=== PATIENT | female | born 1995 | race Caucasian/White ===

== ENCOUNTER 2016-03-07 12:59 | Emergency (ER) | payer OTHER ==
[2016-03-07] MEDS ORDERED: IBUPROFEN 800 MG TAB PO STA (13:15)
[2016-03-07 13:18] VITALS: BP 121/68; PULSE 102; RESP 18; TEMP 98
--- NOTE | 2016-03-07 13:32 | ED ---
Upper Extremity HPI - General Stated Complaint: Hand Injury Time Seen by Provider: 03/07/16 13:07 Source: patient Mode of arrival: ambulatory Limitations: no limitations - History of Present Illness Initial Comments: Patient is a 20-year-old white female presenting to the emergency department with complaints of right wrist and hand pain. Patient states she was angry and hit a wall. Onset of injury approximately one hour prior to arrival. Patient states that she injured her wrist approximately 4 years ago but denies history of fractures. Complaint: Injury to:: right, wrist, hand Other Injuries: none Handedness: right Place: home Severity scale (1-10): 10 (Patient complains of sharp pain primarily to lateral aspect of right hand and wrist.) Improves With: rest Worsens With: movement of extremity Context: other Associated Symptoms: numbness (Patient complains of mild numbness to right ring and little finger.) - Related Data Home Medications Medication Instructions Recorded Confirmed No Known Home Medications [No 10/09/15 03/07/16 Known Home Medications] Allergies Allergy/AdvReac Type Severity Reaction Status Date / Time diphenhydramine HCl Allergy Mild Rash/Hives Verified 03/07/16 13:17 [From Benadryl] Review of Systems ROS Statement: Those systems with pertinent positive or pertinent negative responses have been documented in the HPI. ROS Other: All systems not noted in ROS Statement are negative. Past Medical History Past Medical History: Pneumonia Additional Past Medical History / Comment(s): Back pain, SHINGLES History of Any Multi-Drug Resistant Organisms: None Reported Past Surgical History: No Surgical Hx Reported Additional Past Surgical History / Comment(s): D&C Past Anesthesia/Blood Transfusion Reactions: No Reported Reaction Past Psychological History: Anxiety, Bipolar, Depression Additional Psychological History / Comment(s): NO MEDS CURRENTLY Smoking Status: Current every day smoker Past Alcohol Use History: None Reported Additional Past Alcohol Use History / Comment(s): She is a smoker of 8-10 cigarettes per day since she was 16 years old she denies any marijuana, medical marijuana or street drug use. She denies any alcohol use. Past Drug Use History: None Reported - Past Family History Father Family Medical History: Coronary Artery Disease (CAD) Additional Family Medical History / Comment(s): She states she never met her father. Mother Family Medical History: Congestive Heart Failure (CHF), Coronary Artery Disease (CAD) Additional Family Medical History / Comment(s): Mother is alive at age 39 and has problems with heart failure. Sister(s) Family Medical History: Coronary Artery Disease (CAD) Additional Family Medical History / Comment(s): Patient states that she has 5/2 sisters and one has from cervical palsy at age 15. She has 1 older sister that has schizophrenia and bipolar. Patient states that she has 11 half- brothers and one has passed. General Exam Limitations: no limitations General appearance: alert, in no apparent distress Head exam: Present: atraumatic, normocephalic, normal inspection Eye exam: Present: normal appearance Respiratory exam: Present: normal lung sounds bilaterally. Absent: respiratory distress, wheezes, rales, rhonchi, stridor Cardiovascular Exam: Present: tachycardia, normal heart sounds GI/Abdominal exam: Present: soft, normal bowel sounds. Absent: tenderness Right Elbow exam: Present: normal inspection, full ROM. Absent: tenderness, swelling Forearm Wrist exam: Present: normal inspection, full ROM (Painful), tenderness ( Tenderness to lateral aspect of right wrist) Hand Wrist exam: Present: tenderness, swelling. Absent: full ROM (Secondary to pain), ecchymosis, deformity Neuro motor exam: Present: wrist extension intact, thumb opposition intact, thumb IP flexion intact, thumb adduction intact, fingers 2-5 abduction intact Neurosensory exam: Present: 2-point discrimination, radial nerve intact, ulnar nerve intact, median nerve intact Vascular: Present: normal capillary refill, radial pulse, brachial pulse, ulnar pulse. Absent: vascular compromise Neurological exam: Present: alert, oriented X3, CN II-XII intact, normal gait Psychiatric exam: Present: normal affect, normal mood Skin exam: Present: warm, dry, intact, normal color Course Vital Signs 03/07/16 13:15 Temperature 98.0 F Pulse Rate 102 H Respiratory 18 Rate Blood Pressure 121/68 O2 Sat by Pulse 99 Oximetry Medical Decision Making - Medical Decision Making Patient is a 20-year-old female presenting with left hand and wrist pain. Patient left AGAINST MEDICAL ADVICE prior to definitive diagnosis. Disposition Clinical Impression: Left wrist pain Disposition: Left Against Medical Advice Referrals: Bobby Riley MD [Primary Care Provider] - 1-2 days
--- NOTE | 2016-03-07 15:20 | XR ---
Left wrist HISTORY: Trauma and pain 4 views of the left wrist, no comparisons Bone mineralization, joint spaces and alignment are maintained. IMPRESSION: No fracture or dislocation is evident.
--- NOTE | 2016-03-07 15:43 | XR ---
Addendum: Exam is of the right wrist. HISTORY: Pain 4 views of the right wrist submitted. Bone mineralization, joint spaces and alignment are maintained. IMPRESSION: No evident fracture or dislocation of the right wrist. Follow-up as indicated.
== END 2016-03-07 15:20 | disposition left against medical advice (07) ==
LOC: EC 12:59
DX: M25.531 Pain in right wrist (principal); F17.210 Nicotine dependence, cigarettes, uncomplicated; Z88.8 Allergy status to other drugs, medicaments and biological substances
CPT/HCPCS: 99283

== ENCOUNTER 2016-03-25 00:05 | Emergency (ER) | payer OTHER ==
--- NOTE | 2016-03-25 01:03 | XR ---
EXAMINATION TYPE: XR chest 2V DATE OF EXAM: 03/25/2016 12:59 AM COMPARISON: 10/09/2015 HISTORY: Cough TECHNIQUE: Frontal and lateral views of the chest are obtained. FINDINGS: Heart and mediastinum are normal. Lungs are clear. Diaphragm is normal. Bony thorax is int act. IMPRESSION: Normal chest. No change.
--- NOTE | 2016-03-25 01:41 | ED ---
URI HPI - General Chief Complaint: Upper Respiratory Infection Stated Complaint: poss pneumonia Time Seen by Provider: 03/25/16 00:13 Source: patient Mode of arrival: ambulatory Limitations: no limitations - History of Present Illness Initial Comments: This patient is a 20-year-old woman who complains of 2 days of worsening cough, congestion, body aches, and substernal burning when she does cough. She is concerned because she had similar symptoms when she had pneumonia. Patient currently is denying dyspnea. MD Complaint: cough, rhinorrhea -: days(s) Severity: moderate Quality: burning Consistency: other (With cough) Improves With: nothing Associated Symptoms: fever, chills, headache, sore throat, cough, chest pain - Related Data Previous Rx's Medication Instructions Recorded Albuterol Inhaler [Ventolin Hfa 1 - 2 puff INHALATION Q6HR PRN #1 03/25/16 Inhaler] inhaler Oseltamivir [Tamiflu] 75 mg PO Q12HR #10 cap 03/25/16 Allergies Allergy/AdvReac Type Severity Reaction Status Date / Time diphenhydramine HCl Allergy Mild Rash/Hives Verified 03/25/16 00:22 [From Benadryl] Review of Systems ROS Statement: Those systems with pertinent positive or pertinent negative responses have been documented in the HPI. ROS Other: All systems not noted in ROS Statement are negative. Constitutional: Reports: fever, chills ENT: Reports: throat pain, congestion Respiratory: Reports: cough. Denies: dyspnea, wheezes, hemoptysis Cardiovascular: Reports: chest pain (Substernal burning with cough). Denies: orthopnea, edema Gastrointestinal: Denies: vomiting, diarrhea Genitourinary: Denies: dysuria Musculoskeletal: Denies: back pain Skin: Denies: rash Neurological: Reports: headache. Denies: weakness, numbness Past Medical History Past Medical History: Pneumonia Additional Past Medical History / Comment(s): Back pain, SHINGLES History of Any Multi-Drug Resistant Organisms: None Reported Past Surgical History: No Surgical Hx Reported Additional Past Surgical History / Comment(s): D&C Past Anesthesia/Blood Transfusion Reactions: No Reported Reaction Past Psychological History: Anxiety, Bipolar, Depression Additional Psychological History / Comment(s): NO MEDS CURRENTLY Smoking Status: Current every day smoker Past Alcohol Use History: None Reported Additional Past Alcohol Use History / Comment(s): She is a smoker of 8-10 cigarettes per day since she was 16 years old she denies any marijuana, medical marijuana or street drug use. She denies any alcohol use. Past Drug Use History: None Reported - Past Family History Father Family Medical History: Coronary Artery Disease (CAD) Additional Family Medical History / Comment(s): She states she never met her father. Mother Family Medical History: Congestive Heart Failure (CHF), Coronary Artery Disease (CAD) Additional Family Medical History / Comment(s): Mother is alive at age 39 and has problems with heart failure. Sister(s) Family Medical History: Coronary Artery Disease (CAD) Additional Family Medical History / Comment(s): Patient states that she has 5/2 sisters and one has from cervical palsy at age 15. She has 1 older sister that has schizophrenia and bipolar. Patient states that she has 11 half- brothers and one has passed. General Exam Limitations: no limitations General appearance: alert, in no apparent distress Head exam: Present: atraumatic, normocephalic Eye exam: Present: normal appearance. Absent: scleral icterus, conjunctival injection ENT exam: Present: normal oropharynx, mucous membranes moist, TM's normal bilaterally Neck exam: Present: normal inspection, full ROM. Absent: tenderness, meningismus Respiratory exam: Present: normal lung sounds bilaterally, other (Patient is having frequent bronchitic cough). Absent: respiratory distress, wheezes, rales , rhonchi, stridor Cardiovascular Exam: Present: normal rhythm, tachycardia, normal heart sounds. Absent: systolic murmur, diastolic murmur, rubs GI/Abdominal exam: Present: soft. Absent: distended, tenderness, guarding, rebound Extremities exam: Present: normal inspection, normal capillary refill. Absent: pedal edema, calf tenderness Neurological exam: Present: alert Skin exam: Present: warm, dry, intact, normal color. Absent: rash Course Vital Signs 03/25/16 03/25/16 03/25/16 00:22 00:30 01:50 Temperature 98.3 F 98.2 F Pulse Rate 132 H 120 H Respiratory 18 20 20 Rate Blood Pressure 158/90 134/89 O2 Sat by Pulse 97 98 Oximetry 03/25/16 03/25/16 01:58 02:06 Temperature Pulse Rate 84 80 Respiratory Rate Blood Pressure O2 Sat by Pulse Oximetry Medical Decision Making - Lab Data Lab Results 03/25/16 Range/Units 00:44 Influenza Type A RNA Detected H (Not Detectd) Influenza Type B (PCR) Not Detected (Not Detectd) Disposition Clinical Impression: Influenza Disposition: HOME SELF-CARE Condition: Fair Instructions: Influenza (ED) Prescriptions: Albuterol Inhaler [Ventolin Hfa Inhaler] 1 - 2 puff INHALATION Q6HR PRN #1 inhaler PRN Reason: Wheezing Oseltamivir [Tamiflu] 75 mg PO Q12HR #10 cap Referrals: Bobby Riley MD [Primary Care Provider] - 1-2 days
[2016-03-25] MEDS ORDERED: ALBUTEROL NEBULIZED 2.5 MG/3 ML INHALATION STA (01:50)
[2016-03-25 01:53] VITALS: BP 134/89; RESP 20; TEMP 98.2
[2016-03-25 02:06] VITALS: PULSE 80
== END 2016-03-25 02:06 | disposition home or self-care (01) ==
LOC: EC 00:05
DX: J11.1 Influenza due to unidentified influenza virus with other respiratory manifestations (principal); Z87.01 Personal history of pneumonia (recurrent); Z88.8 Allergy status to other drugs, medicaments and biological substances; F17.210 Nicotine dependence, cigarettes, uncomplicated
CPT/HCPCS: 71020; 87502; 94640; 99284

== ENCOUNTER 2017-07-09 21:14 | Emergency (ER) | payer OTHER ==
--- NOTE | 2017-07-09 21:58 | ED ---
Abdominal Pain HPI - General Chief Complaint: Abdominal Pain Stated Complaint: Abd pain Time Seen by Provider: 07/09/17 21:44 Source: patient, family, RN notes reviewed Mode of arrival: ambulatory Limitations: no limitations - History of Present Illness Initial Comments: This is a 21-year-old female, currently 18 weeks , who presents to the emergency department with chief complaint of abdominal pain. Patient states that at approximately 9 PM this evening she was hanging out in her backyard. She states that some neighbor guys were cutting wood with a chain saw. She states that a piece of wood flew and hit her in the abdomen. She states that since then she has had a dull, pressure-like abdominal pain. She states that she has a "high risk ." She states that on her last ultrasound her OB/ CHEMISTRY QUALITY CONTROL ANALYST, Dr. Silver, "found something." She states she has yet to learn what it is that makes her a high risk . Patient denies any vaginal bleeding or discharge. Denies fevers or chills, nausea or vomiting, diarrhea or constipation. Denies any other injuries or trauma. - Related Data Previous Rx's Medication Instructions Recorded Albuterol Inhaler [Ventolin Hfa 1 - 2 puff INHALATION Q6HR PRN #1 03/25/16 Inhaler] inhaler Allergies Allergy/AdvReac Type Severity Reaction Status Date / Time diphenhydramine HCl Allergy Mild Rash/Hives Verified 07/09/17 21:26 [From Benadryl] Review of Systems ROS Statement: Those systems with pertinent positive or pertinent negative responses have been documented in the HPI. ROS Other: All systems not noted in ROS Statement are negative. Past Medical History Past Medical History: Pneumonia Additional Past Medical History / Comment(s): Back pain, SHINGLES History of Any Multi-Drug Resistant Organisms: None Reported Past Surgical History: No Surgical Hx Reported Additional Past Surgical History / Comment(s): D&C Past Anesthesia/Blood Transfusion Reactions: No Reported Reaction Past Psychological History: Anxiety, Bipolar, Depression Smoking Status: Current every day smoker Past Alcohol Use History: None Reported Past Drug Use History: None Reported - Past Family History Father Family Medical History: Coronary Artery Disease (CAD) Additional Family Medical History / Comment(s): She states she never met her father. Mother Family Medical History: Congestive Heart Failure (CHF), Coronary Artery Disease (CAD) Additional Family Medical History / Comment(s): Mother is alive at age 39 and has problems with heart failure. Sister(s) Family Medical History: Coronary Artery Disease (CAD) Additional Family Medical History / Comment(s): Patient states that she has 5/2 sisters and one has from cervical palsy at age 15. She has 1 older sister that has schizophrenia and bipolar. Patient states that she has 11 half- brothers and one has passed. General Exam - General Exam Comments Initial Comments: General: Awake and alert, well-developed; in no apparent distress. HEENT: Head atraumatic, normocephalic. Pupils are equal, round and reactive to light. Extraocular movements intact. Oropharynx moist without erythema or exudate. Neck: Supple. Normal ROM. Cardiovascular: Regular rate and rhythm. No murmurs, rubs or gallops. Chest symmetrical. Respiratory: Lungs clear to auscultation bilaterally. No wheezes, rales or rhonchi. Normal respiratory effort with no use of accessory muscles. Abdomen: Soft, non-distended. Tenderness on palpation of mid abdomen. There is a small circular contusion noted upper left periumbilical region. No rigidity, rebound or guarding. Musculoskeletal: Normal ROM, no tenderness bilateral upper and lower extremities. Skin: [place], warm and dry without rashes or lesions. Neurological: Alert and oriented x3. CN II-XII grossly intact. Speech is fluent and answers are appropriate. No focal neuro deficits. Psychiatric: Normal mood and affect. No overt signs of depression or anxiety noted. Limitations: no limitations Course Vital Signs 07/09/17 21:23 Temperature 98.6 F Pulse Rate 100 Respiratory 20 Rate Blood Pressure 134/78 O2 Sat by Pulse 99 Oximetry Medical Decision Making - Medical Decision Making This is a 21-year-old female, currently 18 weeks , who presented to the emergency department for evaluation of abdominal pain. Patient was hit in the abdomen with a flying piece of wood prior to arrival. She complains of dull, pressure-like abdominal pain. ultrasound was obtained and revealed a viable IUP at 17 weeks 5 days. CBC, CMP and UA were unremarkable. Patient's vital signs are stable and she is in no acute distress. She will be discharged with this time. Recommended following up with her primary care provider and OB/ CHEMISTRY QUALITY CONTROL ANALYST within 1-2 days. Patient is in agreement with plan and voices understanding. All questions answered. - Lab Data Result diagrams: 07/09/17 21:37 07/09/17 21:37 Lab Results 07/09/17 07/09/17 07/09/17 Range/Units 21:37 21:37 21:37 WBC 14.7 H (3.8-10.6) k/uL RBC 4.37 (3.80-5.40) m/uL Hgb 12.4 (11.4-16.0) gm/dL Hct 35.6 (34.0-46.0) % MCV 81.5 (80.0-100.0) fL MCH 28.4 (25.0-35.0) pg MCHC 34.9 (31.0-37.0) g/dL RDW 14.2 (11.5-15.5) % Plt Count 189 (150-450) k/uL Neutrophils % 74 % Lymphocytes % 16 % Monocytes % 6 % Eosinophils % 2 % Basophils % 0 % Neutrophils # 10.9 H (1.3-7.7) k/uL Lymphocytes # 2.4 (1.0-4.8) k/uL Monocytes # 0.9 (0-1.0) k/uL Eosinophils # 0.2 (0-0.7) k/uL Basophils # 0.0 (0-0.2) k/uL Sodium 139 (137-145) mmol/L Potassium 3.8 (3.5-5.1) mmol/L Chloride 107 (98-107) mmol/L Carbon Dioxide 21 L (22-30) mmol/L Anion Gap 11 mmol/L BUN 13 (7-17) mg/dL Creatinine 0.60 (0.52-1.04) mg/dL Est GFR (CKD-EPI)AfAm >90 (>60 ml/min/1.73 sqM) Est GFR (CKD-EPI)NonAf >90 (>60 ml/min/1.73 sqM) Glucose 92 (74-99) mg/dL Calcium 9.1 (8.4-10.2) mg/dL Total Bilirubin 0.1 L (0.2-1.3) mg/dL AST 17 (14-36) U/L ALT 33 (9-52) U/L Alkaline Phosphatase 73 (38-126) U/L Total Protein 5.9 L (6.3-8.2) g/dL Albumin 3.2 L (3.5-5.0) g/dL HCG, Quant 60586.7 mIU/mL Urine Color Yellow Urine Appearance Cloudy H (Clear) Urine pH 6.0 (5.0-8.0) Ur Specific [place] 1.025 (1.001-1.035) Urine Protein Trace H (Negative) Urine Glucose (UA) Negative (Negative) Urine Ketones Negative (Negative) Urine Blood Negative (Negative) Urine Nitrite Negative (Negative) Urine Bilirubin Negative (Negative) Urine Urobilinogen <2.0 (<2.0) mg/dL Ur Leukocyte Esterase Negative (Negative) Urine RBC 2 (0-5) /hpf Urine WBC 2 (0-5) /hpf Ur Squamous Epith Cells 10 H (0-4) /hpf Urine Mucus Rare H (None) /hpf - Radiology Data Radiology results: report reviewed ultrasound impression: The ultrasound gestational age is 17 weeks 5 days. JOHN is 12/12/2017. No complicating process seen. Disposition Clinical Impression: Abdominal pain affecting Disposition: HOME SELF-CARE Condition: Good Instructions: Abdominal Pain in (ED) Additional Instructions: Please follow-up with your [employer] within 1-2 days. Please follow up with primary care provider within 1-2 days. Return to emergency department if symptoms should worsen or any concerns arise. Is patient prescribed a controlled substance at d/c from ED?: No Referrals: None,Stated [Primary Care Provider] - 1-2 days Time of Disposition: 23:41
[2017-07-09 22:04] LABS: Basophils % (A) 0 %; Eosinophils # (A) 0.2 k/uL (0-0.7); Eosinophils % (A) 2 %; HCT 35.6 % (34.0-46.0); HGB 12.4 gm/dL (11.4-16.0); Lymphocytes # (A) 2.4 k/uL (1.0-4.8); Lymphocytes % (A) 16 %; MCH 28.4 pg (25.0-35.0); MCHC 34.9 g/dL (31.0-37.0); MCV 81.5 fL (80.0-100.0); Mean Platelet Volume 8.1; Monocytes # (A) 0.9 k/uL (0-1.0); Monocytes % (A) 6 %; Neutrophils # (A) 10.9 k/uL (1.3-7.7); Neutrophils % (A) 74 %; Platelet Count 189 k/uL (150-450); RBC 4.37 m/uL (3.80-5.40); RDW 14.2 % (11.5-15.5); WBC 14.7 k/uL (3.8-10.6)
[2017-07-09 22:09] LABS: Appearance,Urine Cloudy (Clear); Bilirubin,Urine Negative (Negative); Blood,Urine Negative (Negative); Color,Urine Yellow; Glucose,Urine (UA) Negative (Negative); Ketones,Urine Negative (Negative); Leukocyte Esterase,Urine Negative (Negative); Mucus,Urine Rare /hpf; Nitrite,Urine Negative (Negative); Protein,Urine Trace (Negative); RBC,Urine 2 /hpf (0-5); Specific Gravity,Urine 1.025 (1.001-1.035); Squamous Epithelial Cell,Urine 10 /hpf (0-4); Urobilinogen,Urine <2.0 mg/dL (<2.0); WBC,Urine 2 /hpf (0-5)
[2017-07-09 22:13] LABS: ALT 33 U/L (9-52); AST 17 U/L (14-36); Albumin 3.2 g/dL (3.5-5.0); Alkaline Phosphatase 73 U/L (38-126); Anion Gap 11 mmol/L; Blood Urea Nitrogen 13 mg/dL (7-17); Calcium 9.1 mg/dL (8.4-10.2); Carbon Dioxide 21 mmol/L (22-30); Chloride 107 mmol/L (98-107); Glucose 92 mg/dL (74-99); Potassium 3.8 mmol/L (3.5-5.1); Sodium 139 mmol/L (137-145); Total Bilirubin 0.1 mg/dL (0.2-1.3); Total Protein 5.9 g/dL (6.3-8.2)
[2017-07-09 22:57] LABS: HCG,Quantitative Serum 21033.7 mIU/mL
--- NOTE | 2017-07-09 23:29 | US ---
EXAMINATION TYPE: US OB >= 14 wk fetus DATE OF EXAM: 07/09/2017 COMPARISON: None CLINICAL HISTORY: Trauma to stomach with dull pain and pressure after TECHNIQUE: Transabdominal (TA) GESTATIONAL AGE / DATING Physician Established: (17 weeks/5 days) EDC: 12/12/2017 Dates by LMP: 02/25/2017 (19 weeks/1 days) EDC: 12/02/2017 Dates by First Scan: No previous this is first scan Dates by Current Scan: (17 weeks/5 days) EDC: 12/12/2017 Beta HCG (if available): Not available at this time SURVEY IUP: Single PLACENTA: Posterior PREVIA: No Previa DWIGHT: 12.7 cm Normal CERVICAL LENGTH (transabdominal: norm > 3.0cm): 3.7` cm BIOMETRY PRESENTATION: Vertex LIE: Longitudinal BPD: 3.9 cm 17 weeks / 6 days HC: 14.5 cm 17 weeks / 5 days AC: 12.2 cm 17 weeks / 6 days FL: 2.6 cm 17 weeks / 6 days ESTIMATED WEIGHT IN GRAMS: 211.3 grams ESTIMATED WEIGHT IN LBS/OZ: 0 lbs. 7 oz. WEIGHT PERCENTAGE BASED ON ESTABLISHED DATES: 51.5% HC/AC: 1.2 1.1-1.3 FL/AC: 21.2 HEART RATE: 147 bpm RHYTHM: Normal IMPRESSION: The ultrasound gestational age is 17 weeks 5 days. The JOHN is 12/12/2017. No complicating process see n.
[2017-07-09 23:51] VITALS: BP 146/75; PULSE 98; RESP 18; TEMP 98.2
== END 2017-07-09 23:55 | disposition home or self-care (01) ==
LOC: EC 21:14
DX: O9A.211 Injury, poisoning and certain other consequences of external causes complicating pregnancy, first trimester (principal); S30.1XXA Contusion of abdominal wall, initial encounter; O99.331 Smoking (tobacco) complicating pregnancy, first trimester; F17.200 Nicotine dependence, unspecified, uncomplicated; Z3A.18 18 weeks gestation of pregnancy; Z88.8 Allergy status to other drugs, medicaments and biological substances; W22.8XXA Striking against or struck by other objects, initial encounter; Y92.096 Garden or yard of other non-institutional residence as the place of occurrence of the external cause
CPT/HCPCS: 36415; 76805; 80053; 81001; 84702; 85025; 87086; 99284

== ENCOUNTER 2017-10-01 23:40 | Outpatient (CLI) | payer OTHER ==
[2017-10-02 01:22] VITALS: BP 114/87; PULSE 111; RESP 18; TEMP 98.1
--- NOTE | 2017-10-02 07:52 | P.MSEPDOC ---
Presenting Problems - Arrival Data Date of Arrival on Unit: 10/01/17 Time of Arrival on Unit: 23:35 Mode of Transport: Wheelchair - Complaint OB-Reason for Admission/Chief Complaint: Possible Onset of Labor Comment: 4 cntrx in 30 mins, an hour before coming to tr Medical History - Information : 6 Para: 1 Term: 0 : 1 Abortions: Spontaneous or Elective: 4 Number of Living Children: 1 - Gestational Age Gestational Age by JOHN (wks/days): 29 Weeks and 6 Days - History Complications: Placenta Previa, Smoker Comment: low lying placenta. needing progesterone shots, seeing MFM biweekly Review of Systems - Review of Systems Constitutional: No problems Breast: No problems ENT: No problems Cardiovascular: No problems Respiratory: No problems Gastrointestinal: No problems Genitourinary: No problems Musculoskeletal: No problems Neurological: No problems Skin: No problems Vital Signs - Temperature Temperature: 98.1 F Temperature Source: Oral - Pulse Right Pulse Rate: 111 Pulse Assessment Method: Pulse Oximetry - Respirations Respiratory Rate: 18 O2 Sat by Pulse Oximetry: 96 - Blood Pressure Right Arm Blood Pressure: 114/87 Blood Pressure Mean: 96 Blood Pressure Source: Automatic Cuff Medical Screen Scoring (Pre) - Cervical Exam Dilation: Exam Deferred Effacement: Exam Deferred - Uterine Contractions Frequency: N/A Duration: N/A Intensity: N/A - Maternal Vital Signs Maternal Temperature: N/A Signs of Preeclampsia: N/A Maternal Respirations: N/A - Assessment Baseline FHR: 130 Heart Rate - NICHD Category: Category I (Normal) = 0 - Total Score Total Score (Pre): 0 Physician Notification (Pre) - Physician Notified Physician Notified Date: 10/02/17 Physician Notified Time: 00:28 Physician/Practitioner Notifed:: Dr Headley - Notification Comment Comment: reported on pts c/o a few cntrx an hour before being in tr, no bleeding or leaking. reported on hx of delivery, low lying placenta with this delivery. reported on no reactive strip at this time due to maternal position, size, activity, and RN is frequently repositioning monitor. orders to obtain reactive NST, collect ffn, check cervix. if closed, do not send ffn and d /c home with instructions of: pelvic rest, call tuesday for progresterone shot, see MFM as scheduled, smoking cessation. if dilated call for further orders Disposition - Disposition OB Disposition: Discharge to home Discharge Date: 10/02/17 Discharge Time: 01:05 I agree with the RN Medical Screening Exam: Yes Risk & Benefit of care provided described in d/c instruction: Yes Diagnosis: FALSE LABOR BEFORE 37 COMPLETED WEEKS OF GEST, THIRD TRI
== END 2017-10-02 01:05 | disposition home or self-care (01) ==
LOC: FBPOP 23:40
PROVIDERS: ATTEND Obstetrics & Gynecology
DX: O47.03 False labor before 37 completed weeks of gestation, third trimester (principal); Z3A.29 29 weeks gestation of pregnancy
CPT/HCPCS: 59025; G0463; 99213

== ENCOUNTER 2017-10-28 13:57 | Outpatient (CLI) | payer OTHER ==
[2017-10-28 16:24] VITALS: BP 129/62; PULSE 108; RESP 16; TEMP 98
--- NOTE | 2017-10-30 09:23 | P.MSEPDOC ---
Presenting Problems - Arrival Data Date of Arrival on Unit: 10/28/17 Time of Arrival on Unit: 13:57 Mode of Transport: Ambulatory - Complaint OB-Reason for Admission/Chief Complaint: NST Medical History - Information : 6 Para: 1 Term: 0 : 1 Abortions: Spontaneous or Elective: 4 Number of Living Children: 1 - Gestational Age Gestational Age by JOHN (wks/days): 33 Weeks and 4 Days - History Complications: Prior Review of Systems - Review of Systems Constitutional: No problems Breast: No problems ENT: No problems Cardiovascular: No problems Respiratory: No problems Gastrointestinal: No problems Genitourinary: No problems Musculoskeletal: No problems Neurological: No problems Skin: No problems Vital Signs - Temperature Temperature: 98.0 F Temperature Source: Oral - Pulse Right Brachial Pulse Rate: 108 Pulse Assessment Method: Automatic Cuff - Respirations Respiratory Rate: 16 Oxygen Delivery Method: Room Air - Blood Pressure Right Arm Blood Pressure: 129/62 Blood Pressure Mean: 84 Blood Pressure Source: Automatic Cuff Medical Screen Scoring (Pre) - Cervical Exam Membranes: Intact - Uterine Contractions Frequency: > 5 minutes apart = 1 Duration: N/A Intensity: N/A - Maternal Vital Signs Maternal Temperature: N/A Maternal Blood Pressure: N/A Signs of Preeclampsia: N/A Maternal Respirations: N/A - Pain Assessment Pain Location and Character: Abdomen Pain Scale Used: Numeric (1 - 10) Pain Intensity: 8 Pain Management Goal: 2 Pain Description: *Acute, Cramping Pain Radiation Location: na Pain Frequency: Intermittent Pain Duration: 2 Pain Duration Units: Minutes Pain Behavior: Vocalization Pain Aggravating Factors: None Non-Pharmacological Interventions: Relaxation Technique - Maternal Trauma Maternal Trauma: N/A - Assessment Baseline FHR: 135 Heart Rate - NICHD Category: Category I (Normal) = 0 NST: Reactive Position: N/A Station: N/A - Total Score Total Score (Pre): 1 - Level of Risk Level of Risk: Low (0-5) Physician Notification (Pre) - Physician Notified Physician Notified Date: 10/28/17 Physician Notified Time: 15:09 Physician/Practitioner Notifed:: Dr. Khan Spoke With: Dr. Khan New Order Received: Yes - Notification Comment Comment: monitor for another hour Medical Screen Scoring (Post) - Cervical Exam Dilation: 1-3 cm = 1 Effacement: More than 50% = 2 Membranes: Intact - Uterine Contractions Frequency: N/A Duration: N/A Intensity: N/A - Maternal Vital Signs Maternal Temperature: N/A Maternal Blood Pressure: N/A Signs of Preeclampsia: N/A Maternal Respirations: N/A - Maternal Trauma Maternal Trauma: N/A - Assessment Heart Rate: 135 Heart Rate - NICHD Category: Category I (Normal) = 0 NST: Reactive Position: N/A Station: N/A - Total Score Total Score (Post): 3 - Post Treatment Level of Risk Post Treatment Level of Risk: Low (0-5) Physician Notification (Post) - Physician Notified Physician Notified Date: 10/28/17 Physician Notified Time: 16:35 Physician/Practitioner Notified:: Dr. Khan Spoke With: Dr. Khan New Order Received: Yes - Notification Comment Comment: orders to send home Disposition - Disposition OB Disposition: Discharge to home Discharge Date: 10/28/17 Discharge Time: 16:36 I agree with the RN Medical Screening Exam: Yes Risk & Benefit of care provided described in d/c instruction: Yes Diagnosis: FALSE LABOR BEFORE 37 COMPLETED WEEKS OF GEST, THIRD TRI
== END 2017-10-28 16:39 | disposition home or self-care (01) ==
LOC: FBPOP 13:57
PROVIDERS: ATTEND Obstetrics & Gynecology
DX: O47.03 False labor before 37 completed weeks of gestation, third trimester (principal); Z3A.33 33 weeks gestation of pregnancy
CPT/HCPCS: 99213

== ENCOUNTER 2018-01-15 09:45 | Emergency (ER) | payer OTHER ==
[2018-01-15 09:52] VITALS: BP 123/83; PULSE 90; RESP 16; TEMP 98.4
--- NOTE | 2018-01-15 09:58 | ED ---
Abdominal Pain HPI <Sandeep Flanagan - Last Filed: 01/15/18 11:36> - General Source: patient Mode of arrival: wheelchair Limitations: no limitations <Toshia Reza - Last Filed: 01/15/18 16:15> - General Chief Complaint: Abdominal Pain Stated Complaint: Abdominal Pain Time Seen by Provider: 01/15/18 09:56 - History of Present Illness Initial Comments: 22-year-old female no past medical history presenting today for chief complaint of right upper quadrant pain 4 days. Pt was seen here 01/13 and was told she had gall stones and would need admission for acute cholecystitis. Pt however refused admission stating she had a child at home, she left with surgical f/u on Tuesday. She was told to come back if symptoms worsened. Patient states that she is experiencing upper quadrant pain for the past 4 days, she noticed increased pain with eating for drinking any liquids. In addition patient states that she has felt warm and had chills. Patient states that she has had diarrhea with the onset of symptoms. Denies hematochezia, vomiting, hematemesis , melena. Patient states the last time she had something to eat was at 11PM last night. Pt does admit to mild back pain. Pt denies confusion. Upon arrival pt AAOx4. VS within normal limits afebrile, normotensive. Remainder of ROS (-), patient denies any recent shortness of breath, chest pain,nausea or vomiting, numbness or tingling, dysuria or hematuria, constipation, headaches or visual changes, or any other complaints. (Toshia Reza) - Related Data Home Medications Medication Instructions Recorded Confirmed No Known Home Medications 01/15/18 01/15/18 Allergies Allergy/AdvReac Type Severity Reaction Status Date / Time diphenhydramine Allergy Anaphylaxis Verified 01/15/18 13:19 [From Benadryl] tomato AdvReac Anaphylaxis Verified 01/15/18 13:19 Review of Systems ROS Other: All systems not noted in ROS Statement are negative. <Sandeep Flanagan - Last Filed: 01/15/18 11:36> ROS Other: All systems not noted in ROS Statement are negative. Constitutional: Reports: fever, chills ENT: Denies: ear pain, throat pain Respiratory: Denies: cough, dyspnea, wheezes, hemoptysis, stridor Cardiovascular: Denies: chest pain, palpitations, dyspnea on exertion Gastrointestinal: Reports: abdominal pain, nausea, diarrhea. Denies: vomiting, constipation, hematemesis, melena, hematochezia Genitourinary: Denies: urgency, dysuria, frequency Musculoskeletal: Reports: back pain Skin: Denies: rash, lesions Neurological: Denies: headache, weakness, numbness, paresthesias, confusion <LibiaToshia L - Last Filed: 01/15/18 16:15> ROS Statement: Those systems with pertinent positive or pertinent negative responses have been documented in the HPI. 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 She has been seeing Dr. Khan since the first trimester. History of Any Multi-Drug Resistant Organisms: None Reported Additional Past Surgical History / Comment(s): D&C x 3 Past Anesthesia/Blood Transfusion Reactions: No Reported Reaction Past Psychological History: No Psychological Hx Reported Smoking Status: Current every day smoker Past Alcohol Use History: None Reported Past Drug Use History: None Reported - Past Family History Father History Unknown: Yes Family Medical History: Cancer Mother History Unknown: Yes Family Medical History: Congestive Heart Failure (CHF) <Toshia Reza - Last Filed: 01/15/18 16:15> General Exam <Sandeep Flanagan - Last Filed: 01/15/18 11:36> Limitations: no limitations <Toshia Reza - Last Filed: 01/15/18 16:15> - General Exam Comments Initial Comments: General: The patient is awake and alert, in no distress, and does not appear acutely ill. Eye: Pupils are equal, round and reactive to light, extra-ocular movements are intact. No nystagmus. There is normal conjunctiva bilaterally. No signs of icterus. Ears, nose, mouth and throat: There are moist mucous membranes and no oral lesions. Neck: The neck is supple, there is no tenderness or JVD. Cardiovascular: There is a regular rate and rhythm. No murmur, rub or gallop is appreciated. Respiratory: Lungs are clear to auscultation, respirations are non-labored, breath sounds are equal. No wheezes, stridor, rales, or rhonchi. Gastrointestinal: No noted diaphoresis, jaundice, pallor, protecting postures or squirming. Symmetrical pigmentation of abdomen without signs of inflammation, scars. Striae on abdomen. Umbilicus mildline, inverted without swelling. No dilated veins. Abdomen contour obese, no noted abdominal distention. No visible masses. No peristalsis, aortic pulsations, or ventral hernia. Bowel sounds audible in all 4 quadrants, unremarkable. No friction rubs or venous hums. No epigastic, hepatic or abdominal bruits. Tenderness to light or deep palpation of the RUQ/ epigastric region remainder of abdominal exam no pain to palpation deep/light. Liver edge, not palpable. Spleen edge, right and left kidney not palpable. Superior bladder margin non-tender. Special Testing: (+) murphys sign Negative Rovsing, McBurney, Polly, cutaneous hyperesthesia. Iliopsoas and obturator tests negative bilaterally. Negative Heel Jar test/scooter sign. No CVA tenderness. Digital rectal exam deferred. Negative cano turners or cullens sign Musculoskeletal: Normal ROM, no tenderness. Strength 5/5. Sensation intact. Pulses equal bilaterally 2+. Neurological: A&O x 3. CN II-XII intact, There are no obvious motor or sensory deficits. Coordination appears grossly intact. Speech is normal. Skin: Skin is warm and dry and no rashes or lesions are noted. Psychiatric: Cooperative, appropriate mood & affect, normal judgment. (Toshia Reza) Course <Sandeep Flanagan - Last Filed: 01/15/18 11:36> <Toshia Reza - Last Filed: 01/15/18 16:15> Vital Signs 01/15/18 09:46 Temperature 98.4 F Pulse Rate 90 Respiratory 16 Rate Blood Pressure 123/83 O2 Sat by Pulse 98 Oximetry - Reevaluation(s) Reevaluation #1: Pt evaluated by Dr. Verde who stated she will admit patient because pt states she cannot tolerate oral intake, otherwise exam/US stable. Pt states she can tolerate water/crackers. Pt states she needs to go home due to no sitter for daughter and cannot stay for admission. I called Dr. Verde to discussed patient wishes, who is comfortable with outpatient f/u and instructed patient to call the office first thing Tuesday. 01/15/18 (Toshia Reza) Medical Decision Making - Lab Data Result diagrams: 01/15/18 10:10 01/15/18 10:10 <Sandeep Flanagan - Last Filed: 01/15/18 11:36> - Lab Data Result diagrams: 01/15/18 10:10 01/15/18 10:10 <Toshia Reza - Last Filed: 01/15/18 16:15> - Medical Decision Making I, Bjorn Flanagan, personally saw and examined the patient. I have reviewed and agree with the PA findings, including all diagnostic interpretations and treatment plans as written unless otherwise stated. I was present for the klein portions of any procedures performed and the inclusive time noted for any critical care statement. (Sandeep Flanagan) Abdominal exam and noted above, right upper quadrant tenderness noted. Ultrasound reviewed from previous visit on January 13. Revealed gallstones. Patient ALT/AST remain stable. No increased bilirubin. No increase Alk Phos. Pt febrile, BP stable. Pt appears nontoxic. Pt refused admission, after being evaluated by Dr. Verde. Pt states she is tolerating water/crackers. I discussed pt noncompliance with Dr. Verde who is comfortable with outpatient scheduled surgery. Pt is to call Dr. Martinez office Tuesday, pt is agreeable with plan. Return parameters discussed at length with patient, who verbalized understanding. Patient discharged in stable condition after discussing case with Dr. Flanagan. (Toshia Reza) - Lab Data Lab Results 01/15/18 01/15/18 Range/Units 10:10 10:10 WBC 10.1 (3.8-10.6) k/uL RBC 4.97 (3.80-5.40) m/uL Hgb 13.5 (11.4-16.0) gm/dL Hct 40.0 (34.0-46.0) % MCV 80.6 (80.0-100.0) fL MCH 27.2 (25.0-35.0) pg MCHC 33.7 (31.0-37.0) g/dL RDW 14.3 (11.5-15.5) % Plt Count 204 (150-450) k/uL Neutrophils % 67 % Lymphocytes % 22 % Monocytes % 5 % Eosinophils % 3 % Basophils % 0 % Neutrophils # 6.7 (1.3-7.7) k/uL Lymphocytes # 2.2 (1.0-4.8) k/uL Monocytes # 0.5 (0-1.0) k/uL Eosinophils # 0.4 (0-0.7) k/uL Basophils # 0.0 (0-0.2) k/uL Sodium 139 (137-145) mmol/L Potassium 4.8 (3.5-5.1) mmol/L Chloride 110 H (98-107) mmol/L Carbon Dioxide 23 (22-30) mmol/L Anion Gap 6 mmol/L BUN 17 (7-17) mg/dL Creatinine 0.74 (0.52-1.04) mg/dL Est GFR (CKD-EPI)AfAm >90 (>60 ml/min/1.73 sqM) Est GFR (CKD-EPI)NonAf >90 (>60 ml/min/1.73 sqM) Glucose 124 H (74-99) mg/dL Calcium 8.9 (8.4-10.2) mg/dL Total Bilirubin 0.3 (0.2-1.3) mg/dL AST 44 H (14-36) U/L ALT 150 H (9-52) U/L Alkaline Phosphatase 88 (38-126) U/L Total Protein 6.4 (6.3-8.2) g/dL Albumin 3.4 L (3.5-5.0) g/dL Amylase 61 (30-110) U/L Lipase 99 (23-300) U/L Disposition <Sandeep Flanagan - Last Filed: 01/15/18 11:36> Is patient prescribed a controlled substance at d/c from ED?: No Time of Disposition: 11:32 Decision Date: 01/15/18 Decision Time: 11:32 <Toshia Reza - Last Filed: 01/15/18 16:15> Clinical Impression: Cholelithiasis, Cholecystitis Disposition: HOME SELF-CARE Condition: Good Instructions: Gallstones (ED) Additional Instructions: Follow up with Dr Verde on tomorrow - call office for appointment. Referrals: Ileana Verde DO [Doctor of Osteopathic Medicine] - 1 Week None,Stated [Primary Care Provider] - 1-2 days
[2018-01-15] MEDS ORDERED: SODIUM CHLORIDE 0.9% 1,000 ML IV ONE (10:08)
[2018-01-15 10:25] LABS: Basophils % (A) 0 %; Eosinophils # (A) 0.4 k/uL (0-0.7); Eosinophils % (A) 3 %; HGB 13.5 gm/dL (11.4-16.0); Lymphocytes # (A) 2.2 k/uL (1.0-4.8); Lymphocytes % (A) 22 %; MCH 27.2 pg (25.0-35.0); MCHC 33.7 g/dL (31.0-37.0); MCV 80.6 fL (80.0-100.0); Mean Platelet Volume 7.3; Monocytes # (A) 0.5 k/uL (0-1.0); Monocytes % (A) 5 %; Neutrophils # (A) 6.7 k/uL (1.3-7.7); Neutrophils % (A) 67 %; Platelet Count 204 k/uL (150-450); RBC 4.97 m/uL (3.80-5.40); RDW 14.3 % (11.5-15.5); WBC 10.1 k/uL (3.8-10.6)
[2018-01-15 10:35] LABS: ALT 150 U/L (9-52); AST 44 U/L (14-36); Albumin 3.4 g/dL (3.5-5.0); Alkaline Phosphatase 88 U/L (38-126); Amylase 61 U/L (30-110); Anion Gap 6 mmol/L; Blood Urea Nitrogen 17 mg/dL (7-17); Calcium 8.9 mg/dL (8.4-10.2); Carbon Dioxide 23 mmol/L (22-30); Chloride 110 mmol/L (98-107); Glucose 124 mg/dL (74-99); Lipase 99 U/L (23-300); Potassium 4.8 mmol/L (3.5-5.1); Sodium 139 mmol/L (137-145); Total Bilirubin 0.3 mg/dL (0.2-1.3); Total Protein 6.4 g/dL (6.3-8.2)
[2018-01-15] MEDS ORDERED: NALOXONE 0.4 MG/ML 1 ML VIAL IV PRN (11:50)
--- NOTE | 2018-01-15 12:26 | P.GSHP ---
History of Present Illness H&P Date: 01/15/18 Chief Complaint: Abdominal pain, nausea, vomiting The patient is a 22-year-old female who had sudden onset of abdominal pain in the epigastric and right upper quadrant about 4 days ago. She was here in the emergency department on the and was found to have cholelithiasis with minimal elevation of liver function tests. At that time she was offered admission in to see a surgeon but declined due to having a 2-month-old baby at home. She says since that time she's not been able to eat. I'll she is drinking as water. She's think she had a fever. Has had some loose stools and this can take the pain anymore. Denies jaundice, acholic stool, blood in the stool. During her she was treated for kidney stones and was having some back pain. She's having similar back pain at this time. 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 She has been seeing Dr. Khan since the first trimester. History of Any Multi-Drug Resistant Organisms: None Reported Additional Past Surgical History / Comment(s): D&C x 3 Past Anesthesia/Blood Transfusion Reactions: No Reported Reaction Past Psychological History: No Psychological Hx Reported Smoking Status: Current every day smoker Past Alcohol Use History: None Reported Past Drug Use History: None Reported - Past Family History Father History Unknown: Yes Family Medical History: Cancer Mother History Unknown: Yes Family Medical History: Congestive Heart Failure (CHF) Medications and Allergies Home Medications Medication Instructions Recorded Confirmed Type Ibuprofen 600 mg PO TID #20 tablet 01/13/18 Rx Ondansetron Odt [Zofran Odt] 4 mg PO Q8HR PRN #20 tab 01/13/18 Rx traMADol HCL [Ultram] 50 mg PO Q6HR PRN 3 Days #12 tab 01/13/18 Rx Allergies Allergy/AdvReac Type Severity Reaction Status Date / Time diphenhydramine Allergy Anaphylaxis Verified 01/15/18 09:51 [From Benadryl] tomato AdvReac Anaphylaxis Verified 01/15/18 09:51 Surgical - Exam Osteopathic Statement: *. No significant issues noted on an osteopathic structural exam other than those noted in the History and Physical/Consult. Vital Signs Temp Pulse Resp BP Pulse Ox 98.4 F 90 16 123/83 98 01/15/18 09:46 01/15/18 09:46 01/15/18 09:46 01/15/18 09:46 01/15/18 09:46 - General Appears uncomfortable when lying or repositioning in the bed well developed, well nourished, obese - Neck no masses, trachea midline - Respiratory normal respiratory effort, clear to auscultation - Cardiovascular Rhythm: regular - Abdomen Abdomen: soft, tender (Epigastric and right upper quadrant), bowel sounds, no surgical scars, no guarding, no rigid, no rebound Hernia: no umbilical - Integumentary no abnormal pigmentation (Nonicteric) Results - Labs 01/15/18 10:10 01/15/18 10:10 Abnormal Lab Results - Last 24 Hours (Table) 01/15/18 Range/Units 10:10 Chloride 110 H (98-107) mmol/L Glucose 124 H (74-99) mg/dL AST 44 H (14-36) U/L ALT 150 H (9-52) U/L Albumin 3.4 L (3.5-5.0) g/dL Diabetes panel 01/15/18 Range/Units 10:10 Sodium 139 (137-145) mmol/L Potassium 4.8 (3.5-5.1) mmol/L Chloride 110 H (98-107) mmol/L Carbon Dioxide 23 (22-30) mmol/L BUN 17 (7-17) mg/dL Creatinine 0.74 (0.52-1.04) mg/dL Glucose 124 H (74-99) mg/dL Calcium 8.9 (8.4-10.2) mg/dL AST 44 H (14-36) U/L ALT 150 H (9-52) U/L Alkaline Phosphatase 88 (38-126) U/L Total Protein 6.4 (6.3-8.2) g/dL Albumin 3.4 L (3.5-5.0) g/dL Calcium panel 01/15/18 Range/Units 10:10 Calcium 8.9 (8.4-10.2) mg/dL Albumin 3.4 L (3.5-5.0) g/dL Pituitary panel 01/15/18 Range/Units 10:10 Sodium 139 (137-145) mmol/L Potassium 4.8 (3.5-5.1) mmol/L Chloride 110 H (98-107) mmol/L Carbon Dioxide 23 (22-30) mmol/L BUN 17 (7-17) mg/dL Creatinine 0.74 (0.52-1.04) mg/dL Glucose 124 H (74-99) mg/dL Calcium 8.9 (8.4-10.2) mg/dL Adrenal panel 01/15/18 Range/Units 10:10 Sodium 139 (137-145) mmol/L Potassium 4.8 (3.5-5.1) mmol/L Chloride 110 H (98-107) mmol/L Carbon Dioxide 23 (22-30) mmol/L BUN 17 (7-17) mg/dL Creatinine 0.74 (0.52-1.04) mg/dL Glucose 124 H (74-99) mg/dL Calcium 8.9 (8.4-10.2) mg/dL Total Bilirubin 0.3 (0.2-1.3) mg/dL AST 44 H (14-36) U/L ALT 150 H (9-52) U/L Alkaline Phosphatase 88 (38-126) U/L Total Protein 6.4 (6.3-8.2) g/dL Albumin 3.4 L (3.5-5.0) g/dL - Imaging US - abdomen: report reviewed Assessment and Plan (1) Biliary colic Current Visit: No Status: Acute Code(s): K80.50 - CALCULUS OF BILE DUCT W/O CHOLANGITIS OR CHOLECYST W/O OBST SNOMED Code(s): 10838015 (2) Elevated liver function tests Current Visit: Yes Status: Acute Code(s): R94.5 - ABNORMAL RESULTS OF LIVER FUNCTION STUDIES SNOMED Code(s): 363813441 Plan: Since she is not really able to eat or drink and has slightly elevated liver function test I'd recommend admission. We'll hydrate her control her pain and nausea. Schedule a laparoscopic cholecystectomy possible open for tomorrow. The procedure risks and complications were discussed with her and her significant other. Questions were encouraged and answered. Further recommendations to follow.
[2018-01-15] MEDS ORDERED: D5-0.45% NACL WITH KCL 20MEQ/L 1,000 ML IV SCH (12:30)
[2018-01-15] MEDS ORDERED: FAMOTIDINE 20 MG TAB PO SCH (21:00)
== END 2018-01-15 12:59 | disposition home or self-care (01) ==
LOC: MERGE 09:45 → EC 09:45 → 6PED 11:43 → UNDOADMOB 11:43 → EC 12:59
DX: K80.10 Calculus of gallbladder with chronic cholecystitis without obstruction (principal); R19.7 Diarrhea, unspecified; F17.200 Nicotine dependence, unspecified, uncomplicated; Z88.8 Allergy status to other drugs, medicaments and biological substances; Z91.018 Allergy to other foods
CPT/HCPCS: 36415; 80053; 82150; 83690; 85025; 96360; 99284

== ENCOUNTER 2018-01-16 13:46 | Observation (INO) | payer OTHER ==
[2018-01-16] MEDS ORDERED: LIDOCAINE 1% 20 ML VIAL (10MG/ML) FOR IV START INTRADERMA ONE (14:25)
[2018-01-16] MEDS ORDERED: LACTATED RINGERS 1,000 ML IV ONE ×2 (14:30→18:43)
[2018-01-16] MEDS ORDERED: ONDANSETRON 4 MG/2 ML VIAL IVP ONE (15:01)
[2018-01-16] MEDS ORDERED: NEOSTIGMINE 1 MG/ML 10 ML VIAL ONE (17:31)
[2018-01-16] MEDS ORDERED: LIDOCAINE 1% INJ 10MG/ML (20 ML MDV) ONE (17:31)
[2018-01-16] MEDS ORDERED: PROPOFOL 10 MG/ML 20 ML VIAL IV ONE (17:31)
[2018-01-16] MEDS ORDERED: MIDAZOLAM 2 MG/2 ML VIAL ONE (17:31)
[2018-01-16] MEDS ORDERED: ROCURONIUM BROMIDE 10 MG/ML 10 ML VIAL IV ONE (17:31)
[2018-01-16] MEDS ORDERED: GLYCOPYRROLATE 0.2 MG/ML 2 ML VIAL ONE (17:31)
[2018-01-16] MEDS ORDERED: fentaNYL (PF) 50 MCG/ML 2 ML AMP ONE (17:31)
[2018-01-16] MEDS ORDERED: BUPIVACAIN-EPI 0.25%-1:200,000 30 ML VIAL SQ ONE ×2 (17:58)
[2018-01-16] MEDS ORDERED: IOPAMIDOL-370 50ML BTL IRRIGATION ONE (18:30)
[2018-01-16] MEDS: LACTATED RINGERS 1,000 ML IV ONE ×2 (18:43→19:18)
[2018-01-16] MEDS ORDERED: HYDROcodone/APAP 5-325MG 1 EACH TAB PO PRN (19:07)
[2018-01-16] MEDS ORDERED: ONDANSETRON 4 MG/2 ML VIAL IVP PRN (19:07)
[2018-01-16] MEDS ORDERED: NALOXONE 0.4 MG/ML 1 ML VIAL IV PRN (19:07)
--- NOTE | 2018-01-16 19:16 | P.OP ---
Date of Procedure: 01/16/18 Preoperative Diagnosis: Cholelithiasis, cholecystitis Postoperative Diagnosis: Cholelithiasis, cholecystitis, probable choledocholithiasis Procedure(s) Performed: I prescribed a cholecystectomy with attempted cholangiogram Anesthesia: ANTOINETTE Surgeon: Ileana Verde Estimated Blood Loss (ml): 25 Pathology: other (Gallbladder) Condition: stable Disposition: PACU Indications for Procedure: The patient had presented with slightly elevated liver function tests and abdominal pain. She left the ER and returned on Tuesday with the same complaints. I recommended she stated she went home because of a young child. She comes back in today for Description of Procedure: The patient's taken the operative suite where she is prepped and draped in the usual sterile manner under general endotracheal anesthetic. A supraumbilical incision was made. A varies needle was placed in the abdominal cavity. Pneumoperitoneum was established with CO2 gas. Sites are chosen for accessory trochars needs are placed through small skin incisions. The bladder Strassman retracted superiorly. An additional trocar was placed and then Ayanna's pouch is grasped and retracted laterally. Dissection was carried out at the node. The cystic duct was enlarged and multiple stones were felt in the duct. These were gently milked medial to lateral. The cystic duct was then clipped on the gallbladder side. A small enterotomy was made. There is a lot of thick bile sludge along with fragments of stones milked back. Cholangiogram catheter was placed but it was only able to be advanced to about 20 cm. Attempt was made to do a cholangiogram however the patient had been inadvertently placed on our bed which was not available for C-arm. A flat plate while injecting showed there was contrast leaking out no comment bile duct was able to be seen. The cholangiogram catheter was removed. The cystic duct medially was triply Clipped and cut. The cystic duct stump was secured with 0 PDS Endoloop. The cystic artery was clipped and cut. The gallbladder is dissected free from the liver bed and brought out through the umbilical port site. The liver bed was reexamined and noted to be hemostatic. The excess irrigant was suctioned out pneumoperitoneum was released the trochars were removed. The fascia at the umbilicus was closed with 0 Vicryl. The skin incisions were closed with 4-0 Vicryl in a subcuticular manner. Steri-Strips and dressings were applied. Cording to or personnel, ARE correct. She'll be kept overnight for an ERCP tomorrow.
--- NOTE | 2018-01-16 20:43 | XR ---
EXAMINATION TYPE: XR abdomen 1V DATE OF EXAM: 01/16/2018 COMPARISON: NONE HISTORY: Cholangiogram TECHNIQUE: Single view FINDINGS: A single image was obtained apparently in the operating room that shows contrast in the rig ht upper quadrant. Location of the contrast is not clear. There is insufficient contrast in the bilia ry tree to evaluate for common duct stone. IMPRESSION: Nondiagnostic operative cholangiogram.
[2018-01-16] MEDS: D5-0.45% NACL WITH KCL 20MEQ/L 1,000 ML IV SCH (20:52)
[2018-01-16] MEDS: ceFAZolin IN SWFI 2 GM/20 ML SYRINGE IVP SCH (20:52)
[2018-01-16] MEDS: FAMOTIDINE 20 MG TAB PO SCH (21:02)
[2018-01-16] MEDS: HYDROmorphone 1 MG/ML 1 ML SYRINGE IVP PRN (21:15)
[2018-01-16] MEDS ORDERED: LORazepam 2 MG/ML INJ IV PRN (21:43)
[2018-01-16] MEDS ORDERED: METOCLOPRAMIDE 5 MG/ML 2 ML VIAL IVP PRN (21:44)
[2018-01-17] MEDS: ONDANSETRON 4 MG/2 ML VIAL IVP PRN (00:33)
[2018-01-17] MEDS: HYDROmorphone 1 MG/ML 1 ML SYRINGE IVP PRN ×3 (00:33→09:28)
[2018-01-17] MEDS: ceFAZolin IN SWFI 2 GM/20 ML SYRINGE IVP SCH ×3 (03:37→20:28)
[2018-01-17 07:46] LABS: Basophils % (A) 0 %; Eosinophils # (A) 0.3 k/uL (0-0.7); Eosinophils % (A) 3 %; HCT 40.8 % (34.0-46.0); HGB 13.6 gm/dL (11.4-16.0); Lymphocytes # (A) 2.5 k/uL (1.0-4.8); Lymphocytes % (A) 20 %; MCH 26.9 pg (25.0-35.0); MCHC 33.4 g/dL (31.0-37.0); MCV 80.4 fL (80.0-100.0); Mean Platelet Volume 7.2; Monocytes # (A) 0.6 k/uL (0-1.0); Monocytes % (A) 5 %; Neutrophils # (A) 8.5 k/uL (1.3-7.7); Neutrophils % (A) 70 %; Platelet Count 227 k/uL (150-450); RBC 5.07 m/uL (3.80-5.40); RDW 14.3 % (11.5-15.5); WBC 12.2 k/uL (3.8-10.6)
[2018-01-17 07:56] LABS: ALT 108 U/L (9-52); AST 46 U/L (14-36); Albumin 3.1 g/dL (3.5-5.0); Alkaline Phosphatase 73 U/L (38-126); Anion Gap 5 mmol/L; Blood Urea Nitrogen 8 mg/dL (7-17); Carbon Dioxide 28 mmol/L (22-30); Chloride 106 mmol/L (98-107); Glucose 100 mg/dL (74-99); Potassium 4.3 mmol/L (3.5-5.1); Sodium 139 mmol/L (137-145); Total Bilirubin 0.3 mg/dL (0.2-1.3)
[2018-01-17] MEDS: FAMOTIDINE 20 MG TAB PO SCH ×2 (08:16→20:28)
--- NOTE | 2018-01-17 09:44 | P.PN ---
Subjective Progress Note Date: 01/17/18 Principal diagnosis: Postoperative day 1 laparoscopic cholecystectomy The patient is having mild incisional pain. No nausea or vomiting. Objective - Vital Signs Vital signs: Vital Signs Temp 98.4 F 01/17/18 08:30 Pulse 68 01/17/18 08:30 Resp 16 01/17/18 08:30 BP 114/70 01/17/18 08:30 Pulse Ox 95 01/17/18 08:30 Intake & Output 01/16/18 01/17/18 01/17/18 18:59 06:59 18:59 Intake Total 600 1350 Output Total 510 Balance 600 840 Weight 88.451 kg Intake: IV 600 650 Oral 700 Output: Urine 500 Estimated Blood Loss 10 Other: # Voids 3 1 - Constitutional General appearance: Present: cooperative, no acute distress - Gastrointestinal Localized gastrointestinal: surgical scar: diffuse (The Band-Aids are intact clean and dry. No significant distention) - Labs CBC & Chem 7: 01/17/18 07:20 01/17/18 07:20 Labs: Abnormal Lab Results - Last 24 Hours (Table) 01/17/18 01/17/18 Range/Units 07:20 07:20 WBC 12.2 H (3.8-10.6) k/uL Neutrophils # 8.5 H (1.3-7.7) k/uL Glucose 100 H (74-99) mg/dL AST 46 H (14-36) U/L ALT 108 H (9-52) U/L Total Protein 6.0 L (6.3-8.2) g/dL Albumin 3.1 L (3.5-5.0) g/dL Assessment and Plan (1) Cholecystitis Current Visit: No Status: Acute Code(s): K81.9 - CHOLECYSTITIS, UNSPECIFIED SNOMED Code(s): 20438938 (2) Cholelithiasis Current Visit: No Status: Acute Code(s): K80.20 - CALCULUS OF GALLBLADDER W/ O CHOLECYSTITIS W/O OBSTRUCTION SNOMED Code(s): 239972656 Plan: The patient did have multiple stones in her cystic duct and I was unable to evaluate the common bile duct clearly. Case was discussed with Dr. Gutierres. We'll proceed with ERCP later today. Patient's questions were encouraged and answered.
[2018-01-17] MEDS ORDERED: LEVOFLOXACIN 500MG-D5W PMX 500 MG in DEXTROSE/WATER 1 100ML.BAG IVPB ONE (15:30)
[2018-01-17] MEDS ORDERED: INDOMETHACIN 50MG SUPPOSITORY RECTAL ONE (16:00)
[2018-01-17] MEDS ORDERED: SUCCINYLCHOLINE CHLORIDE 100 MG/5 ML SYR IV ONE (16:34)
[2018-01-17] MEDS ORDERED: MIDAZOLAM 2 MG/2 ML VIAL ONE (16:34)
[2018-01-17] MEDS ORDERED: LIDOCAINE 1% INJ 10MG/ML (20 ML MDV) ONE (16:34)
[2018-01-17] MEDS ORDERED: fentaNYL (PF) 50 MCG/ML 2 ML AMP ONE (16:34)
[2018-01-17] MEDS ORDERED: PROPOFOL 10 MG/ML 20 ML VIAL IV ONE (16:34)
[2018-01-17] MEDS ORDERED: IV FLUID CONTINUATION 700 ML IV ONE (16:54)
--- NOTE | 2018-01-17 17:45 | P.PCN ---
Date of Procedure: 01/17/18 Procedure(s) Performed: Brief history: Patient is a 22 year-old pleasant lady scheduled for an ERCP as part of evaluation of abdominal pain and elevated serum transaminases for the last 2 days' duration. She underwent laparoscopic cholecystectomy by Dr. Verde yesterday and during the procedure she was noted to have multiple stones and cystic duct. An entrapped cholangiogram was attempted but was not successful. Because of high clinical suspicion for CBD stones during the surgery, he scheduled for an ERCP today. Procedure performed: ERCP with biliary sphincterotomy and balloon extraction Preoperative diagnoses: Elevated LFTs, abdominal pain, rule out CBD stones IV sedation per anesthesia: Procedure: After informed consent was obtained from the patient and after the risks benefits and complications including bleeding perforation and pancreatitis explained in detail the patient was brought into the endoscopy unit. The patient was placed in prone position and IV conscious sedation was administered by anesthesia under continuous monitoring. The Olympus side-viewing duodenoscope was then inserted into the mouth and esophagus intubated without any difficulty. The scope was gradually advanced into the stomach and duodenum. The major papilla was identified without any difficulty. Initial cannulation resulted in opacification of the pancreatic duct that appeared normal. Subsequently using a guidewire technique the common bile duct was cannulated without any difficulty. Upon injection of the dye there was a faint filling defect noted in the distal common bile duct but there was no evidence of biliary ductal dilation.. At this time I proceeded with biliary sphincterotomy after the catheter was exchanged over a guidewire and the sphincterotomy was extended at 11 o'clock position to 1 cm. Following this 11 mm balloon was passed over the guidewire into the proximal CBD, gently inflated and withdrawn and I did not see any stones exiting the ampulla. This maneuver was repeated 3 times. An occlusion cholangio-grams was performed and no filling identified at this time. Patient tolerated the procedure well. Impression: Normal pancreatic duct sphincterotomy Faint filling defect in the distal common bile duct, status post biliary sphincterotomy and balloon extraction as described above Recommendations: The findings of this examination were discussed with the patient as well as a family. She will be started on clear liquid diet. We will repeat labs in the morning and she is doing well she can be discharged home tomorrow.
[2018-01-17] MEDS ORDERED: IOPAMIDOL-300 50ML BTL MISCELLANE ONE (17:52)
[2018-01-17] MEDS ORDERED: LACTATED RINGERS 1,000 ML IV ONE (17:52)
--- NOTE | 2018-01-17 18:21 | CONS ---
CONSULTATION DATE OF DICTATION: 01/17/2018. REASON FOR CONSULTATION: ERCP, status post laparoscopic cholecystectomy yesterday. HISTORY OF PRESENT ILLNESS: The patient is a 22-year-old pleasant white female who is 3 months . She came to the emergency room twice in the last 3 days with severe epigastric and right upper quadrant abdominal pain. Two days ago while she was in the emergency room she did have ultrasound of the gallbladder done that showed multiple gallstones with no biliary ductal dilation. She was sent home. She was re-admitted to the hospital with worsening symptoms, and yesterday she underwent laparoscopic cholecystectomy by Dr. Verde. She attempted intraoperative cholangiogram but was not successful. However, at the time of laparoscopic cholecystectomy she was noted to have multiple stones in the cystic duct, and there was a concern about possible CBD stones. She was also noted to have mild elevation of serum transaminases prior to the surgery. Hence we are consulted for ERCP today. The patient still complains of epigastric discomfort. She reports no nausea or vomiting. She has been having these symptoms on and off for the last one week duration. She is presently 3 months . PAST MEDICAL HISTORY: Unremarkable. PAST SURGICAL HISTORY: Unremarkable. MEDICATIONS AT HOME: 1. Ultram. 2. Zofran. 3. Ibuprofen. ALLERGIES: BENADRYL. SOCIAL HISTORY: No smoking. No alcohol use. FAMILY HISTORY: Unremarkable. REVIEW OF SYSTEMS: CARDIOPULMONARY: No chest pain or shortness of breath. GENITOURINARY: No dysuria or hematuria. MUSCULOSKELETAL: Unremarkable. SKIN: Unremarkable. ENDOCRINE: Unremarkable. PSYCHIATRY: Unremarkable. NEUROLOGY: Unremarkable. ENT/VISION: Unremarkable. CONSTITUTIONAL: No recent weight loss. No fever, chills, night sweats. PHYSICAL EXAMINATION: She appears comfortable, in no apparent distress. VITAL SIGNS: Stable. Blood pressure is 128/86, pulse rate 85 per minute, temperature 98.4. HEENT EXAMINATION: Unremarkable. Conjunctivae are pink, sclerae anicteric. Oral cavity no lesions. NECK: No JVD or lymph node enlargement. Chest was clear to auscultation. HEART: Regular rate and rhythm. ABDOMEN: Soft. There were surgical incisions at the site of laparoscopy. There was mild tenderness in the epigastric area. EXTREMITIES: No pedal edema. SKIN: No rashes. NEUROLOGIC: Alert and oriented x3. No focal deficits. LABS: Labs from 11/30: CBC was normal. ALT and AST were 45 and 103, respectively. Repeat labs today: ALT 46, ALT 108. Total bilirubin and alkaline phosphatase are normal. Amylase and lipase are normal. IMPRESSION: This is a lady who presented to the hospital twice in the last 4 days with severe epigastric and right upper quadrant abdominal pain. Ultrasound showed evidence of gallstones but no biliary ductal dilation. She has seen Dr. Verde and underwent laparoscopic cholecystectomy yesterday. At the time of surgery she was noted to have multiple cystic duct stones and there was a concern about one of the stones slipping into the common bile duct. An intraoperative cholangiogram was attempted by Dr. Verde but was not successful. Hence we are consulted for possible ERCP today. Labs do show mild elevation of serum transaminases, and possibility of retained common bile duct stone cannot be excluded. RECOMMENDATIONS: I discussed with Dr. Verde. I had a lengthy discussion with the patient regarding proceeding with ERCP today for possible CBD stones. I discussed with her risks, benefits and complications, including acute pancreatitis, and she was agreeable to it. She will be scheduled for the ERCP later today. Thank you for this consultation. MMODL / IJN: [id number] /
[2018-01-17] MEDS: D5-0.45% NACL WITH KCL 20MEQ/L 1,000 ML IV SCH ×2 (19:43→22:24)
[2018-01-17 22:26] VITALS: RESP 16
--- NOTE | 2018-01-18 00:09 | FL ---
EXAMINATION TYPE: FL ERCP biliary duct only DATE OF EXAM: 01/17/2018 CLINICAL HISTORY: 22-year-old female filling defect of the CBD TECHNIQUE: Fluoroscopy during ERCP. COMPARISON: None. FINDINGS: Fluoroscopic guidance was provided during procedure performed by Dr. Verde. A total of 2 minutes 13 seconds of fluoroscopic time was utilized during the procedure and 1 spot images was acqui red. IMPRESSION: As Above.
[2018-01-18] MEDS: ONDANSETRON 4 MG/2 ML VIAL IVP PRN (01:28)
[2018-01-18] MEDS: HYDROmorphone 1 MG/ML 1 ML SYRINGE IVP PRN (01:28)
[2018-01-18] MEDS: ceFAZolin IN SWFI 2 GM/20 ML SYRINGE IVP SCH (04:13)
--- NOTE | 2018-01-18 07:44 | P.PN ---
Subjective Progress Note Date: 01/18/18 Principal diagnosis: choledocholithiasis abdominal pain 22-year-old female status post laparoscopic cholecystectomy with elevated liver enzymes abdominal pain status post ERCP with evidence of filling defect sphincterotomy and balloon stone extraction. This morning she feels well. Afebrile. Requesting diet advance. Minimal abdominal pain. Objective - Vital Signs Vital signs: Vital Signs Temp 98.3 F 01/17/18 19:26 Pulse 75 01/17/18 21:11 Resp 16 01/18/18 00:00 BP 141/86 01/17/18 21:11 Pulse Ox 97 01/17/18 21:11 Intake & Output 01/17/18 01/18/18 01/18/18 18:59 06:59 18:59 Intake Total 550 Balance 550 Weight 88.451 kg Intake: IV 550 Other: # Voids 1 1 # Bowel Movements 1 - Exam General appearance: The patient is alert, oriented, in no acute distress. HET: Head is normocephalic and atraumatic. Pupils are equal and reactive. Oropharynx is clear without lesions. Neck: Supple without lymphadenopathy. Trachea midline. Heart: S1 S2. Regular rate and rhythm. Lungs: No crackles or wheezes are heard. Abdomen: Soft, obese, surgical Band-Aids without erythema or drainage, mild incisional tenderness, nondistended with bowel sounds. No peritoneal signs. No palpable organomegaly or masses. Extremities: Normal skin color and turgor. No cyanosis, rash, ulceration, clubbing, or edema. Radial and pedal pulses are 2/4 bilaterally. Neurological: No focal deficits. Strength and sensation are grossly intact. - Labs CBC & Chem 7: 01/17/18 07:20 01/17/18 07:20 Labs: Abnormal Lab Results - Last 24 Hours (Table) 01/17/18 01/17/18 Range/Units 07:20 07:20 WBC 12.2 H (3.8-10.6) k/uL Neutrophils # 8.5 H (1.3-7.7) k/uL Glucose 100 H (74-99) mg/dL AST 46 H (14-36) U/L ALT 108 H (9-52) U/L Total Protein 6.0 L (6.3-8.2) g/dL Albumin 3.1 L (3.5-5.0) g/dL Assessment and Plan (1) Abdominal pain Narrative/Plan: 22-year-old female status post laparoscopic cholecystectomy for cholelithiasis cholecystitis with transaminitis abdominal pain secondary to choledocholithiasis status post ERCP with evidence of filling defect sphincterotomy balloon stone extraction. Current Visit: Yes Status: Acute Code(s): R10.9 - UNSPECIFIED ABDOMINAL PAIN SNOMED Code(s): 47577197 (2) Status post laparoscopic cholecystectomy Current Visit: Yes Status: Acute Code(s): Z90.49 - ACQUIRED ABSENCE OF OTHER SPECIFIED PARTS OF DIGESTIVE TRACT SNOMED Code(s): 729099559 (3) Choledocholithiasis Current Visit: Yes Status: Acute Code(s): K80.50 - CALCULUS OF BILE DUCT W/ O CHOLANGITIS OR CHOLECYST W/O OBST SNOMED Code(s): 879275680 (4) Status post endoscopic retrograde cholangiopancreatography Current Visit: Yes Status: Acute Code(s): Z98.890 - OTHER SPECIFIED POSTPROCEDURAL STATES SNOMED Code(s): 487309553 (5) Cholelithiasis Current Visit: No Status: Acute Code(s): K80.20 - CALCULUS OF GALLBLADDER W/ O CHOLECYSTITIS W/O OBSTRUCTION SNOMED Code(s): 272787112 (6) Elevated liver function tests Current Visit: No Status: Acute Code(s): R94.5 - ABNORMAL RESULTS OF LIVER FUNCTION STUDIES SNOMED Code(s): 173854460 Plan: 1. Advance to low-fat diet. Agreeable for discharge from a GI standpoint. We' ll follow as needed. Assessment and plan a care discussed with Dr. Gutierres
[2018-01-18] MEDS: FAMOTIDINE 20 MG TAB PO SCH (08:20)
[2018-01-18] MEDS: D5-0.45% NACL WITH KCL 20MEQ/L 1,000 ML IV SCH (08:57)
[2018-01-18 10:07] VITALS: BP 124/77; PULSE 68; TEMP 98.5
--- NOTE | 2018-01-18 12:04 | P.DS ---
Providers Date of admission: 01/17/18 03:51 Expected date of discharge: 01/18/18 Attending physician: Ileana Verde Consults: gastroenterology, Dr Dot Gutierres Primary care physician: Stated None - Discharge Diagnosis(es) (1) Cholecystitis Status: Acute (2) Cholelithiasis Status: Acute (3) Choledocholithiasis Status: Acute Hospital Course: the patient had been the emergency department twice with acute abdominal pain. Shewas taken to the OR and underwent a laparoscopic cholecystectomy. There was evidence of sludge and gallstones in the cystic duct. Therefore GI was consulted. She underwent an ERCP which showed a slight filling defect. a sphincterotomy performed. By January 18 she was feeling significantly better than admission and felt to be stable for discharge Patient Condition at Discharge: Good Plan - Discharge Summary New Discharge Prescriptions: No Action Ondansetron [Zofran] 4 mg PO Q8HR PRN PRN Reason: pain traMADol HCL [Ultram] 50 mg PO Q6HR PRN PRN Reason: Mild Pain Ibuprofen 600 mg PO TID Discharge Medication List Ibuprofen 600 mg PO TID 01/16/18 [History] Ondansetron [Zofran] 4 mg PO Q8HR PRN 01/16/18 [History] traMADol HCL [Ultram] 50 mg PO Q6HR PRN 01/16/18 [History] Follow up Appointment(s)/Referral(s): Ileana Verde DO [Doctor of Osteopathic Medicine] - 01/31/18 9:00 am Activity/Diet/Wound Care/Special Instructions: Follow a low fat diet. fluids are encouraged. You may shower. No tub baths hot tubs or swimming pools for 1 week. No heavy lifting over (5-10 pounds) Take the little tapes off in 1 week. Call if you develop fever >100.5, chills, nausea or vomiting, any sign of wound infection (excessive drainage or smelly drainage ) or other questions or concerns. Discharge Disposition: HOME SELF-CARE
== END 2018-01-18 10:45 | disposition home or self-care (01) ==
LOC: OR 13:46 → 6PED 16:00 → OR 01-17 04:05 → 6PED 01-17 22:40
PROVIDERS: ADMIT Surgery; ATTEND Surgery
DX: K80.46 Calculus of bile duct with acute and chronic cholecystitis without obstruction (principal); Z79.899 Other long term (current) drug therapy; Z88.8 Allergy status to other drugs, medicaments and biological substances
CPT/HCPCS: 81025 ×2; 88304; 80053; 85025; 74328; 74018; 43277; 43262; 47562; G0378 ×2; C1726; J2250 ×2; J2710; J2405 ×3; J1956; J2001 ×2; J3010 ×2; J1170 ×3; J0330; J2704 ×2; J0690 ×3; Q9967 ×2; C1769

== ENCOUNTER 2018-09-05 23:38 | Emergency (ER) | payer OTHER ==
[2018-09-06] MEDS ORDERED: ACETAMINOPHEN ORAL SUSP 160 MG/5 ML CUP PO ONE (00:27)
[2018-09-06 00:37] LABS: Basophils # (A) 0.1 k/uL (0-0.2); Basophils % (A) 0 %; Eosinophils # (A) 0.3 k/uL (0-0.7); Eosinophils % (A) 2 %; HCT 42.4 % (34.0-46.0); Lymphocytes # (A) 2.6 k/uL (1.0-4.8); Lymphocytes % (A) 14 %; MCH 27.5 pg (25.0-35.0); MCV 83.5 fL (80.0-100.0); Mean Platelet Volume 7.2; Monocytes # (A) 1.1 k/uL (0-1.0); Monocytes % (A) 6 %; Neutrophils # (A) 13.5 k/uL (1.3-7.7); Neutrophils % (A) 75 %; Platelet Count 196 k/uL (150-450); RBC 5.08 m/uL (3.80-5.40); RDW 13.7 % (11.5-15.5); WBC 18.1 k/uL (3.8-10.6)
[2018-09-06 00:47] LABS: ALT 33 U/L (9-52); AST 23 U/L (14-36); African American GFR (CKD) >90 (>60 ml/min/1.73 sqM); Alkaline Phosphatase 93 U/L (38-126); Anion Gap 10 mmol/L; Blood Urea Nitrogen 14 mg/dL (7-17); Calcium 9.1 mg/dL (8.4-10.2); Carbon Dioxide 23 mmol/L (22-30); Chloride 106 mmol/L (98-107); Glucose 103 mg/dL (74-99); Potassium 3.7 mmol/L (3.5-5.1); Sodium 139 mmol/L (137-145); Total Bilirubin 0.4 mg/dL (0.2-1.3); Total Protein 6.8 g/dL (6.3-8.2)
[2018-09-06] MEDS ORDERED: AMOXICILLIN 250 MG/5 ML 80 ML BOTTLE PO ONE (00:57)
--- NOTE | 2018-09-06 01:49 | ED ---
General Adult HPI - General Chief complaint: ENT Stated complaint: Sore throat Source: patient, RN notes reviewed Mode of arrival: ambulatory Limitations: no limitations - History of Present Illness Initial comments: Jamaal is a 23-year-old female presenting to the emergency department for a chief complaint of sore throat times one day. Patient states that when she woke up today she had pain with swallowing. States it worsened throughout the day. States that she also developed a cough. Denies any shortness of breath. Denies coughing up any phlegm. Patient does state it is painful to swallow but denies any difficulty swallowing. Denies any difficulty opening her mouth. Denies any pain with moving her neck. Denies fevers but does admit to chills.Patient has no other complaints at this time including shortness of breath, chest pain, abdominal pain, nausea or vomiting, headache, or visual changes. - Related Data Home Medications Medication Instructions Recorded Confirmed Ibuprofen 600 mg PO TID 01/16/18 01/17/18 Ondansetron [Zofran] 4 mg PO Q8HR PRN 01/16/18 01/17/18 traMADol HCL [Ultram] 50 mg PO Q6HR PRN 01/16/18 01/17/18 Previous Rx's Medication Instructions Recorded Amoxicillin 500 mg PO TID 10 Days ml 09/06/18 Allergies Allergy/AdvReac Type Severity Reaction Status Date / Time diphenhydramine HCl Allergy Mild Rash/Hives Verified 09/05/18 23:47 [From Benadryl] diphenhydramine Allergy Anaphylaxis Verified 09/05/18 23:47 [From Benadryl] tomato AdvReac Anaphylaxis Verified 09/05/18 23:47 Review of Systems ROS Statement: Those systems with pertinent positive or pertinent negative responses have been documented in the HPI. ROS Other: All systems not noted in ROS Statement are negative. Past Medical History Past Medical History: Asthma Additional Past Medical History / Comment(s): OB history: She has had 4 miscarriages, including 1 at 14 weeks, she has 2 live and this is her sixth . had hx of kidney stones w one of her pregnancies History of Any Multi-Drug Resistant Organisms: None Reported Past Surgical History: No Surgical Hx Reported Additional Past Surgical History / Comment(s): tonsillectomy, adnoidectomy Past Anesthesia/Blood Transfusion Reactions: No Reported Reaction Past Psychological History: Anxiety, Depression, PTSD Smoking Status: Current every day smoker Past Alcohol Use History: None Reported Past Drug Use History: None Reported - Past Family History Father History Unknown: Yes Family Medical History: Cancer Mother History Unknown: Yes Family Medical History: Congestive Heart Failure (CHF) Sister(s) Family Medical History: Coronary Artery Disease (CAD) Additional Family Medical History / Comment(s): Patient states that she has 5/2 sisters and one has from cervical palsy at age 15. She has 1 older sister that has schizophrenia and bipolar. Patient states that she has 11 half- brothers and one has passed. General Exam Limitations: no limitations General appearance: alert, in no apparent distress Head exam: Present: atraumatic, normocephalic, normal inspection Eye exam: Present: normal appearance, PERRL, EOMI. Absent: scleral icterus, conjunctival injection, periorbital swelling ENT exam: Present: normal exam, mucous membranes moist, TM's normal bilaterally, normal external ear exam. Absent: normal oropharynx (Patient has tonsillar exudates noted to the bilateral tonsils. Uvula is midline. There is no evidence of peritonsillar abscess.) Neck exam: Present: normal inspection, full ROM. Absent: tenderness, meningismus, lymphadenopathy Respiratory exam: Present: normal lung sounds bilaterally. Absent: respiratory distress, wheezes, rales, rhonchi, stridor Cardiovascular Exam: Present: regular rate, normal rhythm, normal heart sounds. Absent: systolic murmur, diastolic murmur, rubs, gallop, clicks Neurological exam: Present: alert, oriented X3, CN II-XII intact Psychiatric exam: Present: normal affect, normal mood Course Vital Signs 09/05/18 09/06/18 23:44 00:47 Temperature 99.8 F H 100.1 F H Pulse Rate 125 H 106 H Respiratory 20 19 Rate Blood Pressure 111/78 O2 Sat by Pulse 97 99 Oximetry Medical Decision Making - Medical Decision Making 23-year-old female presents to the emergency department for a chief complaint of sore throat. This has been ongoing for the past day. Patient denies any difficulty swallowing. No difficulty handling secretions. She is afebrile on presentation to the emergency department. Tachycardia likely secondary to fever. On exam patient has bilateral tonsillar exudates noted, uvula midline. No evidence of peritonsillar abscess. No trismus. A full range of motion of the neck. Strep is positive. CBC showed a white count of 18 which is likely reflective of strep throat. CMP is unremarkable. Dickinson is negative. She will be given amoxicillin for strep. Patient requests liquid medication as she can never swallow pills. Patient will be discharged home to follow up with primary care with instruction to return here if she is any worsening symptoms. - Lab Data Result diagrams: 09/06/18 00:22 09/06/18 00:22 Lab Results 09/06/18 09/06/18 09/06/18 Range/Units 00:09 00:22 00:22 WBC 18.1 H (3.8-10.6) k/uL RBC 5.08 (3.80-5.40) m/uL Hgb 14.0 (11.4-16.0) gm/dL Hct 42.4 (34.0-46.0) % MCV 83.5 (80.0-100.0) fL MCH 27.5 (25.0-35.0) pg MCHC 33.0 (31.0-37.0) g/dL RDW 13.7 (11.5-15.5) % Plt Count 196 (150-450) k/uL Neutrophils % 75 % Lymphocytes % 14 % Monocytes % 6 % Eosinophils % 2 % Basophils % 0 % Neutrophils # 13.5 H (1.3-7.7) k/uL Lymphocytes # 2.6 (1.0-4.8) k/uL Monocytes # 1.1 H (0-1.0) k/uL Eosinophils # 0.3 (0-0.7) k/uL Basophils # 0.1 (0-0.2) k/uL Sodium (137-145) mmol/L Potassium (3.5-5.1) mmol/L Chloride (98-107) mmol/L Carbon Dioxide (22-30) mmol/L Anion Gap mmol/L BUN (7-17) mg/dL Creatinine (0.52-1.04) mg/dL Est GFR (CKD-EPI)AfAm (>60 ml/min/1.73 sqM) Est GFR (CKD-EPI)NonAf (>60 ml/min/1.73 sqM) Glucose (74-99) mg/dL Calcium (8.4-10.2) mg/dL Total Bilirubin (0.2-1.3) mg/dL AST (14-36) U/L ALT (9-52) U/L Alkaline Phosphatase (38-126) U/L Total Protein (6.3-8.2) g/dL Albumin (3.5-5.0) g/dL Urine HCG, Qual Not Detected (Not Detectd) Heterophile Antibody (Negative) Group A Strep Rapid Positive A (Negative) 09/06/18 09/06/18 Range/Units 00:22 00:22 WBC (3.8-10.6) k/uL RBC (3.80-5.40) m/uL Hgb (11.4-16.0) gm/dL Hct (34.0-46.0) % MCV (80.0-100.0) fL MCH (25.0-35.0) pg MCHC (31.0-37.0) g/dL RDW (11.5-15.5) % Plt Count (150-450) k/uL Neutrophils % % Lymphocytes % % Monocytes % % Eosinophils % % Basophils % % Neutrophils # (1.3-7.7) k/uL Lymphocytes # (1.0-4.8) k/uL Monocytes # (0-1.0) k/uL Eosinophils # (0-0.7) k/uL Basophils # (0-0.2) k/uL Sodium 139 (137-145) mmol/L Potassium 3.7 (3.5-5.1) mmol/L Chloride 106 (98-107) mmol/L Carbon Dioxide 23 (22-30) mmol/L Anion Gap 10 mmol/L BUN 14 (7-17) mg/dL Creatinine 0.68 (0.52-1.04) mg/dL Est GFR (CKD-EPI)AfAm >90 (>60 ml/min/1.73 sqM) Est GFR (CKD-EPI)NonAf >90 (>60 ml/min/1.73 sqM) Glucose 103 H (74-99) mg/dL Calcium 9.1 (8.4-10.2) mg/dL Total Bilirubin 0.4 (0.2-1.3) mg/dL AST 23 (14-36) U/L ALT 33 (9-52) U/L Alkaline Phosphatase 93 (38-126) U/L Total Protein 6.8 (6.3-8.2) g/dL Albumin 4.0 (3.5-5.0) g/dL Urine HCG, Qual (Not Detectd) Heterophile Antibody Negative (Negative) Group A Strep Rapid (Negative) Disposition Clinical Impression: Streptococcal sore throat Disposition: HOME SELF-CARE Condition: Good Instructions (If sedation given, give patient instructions): Strep Throat (ED) Additional Instructions: Please take Motrin and Tylenol for pain and fever. Please take amoxicillin as directed. Follow-up with primary care in 1-2 days. Return here to the emergency department if you have any worsening symptoms. Prescriptions: Amoxicillin 500 mg PO TID 10 Days ml Is patient prescribed a controlled substance at d/c from ED?: No Referrals: Bobby Riley MD [Primary Care Provider] - 1-2 days Time of Disposition: 01:48
--- NOTE | 2018-09-06 01:58 | XR ---
History: ITS.REASON XR Reason: Pain Exam: XR CXR 2 VIEWS Comparison: 03/25/2016 FINDINGS: The lungs are clear. The cardiac and mediastinal contours appear within limits. The visualized osseous structures appear within limits. IMPRESSION: No evidence of acute disease.
[2018-09-06 02:08] VITALS: BP 131/85; PULSE 94; RESP 18; TEMP 99.4
== END 2018-09-06 02:07 | disposition home or self-care (01) ==
LOC: EC 23:38
DX: J02.0 Streptococcal pharyngitis (principal); F17.200 Nicotine dependence, unspecified, uncomplicated; Z79.1 Long term (current) use of non-steroidal anti-inflammatories (NSAID); Z88.8 Allergy status to other drugs, medicaments and biological substances; Z91.018 Allergy to other foods
CPT/HCPCS: 36415; 71046; 80053; 81025; 85025; 86308; 87430; 99283

== ENCOUNTER 2018-10-25 18:06 | Emergency (ER) | payer OTHER ==
[2018-10-25 18:11] VITALS: BP 116/74; PULSE 94; RESP 18; TEMP 98.2
--- NOTE | 2018-10-25 19:56 | ED ---
General Adult HPI - General Source: patient, RN notes reviewed, old records reviewed Mode of arrival: ambulatory Limitations: no limitations <Dilan Avila - Last Filed: 10/25/18 20:13> <Julita Pradhan - Last Filed: 10/25/18 21:30> - General Chief complaint: Recheck/Abnormal Lab/Rx Stated complaint: 7wks no heartbeat Time Seen by Provider: 10/25/18 18:20 - History of Present Illness Initial comments: 23-year-old female patient who was reportedly 7 weeks gestationpresents to ED with chief complaint of reported outpatient ultrasound with no pole. Patient reports that she was at a clinic where they did an ultrasound and so there is no heartbeat. Patient denies any other symptoms. Patient d enies any vaginal bleeding or abdominal pain. Systemic: Pt denies fatigue, fever/chills, rash. Pt denies weakness, night sweats, weight loss. Neuro: Pt denies headache, visual disturbances, syncope or pre-syncope. HEENT: Pt denies ocular discharge or irritation, otalgia, rhinorrhea, pharyngitis or notable lymphadenopathy. Cardiopulmonary: Pt denies chest pain, SOB, heart palpitations, dyspnea on exertion. Abdominal/GI: Pt denies abdominal pain, n/v/d. : Pt denies dysuria, burning w/ urination, frequency/urgency. Denies new onset urinary or bowel incontinence. MSK: Pt denies myalgia, loss of strength or function in extremities. Neuro: Pt denies new onset weakness, paresthesias. (Dilan Avila) - Related Data Home Medications Medication Instructions Recorded Confirmed No Known Home Medications 10/25/18 10/25/18 Allergies Allergy/AdvReac Type Severity Reaction Status Date / Time diphenhydramine HCl Allergy Mild Rash/Hives Verified 10/25/18 18:44 [From Benadryl] diphenhydramine Allergy Rash/Hives Verified 10/25/18 18:44 [From Benadryl] tomato AdvReac Anaphylaxis Verified 10/25/18 18:44 Review of Systems ROS Other: All systems not noted in ROS Statement are negative. <Dilan Avila - Last Filed: 10/25/18 20:13> ROS Other: All systems not noted in ROS Statement are negative. <Julita Pradhan - Last Filed: 10/25/18 21:30> ROS Statement: Those systems with pertinent positive or pertinent negative responses have been documented in the HPI. Past Medical History Past Medical History: Asthma Additional Past Medical History / Comment(s): OB history: She has had 4 mi scarriages, including 1 at 14 weeks, she has 2 live and this is her sixth . had hx of kidney stones w one of her pregnancies History of Any Multi-Drug Resistant Organisms: None Reported Past Surgical History: No Surgical Hx Reported Additional Past Surgical History / Comment(s): tonsillectomy, adnoidectomy Past Anesthesia/Blood Transfusion Reactions: No Reported Reaction Past Psychological History: Anxiety, Depression, PTSD Smoking Status: Current every day smoker Past Alcohol Use History: None Reported Past Drug Use History: None Reported - Past Family History Father History Unknown: Yes Family Medical History: Cancer Mother History Unknown: Yes Family Medical History: Congestive Heart Failure (CHF) Sister(s) Family Medical History: Coronary Artery Disease (CAD) Additional Family Medical History / Comment(s): Patient states that she has 5/2 sisters and one has from cervical palsy at age 14. She has 1 older sister that has schizophrenia and bipolar. Patient states that she has 11 half- brothers and one has passed. <Dilan Avila - Last Filed: 10/25/18 20:13> General Exam Limitations: no limitations <Dilan Avila - Last Filed: 10/25/18 20:13> - General Exam Comments Initial Comments: Constitutional: NAD, AOX3, Pt has pleasant affect. HEENT: NC/AT, trachea midline, neck supple, no lymphadenopathy. Posterior pharyn x non erythematous, without exudates. External ears appear normal, without discharge. Mucous membranes moist. Eyes PERRLA, EOM intact. There is no scleral icterus. No pallor noted. Cardiopulmonary: RRR, no murmurs, rubs or gallops, no JVD noted. Lungs CTAB in anterior and posterior flaherty. No peripheral edema. Abdominal exam: Abdomen soft and non-distended. Abdomen non-tender to palpation in all 4 quadrants. Bowel sounds active in LLQ. No hepatosplenomegaly. No ecchymosis Neuro: CN II-XII grossly intact. No nuchal rigidity. No raccon eyes, no diallo sign, no hemotympanum. No cervical spinal tenderness. MSK: No posterior calf tenderness bilaterally, homans sign negative bilaterally. Posterior tibialis and radial pulse +2 bilaterally. Sensation intact in upper and lower extremities. Full active ROM in upper and lower extremities, 5/5 stregnth. (Dilan Avila) Course Vital Signs 10/25/18 18:08 Temperature 98.2 F Pulse Rate 94 Respiratory 18 Rate Blood Pressure 116/74 O2 Sat by Pulse 99 Oximetry Medical Decision Making <Dilan Avila - Last Filed: 10/25/18 20:13> - Lab Data Result diagrams: 10/25/18 20:25 10/25/18 20:25 <Julita Pradhan - Last Filed: 10/25/18 21:30> - Medical Decision Making 23-year-old female patient who is reportedly 7 weeks gestation by last menstrual period. Presents to ED for evaluation after abnormal ultrasound. Patient denies any abdominal pain, vaginal bleeding. Patient vital signs stable, afebrile. Physical exam did not display pathology. Pt signed out to attending physician Dr. Pradhan pending workup. (Dilan Avila) - Lab Data Lab Results 10/25/18 10/25/18 10/25/18 Range/Units 20:25 20:25 21:00 WBC 12.3 H (3.8-10.6) k/uL RBC 5.26 (3.80-5.40) m/uL Hgb 14.5 (11.4-16.0) gm/dL Hct 43.7 (34.0-46.0) % MCV 83.0 (80.0-100.0) fL MCH 27.5 (25.0-35.0) pg MCHC 33.1 (31.0-37.0) g/dL RDW 13.3 (11.5-15.5) % Plt Count 219 (150-450) k/uL Neutrophils % 64 % Lymphocytes % 25 % Monocytes % 5 % Eosinophils % 3 % Basophils % 1 % Neutrophils # 7.9 H (1.3-7.7) k/uL Lymphocytes # 3.1 (1.0-4.8) k/uL Monocytes # 0.6 (0-1.0) k/uL Eosinophils # 0.4 (0-0.7) k/uL Basophils # 0.1 (0-0.2) k/uL Sodium 140 (137-145) mmol/L Potassium 4.4 (3.5-5.1) mmol/L Chloride 109 H (98-107) mmol/L Carbon Dioxide 23 (22-30) mmol/L Anion Gap 8 mmol/L BUN 10 (7-17) mg/dL Creatinine 0.69 (0.52-1.04) mg/dL Est GFR (CKD-EPI)AfAm >90 (>60 ml/min/1.73 sqM) Est GFR (CKD-EPI)NonAf >90 (>60 ml/min/1.73 sqM) Glucose 107 H (74-99) mg/dL Calcium 8.6 (8.4-10.2) mg/dL Total Bilirubin 0.1 L (0.2-1.3) mg/dL AST 23 (14-36) U/L ALT 36 (9-52) U/L Alkaline Phosphatase 90 (38-126) U/L Total Protein 6.3 (6.3-8.2) g/dL Albumin 3.6 (3.5-5.0) g/dL HCG, Qual Detected HCG, Quant 238.5 mIU/mL Urine Color Urine Appearance (Clear) Urine pH (5.0-8.0) Ur Specific [place] (1.001-1.035) Urine Protein (Negative) Urine Glucose (UA) (Negative) Urine Ketones (Negative) Urine Blood (Negative) Urine Nitrite (Negative) Urine Bilirubin (Negative) Urine Urobilinogen (<2.0) mg/dL Ur Leukocyte Esterase (Negative) Urine RBC (0-5) /hpf Urine WBC (0-5) /hpf Ur Squamous Epith Cells (0-4) /hpf Urine Bacteria (None) /hpf Urine Mucus (None) /hpf 10/25/18 Range/Units 21:00 WBC (3.8-10.6) k/uL RBC (3.80-5.40) m/uL Hgb (11.4-16.0) gm/dL Hct (34.0-46.0) % MCV (80.0-100.0) fL MCH (25.0-35.0) pg MCHC (31.0-37.0) g/dL RDW (11.5-15.5) % Plt Count (150-450) k/uL Neutrophils % % Lymphocytes % % Monocytes % % Eosinophils % % Basophils % % Neutrophils # (1.3-7.7) k/uL Lymphocytes # (1.0-4.8) k/uL Monocytes # (0-1.0) k/uL Eosinophils # (0-0.7) k/uL Basophils # (0-0.2) k/uL Sodium (137-145) mmol/L Potassium (3.5-5.1) mmol/L Chloride (98-107) mmol/L Carbon Dioxide (22-30) mmol/L Anion Gap mmol/L BUN (7-17) mg/dL Creatinine (0.52-1.04) mg/dL Est GFR (CKD-EPI)AfAm (>60 ml/min/1.73 sqM) Est GFR (CKD-EPI)NonAf (>60 ml/min/1.73 sqM) Glucose (74-99) mg/dL Calcium (8.4-10.2) mg/dL Total Bilirubin (0.2-1.3) mg/dL AST (14-36) U/L ALT (9-52) U/L Alkaline Phosphatase (38-126) U/L Total Protein (6.3-8.2) g/dL Albumin (3.5-5.0) g/dL HCG, Qual HCG, Quant mIU/mL Urine Color Yellow Urine Appearance Cloudy H (Clear) Urine pH 6.5 (5.0-8.0) Ur Specific [place] 1.027 (1.001-1.035) Urine Protein Trace H (Negative) Urine Glucose (UA) Negative (Negative) Urine Ketones Negative (Negative) Urine Blood Negative (Negative) Urine Nitrite Negative (Negative) Urine Bilirubin Negative (Negative) Urine Urobilinogen <2.0 (<2.0) mg/dL Ur Leukocyte Esterase Large H (Negative) Urine RBC 9 H (0-5) /hpf Urine WBC 30 H (0-5) /hpf Ur Squamous Epith Cells 3 (0-4) /hpf Urine Bacteria Rare H (None) /hpf Urine Mucus Rare H (None) /hpf Disposition <Dilan Avila - Last Filed: 10/25/18 20:13> Is patient prescribed a controlled substance at d/c from ED?: No Time of Disposition: 21:29 <Julita Pradhan - Last Filed: 10/25/18 21:30> Clinical Impression: Positive test, , location unknown Disposition: HOME SELF-CARE Condition: Serious Additional Instructions: Please follow-up with Dr. Khan at 1:30 PM tomorrow in office. Return to the emergency room for any new or worsening symptoms Referrals: Bobby Riley MD [Primary Care Provider] - 1-2 days
--- NOTE | 2018-10-25 20:08 | US ---
EXAMINATION TYPE: Transabdominal DATE OF EXAM: 10/25/2018 7:54 PM COMPARISON: US, No previous for this . CLINICAL HISTORY: outpt us displayed no pole . Outpatient ultrasound displayed no pole. U nclear history from patient. Patient claims her ultrasound at outpatient clinic today established her at 7 weeks 2 days with an JOHN of 06/11/2019. Hx ovarian cyst. EXAM PERFORMED: Transvaginal (TV) and Transabdominal (TA) EXAM MEASUREMENTS: GESTATIONAL AGE / DATING Physician Established: (7 weeks/2 days) EDC: 06/11/2019 Dates by LMP: (9 weeks/0 days) EDC: 05/30/2019 Dates by First Scan: This is first scan Dates by Current Scan for: No evidence of IUP at this time. MATERNAL ANATOMY Uterus: 8.2 x 5.4 x 4.6 cm. Subcentimeter anechoic area seen in cervix. Right Ovary: not seen Left Ovary: 5.9 x 4.3 x 4.5 cm. Appears enlarged. Color Doppler shows blood flow to ovary. Three anec hoic areas seen. Largest measures: 3.4 x 3.9 x 4.4 cm. Post CDS / Adnexa: fluid seen Presence of free fluid: minimal in CDS Presence of corpus luteal cyst: Possible within left ovary GESTATION / SURVEY IUP: No IUP seen at this time Date of LMP: 08/23/2018 Beta HcG (if available): not available No sign of ectopic . IMPRESSION: Empty uterus. Multiple left-sided ovarian cysts.
[2018-10-25 20:34] LABS: Basophils # (A) 0.1 k/uL (0-0.2); Basophils % (A) 1 %; Eosinophils # (A) 0.4 k/uL (0-0.7); Eosinophils % (A) 3 %; HCT 43.7 % (34.0-46.0); HGB 14.5 gm/dL (11.4-16.0); Lymphocytes # (A) 3.1 k/uL (1.0-4.8); Lymphocytes % (A) 25 %; MCH 27.5 pg (25.0-35.0); MCHC 33.1 g/dL (31.0-37.0); Mean Platelet Volume 7.4; Monocytes # (A) 0.6 k/uL (0-1.0); Monocytes % (A) 5 %; Neutrophils # (A) 7.9 k/uL (1.3-7.7); Neutrophils % (A) 64 %; Platelet Count 219 k/uL (150-450); RBC 5.26 m/uL (3.80-5.40); RDW 13.3 % (11.5-15.5); WBC 12.3 k/uL (3.8-10.6)
[2018-10-25 20:42] LABS: ALT 36 U/L (9-52); AST 23 U/L (14-36); African American GFR (CKD) >90 (>60 ml/min/1.73 sqM); Albumin 3.6 g/dL (3.5-5.0); Alkaline Phosphatase 90 U/L (38-126); Anion Gap 8 mmol/L; Blood Urea Nitrogen 10 mg/dL (7-17); Calcium 8.6 mg/dL (8.4-10.2); Carbon Dioxide 23 mmol/L (22-30); Chloride 109 mmol/L (98-107); Glucose 107 mg/dL (74-99); Potassium 4.4 mmol/L (3.5-5.1); Sodium 140 mmol/L (137-145); Total Bilirubin 0.1 mg/dL (0.2-1.3); Total Protein 6.3 g/dL (6.3-8.2)
[2018-10-25 20:59] LABS: HCG,Quantitative Serum 238.5 mIU/mL
[2018-10-25 21:18] LABS: Appearance,Urine Cloudy (Clear); Bacteria,Urine Rare /hpf; Bilirubin,Urine Negative (Negative); Blood,Urine Negative (Negative); Color,Urine Yellow; Glucose,Urine (UA) Negative (Negative); Ketones,Urine Negative (Negative); Leukocyte Esterase,Urine Large (Negative); Mucus,Urine Rare /hpf; Nitrite,Urine Negative (Negative); PH, Urine 6.5 (5.0-8.0); Protein,Urine Trace (Negative); RBC,Urine 9 /hpf (0-5); Specific Gravity,Urine 1.027 (1.001-1.035); Squamous Epithelial Cell,Urine 3 /hpf (0-4); Urobilinogen,Urine <2.0 mg/dL (<2.0); WBC,Urine 30 /hpf (0-5)
== END 2018-10-25 21:50 | disposition home or self-care (01) ==
LOC: EC 18:06
DX: Z32.01 Encounter for pregnancy test, result positive (principal); F17.200 Nicotine dependence, unspecified, uncomplicated; Z87.59 Personal history of other complications of pregnancy, childbirth and the puerperium; Z88.8 Allergy status to other drugs, medicaments and biological substances; Z91.018 Allergy to other foods
CPT/HCPCS: 36415; 76801; 76817; 80053; 81001; 84702; 84703; 85025; 99284

== ENCOUNTER → 2018-10-28 | Outpatient (CLI) | payer OTHER | END | disposition home or self-care (01) | LOC: LABMAIN 17:13 | PROVIDERS: ATTEND Obstetrics & Gynecology | DX: O20.0 Threatened abortion (principal) | CPT/HCPCS: 36415; 84702 ==

== ENCOUNTER 2019-01-02 19:16 | Emergency (ER) | payer OTHER ==
[2019-01-02] MEDS ORDERED: ACETAMINOPHEN TAB 325 MG TAB PO STA (19:45)
[2019-01-02] MEDS ORDERED: SODIUM CHLORIDE 0.9% 1,000 ML IV STA (19:45)
--- NOTE | 2019-01-02 20:13 | ED ---
General Adult HPI - General Chief complaint: Abdominal Pain Stated complaint: 14 weeks , sharp pain, pelvic pain Source: patient, RN notes reviewed Mode of arrival: ambulatory Limitations: no limitations - History of Present Illness Initial comments: 23-year-old female currently 14 weeks presents to the emergency department for a chief complaint of pelvic pain and cramping. Patient is a female. States she had a miscarriage at 14 weeks during her last . States this feels similar as she is having the same cramping. She does admit to some vaginal bleeding earlier today but denies any at this time. Denies passing any clots or tissue. Patient states she had negative STI testing already at her [facility]. States she has a confirmed intrauterine . Patient's last menstrual period was September 24.Patient has no other complaints at this time including shortness of breath, chest pain, nausea or vomiting, headache, or visual changes. - Related Data Home Medications Medication Instructions Recorded Confirmed No Known Home Medications 10/25/18 10/25/18 Allergies Allergy/AdvReac Type Severity Reaction Status Date / Time diphenhydramine HCl Allergy Mild Rash/Hives Verified 01/02/19 19:32 [From Benadryl] diphenhydramine Allergy Rash/Hives Verified 01/02/19 19:32 [From Benadryl] tomato AdvReac Anaphylaxis Verified 01/02/19 19:32 Review of Systems ROS Statement: Those systems with pertinent positive or pertinent negative responses have been documented in the HPI. ROS Other: All systems not noted in ROS Statement are negative. Past Medical History Past Medical History: Asthma Additional Past Medical History / Comment(s): OB history: She has had 4 miscarriages, including 1 at 14 weeks, she has 2 live and this is her sixth . had hx of kidney stones w one of her pregnancies History of Any Multi-Drug Resistant Organisms: None Reported Past Surgical History: No Surgical Hx Reported Additional Past Surgical History / Comment(s): tonsillectomy, adnoidectomy Past Anesthesia/Blood Transfusion Reactions: No Reported Reaction Past Psychological History: Anxiety, Depression, PTSD Smoking Status: Current every day smoker Past Alcohol Use History: None Reported Past Drug Use History: None Reported - Past Family History Father History Unknown: Yes Family Medical History: Cancer Mother History Unknown: Yes Family Medical History: Congestive Heart Failure (CHF) Sister(s) Family Medical History: Coronary Artery Disease (CAD) Additional Family Medical History / Comment(s): Patient states that she has 5/2 sisters and one has from cervical palsy at age 14. She has 1 older sister that has schizophrenia and bipolar. Patient states that she has 11 half- brothers and one has passed. General Exam Limitations: no limitations General appearance: alert, in no apparent distress Head exam: Present: atraumatic, normocephalic, normal inspection Eye exam: Present: normal appearance, PERRL, EOMI. Absent: scleral icterus, conjunctival injection, periorbital swelling ENT exam: Present: normal exam, mucous membranes moist Neck exam: Present: normal inspection, full ROM. Absent: tenderness, meningismus, lymphadenopathy Respiratory exam: Present: normal lung sounds bilaterally. Absent: respiratory distress, wheezes, rales, rhonchi, stridor Cardiovascular Exam: Present: regular rate, normal rhythm, normal heart sounds. Absent: systolic murmur, diastolic murmur, rubs, gallop, clicks GI/Abdominal exam: Present: soft, tenderness (Minimal pelvic tenderness however no significant abdominal tenderness. No rebound tenderness. No McBurney point tenderness.), normal bowel sounds. Absent: distended, guarding, rebound, rigid External exam: Present: normal external exam. Absent: erythema, swelling, lesions, lacerations, ecchymosis Speculum exam: Present: normal speculum exam, other (Physiologic discharge). Absent: erythema, vaginal discharge, cervical discharge, vaginal bleeding, foreign body, tissue, laceration By manual exam: Present: adnexal tenderness (Left adnexal tenderness). Absent: normal by manual exam, cervical motion tenderness, adnexal mass, uterine enlarge ment, uterine tenderness Course Vital Signs 01/02/19 19:28 Temperature 98.2 F Pulse Rate 90 Respiratory 20 Rate Blood Pressure 147/75 O2 Sat by Pulse 100 Oximetry Medical Decision Making - Medical Decision Making HPI physical exam is documented. Describes the pain as a cramping suprapubic pain. Does admit to mild vaginal bleeding earlier today however states this stopped. Pelvic exam did reveal some mild left adnexal tenderness however no other concerning endings. No bleeding. CBC shows mild leukocytosis of 15.6. Patient denies any fevers at home and is afebrile here. CMP is unremarkable. US shows no completing process seen with a gestational age of 14 weeks and one day. Urinalysis does not show any evidence of infection. Patient does have 2+ ketones, was given fluids. At this time patient can be discharged home. I did recommend she return if she developed any worsening symptoms or fevers given her mild leukocytosis. Recommended she follow up with her [facility] as soon as possible. - Lab Data Result diagrams: 01/02/19 20:01/02/19 20: Lab Results 01/02/19 01/02/19 01/02/19 Range/Units 20: 20: 20: WBC 15.6 H (3.8-10.6) k/uL RBC 4.82 (3.80-5.40) m/uL Hgb 13.7 (11.4-16.0) gm/dL Hct 40.6 (34.0-46.0) % MCV 84.2 (80.0-100.0) fL MCH 28.3 (25.0-35.0) pg MCHC 33.6 (31.0-37.0) g/dL RDW 13.4 (11.5-15.5) % Plt Count 172 (150-450) k/uL Neutrophils % 78 % Lymphocytes % 14 % Monocytes % 4 % Eosinophils % 2 % Basophils % 1 % Neutrophils # 12.2 H (1.3-7.7) k/uL Lymphocytes # 2.1 (1.0-4.8) k/uL Monocytes # 0.6 (0-1.0) k/uL Eosinophils # 0.3 (0-0.7) k/uL Basophils # 0.1 (0-0.2) k/uL Sodium 135 L (137-145) mmol/L Potassium 4.2 (3.5-5.1) mmol/L Chloride 107 (98-107) mmol/L Carbon Dioxide 22 (22-30) mmol/L Anion Gap 6 mmol/L BUN 8 (7-17) mg/dL Creatinine 0.45 L (0.52-1.04) mg/dL Est GFR (CKD-EPI)AfAm >90 (>60 ml/min/1.73 sqM) Est GFR (CKD-EPI)NonAf >90 (>60 ml/min/1.73 sqM) Glucose 84 (74-99) mg/dL Calcium 9.1 (8.4-10.2) mg/dL Total Bilirubin 0.2 (0.2-1.3) mg/dL AST 19 (14-36) U/L ALT 19 (9-52) U/L Alkaline Phosphatase 78 (38-126) U/L Total Protein 6.5 (6.3-8.2) g/dL Albumin 3.5 (3.5-5.0) g/dL Amylase 53 (30-110) U/L Lipase 55 (23-300) U/L Urine Color Yellow Urine Appearance Clear (Clear) Urine pH 5.5 (5.0-8.0) Ur Specific [place] 1.028 (1.001-1.035) Urine Protein Negative (Negative) Urine Glucose (UA) Negative (Negative) Urine Ketones 2+ H (Negative) Urine Blood Negative (Negative) Urine Nitrite Negative (Negative) Urine Bilirubin Negative (Negative) Urine Urobilinogen <2.0 (<2.0) mg/dL Ur Leukocyte Esterase Negative (Negative) Disposition Clinical Impression: Pelvic pain during Disposition: HOME SELF-CARE Condition: Good Instructions (If sedation given, give patient instructions): Abdominal Pain in (ED) Additional Instructions: Please follow up with primary care in 1-2 days. Return to the emergency department if you have any worsening symptoms. Is patient prescribed a controlled substance at d/c from ED?: No Referrals: Bobby Riley MD [Primary Care Provider] - 1-2 days Time of Disposition: 21:49
[2019-01-02 20:50] LABS: Appearance,Urine Clear (Clear); Basophils # (A) 0.1 k/uL (0-0.2); Basophils % (A) 1 %; Bilirubin,Urine Negative (Negative); Blood,Urine Negative (Negative); Color,Urine Yellow; Eosinophils # (A) 0.3 k/uL (0-0.7); Eosinophils % (A) 2 %; Glucose,Urine (UA) Negative (Negative); HCT 40.6 % (34.0-46.0); HGB 13.7 gm/dL (11.4-16.0); Ketones,Urine 2+ (Negative); Leukocyte Esterase,Urine Negative (Negative); Lymphocytes # (A) 2.1 k/uL (1.0-4.8); Lymphocytes % (A) 14 %; MCH 28.3 pg (25.0-35.0); MCHC 33.6 g/dL (31.0-37.0); MCV 84.2 fL (80.0-100.0); Mean Platelet Volume 7.2; Monocytes # (A) 0.6 k/uL (0-1.0); Monocytes % (A) 4 %; Neutrophils # (A) 12.2 k/uL (1.3-7.7); Neutrophils % (A) 78 %; Nitrite,Urine Negative (Negative); PH, Urine 5.5 (5.0-8.0); Platelet Count 172 k/uL (150-450); Protein,Urine Negative (Negative); RBC 4.82 m/uL (3.80-5.40); RDW 13.4 % (11.5-15.5); Specific Gravity,Urine 1.028 (1.001-1.035); Urobilinogen,Urine <2.0 mg/dL (<2.0); WBC 15.6 k/uL (3.8-10.6)
[2019-01-02 20:58] LABS: ALT 19 U/L (9-52); AST 19 U/L (14-36); African American GFR (CKD) >90 (>60 ml/min/1.73 sqM); Albumin 3.5 g/dL (3.5-5.0); Alkaline Phosphatase 78 U/L (38-126); Amylase 53 U/L (30-110); Anion Gap 6 mmol/L; Blood Urea Nitrogen 8 mg/dL (7-17); Calcium 9.1 mg/dL (8.4-10.2); Carbon Dioxide 22 mmol/L (22-30); Chloride 107 mmol/L (98-107); Glucose 84 mg/dL (74-99); Non-African American GFR(CKD) >90 (>60 ml/min/1.73 sqM); Potassium 4.2 mmol/L (3.5-5.1); Sodium 135 mmol/L (137-145); Total Bilirubin 0.2 mg/dL (0.2-1.3); Total Protein 6.5 g/dL (6.3-8.2)
--- NOTE | 2019-01-02 21:35 | US ---
EXAMINATION TYPE: Transabdominal DATE OF EXAM: 01/02/2019 9:20 PM COMPARISON: US CLINICAL HISTORY: pain. Pelvic pain x 1 day. PCOS. Hx stillbirth. . EXAM PERFORMED: Transabdominal (TA) EXAM MEASUREMENTS: GESTATIONAL AGE / DATING Physician Established: Unknown Dates by LMP: (14 weeks/2 days) EDC: 07/01/2019 Dates by First Scan: This is first scan for dating (14 weeks/1 day) EDC: 07/02/2019 Dates by Current Scan for: (14 weeks/1 day) EDC: 07/02/2019 MATERNAL ANATOMY Uterus: 14.1 x 11.5 x 6.6 cm. Right Ovary: 3.0 x 2.0 x 2.5 cm. Slightly limited. Left Ovary: 5.2 x 2.9 x 3.3 cm. Appears enlarged. Color Doppler shows flow in ovary. Anechoic areas s een. Largest measures: 2.0 x 3.0 x 2.4 cm. Post CDS / Adnexa: Appear wnl Presence of free fluid: Not seen Presence of corpus luteal cyst: Area of mixed echogenicity left ovary measurin.4 x 2.7 x 2.8 cm. Presence of subchorionic bleed: Not seen GESTATION / SURVEY CRL: 8.24 cm. (14 weeks/1 day) Yolk Sac (normal less than 6mm): Not seen Heart Rate: 151 bpm Rhythm: Normal IUP: Viable IUP Date of LMP: 09/24/2018 IMPRESSION: The ultrasound gestational age is 14 weeks and 1 day. No complicating process seen.
[2019-01-02 22:10] VITALS: BP 135/78; PULSE 85; RESP 18; TEMP 98
== END 2019-01-02 22:11 | disposition home or self-care (01) ==
LOC: EC 19:16
DX: O99.89 Other specified diseases and conditions complicating pregnancy, childbirth and the puerperium (principal); R10.2 Pelvic and perineal pain; O99.112 Other diseases of the blood and blood-forming organs and certain disorders involving the immune mechanism complicating pregnancy, second trimester; D72.829 Elevated white blood cell count, unspecified; R82.4 Acetonuria; O99.332 Smoking (tobacco) complicating pregnancy, second trimester; F17.200 Nicotine dependence, unspecified, uncomplicated; Z88.8 Allergy status to other drugs, medicaments and biological substances; Z91.018 Allergy to other foods; Z87.59 Personal history of other complications of pregnancy, childbirth and the puerperium; Z3A.14 14 weeks gestation of pregnancy
CPT/HCPCS: 36415; 76801; 80053; 81003; 82150; 83690; 85025; 96360; 99284

== ENCOUNTER 2019-03-10 19:54 | Outpatient (CLI) | payer OTHER ==
[2019-03-10 21:16] LABS: Appearance,Urine Cloudy (Clear); Bacteria,Urine Rare /hpf; Bilirubin,Urine Negative (Negative); Blood,Urine Negative (Negative); Color,Urine Yellow; Glucose,Urine (UA) Negative (Negative); Hyaline Casts,Urine 3 /lpf (0-2); Ketones,Urine Trace (Negative); Leukocyte Esterase,Urine Negative (Negative); Mucus,Urine Many /hpf; Nitrite,Urine Negative (Negative); PH, Urine 6.5 (5.0-8.0); Protein,Urine 1+ (Negative); RBC,Urine 1 /hpf (0-5); Specific Gravity,Urine 1.043 (1.001-1.035); Squamous Epithelial Cell,Urine 19 /hpf (0-4); WBC,Urine 2 /hpf (0-5)
[2019-03-10 21:57] VITALS: BP 135/70; PULSE 106; RESP 18; TEMP 98
--- NOTE | 2019-03-13 11:22 | P.MSEPDOC ---
Presenting Problems - Arrival Data Date of Arrival on Unit: 03/10/19 Time of Arrival on Unit: 19:54 Mode of Transport: Wheelchair - Complaint OB-Reason for Admission/Chief Complaint: Rule Out PROM Comment: URI s/sx Medical History - Information : 3 Para: 2 Term: 0 : 2 Abortions: Spontaneous or Elective: 0 Number of Living Children: 1 - Gestational Age Gestational Age by JONH (wks/days): 23 Weeks and 1 Days - History Complications: Prior , Smoker Comment: hx 34 PROM delivery, hx 35 abruption delivery Review of Systems - Review of Systems Constitutional: No problems Breast: No problems ENT: Cough, Nasal congestion Cardiovascular: No problems Respiratory: No problems Gastrointestinal: No problems Genitourinary: No problems Musculoskeletal: No problems Neurological: No problems Skin: No problems Vital Signs - Temperature Temperature: 98.0 F Temperature Source: Temporal Artery Scan - Pulse Right Pulse Rate: 106 Pulse Assessment Method: Pulse Oximetry - Respirations Respiratory Rate: 18 O2 Sat by Pulse Oximetry: 96 - Blood Pressure Right Arm Blood Pressure: 135/70 Blood Pressure Mean: 91 Blood Pressure Source: Automatic Cuff Medical Screen Scoring (Pre) - Cervical Exam Dilation: Exam Deferred Effacement: Exam Deferred - Uterine Contractions Frequency: N/A Duration: N/A Intensity: N/A - Maternal Vital Signs Maternal Temperature: N/A Maternal Blood Pressure: N/A Signs of Preeclampsia: N/A Maternal Respirations: N/A - Maternal Trauma Maternal Trauma: N/A - Assessment - Baby A Baseline FHR: 140 Heart Rate - NICHD Category: Category I (Normal) = 0 - Total Score - Baby A Total Score - Baby A: 0 - Total Score - Baby B Total Score - Baby B: 0 - Total Score - Baby C Total Score - Baby C: 0 - Level of Risk - Baby A Level of Risk - Baby A: Low (0-5) - Level of Risk - Baby B Level of Risk - Baby B: Low (0-5) - Level of Risk - Baby C Level of Risk - Baby C: Low (0-5) Physician Notification (Pre) - Physician Notified Physician Notified Date: 03/10/19 Physician Notified Time: 21:20 - Notification Comment Comment: Dr Cohen called at home. Reported on pts c/o URI, cough, c/o leaking and. vomitting. Reported on fhts intermittent, due to gest age, negative amnisure, pt now c/o. voiding when she coughs, pt having a harsh productive cough and gagging after coughing. Orders to d/c home with instructions, recommnedation to go to ER for medical care after. being obstetrically cleared. keep scheduled appt in office Disposition - Disposition OB Disposition: Discharge to home Discharge Date: 03/10/19 Discharge Time: 21:30 I agree with the RN Medical Screening Exam: Yes Risk & Benefit of care provided described in d/c instruction: Yes Diagnosis: RELATED CONDITIONS, UNSPECIFIED, SECOND TRIMESTER
== END 2019-03-10 21:30 | disposition home or self-care (01) ==
LOC: FBPOP 19:54
PROVIDERS: ATTEND Obstetrics & Gynecology
DX: O26.92 Pregnancy related conditions, unspecified, second trimester (principal); O99.332 Smoking (tobacco) complicating pregnancy, second trimester; Z3A.23 23 weeks gestation of pregnancy
CPT/HCPCS: 81001; G0463; 99213

== ENCOUNTER 2019-03-14 01:00 | Outpatient (CLI) | payer OTHER | END 2019-03-14 02:45 | disposition home or self-care (01) | LOC: FBPOP 01:00 | PROVIDERS: ATTEND Obstetrics & Gynecology Obstetrics | DX: O47.02 False labor before 37 completed weeks of gestation, second trimester (principal); Z3A.23 23 weeks gestation of pregnancy | CPT/HCPCS: 84112; G0463; 99213 ==

== ENCOUNTER 2019-04-19 22:33 | Outpatient (CLI) | payer OTHER ==
[2019-04-19 23:35] LABS: Amorphous Sediment,Urine Rare /hpf; Appearance,Urine Cloudy (Clear); Bacteria,Urine Few /hpf; Bilirubin,Urine Negative (Negative); Blood,Urine Negative (Negative); Color,Urine Yellow; Glucose,Urine (UA) Negative (Negative); Ketones,Urine Negative (Negative); Leukocyte Esterase,Urine Negative (Negative); Mucus,Urine Few /hpf; Nitrite,Urine Negative (Negative); Protein,Urine 1+ (Negative); RBC,Urine 2 /hpf (0-5); Specific Gravity,Urine 1.035 (1.001-1.035); Squamous Epithelial Cell,Urine 7 /hpf (0-4); WBC,Urine 2 /hpf (0-5)
[2019-04-20 00:03] VITALS: BP 136/62; PULSE 111; RESP 16; TEMP 97.2
--- NOTE | 2019-05-06 11:34 | P.MSEPDOC ---
Presenting Problems - Arrival Data Date of Arrival on Unit: 04/19/19 Time of Arrival on Unit: 22:33 Mode of Transport: Wheelchair - Complaint OB-Reason for Admission/Chief Complaint: Possible Onset of Labor Comment: Contractions every 5-6 minutes since yesterday, pain 07/24 Medical History - Information : 4 Para: 2 Term: 0 : 2 Abortions: Spontaneous or Elective: 0 Number of Living Children: 2 - Gestational Age Gestational Age by JOHN (wks/days): 29 Weeks and 1 Days - History Complications: Smoker Review of Systems - Review of Systems Constitutional: No problems Breast: No problems ENT: No problems Cardiovascular: No problems Respiratory: No problems Gastrointestinal: No problems Genitourinary: No problems Musculoskeletal: No problems Neurological: No problems Skin: No problems Vital Signs - Temperature Temperature: 97.2 F Temperature Source: Temporal Artery Scan - Pulse Right Brachial Pulse Rate: 111 Pulse Assessment Method: Automatic Cuff - Respirations Respiratory Rate: 16 Oxygen Delivery Method: Room Air O2 Sat by Pulse Oximetry: 96 - Blood Pressure Right Arm Blood Pressure: 136/62 Blood Pressure Mean: 86 Blood Pressure Source: Automatic Cuff Medical Screen Scoring (Pre) - Cervical Exam Dilation: 1-3 cm = 1 Effacement: Exam Deferred Membranes: Intact - Uterine Contractions Frequency: N/A Duration: N/A Intensity: N/A - Maternal Vital Signs Maternal Temperature: N/A Signs of Preeclampsia: N/A Maternal Respirations: N/A - Maternal Trauma Maternal Trauma: N/A - Assessment - Baby A Baseline FHR: 140 Heart Rate - NICHD Category: Category I (Normal) = 0 - Total Score - Baby A Total Score - Baby A: 1 - Total Score - Baby B Total Score - Baby B: 1 - Total Score - Baby C Total Score - Baby C: 1 - Level of Risk - Baby A Level of Risk - Baby A: Low (0-5) - Level of Risk - Baby B Level of Risk - Baby B: Low (0-5) - Level of Risk - Baby C Level of Risk - Baby C: Low (0-5) Physician Notification (Pre) - Physician Notified Physician Notified Date: 04/19/19 Physician Notified Time: 23:39 New Order Received: No - Notification Comment Comment: [address] Cohen on pt vag exam, reactive strip and no contractions, orders to send UA [id number] UA results negative, orders to d/c home. Follow up 04/24 Disposition - Disposition OB Disposition: Discharge to home, Written follow up instructions reviewed Discharge Date: 04/20/19 Discharge Time: 23:42 I agree with the RN Medical Screening Exam: Yes Risk & Benefit of care provided described in d/c instruction: Yes Diagnosis: FALSE LABOR BEFORE 37 COMPLETED WEEKS OF GEST, THIRD TRI
== END 2019-04-19 23:42 | disposition home or self-care (01) ==
LOC: FBPOP 22:33
PROVIDERS: ATTEND Obstetrics & Gynecology
DX: O47.03 False labor before 37 completed weeks of gestation, third trimester (principal); Z3A.29 29 weeks gestation of pregnancy
CPT/HCPCS: 59025; 81001; G0463; 99213

== ENCOUNTER 2019-05-03 19:03 | Outpatient (CLI) | payer OTHER ==
[2019-05-03 19:53] VITALS: BP 122/77; PULSE 103; RESP 16; TEMP 98.1
--- NOTE | 2019-05-09 11:53 | P.MSEPDOC ---
Presenting Problems - Arrival Data Date of Arrival on Unit: 05/03/19 Time of Arrival on Unit: 19:03 Mode of Transport: Ambulatory - Complaint OB-Reason for Admission/Chief Complaint: Pain Comment: Pt states back pain and cramping since 1600 yesterday, unable to close her. legs, increased pressure and discharge and diahrea. Medical History - Information : 4 Para: 0 Term: 2 : 0 Abortions: Spontaneous or Elective: 1 Number of Living Children: 2 - Gestational Age Gestational Age by JOHN (wks/days): 31 Weeks and 6 Days - History Complications: Smoker Review of Systems - Review of Systems Constitutional: No problems Breast: No problems ENT: No problems Cardiovascular: No problems Respiratory: No problems Gastrointestinal: No problems Genitourinary: No problems Musculoskeletal: No problems Neurological: No problems Skin: No problems Vital Signs - Temperature Temperature: 98.1 F Temperature Source: Oral - Pulse Right Brachial Pulse Rate: 103 Pulse Assessment Method: Automatic Cuff - Respirations Respiratory Rate: 16 Oxygen Delivery Method: Room Air O2 Sat by Pulse Oximetry: 94 - Blood Pressure Right Arm Blood Pressure: 122/77 Blood Pressure Mean: 92 Blood Pressure Source: Automatic Cuff Medical Screen Scoring (Pre) - Cervical Exam Dilation: 1-3 cm = 1 Effacement: Exam Deferred Membranes: Intact - Uterine Contractions Frequency: N/A Duration: N/A Intensity: N/A - Maternal Vital Signs Maternal Temperature: N/A Signs of Preeclampsia: N/A Maternal Respirations: N/A - Maternal Trauma Maternal Trauma: N/A - Assessment - Baby A Baseline FHR: 135 Heart Rate - NICHD Category: Category I (Normal) = 0 NST: Reactive - Total Score - Baby A Total Score - Baby A: 1 - Total Score - Baby B Total Score - Baby B: 1 - Total Score - Baby C Total Score - Baby C: 1 - Level of Risk - Baby A Level of Risk - Baby A: Low (0-5) - Level of Risk - Baby B Level of Risk - Baby B: Low (0-5) - Level of Risk - Baby C Level of Risk - Baby C: Low (0-5) Physician Notification (Pre) - Physician Notified Physician Notified Date: 05/03/19 Physician Notified Time: 19:30 New Order Received: Yes - Notification Comment Comment: Report given on pt negative amnisure, no contractions, diahrea since yesterday. D/c pt home, encourage gatoraid. Disposition - Disposition OB Disposition: Discharge to home, Written follow up instructions reviewed Discharge Date: 05/03/19 Discharge Time: 19:36 I agree with the RN Medical Screening Exam: Yes Risk & Benefit of care provided described in d/c instruction: Yes Diagnosis: FALSE LABOR BEFORE 37 COMPLETED WEEKS OF GEST, THIRD TRI
== END 2019-05-03 19:36 | disposition home or self-care (01) ==
LOC: FBPOP 19:03
PROVIDERS: ATTEND Obstetrics & Gynecology Obstetrics
DX: O47.03 False labor before 37 completed weeks of gestation, third trimester (principal); O99.333 Smoking (tobacco) complicating pregnancy, third trimester; Z3A.31 31 weeks gestation of pregnancy
CPT/HCPCS: 59025; 84112; G0463; 99213

== ENCOUNTER 2019-05-27 02:08 | Inpatient (IN) | payer OTHER ==
[2019-05-27] MEDS ORDERED: TERBUTALINE 1 MG/ML VIAL SQ PRN (02:40)
[2019-05-27] MEDS ORDERED: METHYLERGONOVINE 0.2 MG/ML 1 ML AMP IM PRN (02:40)
[2019-05-27] MEDS ORDERED: OXYTOCIN 10 UNIT/ML 1 ML VIAL IM PRN (02:40)
[2019-05-27] MEDS ORDERED: CARBOPROST TROMETHAMINE 250 MCG/ML 1 ML AMP IM PRN (02:40)
[2019-05-27] MEDS ORDERED: PENICILLIN G POTASSIUM 5,000,000 UNIT in DEXTROSE 5% IN WATER 100 ML IVPB STA ×2 (02:40)
[2019-05-27] MEDS ORDERED: LIDOCAINE 0.5% (PF) 5 MG/ML (50 ML SDV) SQ PRN (02:40)
[2019-05-27] MEDS ORDERED: OXYTOCIN 30 UNITS/500 ML NS 30 UNIT in SALINE 1 500ML.BAG IV SCH (02:45)
[2019-05-27] MEDS: LACTATED RINGERS 1,000 ML IV SCH ×3 (03:07→07:15)
[2019-05-27 03:24] LABS: HCT 36.1 % (34.0-46.0); HGB 12.2 gm/dL (11.4-16.0); MCH 27.4 pg (25.0-35.0); MCHC 33.7 g/dL (31.0-37.0); MCV 81.4 fL (80.0-100.0); Mean Platelet Volume 8.4; Platelet Count 206 k/uL (150-450); RBC 4.44 m/uL (3.80-5.40); RDW 14.3 % (11.5-15.5); WBC 13.6 k/uL (3.8-10.6)
[2019-05-27 03:41] LABS: Eosinophils # (M) 0.14 k/uL (0-0.7); Lymphocytes # (M) 2.45 k/uL (1.0-4.8); Monocytes # (M) 1.63 k/uL (0-1.0); Neutrophils # (M) 9.38 k/uL (1.3-7.7); Neutrophils % (M) 69 %; Nucleated Red Blood Cells 0 /100 WBC (0-0); Total Cells Counted 100
[2019-05-27] MEDS ORDERED: BUTORPHANOL 1 MG/ML 1 ML VIAL IV PRN (04:08)
[2019-05-27] MEDS: PENICILLIN G POTASSIUM 2,500,000 UNIT in DEXTROSE 5% IN WATER 100 ML IVPB SCH ×6 (07:26→20:32)
--- NOTE | 2019-05-27 09:23 | P.HPOB ---
History of Present Illness H&P Date: 05/27/19 This is a 23-year-old white female 4 para 2012 EDC 06/30/2019 at 35 and one sevenths weeks' gestation. Patient presented with spontaneous rupture of membranes which occurred at approximately 0140 hours, clear fluid. Fetus is been active throughout the . She is having rare irregular uterine contractions. Past medical history is significant for asthma, obesity, anxiety and depression. Past surgical history cholecystectomy 2019. D&C for miscarriage. Tonsillectomy and adenoidectomy. Current medications vitamins daily, inhaler as needed. ALLERGIES include Benadryl and tomatoes , patient reports an anaphylactic reaction to the vessels. Family history is significant for anxiety and depression, cancer, bipolar disorder and schizophrenia. Social history patient is , she is a smoker, but denies alcohol or drug use. history is significant for blood type O+, antibody screen negative, group B strep cultures unknown. On exam patient is 4 foot 7 inches, approximately 220 pounds, blood pressure 130/76 on admission. The general physical exam is remarkable for morbid truncal obesity. There is no peripheral edema. The chest is clear in all flaherty. Cervix at this time is 7 cm dilated, posterior, -2, vertex, ruptured, 80% effaced. heart tones are consistent with reactive NST, overall very good variability. Impression: 35 and one sevenths weeks intrauterine , spontaneous amniorrhexis, now with oxytocin augmentation in active labor. Penicillin G has been received 2 doses for unknown group B strep culture status. Epidural has been placed per patient request. She is currently uncomfortable. Plan: Continue close maternal and surveillance. Continue oxytocin per hospital protocol. Anticipate normal spontaneous vaginal delivery. Review of Systems Constitutional: Reports as per HPI Past Medical History Past Medical History: Asthma Additional Past Medical History / Comment(s): OB history: She has had 4 m iscarriages, including 1 at 14 weeks, she has 2 live and this is her sixth . had hx of kidney stones w one of her pregnancies History of Any Multi-Drug Resistant Organisms: None Reported Past Surgical History: Adenoidectomy, Cholecystectomy, Tonsillectomy Additional Past Surgical History / Comment(s): tonsillectomy, adnoidectomy Past Anesthesia/Blood Transfusion Reactions: No Reported Reaction Past Psychological History: Anxiety, Depression, PTSD Additional Psychological History / Comment(s): NO MEDS CURRENTLY Smoking Status: Current every day smoker Past Alcohol Use History: None Reported Additional Past Alcohol Use History / Comment(s): She is a smoker of 8-10 cigarettes per day since she was 16 years old she denies any marijuana, medical marijuana or street drug use. She denies any alcohol use. Past Drug Use History: None Reported Additional Drug Use History / Comment(s): smoked for 6 years-6 possible cigarettes a day - Past Family History Father History Unknown: Yes Family Medical History: Cancer Mother History Unknown: Yes Family Medical History: Congestive Heart Failure (CHF) Sister(s) Family Medical History: Coronary Artery Disease (CAD) Additional Family Medical History / Comment(s): Patient states that she has 5/2 sisters and one has from cervical palsy at age 14. She has 1 older sister that has schizophrenia and bipolar. Patient states that she has 11 half- brothers and one has passed. Medications and Allergies Home Medications Medication Instructions Recorded Confirmed Type Pnv,Calcium 72/Iron/Folic Acid 1 tab PO DAILY 03/14/19 05/27/19 History [ Plus Tablet] Allergies Allergy/AdvReac Type Severity Reaction Status Date / Time diphenhydramine Allergy Severe Anaphylaxis Verified 05/27/19 02:11 [From Benadryl] diphenhydramine HCl Allergy Severe Anaphylaxis Verified 05/27/19 02:11 [From Benadryl] tomato AdvReac Severe Anaphylaxis Verified 05/27/19 02:11 Exam Vital Signs Temp Pulse Resp BP 05/27/19 02:44 97.4 F L 103 H 18 130/76 05/27/19 02:30 97.4 F L 103 H 18 130/76 Intake and Output 05/26/19 05/27/19 05/27/19 22:59 06:59 14:59 Other: # Voids 1 Weight 97.069 kg See dictation under HPI please Results Result Diagrams: 05/27/19 03:10 Abnormal Lab Results - Last 24 Hours (Table) 05/27/19 Range/Units 03:10 WBC 13.6 H (3.8-10.6) k/uL Neutrophils # (Manual) 9.38 H (1.3-7.7) k/uL Monocytes # (Manual) 1.63 H (0-1.0) k/uL Assessment and Plan Assessment: 35 and one sevenths weeks intrauterine , spontaneous amniorrhexis, now in active labor. Penicillin G receive 2 doses for unknown group B strep history. Morbid obesity. Plan: Continue oxytocin augmentation per hospital protocol. Continue close maternal and surveillance. Penicillin G prophylaxis has been administered. Anticipate normal spontaneous vaginal delivery. Time with Patient: Less than 30
[2019-05-27] MEDS ORDERED: ZOLPIDEM 5 MG TAB PO PRN (12:24)
[2019-05-27] MEDS ORDERED: HYDROCORTISONE 2.5% RECTAL CREAM 30 GM TUBE RECTAL PRN (12:24)
[2019-05-27] MEDS ORDERED: SIMETHICONE 80 MG CHEWABLE PO PRN (12:24)
[2019-05-27] MEDS ORDERED: diphenhydrAMINE 50 MG/ML 1 ML VIAL IVP PRN (12:24)
[2019-05-27] MEDS ORDERED: ACETAMINOPHEN TAB 325 MG TAB PO PRN ×2 (12:24→12:25)
[2019-05-27] MEDS ORDERED: BENZOCAINE/MENTHOL SPRAY 1 GM/SPRAY AEROSOL TOPICAL PRN (12:24)
[2019-05-27] MEDS ORDERED: WITCH HAZEL 1 EACH MED..PAD TOPICAL PRN (12:24)
[2019-05-27] MEDS ORDERED: LANOLIN CREAM 5 GM TUBE TOPICAL PRN (12:24)
--- NOTE | 2019-05-27 12:24 | P.PROBDLV ---
Vaginal Delivery Note - . Vaginal Delivery Note: This is a 23-year-old white female 4 para 2011 EDC 06/29/2034 and one sevenths weeks' gestation. Patient presented earlier with spontaneous amniorrhexis, clear fluid, which occurred at home. Group B strep cultures unknown. Blood type O+. Please see admitting H&P for details. Penicillin G was given 2 doses prophylactically. Oxytocin augmentation was started and titrated. Epidural was placed per her request. Patient became completely dilated at 1158 hours and began the second stage of labor at that time. Perineal body was prepped and draped in usual sterile fashion. With good maternal expulsive effort the infant's head delivered occiput anterior and restituted accordingly. There was a nuchal cord 2 that was reduced. The left or anterior shoulder was gently delivered from underneath the pubic symphysis at which time the oropharynx, nasopharynx, and external nares were all bulb suctioned. Patient officially delivered a liveborn male infant at 02/16/2008 hours. He Umbilical cord was doubly clamped and ligated, he was handed to waiting tablet machine operator for evaluation where scores of 8 and 8 at one and 5 minutes respectively were given. The placenta delivered spontaneously, it was inspected and noted to be intact with trivascular cord at 1211 hours. Please note that cord blood was sent to the lab for evaluation. At this time careful inspection of the cervix, vagina, perineum, periurethral, and perirectal areas was performed. There were no lacerations or defects noted. No suturing was necessary. Fundus is firm and in the midline, symmetric and 18 week size upon completion of delivery. All sponge needle and instrument counts are correct. Patient and her family are allowed to begin the bonding experience in the LDR. She is requesting circumcision for her son. Blood loss 200 mL's.
[2019-05-27] MEDS: IBUPROFEN 600 MG TAB PO PRN (20:17)
[2019-05-27] MEDS: SENNOSIDES-DOCUSATE SODIUM 1 EACH TAB PO SCH (20:18)
[2019-05-27] MEDS: NICOTINE 14MG/24HR PATCH TRANSDERM SCH (23:07)
[2019-05-28 03:29] LABS: HCT 32.7 % (34.0-46.0); MCHC 33.7 g/dL (31.0-37.0); MCV 83.2 fL (80.0-100.0); Mean Platelet Volume 8.2; Platelet Count 156 k/uL (150-450); RBC 3.93 m/uL (3.80-5.40); RDW 14.7 % (11.5-15.5); WBC 11.6 k/uL (3.8-10.6)
[2019-05-28 04:14] LABS: Band Neutrophils % 1 %; Lymphocytes # (M) 2.55 k/uL (1.0-4.8); Neutrophils % (M) 71 %; Nucleated Red Blood Cells 0 /100 WBC (0-0); Total Cells Counted 100
[2019-05-28] MEDS: IBUPROFEN 600 MG TAB PO PRN ×2 (04:28→15:41)
[2019-05-28] MEDS ORDERED: PNV CALCIUM PO SCH (09:00)
[2019-05-28] MEDS ORDERED: IRON PO SCH (09:00)
[2019-05-28] MEDS ORDERED: FOLIC ACID PO SCH (09:00)
--- NOTE | 2019-05-28 12:10 | P.PNOBGVD ---
Subjective - Subjective Patient reports: Reports appetite normal, Reports voiding normally, Reports pain well controlled, Reports ambulating normally : doing well (The infant remains in the nursery for further observation secondary to issues of possible prematurity but is doing very well and requiring no supplemental oxygen or other interventions at this time.) Objective - Latest Vital Signs Latest vital signs: Vital Signs Temp Pulse Resp BP Pulse Ox 05/28/19 07:42 97.3 F L 78 16 128/73 99 05/27/19 23:29 98.3 F 73 16 115/63 99 05/27/19 20:00 98.2 F 75 16 103/63 99 05/27/19 16:00 96.9 F L 90 14 113/62 05/27/19 14:20 88 14 90/52 05/27/19 13:50 100 14 92/53 05/27/19 13:20 93 14 91/52 05/27/19 13:05 98 14 90/53 05/27/19 12:50 91 12 91/54 05/27/19 12:35 90 14 93/53 05/27/19 12:20 96.5 F L 108 H 16 95/60 - Exam Extremities: Present: normal Abdomen: Present: normal appearance, soft Uterus: Present: normal, firm (The uterine fundus is tonic and nontender around the umbilicus.) - Labs Labs: Abnormal Lab Results - Last 24 Hours (Table) 05/28/19 Range/Units 03:02 WBC 11.6 H (3.8-10.6) k/uL Hgb 11.0 L (11.4-16.0) gm/dL Hct 32.7 L (34.0-46.0) % Neutrophils # (Manual) 8.30 H (1.3-7.7) k/uL Assessment and Plan (1) Normal spontaneous vaginal delivery Current Visit: Yes Status: Acute Code(s): O80 - ENCOUNTER FOR FULL-TERM UNCOMPLICATED DELIVERY SNOMED Code(s): 63553453 Plan: Continue routine care. I would anticipate discharge home tomorrow pending no complications.
[2019-05-28] MEDS: SENNOSIDES-DOCUSATE SODIUM 1 EACH TAB PO SCH ×2 (15:42→18:31)
[2019-05-28] MEDS: NICOTINE 14MG/24HR PATCH TRANSDERM SCH (22:47)
[2019-05-29 08:02] VITALS: BP 120/84; PULSE 92; RESP 18; TEMP 98.4
--- NOTE | 2019-05-29 11:51 | P.DS ---
Providers Date of admission: 05/27/19 02:28 Expected date of discharge: 05/29/19 Attending physician: Cricket Cohen Primary care physician: Stated None - Discharge Diagnosis(es) (1) Normal spontaneous vaginal delivery Current Visit: Yes Status: Acute (2) Active labor Current Visit: Yes Status: Acute Hospital Course: The patient is a 23-year-old 4 para 0212 admitted at 35 and one sevenths weeks by good dating parameters. She is admitted with documented spontaneous rupture of membranes for clear fluid. Her has been essentially uncomplicated to this point though she does have a history of 2 previous deliveries at shortly after 35 weeks, one for rupture of membranes and the other for apparent abruption. On labor and delivery, she made progress on her own and had antibody prophylaxis started for group B strep ultimately receiving 2 doses prior to delivery. She had an epidural catheter placed for analgesia. She ultimately progressed to complete where after she pushed to a normal spontaneous vaginal delivery of a viable 6 lbs. 0 oz. baby boy with Apgars of 8 at 1 minute and 8 at 5 minutes. Her course has been unremarkable with vital signs being stable and her temperature was afebrile throughout. She was deemed stable for discharge on day #2 was discharged home to follow-up in the office in 6 weeks' time routinely. Discharge instructions included calling for any significantly increased bleeding or foul-smelling lochia, significantly increased fever or abdominal pain, perineal complaints, breast complaints, or anything also concerned her. She was additionally instructed to have nothing in the vagina for at least 6 weeks time to include intercourse. She understood all of her instructions and agrees to follow up as noted above. Discharge medications included only [id number] analgesic pain medications as needed. Maternal blood type is O+ and rubella status is immune. Procedures: #1. Antibiotic prophylaxis #2. Epidural analgesia #3. Normal spontaneous vag inal delivery Patient Condition at Discharge: Good Plan - Discharge Summary New Discharge Prescriptions: No Action Pnv,Calcium 72/Iron/Folic Acid [ Plus Tablet] 1 tab PO DAILY Discharge Medication List Pnv,Calcium 72/Iron/Folic Acid [ Plus Tablet] 1 tab PO DAILY 03/14/19 [History] Follow up Appointment(s)/Referral(s): Cricket Cohen MD [STAFF PHYSICIAN] - 6 Weeks Discharge Disposition: HOME SELF-CARE
== END 2019-05-29 12:17 | disposition home or self-care (01) | DRG 807 ==
LOC: FBPOP 02:08 → 4FBP 02:28
PROVIDERS: ADMIT Obstetrics & Gynecology; ATTEND Obstetrics & Gynecology
PROC: 3E0R3BZ Introduction of Anesthetic Agent into Spinal Canal, Percutaneous Approach (ICD-10-PCS; principal; 2019-05-27)
PROC: 00HU33Z Insertion of Infusion Device into Spinal Canal, Percutaneous Approach (ICD-10-PCS; principal; 2019-05-27)
PROC: 10E0XZZ Delivery of Products of Conception, External Approach (ICD-10-PCS; principal; 2019-05-27)
DX: O60.14X0 Preterm labor third trimester with preterm delivery third trimester, not applicable or unspecified (principal); Z37.0 Single live birth; O99.214 Obesity complicating childbirth; E66.01 Morbid (severe) obesity due to excess calories; O69.81X0 Labor and delivery complicated by cord around neck, without compression, not applicable or unspecified; Z3A.35 35 weeks gestation of pregnancy; O99.52 Diseases of the respiratory system complicating childbirth; J45.909 Unspecified asthma, uncomplicated; O99.334 Smoking (tobacco) complicating childbirth; F17.210 Nicotine dependence, cigarettes, uncomplicated; Z71.6 Tobacco abuse counseling; Z79.899 Other long term (current) drug therapy; Z90.49 Acquired absence of other specified parts of digestive tract; Z98.890 Other specified postprocedural states; Z86.59 Personal history of other mental and behavioral disorders; Z87.442 Personal history of urinary calculi; Z88.8 Allergy status to other drugs, medicaments and biological substances; Z91.018 Allergy to other foods; Z81.8 Family history of other mental and behavioral disorders; Z80.9 Family history of malignant neoplasm, unspecified; Z82.49 Family history of ischemic heart disease and other diseases of the circulatory system; Z82.0 Family history of epilepsy and other diseases of the nervous system
CPT/HCPCS: 59025; 84112; 85025; 86850; 86900; 86901; 99213

== ENCOUNTER 2019-09-22 19:54 | Observation (INO) | payer OTHER ==
[2019-09-22] MEDS ORDERED: ALBUTEROL HFA INHALER INHALATION STA (20:27)
--- NOTE | 2019-09-22 20:49 | XR ---
EXAMINATION TYPE: XR chest 1V portable DATE OF EXAM: 09/22/2019 COMPARISON: 09/06/2018 HISTORY: Pneumonia. Fever. TECHNIQUE: FINDINGS: Heart and mediastinum are normal. Lungs are clear. Diaphragm is normal. Bony thorax appears normal. IMPRESSION: Normal chest. No change. No evidence of bronchopneumonia.
[2019-09-22] MEDS ORDERED: DEXAMETHASONE SOD PHOSPHATE 10 MG/ML 1 ML VIAL IV STA ×2 (21:05→21:22)
[2019-09-22] MEDS ORDERED: IPRATROPIUM-ALBUTEROL 3 ML NEB INHALATION STA (21:10)
[2019-09-22 21:39] LABS: Basophils # (A) 0.1 k/uL (0-0.2); Basophils % (A) 0 %; Eosinophils # (A) 0.5 k/uL (0-0.7); Eosinophils % (A) 4 %; HCT 41.4 % (34.0-46.0); HGB 13.5 gm/dL (11.4-16.0); Lymphocytes # (A) 2.2 k/uL (1.0-4.8); Lymphocytes % (A) 17 %; MCH 27.4 pg (25.0-35.0); MCHC 32.6 g/dL (31.0-37.0); Mean Platelet Volume 7.8; Monocytes # (A) 0.6 k/uL (0-1.0); Monocytes % (A) 5 %; Neutrophils # (A) 8.8 k/uL (1.3-7.7); Neutrophils % (A) 70 %; Platelet Count 187 k/uL (150-450); RBC 4.93 m/uL (3.80-5.40); RDW 14.5 % (11.5-15.5); WBC 12.7 k/uL (3.8-10.6)
[2019-09-22 21:53] LABS: D-Dimer 0.4 mg/L FEU (<0.60); INR 0.9 (<1.2); Partial Thromboplastin Time 24.3 sec (22.0-30.0); Prothrombin Time 9.4 sec (9.0-12.0)
[2019-09-22 21:56] LABS: ALT 36 U/L (4-34); AST 25 U/L (14-36); African American GFR (CKD) >90 (>60 ml/min/1.73 sqM); Albumin 3.8 g/dL (3.5-5.0); Alkaline Phosphatase 95 U/L (38-126); Anion Gap 6 mmol/L; Blood Urea Nitrogen 14 mg/dL (7-17); C Reactive Protein 14.8 mg/L (<10.0); Calcium 9.1 mg/dL (8.4-10.2); Carbon Dioxide 24 mmol/L (22-30); Chloride 106 mmol/L (98-107); Glucose 120 mg/dL (74-99); LDH 405 U/L (313-618); Magnesium 1.9 mg/dL (1.6-2.3); Non-African American GFR(CKD) >90 (>60 ml/min/1.73 sqM); Sodium 136 mmol/L (137-145); Total Bilirubin 0.3 mg/dL (0.2-1.3); Total Protein 6.7 g/dL (6.3-8.2)
[2019-09-22] MEDS ORDERED: IPRATROPIUM-ALBUTEROL 3 ML NEB INHALATION PRN (22:42)
--- NOTE | 2019-09-22 22:45 | ED ---
General Adult HPI - General Chief complaint: Fever Stated complaint: Fever Time Seen by Provider: 09/22/19 20:16 Source: patient, RN notes reviewed, old records reviewed Mode of arrival: ambulatory Limitations: no limitations - History of Present Illness Initial comments: 24-year-old female patient presents ED chief complaint cough congestion shortness of breath nausea loss of taste and smell for the last 4 days. Patient reports that she is a smoker and she smokes approximately three-quarter pack of cigarettes per day. She reports that today she became very short of breath with her coughing feels as if she is unable to get all the air out of her lungs. She denies any other complaints. Systemic: Pt denies fatigue,rash. Pt denies weakness, night sweats, weight loss. Neuro: Pt denies headache, visual disturbances, syncope or pre-syncope. HEENT: Pt denies ocular discharge or irritation, otalgia, rhinorrhea, pharyngitis or notable lymphadenopathy. Cardiopulmonary: Pt denies chest pain, heart palpitations, dyspnea on exertion. Abdominal/GI: Pt denies abdominal pain, n/v/d. : Pt denies dysuria, burning w/ urination, frequency/urgency. Denies new onset urinary or bowel incontinence. MSK: Pt denies myalgia, loss of strength or function in extremities. Neuro: Pt denies new onset weakness, paresthesias. - Related Data Home Medications Medication Instructions Recorded Confirmed No Known Home Medications 09/22/19 09/22/19 Allergies Allergy/AdvReac Type Severity Reaction Status Date / Time diphenhydramine Allergy Severe Anaphylaxis Verified 09/22/19 22:51 [From Benadryl] diphenhydramine HCl Allergy Severe Anaphylaxis Verified 09/22/19 22:51 [From Benadryl] Review of Systems ROS Statement: Those systems with pertinent positive or pertinent negative responses have been documented in the HPI. ROS Other: All systems not noted in ROS Statement are negative. Past Medical History Past Medical History: Asthma Additional Past Medical History / Comment(s): OB history: She has had 4 miscarriages, including 1 at 14 weeks, she has 2 live and this is her sixth . had hx of kidney stones w one of her pregnancies History of Any Multi-Drug Resistant Organisms: None Reported Past Surgical History: Adenoidectomy, Cholecystectomy, Tonsillectomy Additional Past Surgical History / Comment(s): tonsillectomy, adnoidectomy Past Anesthesia/Blood Transfusion Reactions: No Reported Reaction Past Psychological History: Anxiety, Depression, PTSD Past Alcohol Use History: None Reported Past Drug Use History: None Reported - Past Family History Father History Unknown: Yes Family Medical History: Cancer Mother History Unknown: Yes Family Medical History: Congestive Heart Failure (CHF) Sister(s) Family Medical History: Coronary Artery Disease (CAD) Additional Family Medical History / Comment(s): Patient states that she has 5/2 sisters and one has from cervical palsy at age 14. She has 1 older sister that has schizophrenia and bipolar. Patient states that she has 11 half- brothers and one has passed. General Exam - General Exam Comments Initial Comments: Constitutional: NAD, AOX3, Pt has pleasant affect. HEENT: NC/AT, trachea midline, neck supple, no lymphadenopathy. External ears appear normal, without discharge. Mucous membranes moist. Eyes PERRLA, EOM intact. There is no scleral icterus. No pallor noted. Cardiopulmonary: RRR, no murmurs, rubs or gallops, no JVD noted. Wheezing noted in anterior and posterior lung flaherty. Decreased air movement. Significant improvement after breathing treatments. No peripheral edema. Abdominal exam: Abdomen soft and non-distended. Abdomen non-tender to palpation in all 4 quadrants. Bowel sounds active in LLQ. No hepatosplenomegaly. No ecchymosis Neuro: CN II-XII grossly intact. No nuchal rigidity. No raccon eyes, no diallo sign, no hemotympanum. No cervical spinal tenderness. MSK: No posterior calf tenderness bilaterally, homans sign negative bilaterally. Posterior tibialis and radial pulse +2 bilaterally. Sensation intact in upper and lower extremities. Full active ROM in upper and lower extremities, 5/5 stregnth. Limitations: no limitations Course Vital Signs 09/22/19 09/22/19 09/22/19 20:01 20:50 21:06 Temperature 99.0 F Pulse Rate 100 100 Respiratory 20 20 18 Rate Blood Pressure 138/89 O2 Sat by Pulse 96 100 Oximetry 09/22/19 09/22/19 09/22/19 21:41 21:47 22:00 Temperature Pulse Rate 102 H 104 H 101 H Respiratory 22 21 18 Rate Blood Pressure 103/43 O2 Sat by Pulse 97 Oximetry Medical Decision Making - Medical Decision Making 24-year-old female patient from to ED chief complaint cough congestion shortness of breath. Patient vital signs are stable. Upon evaluation patient was having quite a bit of work of breathing. She was breath stacking. Patient significant improved after albuterol and DuoNeb breathing treatments. Patient was administ ered 6 mg of Decadron with recommendation from pharmacy for the Covid dosing. Patient is a presumed coronavirus positive patient. Patient laboratory investigations are overall unremarkable. Elevated CRP, mild leukocytosis.. Patient is currently resting comfortable, not short of breath. Having even unlabored respirations. Due to patient's prior significant work of breathing on initial evaluation patient will be placed in observation overnight to ensure no decompensation. Case discussed with Dr. Guadalupe. - Lab Data Result diagrams: 09/22/19 21:14 09/22/19 21:14 Lab Results 09/22/19 09/22/19 09/22/19 Range/Units 21:14 21:14 21:14 WBC 12.7 H (3.8-10.6) k/uL RBC 4.93 (3.80-5.40) m/uL Hgb 13.5 (11.4-16.0) gm/dL Hct 41.4 (34.0-46.0) % MCV 84.0 (80.0-100.0) fL MCH 27.4 (25.0-35.0) pg MCHC 32.6 (31.0-37.0) g/dL RDW 14.5 (11.5-15.5) % Plt Count 187 (150-450) k/uL Neutrophils % 70 % Lymphocytes % 17 % Monocytes % 5 % Eosinophils % 4 % Basophils % 0 % Neutrophils # 8.8 H (1.3-7.7) k/uL Lymphocytes # 2.2 (1.0-4.8) k/uL Monocytes # 0.6 (0-1.0) k/uL Eosinophils # 0.5 (0-0.7) k/uL Basophils # 0.1 (0-0.2) k/uL PT 9.4 (9.0-12.0) sec INR 0.9 (<1.2) APTT 24.3 (22.0-30.0) sec D-Dimer 0.40 (<0.60) mg/L FEU Sodium 136 L (137-145) mmol/L Potassium 4.0 (3.5-5.1) mmol/L Chloride 106 (98-107) mmol/L Carbon Dioxide 24 (22-30) mmol/L Anion Gap 6 mmol/L BUN 14 (7-17) mg/dL Creatinine 0.52 (0.52-1.04) mg/dL Est GFR (CKD-EPI)AfAm >90 (>60 ml/min/1.73 sqM) Est GFR (CKD-EPI)NonAf >90 (>60 ml/min/1.73 sqM) Glucose 120 H (74-99) mg/dL Plasma Lactic Acid Alec (0.7-2.0) mmol/L Calcium 9.1 (8.4-10.2) mg/dL Magnesium 1.9 (1.6-2.3) mg/dL Total Bilirubin 0.3 (0.2-1.3) mg/dL AST 25 (14-36) U/L ALT 36 H (4-34) U/L Alkaline Phosphatase 95 (38-126) U/L Lactate Dehydrogenase 405 (313-618) U/L C-Reactive Protein 14.8 H (<10.0) mg/L Total Protein 6.7 (6.3-8.2) g/dL Albumin 3.8 (3.5-5.0) g/dL /10/03 Range/Units 21:14 WBC (3.8-10.6) k/uL RBC (3.80-5.40) m/uL Hgb (11.4-16.0) gm/dL Hct (34.0-46.0) % MCV (80.0-100.0) fL MCH (25.0-35.0) pg MCHC (31.0-37.0) g/dL RDW (11.5-15.5) % Plt Count (150-450) k/uL Neutrophils % % Lymphocytes % % Monocytes % % Eosinophils % % Basophils % % Neutrophils # (1.3-7.7) k/uL Lymphocytes # (1.0-4.8) k/uL Monocytes # (0-1.0) k/uL Eosinophils # (0-0.7) k/uL Basophils # (0-0.2) k/uL PT (9.0-12.0) sec INR (<1.2) APTT (22.0-30.0) sec D-Dimer (<0.60) mg/L FEU Sodium (137-145) mmol/L Potassium (3.5-5.1) mmol/L Chloride (98-107) mmol/L Carbon Dioxide (22-30) mmol/L Anion Gap mmol/L BUN (7-17) mg/dL Creatinine (0.52-1.04) mg/dL Est GFR (CKD-EPI)AfAm (>60 ml/min/1.73 sqM) Est GFR (CKD-EPI)NonAf (>60 ml/min/1.73 sqM) Glucose (74-99) mg/dL Plasma Lactic Acid Alec 1.4 (0.7-2.0) mmol/L Calcium (8.4-10.2) mg/dL Magnesium (1.6-2.3) mg/dL Total Bilirubin (0.2-1.3) mg/dL AST (14-36) U/L ALT (4-34) U/L Alkaline Phosphatase (38-126) U/L Lactate Dehydrogenase (313-618) U/L C-Reactive Protein (<10.0) mg/L Total Protein (6.3-8.2) g/dL Albumin (3.5-5.0) g/dL - EKG Data -: EKG Interpreted by [facility] EKG Comments: Ventricular rate 107, [facility] interval 126, QRS 90, QT/QTC 342/456. Sinus tachycardia otherwise normal EKG. No concern for acute ischemia. Disposition Clinical Impression: Cough, Shortness of breath, Suspected 2019 novel coronavirus infection Disposition: ADMITTED IP TO THIS HOSP Condition: Fair Is patient prescribed a controlled substance at d/c from ED?: No Referrals: Bobby Riley MD [Primary Care Provider] - 1-2 days
[2019-09-23 00:31] LABS: Appearance,Urine Clear (Clear); Bilirubin,Urine Negative (Negative); Blood,Urine Negative (Negative); Color,Urine Yellow; Glucose,Urine (UA) Negative (Negative); Ketones,Urine Negative (Negative); Leukocyte Esterase,Urine Negative (Negative); Nitrite,Urine Negative (Negative); Protein,Urine Negative (Negative); Specific Gravity,Urine 1.027 (1.001-1.035); Urobilinogen,Urine <2.0 mg/dL (<2.0)
[2019-09-23] MEDS: ALBUTEROL HFA INHALER INHALATION PRN ×3 (00:45→13:00)
[2019-09-23] MEDS: HYDROcodone/APAP 5-325MG 1 EACH TAB PO PRN ×2 (02:04→14:02)
[2019-09-23 12:09] VITALS: BMI 43.4
--- NOTE | 2019-09-23 12:50 | HP ---
HISTORY AND PHYSICAL CHIEF COMPLAINT: Fever, cough, shortness of breath. HISTORY OF PRESENT ILLNESS: This is the first admission for this 24-year-old white female. She has been sick for 5 days. She had temperature up as high as 104, myalgias, headache, loss of taste and smell and fatigue. She is coughing up brownish sputum. She does smoke. She has had no hemoptysis. She has had no nausea, vomiting, diarrhea, etc. REVIEW OF SYSTEMS: She has had no other complaints. She has otherwise been healthy. Past medical history, family history, personal and social histories reveal that she has had a cholecystectomy and SHE IS ALLERGIC TO BENADRYL. Takes no medications at home. Family history, personal and social history is unremarkable and noncontributory except she does smoke. PHYSICAL EXAMINATION: Blood pressure is 122/74 with a pulse of 91, respirations of 40 and temperature is 99.4. In general she appeared to be obese and in no acute distress. Skin color is normal. Skin is warm, dry. Head, ears, eyes, nose, mouth, and throat were normal neck veins not distended as well as could be evaluated given her adiposity. Chest demonstrated scattered rales. No rhonchi. Cardiac exam demonstrated normal sinus rhythm and no murmurs or extra sounds. The abdomen is protuberant, soft, nontender without visceromegaly or masses. Bowel sounds present. Extremities are normal. Neurologically, she is intact. IMPRESSION: She is admitted to the hospital with diagnoses: 1. Viremia. 2. Bronchitis. 3. Rule out severe acute respiratory syndrome CO V2. PLAN: 1. Bed rest. 2. IV fluids. 3. Covid-19 swab. MMODL / IJN: [id number] /
--- NOTE | 2019-09-23 12:55 | PN ---
PROGRESS NOTE DATE OF SERVICE: 09/23/2019 CHIEF COMPLAINT: Cough, fever and shortness of breath. HISTORY OF PRESENT ILLNESS: This lady is about the same. She is not feeling any worse. She is coughing up some brownish phlegm. Her temperature has been down. PHYSICAL EXAMINATION: Her chest is quite clear. Cardiac exam is normal. The abdomen is protuberant, soft, nontender. Extremities are normal. IMPRESSION: Rule out cheng virus, viremia and bronchitis. PLAN: Continue with IV fluids. She will receive Vicodin for her chest wall pain from coughing. MMODL / IJN: [id number] /
[2019-09-23 14:49] VITALS: TEMP 98.4
[2019-09-23 19:49] VITALS: BP 119/75; PULSE 103; RESP 14
[2019-09-24 10:59] LABS: Ferritin 32.3 ng/mL (10.0-291.0)
--- NOTE | 2019-09-24 18:36 | DS ---
DISCHARGE SUMMARY CHIEF COMPLAINT: Fever, myalgias and nausea and . HISTORY OF PRESENT ILLNESS AND PHYSICAL EXAMINATION: Details of this lady's history and physical can be found in the initial workup. LABORATORY STUDIES: While she was in the hospital, she had laboratory studies, details of which can be found in the laboratory section of her chart. COURSE IN THE HOSPITAL: After admission, she was placed on bedrest, started on intravenous fluids and nasal O2. It is felt that she probably had a viral process and possibly Covid-19. She was doing well and not having particular difficulty breathing and signed herself out against medical advice on the evening of the . FINAL DIAGNOSIS: Viral bronchitis. OPERATIONS: None. CONSULTATIONS: None. She signed out AMA. ISABELLE / NI: [id number] /
== END 2019-09-23 20:43 | disposition left against medical advice (07) ==
LOC: EC 19:54 → 4SSUR 22:41
PROVIDERS: ADMIT Family Medicine; ATTEND Family Medicine
DX: F17.210 Nicotine dependence, cigarettes, uncomplicated (principal); J20.8 Acute bronchitis due to other specified organisms; R43.8 Other disturbances of smell and taste; Z53.29 Procedure and treatment not carried out because of patient's decision for other reasons; R51 Headache; Z20.818 Contact with and (suspected) exposure to other bacterial communicable diseases; Z88.8 Allergy status to other drugs, medicaments and biological substances; Z90.49 Acquired absence of other specified parts of digestive tract; B34.9 Viral infection, unspecified
CPT/HCPCS: 96374; 36415; 94640 ×3; 93005; 85379; 80053; 82728; 83605; 83615; 83735; 84484; 85025; 85610; 85730; 86140; 81003; 81025; 87040; 84145; 71045; G0378 ×2; U0003; J1100

== ENCOUNTER 2020-04-29 18:06 | Emergency (ER) | payer OTHER ==
[2020-04-29 18:32] VITALS: BP 123/83; PULSE 66; RESP 20; TEMP 98.2
[2020-04-29] MEDS ORDERED: KETOROLAC 15 MG/ML 1 ML VIAL IM STA (19:05)
[2020-04-29] MEDS ORDERED: ACET/COD 300 MG/30 MG STARTER PACK 6 TAB BTL PO STA (19:05)
--- NOTE | 2020-04-29 19:31 | XR ---
EXAMINATION TYPE: XR ankle complete LT DATE OF EXAM: 04/29/2020 COMPARISON: NONE HISTORY: Ankle pain TECHNIQUE: 3 views FINDINGS: Ankle mortise is anatomic. I see no fracture nor dislocation. Joint spaces are fairly bettye l. IMPRESSION: Negative left ankle exam.
--- NOTE | 2020-04-29 19:32 | XR ---
EXAMINATION TYPE: XR foot complete LT DATE OF EXAM: 04/29/2020 COMPARISON: NONE HISTORY: Foot pain TECHNIQUE: 3 views FINDINGS: I see no fracture nor dislocation. Metatarsals are intact. Joint spaces are normal. IMPRESSION: Negative left foot exam.
--- NOTE | 2020-04-29 19:35 | ED ---
Lower Extremity Injury HPI - General Chief Complaint: Extremity Injury, Lower Stated Complaint: L Foot Injury Time Seen by Provider: 04/29/20 18:36 Source: patient Mode of arrival: wheelchair Limitations: no limitations - History of Present Illness Initial Comments: 24-year-old female patient presents to the emergency department today for evaluation of left foot pain. Patient states she is getting out of bed around 3:00 this morning when she stepped weird on her foot causing a pain over the medial aspect up into her ankle. States the foot has been very painful since. States she is unable to bear weight. Denies previous injury to the ankle or foot. Patient took Tylenol Motrin without relief. Denies numbness or tingling to the foot. Denies any other injuries or concerns. - Related Data Home Medications Medication Instructions Recorded Confirmed No Known Home Medications 09/22/19 09/22/19 Allergies Allergy/AdvReac Type Severity Reaction Status Date / Time diphenhydramine Allergy Severe Anaphylaxis Verified 04/29/20 18:32 [From Benadryl] diphenhydramine HCl Allergy Severe Anaphylaxis Verified 04/29/20 18:32 [From Benadryl] Review of Systems ROS Statement: Those systems with pertinent positive or pertinent negative responses have been documented in the HPI. ROS Other: All systems not noted in ROS Statement are negative. Past Medical History Past Medical History: Asthma Additional Past Medical History / Comment(s): OB history: She has had 4 miscarriages, including 1 at 14 weeks, she has 2 live and this is her sixth . had hx of kidney stones w one of her pregnancies History of Any Multi-Drug Resistant Organisms: None Reported Past Surgical History: Adenoidectomy, Cholecystectomy, Tonsillectomy Additional Past Surgical History / Comment(s): tonsillectomy, adnoidectomy Past Anesthesia/Blood Transfusion Reactions: No Reported Reaction Past Psychological History: Anxiety, Depression, PTSD Smoking Status: Current every day smoker Past Alcohol Use History: None Reported Past Drug Use History: None Reported - Past Family History Father History Unknown: Yes Family Medical History: Cancer Mother History Unknown: Yes Family Medical History: Congestive Heart Failure (CHF) Sister(s) Family Medical History: Coronary Artery Disease (CAD) Additional Family Medical History / Comment(s): Patient states that she has 5/2 sisters and one has from cervical palsy at age 14. She has 1 older sister that has schizophrenia and bipolar. Patient states that she has 11 half- brothers and one has passed. General Exam Limitations: no limitations General appearance: alert, in no apparent distress, other (Social well- developed, well-nourished adult female patient in no acute distress. Vital signs upon presentation are temperature 98.2F, pulse 66, respirations 20, blood pressure 123/83, pulse ox 97% on room air.) Eye exam: Present: normal appearance, PERRL, EOMI. Absent: scleral icterus, conjunctival injection, periorbital swelling ENT exam: Present: normal exam, normal oropharynx, mucous membranes moist Respiratory exam: Present: normal lung sounds bilaterally. Absent: respiratory distress, wheezes, rales, rhonchi, stridor Cardiovascular Exam: Present: regular rate, normal rhythm, normal heart sounds. Absent: systolic murmur, diastolic murmur, rubs, gallop, clicks Extremities exam: Present: full ROM, normal capillary refill, other (Physical examination reveals tenderness over the medial and plantar aspect of the foot. Tenderness over the Achilles tendon however Monteiro test is negative. Is o therwise pink, warm, dry. Cap refill less than 3 seconds. Pedal and posttibial pulses 2+.). Absent: normal inspection, tenderness (Over the medial aspect and plantar aspect of the left foot), pedal edema, joint swelling, calf tenderness Neurological exam: Present: alert, oriented X3, CN II-XII intact Psychiatric exam: Present: normal affect, normal mood Skin exam: Present: warm, dry, intact, normal color. Absent: rash Course Vital Signs 04/29/20 18:28 Temperature 98.2 F Pulse Rate 66 Respiratory 20 Rate Blood Pressure 123/83 O2 Sat by Pulse 97 Oximetry Medical Decision Making - Medical Decision Making 24-year-old female patient presented to the emergency department today for evaluation of left foot and ankle pain. Physical examination did reveal tenderness over the medial aspect and plantar aspect of the foot. This neurovascular status was intact. X-rays were obtained and were negative. Patient was placed in an Beau wrap and ankle stirrup splint. She'll be discharged follow up with orthopedic nurse for recheck in 1-2 days. Return parameters were discussed in detail. She verbalizes understanding and agrees with this plan. My attending is Dr. Flanagan - Radiology Data Radiology results: report reviewed, image reviewed Reviews of the left ankle are obtained. Report was reviewed in its entirety. Impression by Dr. Nielson shows negative left ankle exam. 3 views of the left foot are obtained. Report was reviewed in its entirety. Impression by Dr. Nielson shows negative left foot exam. Disposition Clinical Impression: Sprain of left foot Disposition: HOME SELF-CARE Condition: Good Instructions (If sedation given, give patient instructions): Foot Sprain (ED) Additional Instructions: Use splint for comfort and support. Take, Motrin alternating for pain control. Keep foot elevated rest, ice. Follow-up with orthopedic nurse if symptoms aren't improving over the next week. Return for any new, worsening, or concerning symptoms. Is patient prescribed a controlled substance at d/c from ED?: No Referrals: Bobby Riley MD [Primary Care Provider] - 1-2 days Dilan Prakash MD [STAFF PHYSICIAN] - 1-2 days Time of Disposition: 19:35
== END 2020-04-29 19:53 | disposition home or self-care (01) ==
LOC: EC 18:06
DX: W22.8XXA Striking against or struck by other objects, initial encounter (principal); J45.909 Unspecified asthma, uncomplicated; Z90.49 Acquired absence of other specified parts of digestive tract; Z90.09 Acquired absence of other part of head and neck; F32.9 Major depressive disorder, single episode, unspecified; F17.200 Nicotine dependence, unspecified, uncomplicated; S93.602A Unspecified sprain of left foot, initial encounter
CPT/HCPCS: 73610; 73630; 99283; 29515; L4350

== ENCOUNTER 2020-10-15 20:25 | Emergency (ER) | payer OTHER ==
[2020-10-15 20:52] VITALS: TEMP 98.3
--- NOTE | 2020-10-15 22:14 | ED ---
Fall HPI - General Chief Complaint: Fall Stated Complaint: Fall, 13 Wks Preg, Abd Pain Time Seen by Provider: 10/15/20 21:32 Source: patient, RN notes reviewed, old records reviewed Mode of arrival: wheelchair Limitations: no limitations - History of Present Illness Initial Comments: This is a 25-year-old female to the emergency department today. Patient presents today for evaluation of a trip and fall. Patient tripped on some dull urine at her house on the floor fall forward landing on her belly. Complicating the fact that she is 13 weeks and having cramping abdominal pain. 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 or discharge without loss of fluid, no urinary issues MD Complaint: fall -: hour(s) Fall From: standing When Fall Occurred: 1 hour [employer] Fall Witnessed: yes, by family Place Fall Occurred: home Loss of Consciousness: none Prolonged Down Time?: no Symptoms Prior to Fall: none Location: abdomen Severity: mild Severity scale (1-10): 6 Quality: dull Context: tripped/slipped Associated Symptoms: denies - Related Data Home Medications Medication Instructions Recorded Confirmed Pbr-[id number]-[id number] Acid 1 cap PO DAILY 10/15/20 10/15/20 [-U Capsule (formulary)] Allergies Allergy/AdvReac Type Severity Reaction Status Date / Time diphenhydramine Allergy Severe Anaphylaxis Verified 10/15/20 22:16 [From Benadryl] diphenhydramine HCl Allergy Severe Anaphylaxis Verified 10/15/20 22:16 [From Benadryl] Review of Systems ROS Statement: Those systems with pertinent positive or pertinent negative responses have been documented in the HPI. ROS Other: All systems not noted in ROS Statement are negative. Past Medical History Past Medical History: Asthma Additional Past Medical History / Comment(s): OB history: She has had 4 miscarriages, including 1 at 14 weeks, she has 2 live and this is her sixth . had hx of kidney stones w one of her pregnancies History of Any Multi-Drug Resistant Organisms: None Reported Past Surgical History: Adenoidectomy, Cholecystectomy, Tonsillectomy Additional Past Surgical History / Comment(s): tonsillectomy, adnoidectomy Past Anesthesia/Blood Transfusion Reactions: No Reported Reaction Past Psychological History: Anxiety, Depression, PTSD Smoking Status: Current every day smoker Past Alcohol Use History: None Reported Past Drug Use History: None Reported - Past Family History Father History Unknown: Yes Family Medical History: Cancer Mother History Unknown: Yes Family Medical History: Congestive Heart Failure (CHF) Sister(s) Family Medical History: Coronary Artery Disease (CAD) Additional Family Medical History / Comment(s): Patient states that she has 5/2 sisters and one has from cervical palsy at age 14. She has 1 older sister that has schizophrenia and bipolar. Patient states that she has 11 half- brothers and one has passed. General Exam Limitations: no limitations General appearance: alert, in no apparent distress Head exam: Present: atraumatic, normocephalic, normal inspection Eye exam: Present: normal appearance, PERRL, EOMI. Absent: scleral icterus, conjunctival injection, periorbital swelling ENT exam: Present: normal exam, mucous membranes moist Neck exam: Present: normal inspection. Absent: tenderness, meningismus, lymphadenopathy Respiratory exam: Present: normal lung sounds bilaterally. Absent: respiratory distress, wheezes, rales, rhonchi, stridor Cardiovascular Exam: Present: regular rate, normal rhythm, normal heart sounds. Absent: systolic murmur, diastolic murmur, rubs, gallop, clicks GI/Abdominal exam: Present: soft, normal bowel sounds. Absent: distended, tenderness, guarding, rebound, rigid Extremities exam: Present: normal inspection, full ROM, normal capillary refill. Absent: tenderness, pedal edema, joint swelling, calf tenderness Back exam: Present: normal inspection Neurological exam: Present: alert, oriented X3, CN II-XII intact Psychiatric exam: Present: normal affect, normal mood Skin exam: Present: warm, dry, intact, normal color. Absent: rash Course Vital Signs 10/15/20 10/15/20 20:49 22:42 Temperature 98.3 F Pulse Rate 110 H 94 Respiratory 20 18 Rate Blood Pressure 108/65 141/76 O2 Sat by Pulse 98 98 Oximetry - Reevaluation(s) Reevaluation #1: 10/15/20 23:57 Medical record is reviewed Reevaluation #2: 10/15/20 23:57 Patient has no active bleeding or fluid loss Reevaluation #3: 10/15/20 23:57 Patient is informed of results and questions are answered Medical Decision Making - Medical Decision Making 25 female with abdominal trauma in . Ultrasound is positive for IUP with negative urine test. Patient can be discharged home - Lab Data Lab Results 10/15/20 Range/Units 21:35 Urine Color Yellow Urine Appearance Clear (Clear) Urine pH 6.0 (5.0-8.0) Ur Specific Mal[place] 1.029 (1.001-1.035) Urine Protein Trace H (Negative) Urine Glucose (UA) Negative (Negative) Urine Ketones Negative (Negative) Urine Blood Negative (Negative) Urine Nitrite Negative (Negative) Urine Bilirubin Negative (Negative) Urine Urobilinogen 2.0 (<2.0) mg/dL Ur Leukocyte Esterase Negative (Negative) - Radiology Data Radiology results: report reviewed (Ultrasound positive for IUP), image reviewed Disposition Clinical Impression: Fall, Disposition: HOME SELF-CARE Condition: Good Instructions (If sedation given, give patient instructions): (ED) Is patient prescribed a controlled substance at d/c from ED?: No Referrals: None,Stated [Primary Care Provider] - 1-2 days
[2020-10-15 22:17] LABS: Appearance,Urine Clear (Clear); Bilirubin,Urine Negative (Negative); Blood,Urine Negative (Negative); Color,Urine Yellow; Glucose,Urine (UA) Negative (Negative); Ketones,Urine Negative (Negative); Leukocyte Esterase,Urine Negative (Negative); Nitrite,Urine Negative (Negative); Protein,Urine Trace (Negative); Specific Gravity,Urine 1.029 (1.001-1.035)
--- NOTE | 2020-10-15 22:28 | US ---
EXAMINATION TYPE: Transabdominal DATE OF EXAM: 10/15/2020 10:05 PM COMPARISON: NONE CLINICAL HISTORY: fall. cramping EXAM PERFORMED: Transabdominal (TA) EXAM MEASUREMENTS: GESTATIONAL AGE / DATING Physician Established: Not yet established Dates by LMP: LMP unknown Dates by Current Scan for: (12 weeks/2 days) EDC: 04/27/2021 MATERNAL ANATOMY Uterus: 10.7 x 7.0 x 8.3 cm Right Ovary: 3.1 x 2.6 x 2.7 cm Left Ovary: 1.9 x 1.4 x 1.0 cm Post CDS / Adnexa: wnl Presence of free fluid: no Presence of corpus luteal cyst: right ovary measuring 2.7 cm Presence of subchorionic bleed: No GESTATION / SURVEY CRL: 5.6 cm (12 weeks/2 days) Heart Rate: 139 bpm Rhythm: Normal IUP: Viable IUP Viable IUP with an JOHN of 04/27/2021 by this exam. Right ovarian cyst measuring 2.7 cm IMPRESSION: Ultrasound gestational age is 12 weeks and 2 days. No complicating process seen. Right ovarian cyst.
[2020-10-15 22:43] VITALS: BP 141/76; PULSE 94; RESP 18
== END 2020-10-15 22:43 | disposition home or self-care (01) ==
LOC: EC 20:25
DX: O26.891 Other specified pregnancy related conditions, first trimester (principal); O99.511 Diseases of the respiratory system complicating pregnancy, first trimester; R10.9 Unspecified abdominal pain; J45.909 Unspecified asthma, uncomplicated; F41.9 Anxiety disorder, unspecified; F32.9 Major depressive disorder, single episode, unspecified; F43.12 Post-traumatic stress disorder, chronic; F17.200 Nicotine dependence, unspecified, uncomplicated; Z3A.13 13 weeks gestation of pregnancy; Z87.442 Personal history of urinary calculi; Z90.49 Acquired absence of other specified parts of digestive tract; Z90.89 Acquired absence of other organs
CPT/HCPCS: 76801; 81003; 99284

== ENCOUNTER 2020-10-28 01:36 | Emergency (ER) | payer OTHER ==
[2020-10-28 01:53] VITALS: TEMP 98
[2020-10-28] MEDS ORDERED: ACETAMINOPHEN TAB 500 MG TAB PO STA (01:58)
[2020-10-28] MEDS ORDERED: SODIUM CHLORIDE 0.9% 1,000 ML IV STA (01:59)
[2020-10-28] MEDS ORDERED: ALBUTEROL HFA INHALER INHALATION STA (02:00)
--- NOTE | 2020-10-28 02:00 | ED ---
Fever HPI - General Chief Complaint: Upper Respiratory Infection Stated Complaint: ENT, Fever Time Seen by Provider: 10/28/20 01:58 Source: patient, family, RN notes reviewed, old records reviewed Mode of arrival: ambulatory Limitations: no limitations - History of Present Illness Initial Comments: This is a 25-year-old female to the emergency department today. Patient presents today for evaluation of fever weakness loss of and smell. Patient is believes she is about 13 weeks . She does have history of 4 miscarriages, , patient did take Tylenol prior to arrival. Maybe some shortness of breath with a cough as well. MD Complaint: fever, malaise, weakness -: hour(s) Temperature Source: subjective Context: multiple patients with similar symptoms Associated Symptoms: chills, myalgias, nasal congestion, cough Treatments Prior to Arrival: Acetaminophen - Related Data Home Medications Medication Instructions Recorded Confirmed [id number] Acid 1 cap PO DAILY 10/15/20 10/15/20 [-U Capsule (formulary)] Allergies Allergy/AdvReac Type Severity Reaction Status Date / Time diphenhydramine Allergy Severe Anaphylaxis Verified 10/28/20 01:53 [From Benadryl] diphenhydramine HCl Allergy Severe Anaphylaxis Verified 10/28/20 01:53 [From Benadryl] Review of Systems ROS Statement: Those systems with pertinent positive or pertinent negative responses have been documented in the HPI. ROS Other: All systems not noted in ROS Statement are negative. Past Medical History Past Medical History: Asthma Additional Past Medical History / Comment(s): OB history: She has had 4 miscarriages, including 1 at 14 weeks, she has 2 live and this is her sixth . had hx of kidney stones w one of her pregnancies History of Any Multi-Drug Resistant Organisms: None Reported Past Surgical History: Adenoidectomy, Cholecystectomy, Tonsillectomy Additional Past Surgical History / Comment(s): tonsillectomy, adnoidectomy Past Anesthesia/Blood Transfusion Reactions: No Reported Reaction Past Psychological History: Anxiety, Depression, PTSD Smoking Status: Current every day smoker Past Alcohol Use History: None Reported Past Drug Use History: None Reported - Past Family History Father History Unknown: Yes Family Medical History: Cancer Mother History Unknown: Yes Family Medical History: Congestive Heart Failure (CHF) Sister(s) Family Medical History: Coronary Artery Disease (CAD) Additional Family Medical History / Comment(s): Patient states that she has 5/2 sisters and one has from cervical palsy at age 15. She has 1 older sister that has schizophrenia and bipolar. Patient states that she has 11 half- brothers and one has passed. General Exam Limitations: no limitations General appearance: alert, in no apparent distress, anxious Head exam: Present: atraumatic, normocephalic, normal inspection Eye exam: Present: normal appearance, PERRL, EOMI. Absent: scleral icterus, conjunctival injection, periorbital swelling ENT exam: Present: normal exam, mucous membranes moist Neck exam: Present: normal inspection. Absent: tenderness, meningismus, lymphadenopathy Respiratory exam: Present: normal lung sounds bilaterally. Absent: respiratory distress, wheezes, rales, rhonchi, stridor Cardiovascular Exam: Present: normal rhythm, tachycardia, normal heart sounds. Absent: systolic murmur, diastolic murmur, rubs, gallop, clicks GI/Abdominal exam: Present: soft, normal bowel sounds. Absent: distended, tenderness, guarding, rebound, rigid Extremities exam: Present: normal inspection, full ROM, normal capillary refill. Absent: tenderness, pedal edema, joint swelling, calf tenderness Back exam: Present: normal inspection Neurological exam: Present: alert, oriented X3, CN II-XII intact Psychiatric exam: Present: normal affect, normal mood Skin exam: Present: warm, dry, intact, normal color. Absent: rash Course Vital Signs 10/28/20 10/28/20 01:50 03:00 Temperature 98.0 F Pulse Rate 113 H Respiratory 22 18 Rate Blood Pressure 133/78 O2 Sat by Pulse 98 Oximetry - Reevaluation(s) Reevaluation #1: 10/28/20 02:22 Medical record is reviewed Medical Decision Making - Lab Data Result diagrams: 10/28/20 02:47 10/28/20 02:47 Lab Results 10/28/20 10/28/20 10/28/20 Range/Units 02:47 02:47 02:47 WBC 13.7 H (3.8-10.6) k/uL RBC 4.45 (3.80-5.40) m/uL Hgb 13.3 (11.4-16.0) gm/dL Hct 38.6 (34.0-46.0) % MCV 86.8 (80.0-100.0) fL MCH 29.8 (25.0-35.0) pg MCHC 34.4 (31.0-37.0) g/dL RDW 13.2 (11.5-15.5) % Plt Count 93 L (150-450) k/uL MPV 9.9 Neutrophils % 71 % Lymphocytes % 20 % Monocytes % 5 % Eosinophils % 3 % Basophils % 0 % Neutrophils # 9.7 H (1.3-7.7) k/uL Lymphocytes # 2.7 (1.0-4.8) k/uL Monocytes # 0.7 (0-1.0) k/uL Eosinophils # 0.4 (0-0.7) k/uL Basophils # 0.1 (0-0.2) k/uL Sodium 132 L (137-145) mmol/L Potassium 4.3 (3.5-5.1) mmol/L Chloride 109 H (98-107) mmol/L Carbon Dioxide 16 L (22-30) mmol/L Anion Gap 7 mmol/L BUN 11 (7-17) mg/dL Creatinine 0.35 L (0.52-1.04) mg/dL Est GFR (CKD-EPI)AfAm >90 (>60 ml/min/1.73 sqM) Est GFR (CKD-EPI)NonAf >90 (>60 ml/min/1.73 sqM) Glucose 91 (74-99) mg/dL Calcium 8.5 (8.4-10.2) mg/dL Magnesium 1.9 (1.6-2.3) mg/dL Total Bilirubin 0.3 (0.2-1.3) mg/dL AST 21 (14-36) U/L ALT 13 (4-34) U/L Alkaline Phosphatase 78 (38-126) U/L Lactate Dehydrogenase 435 (313-618) U/L C-Reactive Protein 2.8 H (<1.0) mg/dL Total Protein 5.8 L (6.3-8.2) g/dL Albumin 2.9 L (3.5-5.0) g/dL Urine Color Urine Appearance (Clear) Urine pH (5.0-8.0) Ur Specific [place] (1.001-1.035) Urine Protein (Negative) Urine Glucose (UA) (Negative) Urine Ketones (Negative) Urine Blood (Negative) Urine Nitrite (Negative) Urine Bilirubin (Negative) Urine Urobilinogen (<2.0) mg/dL Ur Leukocyte Esterase (Negative) Urine RBC (0-5) /hpf Urine WBC (0-5) /hpf Ur Squamous Epith Cells (0-4) /hpf Amorphous Sediment (None) /hpf Urine Mucus (None) /hpf Coronavirus (PCR) Not Detected (Not Detectd) 10/28/20 Range/Units 02:47 WBC (3.8-10.6) k/uL RBC (3.80-5.40) m/uL Hgb (11.4-16.0) gm/dL Hct (34.0-46.0) % MCV (80.0-100.0) fL MCH (25.0-35.0) pg MCHC (31.0-37.0) g/dL RDW (11.5-15.5) % Plt Count (150-450) k/uL MPV Neutrophils % % Lymphocytes % % Monocytes % % Eosinophils % % Basophils % % Neutrophils # (1.3-7.7) k/uL Lymphocytes # (1.0-4.8) k/uL Monocytes # (0-1.0) k/uL Eosinophils # (0-0.7) k/uL Basophils # (0-0.2) k/uL Sodium (137-145) mmol/L Potassium (3.5-5.1) mmol/L Chloride (98-107) mmol/L Carbon Dioxide (22-30) mmol/L Anion Gap mmol/L BUN (7-17) mg/dL Creatinine (0.52-1.04) mg/dL Est GFR (CKD-EPI)AfAm (>60 ml/min/1.73 sqM) Est GFR (CKD-EPI)NonAf (>60 ml/min/1.73 sqM) Glucose (74-99) mg/dL Calcium (8.4-10.2) mg/dL Magnesium (1.6-2.3) mg/dL Total Bilirubin (0.2-1.3) mg/dL AST (14-36) U/L ALT (4-34) U/L Alkaline Phosphatase (38-126) U/L Lactate Dehydrogenase (313-618) U/L C-Reactive Protein (<1.0) mg/dL Total Protein (6.3-8.2) g/dL Albumin (3.5-5.0) g/dL Urine Color Yellow Urine Appearance Cloudy H (Clear) Urine pH 5.5 (5.0-8.0) Ur Specific [place] 1.027 (1.001-1.035) Urine Protein Negative (Negative) Urine Glucose (UA) Negative (Negative) Urine Ketones Negative (Negative) Urine Blood Negative (Negative) Urine Nitrite Negative (Negative) Urine Bilirubin Negative (Negative) Urine Urobilinogen <2.0 (<2.0) mg/dL Ur Leukocyte Esterase Small H (Negative) Urine RBC <1 (0-5) /hpf Urine WBC 3 (0-5) /hpf Ur Squamous Epith Cells 13 H (0-4) /hpf Amorphous Sediment Few H (None) /hpf Urine Mucus Occasional H (None) /hpf Coronavirus (PCR) (Not Detectd) Disposition Clinical Impression: Asthmatic bronchitis, Cough Disposition: HOME SELF-CARE Condition: Good Instructions (If sedation given, give patient instructions): Upper Respiratory Infection (ED) Is patient prescribed a controlled substance at d/c from ED?: No Referrals: Bobby Riley MD [Primary Care Provider] - 1-2 days
[2020-10-28 02:58] LABS: Basophils # (A) 0.1 k/uL (0-0.2); Basophils % (A) 0 %; Eosinophils # (A) 0.4 k/uL (0-0.7); Eosinophils % (A) 3 %; HCT 38.6 % (34.0-46.0); HGB 13.3 gm/dL (11.4-16.0); Lymphocytes # (A) 2.7 k/uL (1.0-4.8); Lymphocytes % (A) 20 %; MCH 29.8 pg (25.0-35.0); MCHC 34.4 g/dL (31.0-37.0); MCV 86.8 fL (80.0-100.0); Mean Platelet Volume 9.9; Monocytes # (A) 0.7 k/uL (0-1.0); Monocytes % (A) 5 %; Neutrophils # (A) 9.7 k/uL (1.3-7.7); Neutrophils % (A) 71 %; Platelet Count 93 k/uL (150-450); RBC 4.45 m/uL (3.80-5.40); RDW 13.2 % (11.5-15.5); WBC 13.7 k/uL (3.8-10.6)
[2020-10-28 03:18] LABS: Amorphous Sediment,Urine Few /hpf; Appearance,Urine Cloudy (Clear); Bilirubin,Urine Negative (Negative); Blood,Urine Negative (Negative); Color,Urine Yellow; Glucose,Urine (UA) Negative (Negative); Ketones,Urine Negative (Negative); Leukocyte Esterase,Urine Small (Negative); Mucus,Urine Occasional /hpf; Nitrite,Urine Negative (Negative); PH, Urine 5.5 (5.0-8.0); Protein,Urine Negative (Negative); RBC,Urine <1 /hpf (0-5); Specific Gravity,Urine 1.027 (1.001-1.035); Squamous Epithelial Cell,Urine 13 /hpf (0-4); Urobilinogen,Urine <2.0 mg/dL (<2.0); WBC,Urine 3 /hpf (0-5)
[2020-10-28 03:22] LABS: ALT 13 U/L (4-34); AST 21 U/L (14-36); African American GFR (CKD) >90 (>60 ml/min/1.73 sqM); Albumin 2.9 g/dL (3.5-5.0); Alkaline Phosphatase 78 U/L (38-126); Anion Gap 7 mmol/L; Blood Urea Nitrogen 11 mg/dL (7-17); C Reactive Protein 2.8 mg/dL (<1.0); Calcium 8.5 mg/dL (8.4-10.2); Carbon Dioxide 16 mmol/L (22-30); Chloride 109 mmol/L (98-107); Glucose 91 mg/dL (74-99); LDH 435 U/L (313-618); Magnesium 1.9 mg/dL (1.6-2.3); Non-African American GFR(CKD) >90 (>60 ml/min/1.73 sqM); Potassium 4.3 mmol/L (3.5-5.1); Sodium 132 mmol/L (137-145); Total Bilirubin 0.3 mg/dL (0.2-1.3); Total Protein 5.8 g/dL (6.3-8.2)
[2020-10-28 03:35] VITALS: RESP 18
--- NOTE | 2020-10-28 03:54 | XR ---
EXAMINATION TYPE: XR chest 1V portable DATE OF EXAM: 10/28/2020 COMPARISON: 09/22/2019 HISTORY: Cough TECHNIQUE: FINDINGS: Heart and mediastinum are normal. Lungs are clear. Diaphragm is normal. Bony thorax appears normal. IMPRESSION: Normal chest. No change.
[2020-10-28 04:43] VITALS: BP 137/87; PULSE 108
== END 2020-10-28 04:43 | disposition home or self-care (01) ==
LOC: EC 01:36
DX: O99.511 Diseases of the respiratory system complicating pregnancy, first trimester (principal); J45.909 Unspecified asthma, uncomplicated; O99.341 Other mental disorders complicating pregnancy, first trimester; F32.9 Major depressive disorder, single episode, unspecified; F41.9 Anxiety disorder, unspecified; O99.331 Smoking (tobacco) complicating pregnancy, first trimester; F17.200 Nicotine dependence, unspecified, uncomplicated; Z20.822 Contact with and (suspected) exposure to COVID-19; Z3A.13 13 weeks gestation of pregnancy
CPT/HCPCS: 36415; 71045; 80053; 81001; 83615; 83735; 85025; 86140; 87635; 94640; 99285

== ENCOUNTER 2020-11-17 21:01 | Emergency (ER) | payer OTHER ==
[2020-11-17 21:23] VITALS: RESP 18; TEMP 98.3
[2020-11-17 21:24] LABS: Glucose,Whole Blood 159 mg/dL (75-99)
[2020-11-17 22:45] LABS: ALT 14 U/L (4-34); AST 20 U/L (14-36); African American GFR (CKD) >90 (>60 ml/min/1.73 sqM); Alkaline Phosphatase 64 U/L (38-126); Anion Gap 6 mmol/L; Blood Urea Nitrogen 4 mg/dL (7-17); Calcium 8.5 mg/dL (8.4-10.2); Carbon Dioxide 20 mmol/L (22-30); Chloride 107 mmol/L (98-107); Glucose 75 mg/dL (74-99); Non-African American GFR(CKD) >90 (>60 ml/min/1.73 sqM); Potassium 4.2 mmol/L (3.5-5.1); Sodium 133 mmol/L (137-145); Total Bilirubin 0.4 mg/dL (0.2-1.3)
[2020-11-17 22:46] LABS: Basophils % (A) 0 %; Eosinophils # (A) 0.3 k/uL (0-0.7); Eosinophils % (A) 2 %; HCT 35.5 % (34.0-46.0); HGB 12.1 gm/dL (11.4-16.0); Lymphocytes # (A) 1.9 k/uL (1.0-4.8); Lymphocytes % (A) 11 %; MCH 29.9 pg (25.0-35.0); MCHC 34.1 g/dL (31.0-37.0); MCV 87.6 fL (80.0-100.0); Monocytes # (A) 0.9 k/uL (0-1.0); Monocytes % (A) 5 %; Neutrophils # (A) 14.4 k/uL (1.3-7.7); Neutrophils % (A) 81 %; RBC 4.05 m/uL (3.80-5.40); RDW 13.7 % (11.5-15.5); WBC 17.9 k/uL (3.8-10.6)
[2020-11-17 22:49] LABS: Platelet Count 174 k/uL (150-450)
[2020-11-17] MEDS ORDERED: DEXTROSE 5%-0.9% NACL 1,000 ML IV SCH (23:15)
[2020-11-18] MEDS ORDERED: ACETAMINOPHEN TAB 500 MG TAB PO STA (00:17)
--- NOTE | 2020-11-18 01:06 | ED ---
SOB HPI - General Chief Complaint: Shortness of Breath Stated Complaint: ZULMA Time Seen by Provider: 11/17/20 21:12 Source: patient, EMS Mode of arrival: EMS Limitations: no limitations - History of Present Illness Initial Comments: This patient is a 25-year-old woman who presents for reevaluation and related to a course of pneumonia. She states she was seen here in mid October she believes it may have been the 14th for cough and fever. She states she was treated for pneumonia and has now completed her course of antibiotics. She states she does have a little bit of cough but she is more concerned because she's had a number of episodes of vomiting and wasn't keeping fluids down earlier. She was concerned because she hadn't felt movements recently. She is proximal he 17 weeks . Patient denies change in urination or bowel movements. MD Complaint: cough -: days(s) Consistency: constant Improves With: nothing Worsens With: nothing Context: other Associated Symptoms: nausea/vomiting Treatments Prior to Arrival: other - Related Data Home Medications Medication Instructions Recorded Confirmed Xbt-Takp-Brhlr Acid 1 cap PO DAILY 10/15/20 10/15/20 [-U Capsule (formulary)] Previous Rx's Medication Instructions Recorded Albuterol Inhaler [Ventolin Hfa 2 puff INHALATION Q4HR PRN #8 gm 11/18/20 Inhaler] Allergies Allergy/AdvReac Type Severity Reaction Status Date / Time diphenhydramine Allergy Severe Anaphylaxis Verified 11/17/20 15:24 [From Benadryl] diphenhydramine HCl Allergy Severe Anaphylaxis Verified 11/17/20 15:24 [From Benadryl] Review of Systems ROS Statement: Those systems with pertinent positive or pertinent negative responses have been documented in the HPI. ROS Other: All systems not noted in ROS Statement are negative. Constitutional: Denies: fever, chills, weakness Respiratory: Reports: cough. Denies: dyspnea, wheezes, hemoptysis Cardiovascular: Denies: chest pain, palpitations, edema, syncope Gastrointestinal: Reports: nausea, vomiting. Denies: abdominal pain, constipation, hematemesis, melena, hematochezia Genitourinary: Denies: dysuria, hematuria, abnormal menses Musculoskeletal: Denies: back pain Skin: Denies: rash Neurological: Reports: headache. Denies: weakness, numbness, paresthesias Past Medical History Past Medical History: Asthma Additional Past Medical History / Comment(s): OB history: She has had 4 miscarriages, including 1 at 14 weeks, she has 2 live and this is her sixth . had hx of kidney stones w one of her pregnancies History of Any Multi-Drug Resistant Organisms: None Reported Past Surgical History: Adenoidectomy, Cholecystectomy, Tonsillectomy Additional Past Surgical History / Comment(s): tonsillectomy, adnoidectomy Past Anesthesia/Blood Transfusion Reactions: No Reported Reaction Past Psychological History: Anxiety, Depression, PTSD Smoking Status: Current every day smoker Past Alcohol Use History: None Reported Past Drug Use History: None Reported - Past Family History Father History Unknown: Yes Family Medical History: Cancer Mother History Unknown: Yes Family Medical History: Congestive Heart Failure (CHF) Sister(s) Family Medical History: Coronary Artery Disease (CAD) Additional Family Medical History / Comment(s): Patient states that she has 5/2 sisters and one has from cervical palsy at age 14. She has 1 older sister that has schizophrenia and bipolar. Patient states that she has 11 half- brothers and one has passed. General Exam Limitations: no limitations General appearance: alert, in no apparent distress Head exam: Present: atraumatic, normocephalic Eye exam: Present: normal appearance. Absent: scleral icterus, conjunctival injection ENT exam: Present: normal oropharynx Neck exam: Present: normal inspection, full ROM Respiratory exam: Present: normal lung sounds bilaterally. Absent: respiratory distress, wheezes, rales, rhonchi, stridor, accessory muscle use, decreased breath sounds Cardiovascular Exam: Present: regular rate, normal rhythm, normal heart sounds. Absent: systolic murmur, diastolic murmur, rubs, gallop GI/Abdominal exam: Present: soft. Absent: distended, tenderness, guarding, rebound, rigid, mass, hernia Extremities exam: Present: normal inspection, normal capillary refill. Absent: pedal edema, calf tenderness Back exam: Present: normal inspection. Absent: CVA tenderness (R), CVA tenderness (L) Neurological exam: Present: alert Skin exam: Present: warm, dry, intact, normal color. Absent: rash Course Vital Signs 11/17/20 11/18/20 21:14 01:08 Temperature 98.3 F 98.3 F Pulse Rate 105 H 102 H Respiratory 18 18 Rate Blood Pressure 119/68 132/67 O2 Sat by Pulse 99 100 Oximetry Medical Decision Making - Medical Decision Making Patient is 25-year-old woman with main complaints of not tolerating much in way of oral intake, it does sound like posttussive emesis. She did have recent course of antibiotic for pneumonia. I reviewed the original chest x-ray do not see definite infiltrate. Patient's lung exam is normal. Oxygen saturation is normal. At this point suspect upper respiratory. Patient's heart tones are normal and reassuring. Patient is given fluids. Review of prior record does reveal multiple episodes of leukocytosis in the past and do not suspect that this reveals current bacterial infection. Discussed appropriate further care and close follow-up as well as return parameters. - Lab Data Result diagrams: 11/17/20 22:10 11/17/20 22:10 Lab Results 11/17/20 11/17/20 11/17/20 Range/Units 21:15 22:10 22:10 WBC 17.9 H (3.8-10.6) k/uL RBC 4.05 (3.80-5.40) m/uL Hgb 12.1 (11.4-16.0) gm/dL Hct 35.5 (34.0-46.0) % MCV 87.6 (80.0-100.0) fL MCH 29.9 (25.0-35.0) pg MCHC 34.1 (31.0-37.0) g/dL RDW 13.7 (11.5-15.5) % Plt Count 174 D (150-450) k/uL MPV 8.0 Neutrophils % 81 % Lymphocytes % 11 % Monocytes % 5 % Eosinophils % 2 % Basophils % 0 % Neutrophils # 14.4 H (1.3-7.7) k/uL Lymphocytes # 1.9 (1.0-4.8) k/uL Monocytes # 0.9 (0-1.0) k/uL Eosinophils # 0.3 (0-0.7) k/uL Basophils # 0.0 (0-0.2) k/uL Sodium 133 L (137-145) mmol/L Potassium 4.2 (3.5-5.1) mmol/L Chloride 107 (98-107) mmol/L Carbon Dioxide 20 L (22-30) mmol/L Anion Gap 6 mmol/L BUN 4 L (7-17) mg/dL Creatinine 0.34 L (0.52-1.04) mg/dL Est GFR (CKD-EPI)AfAm >90 (>60 ml/min/1.73 sqM) Est GFR (CKD-EPI)NonAf >90 (>60 ml/min/1.73 sqM) Glucose 75 (74-99) mg/dL POC Glucose (mg/dL) 159 H (75-99) mg/dL POC Glu Hoister ID Jacqueline Michel Calcium 8.5 (8.4-10.2) mg/dL Total Bilirubin 0.4 (0.2-1.3) mg/dL AST 20 (14-36) U/L ALT 14 (4-34) U/L Alkaline Phosphatase 64 (38-126) U/L Total Protein 6.0 L (6.3-8.2) g/dL Albumin 3.0 L (3.5-5.0) g/dL Coronavirus (PCR) (Not Detectd) 11/17/20 Range/Units 22:10 WBC (3.8-10.6) k/uL RBC (3.80-5.40) m/uL Hgb (11.4-16.0) gm/dL Hct (34.0-46.0) % MCV (80.0-100.0) fL MCH (25.0-35.0) pg MCHC (31.0-37.0) g/dL RDW (11.5-15.5) % Plt Count (150-450) k/uL MPV Neutrophils % % Lymphocytes % % Monocytes % % Eosinophils % % Basophils % % Neutrophils # (1.3-7.7) k/uL Lymphocytes # (1.0-4.8) k/uL Monocytes # (0-1.0) k/uL Eosinophils # (0-0.7) k/uL Basophils # (0-0.2) k/uL Sodium (137-145) mmol/L Potassium (3.5-5.1) mmol/L Chloride (98-107) mmol/L Carbon Dioxide (22-30) mmol/L Anion Gap mmol/L BUN (7-17) mg/dL Creatinine (0.52-1.04) mg/dL Est GFR (CKD-EPI)AfAm (>60 ml/min/1.73 sqM) Est GFR (CKD-EPI)NonAf (>60 ml/min/1.73 sqM) Glucose (74-99) mg/dL POC Glucose (mg/dL) (75-99) mg/dL POC Glu Hoister ID Calcium (8.4-10.2) mg/dL Total Bilirubin (0.2-1.3) mg/dL AST (14-36) U/L ALT (4-34) U/L Alkaline Phosphatase (38-126) U/L Total Protein (6.3-8.2) g/dL Albumin (3.5-5.0) g/dL Coronavirus (PCR) Not Detected (Not Detectd) Disposition Clinical Impression: Bronchitis Disposition: HOME SELF-CARE Condition: Good Instructions (If sedation given, give patient instructions): Bronchiolitis (ED) Prescriptions: Albuterol Inhaler [Ventolin Hfa Inhaler] 2 puff INHALATION Q4HR PRN #8 gm PRN Reason: Wheezing Is patient prescribed a controlled substance at d/c from ED?: No Referrals: Bobby Riley MD [Primary Care Provider] - 1-2 days
[2020-11-18 01:18] VITALS: BP 132/67; PULSE 102
== END 2020-11-18 01:10 | disposition home or self-care (01) ==
LOC: EC 21:01
DX: O99.512 Diseases of the respiratory system complicating pregnancy, second trimester (principal); O21.9 Vomiting of pregnancy, unspecified; J40 Bronchitis, not specified as acute or chronic; F41.9 Anxiety disorder, unspecified; F32.9 Major depressive disorder, single episode, unspecified; F17.200 Nicotine dependence, unspecified, uncomplicated; Z3A.17 17 weeks gestation of pregnancy; Z88.1 Allergy status to other antibiotic agents; Z90.49 Acquired absence of other specified parts of digestive tract; Z79.899 Other long term (current) drug therapy; Z20.822 Contact with and (suspected) exposure to COVID-19
CPT/HCPCS: 36415; 80053; 85025; 87635; 96360; 99284

== ENCOUNTER 2020-12-03 22:12 | Outpatient (CLI) | payer OTHER ==
[2020-12-04 04:11] VITALS: BP 125/71; PULSE 105; RESP 16; TEMP 97.4
--- NOTE | 2020-12-20 10:59 | P.MSEPDOC ---
Presenting Problems - Arrival Data Date of Arrival on Unit: 12/03/20 Time of Arrival on Unit: 22:12 Mode of Transport: Wheelchair - Complaint OB-Reason for Admission/Chief Complaint: Pain Comment: pt. states contraction pain 11/23 starting at 2100 after taking her antibotic azitheromycin, patient states period flow bleeding this morning an stopped but dosnt know time that bleeding has stopping, and c/o leaking of fluid at 2100,sterial vag spec complete no vaginal bleeding, and amnisure negative Medical History - Information : 7 Para: 3 Term: 3 : 0 Abortions: Spontaneous or Elective: 3 Number of Living Children: 3 - Gestational Age Gestational Age by OJHN (wks/days): 19 Weeks and 3 Days Review of Systems - Review of Systems Constitutional: No problems Breast: No problems ENT: No problems Cardiovascular: No problems Respiratory: No problems Gastrointestinal: No problems Genitourinary: No problems Musculoskeletal: No problems Neurological: No problems Skin: No problems Vital Signs - Temperature Temperature: 97.4 F Temperature Source: Temporal Artery Scan - Pulse Pulse Oximetery Pulse Rate: 105 Pulse Assessment Method: Automatic Cuff - Respirations Respiratory Rate: 16 Oxygen Delivery Method: Room Air O2 Sat by Pulse Oximetry: 97 - Blood Pressure Right Arm Blood Pressure: 125/71 Blood Pressure Mean: 89 Blood Pressure Source: Automatic Cuff Medical Screen Scoring - Cervical Exam Membranes: Intact - Uterine Contractions Resting: Soft to palpation - Assessment - Baby A Baseline FHR: 144 Maternal Triage Index - Maternal Triage Index Presenting for scheduled procedure w/no complaint: No - Stat/Priority 1 Stat Priority 1: No - Urgent/Priority 2 Urgent Priority 2: Yes Provider Notified: Cricket Cohen Provider Notified Time: 22:32 Criteria Met for Priority 2: orders for vaginal spec exam and amnisure, no bleeding noted and amnisure negative, orders to discharge patient home Disposition - Disposition OB Disposition: Discharge to home Discharge Date: 12/03/20 Discharge Time: 23:00 I agree with the RN Medical Screening Exam: Yes Physician's MSE Comment: I have neither seen nor examined the patient. Case reviewed; plan agreed upon as documented in EMR&OBIX.: Yes Diagnosis: RELATED CONDITIONS, UNSPECIFIED, SECOND TRIMESTER
== END 2020-12-03 23:00 | disposition home or self-care (01) ==
LOC: FBPOP 22:12
PROVIDERS: ATTEND Obstetrics & Gynecology
DX: O26.892 Other specified pregnancy related conditions, second trimester (principal); R10.9 Unspecified abdominal pain; Z3A.19 19 weeks gestation of pregnancy; Z88.8 Allergy status to other drugs, medicaments and biological substances; Z91.018 Allergy to other foods
CPT/HCPCS: 84112; G0463; 99213

== ENCOUNTER 2020-12-08 02:35 | Emergency (ER) | payer OTHER ==
[2020-12-08] MEDS ORDERED: ONDANSETRON ODT 4 MG TAB PO STA (04:06)
[2020-12-08] MEDS ORDERED: LORazepam 2 MG/ML INJ IM STA (04:06)
[2020-12-08] MEDS ORDERED: AMOXIC-POT CLAV 875-125MG 1 EACH TAB PO STA (04:08)
[2020-12-08] MEDS ORDERED: ACETAMINOPHEN TAB 500 MG TAB PO STA (04:08)
--- NOTE | 2020-12-08 04:12 | ED ---
Skin/Abscess/FB HPI - General Chief complaint: Skin/Abscess/Foreign Body Stated complaint: Abscess Time Seen by Provider: 12/08/20 03:19 Source: patient, RN notes reviewed, old records reviewed Mode of arrival: wheelchair Limitations: no limitations - History of Present Illness Initial comments: This is a 25-year-old female to the emergency room today. Patient presents today for evaluation of abscess, patient is abscess right cheek. Patient has severe pain in that area. Patient is unable to sit down without having severe pain. Denying any fevers no other complaints no history of prior similar complaint MD complaint: abscess/boil -: days(s) (2) Tetanus Up to Date: yes Quality: stabbing Consistency: constant Improves with: none Worsens with: none Context: none Associated symptoms: denies other symptoms Treatments Prior to Arrival: none - Related Data Home Medications Medication Instructions Recorded Confirmed Azithromycin [Zithromax] 500 mg PO ONCE 12/03/20 12/03/20 Previous Rx's Medication Instructions Recorded Amoxic-Pot Clav 875-125Mg 1 tab PO Q12HR #20 tablet 12/08/20 [Augmentin 875-125] Allergies Allergy/AdvReac Type Severity Reaction Status Date / Time diphenhydramine Allergy Severe Anaphylaxis Verified 12/08/20 02:58 [From Benadryl] diphenhydramine HCl Allergy Severe Anaphylaxis Verified 12/08/20 02:58 [From Benadryl] tomato Allergy Rash/Hives Verified 12/08/20 02:58 Review of Systems ROS Statement: Those systems with pertinent positive or pertinent negative responses have been documented in the HPI. ROS Other: All systems not noted in ROS Statement are negative. Past Medical History Past Medical History: Asthma Additional Past Medical History / Comment(s): OB history: She has had 4 miscarriages, including 1 at 14 weeks, she has 2 live and this is her sixth . had hx of kidney stones w one of her pregnancies History of Any Multi-Drug Resistant Organisms: None Reported Past Surgical History: Adenoidectomy, Cholecystectomy, Tonsillectomy Additional Past Surgical History / Comment(s): tonsillectomy, adnoidectomy Past Anesthesia/Blood Transfusion Reactions: No Reported Reaction Past Psychological History: Anxiety, Depression, PTSD Smoking Status: Current every day smoker Past Alcohol Use History: None Reported Past Drug Use History: None Reported - Past Family History Father History Unknown: Yes Family Medical History: Cancer Mother History Unknown: Yes Family Medical History: Congestive Heart Failure (CHF) Sister(s) Family Medical History: Coronary Artery Disease (CAD) Additional Family Medical History / Comment(s): Patient states that she has 5/2 sisters and one has from cervical palsy at age 14. She has 1 older sister that has schizophrenia and bipolar. Patient states that she has 11 half- brothers and one has passed. General Exam Limitations: no limitations General appearance: alert, in no apparent distress Head exam: Present: atraumatic, normocephalic, normal inspection Eye exam: Present: normal appearance, PERRL, EOMI. Absent: scleral icterus, conjunctival injection, periorbital swelling ENT exam: Present: normal exam, mucous membranes moist Neck exam: Present: normal inspection. Absent: tenderness, meningismus, lymphadenopathy Respiratory exam: Present: normal lung sounds bilaterally. Absent: respiratory distress, wheezes, rales, rhonchi, stridor Cardiovascular Exam: Present: regular rate, normal rhythm, normal heart sounds. Absent: systolic murmur, diastolic murmur, rubs, gallop, clicks GI/Abdominal exam: Present: soft, normal bowel sounds. Absent: distended, tenderness, guarding, rebound, rigid Rectal exam: Present: other (Patient does have abscess to right buttock cheek) Extremities exam: Present: normal inspection, full ROM, normal capillary refill. Absent: tenderness, pedal edema, joint swelling, calf tenderness Back exam: Present: normal inspection Neurological exam: Present: alert, oriented X3, CN II-XII intact Psychiatric exam: Present: normal affect, normal mood Skin exam: Present: warm, dry, intact, normal color. Absent: rash Course Vital Signs 12/08/20 02:53 Temperature 98.3 F Pulse Rate 105 H Respiratory 20 Rate Blood Pressure 132/71 O2 Sat by Pulse 97 Oximetry - Reevaluation(s) Reevaluation #1: 12/08/20 04:10 Medical record is reviewed Reevaluation #2: 12/08/20 04:10 Patient symptoms are improved Procedures - Incision & Drainage Consent Obtained: verbal consent Site: buttock (right) Anesthetic Used: lidocaine 1%, with epi I&D Cleaning Method: Chloroprep Sterile Field Used?: Yes Needle Aspiration Performed?: No Irrigation Performed?: No I&D Drainage Obtained: Pus Culture Obtained?: No Complications: pain Patient Tolerated Procedure: well Medical Decision Making - Medical Decision Making 25 female who is presented today for evaluation of right abscess of right but abscess. Abscess incised and drained here in the ER. Patient placed in antibiotics and can be discharged home Disposition Clinical Impression: Abscess of right buttock Disposition: HOME SELF-CARE Instructions (If sedation given, give patient instructions): Abscess (ED), Abscess Incision and Drainage (DC) Prescriptions: Amoxic-Pot Clav 875-125Mg [Augmentin 875-125] 1 tab PO Q12HR #20 tablet Is patient prescribed a controlled substance at d/c from ED?: No Referrals: Bobby Riley MD [Primary Care Provider] - 1-2 days
[2020-12-08 04:30] VITALS: BP 139/75; PULSE 88; RESP 22; TEMP 98.7
== END 2020-12-08 04:30 | disposition home or self-care (01) ==
LOC: EC 02:35
DX: L02.31 Cutaneous abscess of buttock (principal); F17.200 Nicotine dependence, unspecified, uncomplicated
CPT/HCPCS: 10060; 96372; 99283; J2060

== ENCOUNTER 2020-12-15 02:51 | Outpatient (CLI) | payer OTHER ==
[2020-12-15 04:14] VITALS: BP 111/61; PULSE 66; RESP 16; TEMP 97.1
--- NOTE | 2020-12-16 09:24 | P.MSEPDOC ---
Presenting Problems - Arrival Data Date of Arrival on Unit: 12/15/20 Time of Arrival on Unit: 02:51 Mode of Transport: Wheelchair - Complaint OB-Reason for Admission/Chief Complaint: Other Comment: Patient presents to triage with c/o contractions every 5-7 minutes and fluid but is unsure if it is vaginal fluid or from a abscess that was drained on groin 3 days prior. Medical History - Information : 7 Para: 3 Term: 0 : 0 Abortions: Spontaneous or Elective: 3 Number of Living Children: 3 - Gestational Age Gestational Age by JOHN (wks/days): 21 Weeks and 1 Days - History Complications: Smoker Comment: prenatla care obtained from Dr. Willams at [facility]. Review of Systems - Review of Systems Constitutional: No problems Breast: No problems ENT: No problems Cardiovascular: No problems Respiratory: No problems Gastrointestinal: No problems Genitourinary: No problems Musculoskeletal: No problems Neurological: No problems Skin: No problems Vital Signs - Temperature Temperature: 97.1 F Temperature Source: Temporal Artery Scan - Pulse Right Brachial Pulse Rate: 66 Pulse Assessment Method: Automatic Cuff - Respirations Respiratory Rate: 16 Oxygen Delivery Method: Room Air - Blood Pressure Right Arm Blood Pressure: 111/61 Blood Pressure Mean: 77 Blood Pressure Source: Automatic Cuff Medical Screen Scoring - Assessment - Baby A Baseline FHR: 145 Physician Notification - Physician Notified Physician Notified Date: 12/15/20 Physician Notified Time: 03:28 Physician: Kena Mcbride New Order Received: Yes - Notification Comment Comment: Patient presents to triage with c/o contractions every 5-7 minutes and fluid but is unsure if it is vaginal fluid or from a abscess that was drained on groin 3 days prior. Amnisure negative. no contractions per toco or palpation. Vaginal exam ordred. Patient to be discharged if closed. Maternal Triage Index - Maternal Triage Index Presenting for scheduled procedure w/no complaint: No - Stat/Priority 1 Stat Priority 1: No - Urgent/Priority 2 Urgent Priority 2: Yes Provider Notified: Kena Mcbride Provider Notified Time: 03:28 Criteria Met for Priority 2: Patient presents to triage with c/o contractions every 5-7 minutes and fluid but is unsure if it is vaginal fluid or from a abscess that was drained on groin 3 days prior. Amnisure negative. no contractions per toco or palpation. Vaginal exam ordred. Patient to be discharged if closed. Disposition - Disposition OB Disposition: Discharge to home Discharge Date: 12/15/20 Discharge Time: 03:34 I agree with the RN Medical Screening Exam: Yes Case reviewed; plan agreed upon as documented in EMR&OBIX.: Yes Diagnosis: vaginal discharge
== END 2020-12-15 03:34 ==
LOC: FBPOP 02:51
PROVIDERS: ATTEND Obstetrics & Gynecology
DX: O99.891 Other specified diseases and conditions complicating pregnancy (principal); O99.332 Smoking (tobacco) complicating pregnancy, second trimester; N89.8 Other specified noninflammatory disorders of vagina; F17.200 Nicotine dependence, unspecified, uncomplicated; Z3A.21 21 weeks gestation of pregnancy; Z88.8 Allergy status to other drugs, medicaments and biological substances; Z91.018 Allergy to other foods
CPT/HCPCS: 84112; G0463; 99213

== ENCOUNTER 2021-01-28 20:21 | Outpatient (CLI) | payer OTHER ==
[2021-01-28 20:59] LABS: Appearance,Urine Turbid (Clear); Bacteria,Urine Occasional /hpf; Bilirubin,Urine Negative (Negative); Blood,Urine Negative (Negative); Budding Yeast,Urine Many /hpf; Color,Urine Yellow; Glucose,Urine (UA) Negative (Negative); Ketones,Urine Negative (Negative); Leukocyte Esterase,Urine Negative (Negative); Nitrite,Urine Negative (Negative); Protein,Urine Trace (Negative); RBC,Urine 4 /hpf (0-5); Squamous Epithelial Cell,Urine 13 /hpf (0-4); Urobilinogen,Urine <2.0 mg/dL (<2.0); WBC,Urine 3 /hpf (0-5)
[2021-01-28 22:40] VITALS: BP 125/78; PULSE 109; RESP 16; TEMP 97.9
--- NOTE | 2021-02-04 08:32 | P.MSEPDOC ---
Presenting Problems - Arrival Data Date of Arrival on Unit: 01/28/21 Time of Arrival on Unit: 20:21 Mode of Transport: Wheelchair - Complaint OB-Reason for Admission/Chief Complaint: Pain, Other Comment: rates pain in lower back,butt and legs a 6, pt states vaginal pressure, possible leaking Medical History - Information : 7 Para: 3 Term: 0 : 3 Abortions: Spontaneous or Elective: 3 Number of Living Children: 3 - Gestational Age Gestational Age by JOHN (wks/days): 27 Weeks and 0 Days - History Complications: Prior Review of Systems - Review of Systems Constitutional: No problems Breast: No problems ENT: No problems Cardiovascular: No problems Respiratory: No problems Gastrointestinal: No problems Genitourinary: No problems Musculoskeletal: No problems Neurological: No problems Skin: No problems Vital Signs - Temperature Temperature: 97.9 F Temperature Source: Oral - Pulse Right Sitting Pulse Rate: 109 Pulse Assessment Method: Automatic Cuff - Respirations Respiratory Rate: 16 Oxygen Delivery Method: Room Air O2 Sat by Pulse Oximetry: 97 - Blood Pressure Right Arm Sitting Blood Pressure: 125/78 Blood Pressure Mean: 93 Blood Pressure Source: Automatic Cuff Medical Screen Scoring - Cervical Exam Dilation (cm): 0 Membranes: Intact - Assessment - Baby A Baseline FHR: 135 Heart Rate - NICHD Category: Category I (Normal) Physician Notification - Physician Notified Physician Notified Date: 01/28/21 Physician Notified Time: 21:30 Physician: Kena Mcbride Order Received: Yes Maternal Triage Index - Maternal Triage Index Presenting for scheduled procedure w/no complaint: No - Stat/Priority 1 Stat Priority 1: No - Urgent/Priority 2 Urgent Priority 2: No - Prompt/Priority 3 Prompt Priority 3: No - Non-Urgent/Priority 4 Non-Urgent Priority 4: Yes Criteria Met for Priority 4: low back pain, leg pain, possible leaking. Disposition - Disposition OB Disposition: Discharge to home, Written follow up instructions reviewed Discharge Date: 01/28/21 Discharge Time: 21:36 I agree with the RN Medical Screening Exam: Yes Case reviewed; plan agreed upon as documented in EMR&OBIX.: Yes Diagnosis: pain in
== END 2021-01-28 21:36 | disposition home or self-care (01) ==
LOC: FBPOP 20:21
PROVIDERS: ATTEND Obstetrics & Gynecology
DX: O99.891 Other specified diseases and conditions complicating pregnancy (principal); M54.50 Low back pain, unspecified; M79.605 Pain in left leg; M79.604 Pain in right leg; F17.200 Nicotine dependence, unspecified, uncomplicated; Z3A.27 27 weeks gestation of pregnancy; Z88.8 Allergy status to other drugs, medicaments and biological substances; Z91.018 Allergy to other foods
CPT/HCPCS: 84112; 81001; G0463; 99213

== ENCOUNTER 2021-02-15 21:07 | Outpatient (CLI) | payer OTHER ==
[2021-02-15 21:19] LABS: Glucose,Whole Blood 94 mg/dL (75-99)
[2021-02-15 22:58] VITALS: BP 110/55; PULSE 99; RESP 18; TEMP 97.8
--- NOTE | 2021-03-09 17:10 | P.MSEPDOC ---
Presenting Problems - Arrival Data Date of Arrival on Unit: 02/15/21 Time of Arrival on Unit: 21:07 Mode of Transport: Wheelchair - Complaint OB-Reason for Admission/Chief Complaint: Rule Out PROM, Other Comment: high BS (288), and leaking fluid Medical History - Information : 7 Para: 3 Term: 0 : 3 Abortions: Spontaneous or Elective: 3 Number of Living Children: 3 - Gestational Age Gestational Age by JOHN (wks/days): 30 Weeks and 0 Days - History Complications: Prior Review of Systems - Review of Systems Constitutional: No problems Breast: No problems ENT: No problems Cardiovascular: No problems Respiratory: No problems Gastrointestinal: No problems Genitourinary: No problems Musculoskeletal: No problems Neurological: No problems Skin: No problems Vital Signs - Temperature Temperature: 97.8 F Temperature Source: Temporal Artery Scan - Pulse Pulse Oximetery Pulse Rate: 99 Pulse Assessment Method: Pulse Oximetry - Respirations Respiratory Rate: 18 Oxygen Delivery Method: Room Air O2 Sat by Pulse Oximetry: 99 - Blood Pressure Right Arm Blood Pressure: 110/55 Blood Pressure Mean: 73 Blood Pressure Source: Automatic Cuff Medical Screen Scoring - Assessment - Baby A Baseline FHR: 125 Heart Rate - NICHD Category: Category I (Normal) NST: Reactive Physician Notification - Physician Notified Physician Notified Date: 02/15/21 Physician Notified Time: 21:35 Physician: Cricket Cohen New Order Received: Yes - Notification Comment Comment: Dr. Cohen calling unit, report given on maternal and status, c/o high. BS (288) at home along with nausea, increased swallowing, and decreased concentration. Pt also states she is maybe leaking fluid vaginally. BS currently 94. Orders to do an. amnisure and NST and if amnisure is negative and NST reactive, pt can be discharge home. Maternal Triage Index - Maternal Triage Index Presenting for scheduled procedure w/no complaint: No - Stat/Priority 1 Stat Priority 1: No - Urgent/Priority 2 Urgent Priority 2: Yes Provider Notified: Cricket Cohen Provider Notified Time: 21:35 Criteria Met for Priority 2: 30wks, DOM, c/o high blood sugar and leaking fluid Disposition - Disposition OB Disposition: Discharge to home Discharge Date: 02/15/21 Discharge Time: 22:20 I agree with the RN Medical Screening Exam: Yes Physician's MSE Comment: I have neither seen were examined the patient. Case reviewed; plan agreed upon as documented in EMR&OBIX.: Yes Diagnosis: RELATED CONDITIONS, UNSPECIFIED, THIRD TRIMESTER
== END 2021-02-15 22:20 | disposition home or self-care (01) ==
LOC: FBPOP 21:07
PROVIDERS: ATTEND Obstetrics & Gynecology
DX: O99.810 Abnormal glucose complicating pregnancy (principal); Z3A.30 30 weeks gestation of pregnancy; Z88.8 Allergy status to other drugs, medicaments and biological substances; Z91.018 Allergy to other foods
CPT/HCPCS: 59025; 84112; G0463; 99203; 99213

== ENCOUNTER 2021-02-18 00:13 | Observation (INO) | payer OTHER ==
[2021-02-18] MEDS ORDERED: BETAMET ACET-BETAMETH SOD PHOS 6 MG/ML MDV IM SCH (01:15)
[2021-02-18] MEDS ORDERED: MAGNESIUM SULFATE-WATER PMX 20 GM in WATER FOR INJECTION 1 500ML.BAG IV SCH (01:15)
[2021-02-18] MEDS ORDERED: MAGNESIUM SULFATE-WATER PMX 4 GM in WATER FOR INJECTION 1 100ML.BAG IVPB ONE (01:15)
[2021-02-18] MEDS: LACTATED RINGERS 1,000 ML IV SCH ×2 (01:25→07:41)
[2021-02-18 01:30] LABS: Appearance,Urine Cloudy (Clear); Bilirubin,Urine Negative (Negative); Blood,Urine Negative (Negative); Color,Urine Yellow; Glucose,Urine (UA) Negative (Negative); Ketones,Urine Negative (Negative); Leukocyte Esterase,Urine Small (Negative); Mucus,Urine Occasional /hpf; Nitrite,Urine Negative (Negative); Protein,Urine Trace (Negative); RBC,Urine 1 /hpf (0-5); Squamous Epithelial Cell,Urine 9 /hpf (0-4); Urobilinogen,Urine <2.0 mg/dL (<2.0); WBC,Urine 3 /hpf (0-5)
[2021-02-18 03:07] LABS: Basophils % (A) 0 %; Eosinophils # (A) 0.3 k/uL (0-0.7); Eosinophils % (A) 2 %; HCT 38.6 % (34.0-46.0); HGB 12.7 gm/dL (11.4-16.0); Lymphocytes # (A) 2.4 k/uL (1.0-4.8); Lymphocytes % (A) 14 %; MCH 29.6 pg (25.0-35.0); MCV 89.7 fL (80.0-100.0); Mean Platelet Volume 8.2; Monocytes # (A) 0.9 k/uL (0-1.0); Monocytes % (A) 5 %; Neutrophils # (A) 12.7 k/uL (1.3-7.7); Neutrophils % (A) 75 %; Platelet Count 165 k/uL (150-450); RDW 14.5 % (11.5-15.5); WBC 16.9 k/uL (3.8-10.6)
[2021-02-18 05:08] VITALS: TEMP 97.6
[2021-02-18 07:29] VITALS: BP 112/55; PULSE 90; RESP 18
--- NOTE | 2021-02-18 07:56 | P.HPOB ---
History of Present Illness H&P Date: 02/18/21 Chief Complaint: abdominal pain and contractions this is a 25 year old G 6 P 0323 woman with an estimated due date of 04/16/2021 who presents at 31-6/7 weeks' gestation with worsening abdominal pain and contractions. Her is being managed by maternal medicine in [place] for history of multiple previous deliveries. She presented to labor and delivery triage after several hours of increasing lower abdominal pain and contractions as well as decreased movement. Upon presentation she was found to be regularly betty every 2-5 minutes and was very distressed. Her cervix was 1+ centimeters dilated and 70% effaced. She was admitted for observation. She was started on magnesium sulfate and given first dose of steroids. she denies leakage of fluids or vaginal bleeding. She reports she has polyhydramnios in this but denies gestational diabetes or hypertension. She has not had labor this far in this . Obstetric history is significant for a 34 week premature rupture of membranes in 2016 with , 34 weeks labor and in 2018, spontaneous miscarriage 2018, 35 week in 2019. She reports at least 1 other early miscarriage. Review of Systems Constitutional: Denies chills, Denies fever Cardiovascular: Denies chest pain, Denies high blood pressure, Denies shortness of breath Respiratory: Denies congestion, Denies cough Gastrointestinal: Denies abdominal pain, Denies BRBPR, Denies nausea, Denies vomiting Genitourinary: Denies abnormal vaginal bleeding, Denies dysuria, Denies hematuria, Denies vaginal discharge Menstruation: Reports as per HPI Musculoskeletal: Reports low back pain Integumentary: Denies rash Neurological: Denies headaches Psychiatric: Reports anxiety Hematologic/Lymphatic: Denies easy bleeding, Denies easy bruising Past Medical History Past Medical History: No Reported History, Asthma Additional Past Medical History / Comment(s): Hx of delivery x 3 History of Any Multi-Drug Resistant Organisms: None Reported Past Surgical History: Adenoidectomy, Cholecystectomy, Tonsillectomy Additional Past Surgical History / Comment(s): tonsillectomy, adnoidectomy Past Anesthesia/Blood Transfusion Reactions: No Reported Reaction Past Psychological History: Anxiety, Depression, PTSD Additional Psychological History / Comment(s): NO MEDS CURRENTLY Smoking Status: Current every day smoker Past Alcohol Use History: None Reported Additional Past Alcohol Use History / Comment(s): Pt reports smoking 1/2 ppd Past Drug Use History: None Reported - Past Family History Father History Unknown: Yes Family Medical History: Cancer Mother History Unknown: Yes Family Medical History: Congestive Heart Failure (CHF) Sister(s) Family Medical History: Coronary Artery Disease (CAD) Additional Family Medical History / Comment(s): Patient states that she has 5/2 sisters and one has from cervical palsy at age 14. She has 1 older sister that has schizophrenia and bipolar. Patient states that she has 11 half- brothers and one has passed. Medications and Allergies Home Medications Medication Instructions Recorded Confirmed Type Pnv No.95/Ferrous Fum/Folic AC 1 tab PO DAILY 01/28/21 02/18/21 History [ Multivitamin Tablet] Allergies Allergy/AdvReac Type Severity Reaction Status Date / Time diphenhydramine Allergy Severe Anaphylaxis Verified 02/18/21 00:21 [From Benadryl] diphenhydramine HCl Allergy Severe Anaphylaxis Verified 02/18/21 00:21 [From Benadryl] tomato Allergy Rash/Hives Verified 02/18/21 00:21 Exam Vital Signs Temp Pulse Resp BP Pulse Ox 02/18/21 07:15 90 18 112/55 96 02/18/21 05:52 102 H 16 114/52 97 02/18/21 04:55 102 H 18 115/53 96 02/18/21 04:07 99 16 118/58 96 02/18/21 03:02 97.6 F 101 H 16 128/61 96 02/18/21 02:42 99 16 131/72 02/18/21 02:27 99 16 124/63 02/18/21 02:12 101 H 18 126/62 02/18/21 01:54 99 16 130/62 97 02/18/21 00:20 97.4 F L 113 H 18 134/82 98 Intake and Output 02/17/21 02/18/21 02/18/21 22:59 06:59 14:59 Other: Voiding Method Bedside Commode Bedside Commode Weight 108.862 kg this is a pleasant, comfortable appearing obese female. HEENT exam is remarkable for enlarged thyroid with no palpable nodules. Her lungs are clear to auscultation bilaterally and her heart is a regular rate and rhythm. The abdomen is gravid and size greater than stated dates. Uterus is non-tender and there is no flank pain. On pelvic examination the cervix is anterior 1+ centimeters dilated, 70% effaced and there is no presenting part in the pelvis. Amnio sure test and had previously been negative for rupture of membranes. There is no evidence of blood in the vaginal vault. Currently on magnesium sulfate she has 2+ bilateral deep tendon reflexes. If she has 1+ bilateral lower extremity edema. No redness or swelling of the extremities. Minimal uterine irritability on tocometer noted at this time. heart tones are reassuring for gestational age. Results Result Diagrams: 02/18/21 02:46 Abnormal Lab Results - Last 24 Hours (Table) 02/18/21 02/18/21 Range/Units 01:08 02:46 WBC 16.9 H (3.8-10.6) k/uL Neutrophils # 12.7 H (1.3-7.7) k/uL Urine Appearance Cloudy H (Clear) Urine Protein Trace H (Negative) Ur Leukocyte Esterase Small H (Negative) Ur Squamous Epith Cells 9 H (0-4) /hpf Urine Mucus Occasional H (None) /hpf Assessment and Plan (1) 31 to 32 weeks gestation of Current Visit: Yes Status: Acute Code(s): OKF4448 - SNOMED Code(s): 753181384 (2) History of delivery Current Visit: Yes Status: Acute Code(s): Z87.51 - PERSONAL HISTORY OF PRE- TERM LABOR SNOMED Code(s): 543484340 (3) Polyhydramnios Current Visit: Yes Status: Acute Code(s): O40.9XX0 - POLYHYDRAMNIOS, UNSP TRIMESTER, NOT APPLICABLE OR UNSP SNOMED Code(s): 75284849 (4) Abdominal pain Current Visit: No Status: Acute Code(s): R10.9 - UNSPECIFIED ABDOMINAL PAIN SNOMED Code(s): 26009480 (5) Active labor Current Visit: No Status: Acute Code(s): O60.10X0 - LABOR W DELIVERY, UNSP TRIMESTER, UNSP SNOMED Code(s): 1037885 Plan: this is a 25-year-old 6 para 0323 woman who presents at approximately 31-6/7 weeks' gestation with contractions and cervical dilation. She has a history of 3 previous deliveries and is being followed by maternal medicine for this . She is stabilized on magnesium sulfate with no regular contraction activity and no additional cervical dilation. Due to history of previous deliveries and current gestational age she will be transferred to a tertiary care facility with the intensive care unit in the event that the labor progresses. She is stable for transport at this time.
--- NOTE | 2021-02-18 08:20 | P.DS ---
Providers Date of admission: 02/18/21 02:46 Expected date of discharge: 02/18/21 Attending physician: Kena Mcbride Primary care physician: Stated None - Discharge Diagnosis(es) (1) 31 to 32 weeks gestation of Current Visit: Yes Status: Acute (2) History of delivery Current Visit: Yes Status: Acute (3) Polyhydramnios Current Visit: Yes Status: Acute (4) Abdominal pain Current Visit: No Status: Acute (5) Active labor Current Visit: No Status: Acute Hospital Course: this is a 25 year old 6 para 0323 woman who was admitted for observation secondary to labor at 31-6/7 weeks' gestation. Please see the history and physical for details. She presented with regular painful contractions and was found to be 1-2 cm dilated. She received betamethasone as well as magnesium sulfate for tocolyse this. She has now been observed for approximately 6 hours and has had decreased contraction activity. She has had no cervical change since admission. status has been reassuring. The patient is regularly seen at [facility] through their maternal medicine clinic. I have discussed the case with them this morning. She will be transferred to their facility with an attending physician accepting. Risks of transfer have been reviewed with the patient and include possible progression of labor and Route which I believe is highly unlikely. Risk of not transferring would be progression of labor at our facility with also need for transfer of infant for care. The patient understands indications for transfer and has signed consent. Patient Condition at Discharge: Stable Plan - Discharge Summary New Discharge Prescriptions: No Action Pnv No.95/Ferrous Fum/Folic AC [ Multivitamin Tablet] 1 tab PO DAILY Discharge Medication List Pnv No.95/Ferrous Fum/Folic AC [ Multivitamin Tablet] 1 tab PO DAILY 01/28/21 [History]
== END 2021-02-18 08:50 ==
LOC: FBPOP 00:13 → 4FBP 02:46
PROVIDERS: ADMIT Obstetrics & Gynecology; ATTEND Obstetrics & Gynecology
DX: O60.03 Preterm labor without delivery, third trimester (principal); Z3A.32 32 weeks gestation of pregnancy; O36.8130 Decreased fetal movements, third trimester, not applicable or unspecified; O40.3XX0 Polyhydramnios, third trimester, not applicable or unspecified; O09.213 Supervision of pregnancy with history of pre-term labor, third trimester; O99.333 Smoking (tobacco) complicating pregnancy, third trimester; F17.210 Nicotine dependence, cigarettes, uncomplicated; O99.343 Other mental disorders complicating pregnancy, third trimester; F43.10 Post-traumatic stress disorder, unspecified; F32.A Depression, unspecified; Z81.8 Family history of other mental and behavioral disorders; Z82.49 Family history of ischemic heart disease and other diseases of the circulatory system; Z87.59 Personal history of other complications of pregnancy, childbirth and the puerperium
CPT/HCPCS: 59025; 96361; 96365; 96372; 84112; 85025; 81001; G0463; G0378; J3475 ×2; J0702; 99214

== ENCOUNTER 2021-03-08 02:35 | Outpatient (CLI) | payer OTHER ==
[2021-03-08] MEDS ORDERED: TERBUTALINE 1 MG/ML VIAL SQ PRN (04:07)
[2021-03-08 07:04] VITALS: BP 124/74; PULSE 98; RESP 18; TEMP 97.9
--- NOTE | 2021-05-27 21:46 | P.MSEPDOC ---
Presenting Problems - Arrival Data Date of Arrival on Unit: 03/08/21 Time of Arrival on Unit: 02:48 Mode of Transport: Wheelchair - Complaint OB-Reason for Admission/Chief Complaint: Possible Onset of Labor Comment: contractions 5 mins apart Medical History - Information : 7 Para: 3 Term: 0 : 3 Abortions: Spontaneous or Elective: 3 Number of Living Children: 3 - Gestational Age Gestational Age by JOHN (wks/days): 34 Weeks and 3 Days - History Complications: Prior Review of Systems - Review of Systems Constitutional: No problems Breast: No problems ENT: No problems Cardiovascular: No problems Respiratory: No problems Gastrointestinal: No problems Genitourinary: No problems Musculoskeletal: No problems Neurological: No problems Skin: No problems Vital Signs - Temperature Temperature: 97.9 F Temperature Source: Temporal Artery Scan - Pulse Pulse Oximetery Pulse Rate: 98 Pulse Assessment Method: Pulse Oximetry - Respirations Respiratory Rate: 18 Oxygen Delivery Method: Room Air O2 Sat by Pulse Oximetry: 97 - Blood Pressure Right Arm Blood Pressure: 124/74 Blood Pressure Mean: 90 Blood Pressure Source: Automatic Cuff Medical Screen Scoring - Cervical Exam Dilation (cm): 3 Effacement (%): 70 Station: -2 Membranes: Intact - Uterine Contractions Frequency From (mins): 6 Frequency To (mins): 6 Duration From (seconds): 70 Duration To (seconds): 90 Intensity: Mild Resting: Soft to palpation - Assessment - Baby A Baseline FHR: 125 Heart Rate - NICHD Category: Category I (Normal) NST: Reactive Physician Notification - Physician Notified Physician Notified Date: 03/08/21 Physician Notified Time: 04:00 Physician: Anusha Collins New Order Received: Yes - Notification Comment Comment: Dr. Collins called, report given on maternal and status, complaints of. contractions that began yesterday. Contractions currently 6 mins apart, pt rates them. 6/10, SVE 3/70/-2 (no change in 1 hour). Orders to start IV and give 1L LR bolus, offer. pt terbutaline (per protocol), recheck after 1 hour. If cervix is unchanged, pt can be. discharged home. Dr. Collins called back, per Dr. Collins, the pt can either have the IV and terb or. she can orally hydrate. Either way she would like another SVE in 1 hour. If pt is. unchanged, she can be discharged. Maternal Triage Index - Maternal Triage Index Presenting for scheduled procedure w/no complaint: No - Stat/Priority 1 Stat Priority 1: No - Urgent/Priority 2 Urgent Priority 2: No - Prompt/Priority 3 Prompt Priority 3: Yes Criteria Met for Priority 3: 34 3/7 weeks with contractions every 5-6 mins Disposition - Disposition OB Disposition: Discharge to home Discharge Date: 03/08/21 Discharge Time: 05:03 I agree with the RN Medical Screening Exam: Yes Case reviewed; plan agreed upon as documented in EMR&OBIX.: Yes Diagnosis: FALSE LABOR BEFORE 37 COMPLETED WEEKS OF GEST, THIRD TRI
== END 2021-03-08 05:03 | disposition home or self-care (01) ==
LOC: FBPOP 02:35
PROVIDERS: ATTEND Obstetrics & Gynecology Obstetrics
DX: O47.03 False labor before 37 completed weeks of gestation, third trimester (principal); Z3A.34 34 weeks gestation of pregnancy; Z88.8 Allergy status to other drugs, medicaments and biological substances; Z91.018 Allergy to other foods; F17.200 Nicotine dependence, unspecified, uncomplicated
CPT/HCPCS: 59025; G0463; 99213

== ENCOUNTER 2021-03-09 00:18 | Observation (INO) | payer OTHER ==
[2021-03-09] MEDS ORDERED: LACTATED RINGERS 1,000 ML IV ONE (01:56)
[2021-03-09] MEDS: TERBUTALINE 1 MG/ML VIAL SQ PRN ×2 (02:29→02:53)
[2021-03-09 03:01] LABS: Appearance,Urine Cloudy (Clear); Bacteria,Urine Rare /hpf; Bilirubin,Urine Negative (Negative); Blood,Urine Trace (Negative); Cellular Casts,Urine 1 /lpf (0); Color,Urine Yellow; Glucose,Urine (UA) Negative (Negative); Granular Casts,Urine 3 /lpf (0); Ketones,Urine Trace (Negative); Leukocyte Esterase,Urine Moderate (Negative); Mucus,Urine Many /hpf; Nitrite,Urine Negative (Negative); Protein,Urine 1+ (Negative); RBC,Urine 2 /hpf (0-5); Specific Gravity,Urine 1.038 (1.001-1.035); Squamous Epithelial Cell,Urine 8 /hpf (0-4); Urobilinogen,Urine <2.0 mg/dL (<2.0); WBC,Urine 7 /hpf (0-5)
[2021-03-09] MEDS ORDERED: ONDANSETRON 4 MG/2 ML VIAL IVP PRN (03:34)
[2021-03-09] MEDS ORDERED: ACETAMINOPHEN TAB 325 MG TAB PO PRN (03:38)
[2021-03-09] MEDS ORDERED: LACTATED RINGERS 1,000 ML IV SCH (03:45)
[2021-03-09 03:51] VITALS: BP 101/55; PULSE 107; RESP 16; TEMP 96.6
--- NOTE | 2021-03-09 09:05 | P.HPOB ---
History of Present Illness H&P Date: 03/09/21 Chief Complaint: IUP at 34 and 4, contractions 25-year-old 7 para 3023 that though 4-4/7 weeks with an estimated due date of 04/16. Patient receives care at [facility]. Patient is a history of delivery therefore is being seen at tertiary care center. Patient presented last evening with complaints of contractions every 5 minutes, patient appeared very uncomfortable and stated she needed to push. Patient had been previously and was noted to be 3 cm on this presentation she was still 3 cm. Patient was given IV fluids and 2 doses of terbutaline contractions did space. Patient still complained of pain therefore she was observed overnight and IV fluids were begun. Patient is also noting diarrhea with nausea and vomiting. Patient does note good movement, heart tones are auscultated, difficulty monitoring secondary to maternal body habitus. Review of Systems Constitutional: Denies chills, Denies fatigue, Denies fever Ears, nose, mouth and throat: Denies headache Cardiovascular: Reports leg edema Respiratory: Denies dyspnea Gastrointestinal: Reports diarrhea, Reports nausea, Reports vomiting Past Medical History Past Medical History: No Reported History, Asthma Additional Past Medical History / Comment(s): Hx of delivery x 3 History of Any Multi-Drug Resistant Organisms: None Reported Past Surgical History: Adenoidectomy, Cholecystectomy, Tonsillectomy Additional Past Surgical History / Comment(s): tonsillectomy, adnoidectomy Past Anesthesia/Blood Transfusion Reactions: No Reported Reaction Past Psychological History: Anxiety, Depression, PTSD Additional Psychological History / Comment(s): NO MEDS CURRENTLY Smoking Status: Current every day smoker Past Alcohol Use History: None Reported Additional Past Alcohol Use History / Comment(s): Pt reports smoking 1/2 ppd Past Drug Use History: None Reported - Past Family History Father History Unknown: Yes Family Medical History: Cancer Mother History Unknown: Yes Family Medical History: Congestive Heart Failure (CHF) Sister(s) Family Medical History: Coronary Artery Disease (CAD) Additional Family Medical History / Comment(s): Patient states that she has 5/2 sisters and one has from cervical palsy at age 14. She has 1 older sister that has schizophrenia and bipolar. Patient states that she has 11 half- brothers and one has passed. Medications and Allergies Home Medications Medication Instructions Recorded Confirmed Type Pnv No.95/Ferrous Fum/Folic AC 1 tab PO DAILY 01/28/21 03/09/21 History [ Multivitamin Tablet] Allergies Allergy/AdvReac Type Severity Reaction Status Date / Time diphenhydramine Allergy Intermediate Rash/Hives Verified 03/09/21 00:27 [From Benadryl] diphenhydramine HCl Allergy Intermediate Rash/Hives Verified 03/09/21 00:27 [From Benadryl] tomato Allergy Rash/Hives Verified 03/09/21 00:27 Exam Osteopathic Statement: *. No significant issues noted on an osteopathic structural exam other than those noted in the History and Physical/Consult. Vital Signs Temp Pulse Resp BP 03/09/21 03:58 96.6 F L 107 H 16 101/55 03/09/21 00:27 96.6 F L 107 H 16 101/55 Intake and Output 03/08/21 03/09/21 03/09/21 22:59 06:59 14:59 Intake Total 1700 Balance 1700 Intake: IV 1500 Oral 200 Other: # Voids 2 Weight 108.862 kg Patient is sleeping in the bed upon entering the room. She appears comfortable. Abdomen is morbidly obese, slight lower extremity swelling is appreciated. heart tones are in readjusted currently as stated above difficulty monitoring secondary to maternal body habitus. No contractions were appreciated through the evening. Results Abnormal Lab Results - Last 24 Hours (Table) 03/09/21 Range/Units 02:35 Urine Appearance Cloudy H (Clear) Ur Specific [place] 1.038 H (1.001-1.035) Urine Protein 1+ H (Negative) Urine Ketones Trace H (Negative) Urine Blood Trace H (Negative) Ur Leukocyte Esterase Moderate H (Negative) Urine WBC 7 H (0-5) /hpf Ur Squamous Epith Cells 8 H (0-4) /hpf Urine Bacteria Rare H (None) /hpf Urine Mucus Many H (None) /hpf Assessment and Plan (1) 34 weeks gestation of Current Visit: Yes Status: Acute Code(s): Z3A.34 - 34 WEEKS GESTATION OF SNOMED Code(s): 88148915 (2) contractions Current Visit: Yes Status: Acute Code(s): O47.00 - FALSE LABOR BEFORE 37 COMPLETED WEEKS OF GEST, UNSP TRI SNOMED Code(s): 253224124 (3) Nausea & vomiting Current Visit: Yes Status: Acute Code(s): R11.2 - NAUSEA WITH VOMITING, UNSPECIFIED SNOMED Code(s): 23151699 (4) Diarrhea Current Visit: Yes Status: Acute Code(s): R19.7 - DIARRHEA, UNSPECIFIED SNOMED Code(s): 94248561 Plan: 25-year-old 7 para 3033 at 34-4/7 weeks presented with contractions. Contractions were noted to dissipate after 2 doses of terbutaline. Patient stated she was still uncomfortable therefore she was observed overnight. Patient has been sleeping through most of the night theref ore discharge was discussed with patient. Patient is frustrated as she is ready to be delivered. Discussed with patient delivery, complications. Patient is urged to be seen at [facility] as this is where her physicians/NICU/tertiary care center are located. We'll obtain NST prior to discharge, will recheck of cervix prior to discharge. Cervix remained stable patient will be discharged home with labor precautions.
--- NOTE | 2021-03-09 11:24 | US ---
EXAMINATION TYPE: US OB BPP wo non-stress DATE OF EXAM: 03/09/2021 COMPARISON: NONE CLINICAL HISTORY: 25-year-old female non reactive NST. TECHNIQUE: Real-time prevention coordinator assessment during transabdominal scanning. EXAM PERFORMED: Transabdominal (TA) FINDINGS: BPP PARAMETERS: PRESENTATION: Vertex LIE: Longitudinal?? HEART RATE: 142 bpm RHYTHM: Normal DWIGHT: 16.67 DIAPHRAGM IMAGED: Yes BPP SCORIN. Breathin (1 episode of breathing of 30 second duration in 30 minutes of scanning time) 2. Movement: 2 (at least 3 discrete body movements in 30 minutes) 3. Tone: 2 (1 episode of active flexion/extension of limb) 4. DWIGHT: 2 (DWIGHT index > 5cm) IMPRESSION: TOTAL SCORE: 8 / 8
== END 2021-03-09 11:06 | disposition home or self-care (01) ==
LOC: FBPOP 00:18 → 4FBP 03:30
PROVIDERS: ADMIT Obstetrics & Gynecology Obstetrics; ATTEND Obstetrics & Gynecology Obstetrics
DX: O60.03 Preterm labor without delivery, third trimester (principal); O21.2 Late vomiting of pregnancy; O99.891 Other specified diseases and conditions complicating pregnancy; R19.7 Diarrhea, unspecified; O99.343 Other mental disorders complicating pregnancy, third trimester; F43.10 Post-traumatic stress disorder, unspecified; F41.9 Anxiety disorder, unspecified; F32.A Depression, unspecified; O99.333 Smoking (tobacco) complicating pregnancy, third trimester; F17.210 Nicotine dependence, cigarettes, uncomplicated; Z3A.34 34 weeks gestation of pregnancy; Z88.8 Allergy status to other drugs, medicaments and biological substances; Z91.018 Allergy to other foods; Z90.49 Acquired absence of other specified parts of digestive tract; Z98.890 Other specified postprocedural states; Z81.8 Family history of other mental and behavioral disorders; Z82.49 Family history of ischemic heart disease and other diseases of the circulatory system
CPT/HCPCS: 59025; 96361; 96372; 96374; 81001; 87635; 76819; G0463; G0378; J3105; J2405; 96365; 96367; 96375; 99213

== ENCOUNTER 2021-03-21 12:35 | Inpatient (IN) | payer OTHER ==
[2021-03-21] MEDS ORDERED: TERBUTALINE 1 MG/ML VIAL SQ PRN (13:18)
[2021-03-21] MEDS ORDERED: CARBOPROST TROMETHAMINE 250 MCG/ML 1 ML AMP IM PRN (13:18)
[2021-03-21] MEDS ORDERED: METHYLERGONOVINE 0.2 MG/ML 1 ML AMP IM PRN (13:18)
[2021-03-21] MEDS ORDERED: LIDOCAINE 1% (PF) 10 MG/ML (30 ML SDV) SQ PRN (13:18)
[2021-03-21] MEDS ORDERED: OXYTOCIN 10 UNIT/ML 1 ML VIAL IM PRN (13:18)
[2021-03-21] MEDS ORDERED: AMPICILLIN 2,000 MG in SODIUM CHLORIDE 0.9% 100 ML IVPB STA (13:24)
--- NOTE | 2021-03-21 13:24 | P.HPOB ---
History of Present Illness H&P Date: 03/21/21 Chief Complaint: Intrauterine at 35 weeks: PPROM Patient is a 25-year-old at 35 weeks gestation with spontaneous rupture membranes this afternoon. She relates that when she woke up she was very wet and: And once. She is had extremely sporadic care. Her has been, complicated by multiple episodes of questionable rupture membranes and labor. She has a history of 3 prior deliveries all . She is known to me from her first 2 pregnancies which were very and she is had one baby since also . She did receive steroids 2 at approximately 32 weeks. She was transferred to [facility] at that time for care for labor but was later discharged home. She saw the high risk clinic at [facility] as well and we will try and obtain records. However, these are likely to be very sparse as I believe she is only seen them 1 or 2 times total and did not see the high risk physician. There is some question as to whether not she had polyhydramnios provided on any ultrasounds taken dependently verify this. She is gestation diabetic but at this time she was a 1 and a role in monitoring her sugars. We'll order hemoglobin A1c as well as other labs for care if none could be found elsewhere. Very difficult to keep the baby on the monitor and she is morbidly obese and once she is settled in her room we'll plan to place and ISL for better monitoring. We'll also wait and do this after antibiotics are in as we have an unknown group B strep status but we are treating her as if she may have it and called her doing group B strep prophylaxis. Likely she will need Pitocin augmentation of labor if she is not going into labor shortly. Currently she is dilated to 4/2 cm 90% effaced -3 station. On physical exam vital signs are stable and she is afebrile. Heart is regular, lungs are clear abdomen is gravid she is morbidly obese. She has scant peripheral edema. Her external ears are also without pain. Assessment intrauterine at 35 weeks with P PROM. Gestational diabetes type AI. Morbid obesity. Plan expect spontaneous vaginal delivery we'll cover for group B strep prophylaxis. Past medical history is generally unremarkable Past surgical history cholecystectomy ALLERGIES Benadryl and tomatoes Social history is significant for half pack per day tobacco abuse but this is decreased from what she was smoking prior to she denies alcohol or ill icit drug use and denies marijuana use Family history is noncontributory Past Medical History Past Medical History: No Reported History, Asthma Additional Past Medical History / Comment(s): Hx of delivery x 3 History of Any Multi-Drug Resistant Organisms: None Reported Past Surgical History: Adenoidectomy, Cholecystectomy, Tonsillectomy Additional Past Surgical History / Comment(s): tonsillectomy, adnoidectomy Past Anesthesia/Blood Transfusion Reactions: No Reported Reaction Past Psychological History: Anxiety, Depression, PTSD Additional Psychological History / Comment(s): NO MEDS CURRENTLY Smoking Status: Current every day smoker Past Alcohol Use History: None Reported Additional Past Alcohol Use History / Comment(s): Pt reports smoking 1/2 ppd Past Drug Use History: None Reported - Past Family History Father History Unknown: Yes Family Medical History: Cancer Mother History Unknown: Yes Family Medical History: Congestive Heart Failure (CHF) Sister(s) Family Medical History: Coronary Artery Disease (CAD) Additional Family Medical History / Comment(s): Patient states that she has 5/2 sisters and one has from cervical palsy at age 14. She has 1 older sister that has schizophrenia and bipolar. Patient states that she has 11 half- brothers and one has passed. Medications and Allergies Home Medications Medication Instructions Recorded Confirmed Type Pnv No.95/Ferrous Fum/Folic AC 1 tab PO DAILY 01/28/21 03/21/21 History [ Multivitamin Tablet] Allergies Allergy/AdvReac Type Severity Reaction Status Date / Time diphenhydramine Allergy Intermediate Rash/Hives Verified 03/21/21 13:02 [From Benadryl] diphenhydramine HCl Allergy Intermediate Rash/Hives Verified 03/21/21 13:02 [From Benadryl] tomato Allergy Rash/Hives Verified 03/21/21 13:02 Exam Osteopathic Statement: *. No significant issues noted on an osteopathic structural exam other than those noted in the History and Physical/Consult. Intake and Output 03/20/21 03/21/21 03/21/21 22:59 06:59 14:59 Other: Weight 108.862 kg
[2021-03-21] MEDS ORDERED: OXYTOCIN 30 UNITS/500 ML NS 30 UNIT in SALINE 1 500ML.BAG IV SCH (13:30)
[2021-03-21] MEDS: LACTATED RINGERS 1,000 ML IV SCH ×2 (14:09→16:43)
[2021-03-21 14:20] LABS: Basophils % (A) 0 %; Eosinophils # (A) 0.2 k/uL (0-0.7); Eosinophils % (A) 1 %; HCT 38.1 % (34.0-46.0); HGB 12.6 gm/dL (11.4-16.0); Lymphocytes # (A) 2.1 k/uL (1.0-4.8); Lymphocytes % (A) 15 %; MCH 29.1 pg (25.0-35.0); MCHC 33.1 g/dL (31.0-37.0); MCV 87.9 fL (80.0-100.0); Mean Platelet Volume 9.1; Monocytes # (A) 0.9 k/uL (0-1.0); Monocytes % (A) 7 %; Neutrophils % (A) 74 %; Platelet Count 169 k/uL (150-450); RBC 4.34 m/uL (3.80-5.40); RDW 14.9 % (11.5-15.5); WBC 13.5 k/uL (3.8-10.6)
[2021-03-21] MEDS ORDERED: SODIUM CHLORIDE 0.9% 100 ML BAG ONE (14:50)
[2021-03-21] MEDS ORDERED: ROPIVACAINE 5MG/ML 20ML VIAL ONE (14:50)
[2021-03-21] MEDS ORDERED: fentaNYL (PF) 50 MCG/ML 5 ML AMP ONE (14:50)
--- NOTE | 2021-03-21 15:01 | P.PN ---
Progress Note - Text Progress Note Date: 03/21/21 I did speak with the maternal- medicine specialist and we were able to get filled in on her course. She has been noncompliant with visits at their facility and has not been checking her blood sugars adequately according to his office records. She has missed several appointments and so he is not even exactly certain as to her current status. Last biophysical profile I see on the chart was 6 out of 8. She does have an occasional mildly bradycardic heart rate for the fetus in the 118 range based on what I can decipher from her record. Today we have had a very hard time and challenging time keeping the baby on the monitor due to her morbid obesity. She also has a large pannus that is edematous and very heavy and is difficult difficult if not impossible to manipulate to bring the external monitors down to where the baby is at. I did do a bedside ultrasound and verified vertex presentation. I did try and place an internal scalp lead but it was unable to placed a slit was recording correctly and on a second attempt was unable to get and she was unable to tolerate that exam. With a baseline heart rate in the 120s decision was made to try and get her an epidural to get her more comfortable so that we may be able to get an internal scalp lead on to better monitor the status. She has had episodes where the heart rate when we can trace it is in the 140s to 150s we have not seen any decelerations are heard any decelerations but again it is virtually impossible to do any consistent observation of her heart tracing due to her body habitus and her discomfort level sit she's moving around and not allowing for the monitor to adequately monitor the fetus. Will again make an attempt to place an ISL once the epidural was in place so that we can better monitor the status.
--- NOTE | 2021-03-21 16:03 | P.PN ---
Progress Note - Text Progress Note Date: 03/21/21 Following placement of epidural patient had blood pressure dropped to 90s over 40s and socially also had heart tones didn't cause that a prolonged deceleration there was excellent fynh-mt-dwkk variability within the deceleration but it did go into the 60s and 70s for between 3 and 5 minutes with some recovery in between once her blood pressure started come up with the increasing fluid the heart rate stabilized should have another 2 minute prolonged deceleration with excellent qoix-et-aeps variability throughout that and in the heart rate came back and the baseline was in the 150s. Initially there was some decrease in mlwm-nj-saoc variability. However after approximately 10-12 minutes there was an increase again and rzyc-zx-yfqe periumbilically in the octp-jp-hnob variability at this time is between 8 and 10 bpm with a consistent rate between 151 and 159. We'll continue to monitor closely she still does not have Pitocin going she does have a collection and she is in right semi-Calles's position as the right side is significantly more comfortable for her than her left and with her uterus being tipped already to the right side is actually pulling it off her uterus probably little bit more than if we tipped her to the left side. We'll continue to monitor very closely. heart tracing is now category 1 again.
[2021-03-21 16:15] LABS: Glucose,Whole Blood 83 mg/dL (75-99)
[2021-03-21] MEDS ORDERED: AMPICILLIN 1,000 MG in SODIUM CHLORIDE 0.9% 50 ML IVPB SCH (17:30)
[2021-03-21] MEDS ORDERED: BENZOCAINE/MENTHOL SPRAY 1 GM/SPRAY AEROSOL TOPICAL PRN (20:31)
[2021-03-21] MEDS ORDERED: SIMETHICONE 80 MG CHEWABLE PO PRN (20:31)
[2021-03-21] MEDS ORDERED: LANOLIN CREAM 5 GM TUBE TOPICAL PRN (20:31)
[2021-03-21] MEDS ORDERED: ZOLPIDEM 5 MG TAB PO PRN (20:31)
[2021-03-21] MEDS ORDERED: HYDROCORTISONE 2.5% RECTAL CREAM 30 GM TUBE RECTAL PRN (20:31)
--- NOTE | 2021-03-21 20:44 | P.PROBDLV ---
Vaginal Delivery Note - . Vaginal Delivery Note: She progressed to complete and pushing. It is noted that over the last hour or 2 hours with contractions she was having multiple buried decelerations. Verbal decelerations went from a baseline of essentially 1:30 down to 60 but recovered quickly within a minute or so virtually every time. There is excellent pztb-hc-ijui variability in between these decelerations and predominantly with the decelerations. Once she was complete and pushing she did continue to have decelerations but they did not worsen and there were not any more prolonged with the pushes. The baby of believe based on evaluation was slightly asynclitic left transverse initially and spontaneously the baby rotated to left occiput anterior. Once baby's head was delivered there was no nuchal cord noted and with posterior shoulder delivery in a clockwise fashion we were able to easily deliver the baby mouth nares were then bulb suctioned baby was given over to nursery personnel with the eye placed in the baby on the mother's abdomen and allowing the umbilical cord to pulsate for 30 seconds prior to clamping and cutting. Once this was completed nursery personnel completed over. Placenta was then delivered intact. Pitocin was added to the IV. scores were 7 and 8 at one and 5 minutes and weight was 7 lbs. 0 oz. Mother is stable baby is essentially stable in special care nursery but is having some retraction and will be monitored closely as the baby again is 35 weeks and she was gestationally diabetic which likely also slowed the lung maturity for the baby.
[2021-03-22] MEDS: ACETAMINOPHEN TAB 325 MG TAB PO PRN ×2 (00:13→08:47)
[2021-03-22] MEDS: IBUPROFEN 600 MG TAB PO PRN ×2 (03:35→14:48)
[2021-03-22] MEDS ORDERED: SENNOSIDES-DOCUSATE SODIUM 1 EACH TAB PO SCH (08:00)
--- NOTE | 2021-03-22 09:16 | P.PNOBGVD ---
Subjective - Subjective Principal diagnosis: day 1 Interval history: Patient is seen and evaluated this morning. She is ambulating, voiding and tolerating her diet. She voices no realistic complaints other than her abdomen is a little numb. It does still have edema from the . She is however voiding well and her vital signs are otherwise stable and she has no other signs or symptoms of issue or concern. She has no other peripheral edema. On physical exam vital signs again are stable and afebrile. Heart regular, lungs clear, extremities are without pain. Abdomen does still have some edema but is otherwise soft and her uterus is firm below the umbilicus. Lochia is light. Assessment day 1. Plan continue care with likely discharge home tomorrow. Prescription for Motrin was Austyn for to the pharmacy. 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 Patient reports: Reports appetite normal, Reports voiding normally, Reports pain well controlled, Reports ambulating normally [place]: in NICU Objective - Latest Vital Signs Latest vital signs: Vital Signs Temp Pulse Resp BP Pulse Ox 03/22/21 04:00 98.2 F 74 17 135/67 99 03/22/21 00:00 98.0 F 86 18 118/65 97 03/21/21 22:33 96.6 F L 93 18 138/63 03/21/21 22:03 81 18 113/56 03/21/21 21:33 69 19 118/64 03/21/21 21:18 68 17 104/58 03/21/21 21:03 81 18 113/56 03/21/21 20:48 75 18 100/52 03/21/21 20:33 97.6 F 88 19 117/55 03/21/21 13:47 18 Intake and Output 03/21/21 03/22/21 03/22/21 22:59 06:59 14:59 Intake Total 167 Output Total 200 Balance -33 Intake: Intake, IV Titration 167 Amount Oxytocin 30 Units/500 ml 167 Ns 30 unit In Saline 1 500ml.bag @ Per Protocol IV .Q0M BEA Rx#:[id number] Output: Estimated Blood Loss 200 Other: # Voids 2 - Labs Labs: Abnormal Lab Results - Last 24 Hours (Table) 03/21/21 Range/Units 14:05 WBC 13.5 H (3.8-10.6) k/uL Neutrophils # 10.0 H (1.3-7.7) k/uL
[2021-03-22 09:23] VITALS: RESP 16
[2021-03-22 18:52] LABS: Creatinine,Urine Random 219.7 mg/dL; Protein/Creatinine Ratio,Urine 0.41
[2021-03-22 19:03] LABS: Appearance,Urine Turbid (Clear); Bilirubin,Urine Negative (Negative); Blood,Urine Large (Negative); Color,Urine Red; Glucose,Urine (UA) Negative (Negative); Ketones,Urine 1+ (Negative); Leukocyte Esterase,Urine Moderate (Negative); Mucus,Urine Occasional /hpf; Nitrite,Urine Negative (Negative); Protein,Urine 2+ (Negative); RBC,Urine >182 /hpf (0-5); Squamous Epithelial Cell,Urine 4 /hpf (0-4); Urobilinogen,Urine <2.0 mg/dL (<2.0); WBC,Urine 13 /hpf (0-5)
[2021-03-22 19:12] LABS: Basophils % (A) 0 %; Eosinophils # (A) 0.2 k/uL (0-0.7); Eosinophils % (A) 1 %; HGB 11.4 gm/dL (11.4-16.0); Hypochromasia Slight; Lymphocytes # (A) 2.2 k/uL (1.0-4.8); Lymphocytes % (A) 17 %; MCH 29.8 pg (25.0-35.0); MCHC 33.4 g/dL (31.0-37.0); MCV 89.3 fL (80.0-100.0); Mean Platelet Volume 9.1; Monocytes # (A) 0.9 k/uL (0-1.0); Monocytes % (A) 7 %; Neutrophils # (A) 9.2 k/uL (1.3-7.7); Neutrophils % (A) 71 %; Platelet Count 134 k/uL (150-450); RBC 3.81 m/uL (3.80-5.40); RDW 14.8 % (11.5-15.5); WBC 12.9 k/uL (3.8-10.6)
[2021-03-22 19:14] LABS: ALT 22 U/L (4-34); AST 28 U/L (14-36); African American GFR (CKD) >90 (>60 ml/min/1.73 sqM); Blood Urea Nitrogen 10 mg/dL (7-17); LDH 623 U/L (313-618); Non-African American GFR(CKD) >90 (>60 ml/min/1.73 sqM); Uric Acid 4.3 mg/dL (3.7-7.4)
[2021-03-22 19:34] VITALS: BP 144/87; PULSE 72; TEMP 97.5
--- NOTE | 2021-03-22 19:53 | P.DS ---
Providers Date of admission: 03/21/21 13:18 Expected date of discharge: 03/22/21 Attending physician: Alexsander Khan Primary care physician: Stated None Hospital Course: Jamaal is seen and evaluated again this evening. It is noted that she has had 3 blood pressures that are mildly elevated over the last several hours. Prior to that all of her blood pressures were normal and answered all the blood pressures like confined throughout the labor process were essentially normal. That said I have no blood pressures from prior to this other than the one visit at maternal medicine 2-gauge where her blood pressures moderate been. She is morbidly obese at is not [place] surprise me that she has mild elevations in her blood pressure. We did do preeclamptic labs as a precaution. It is noted that her platelets are 134 down from 169. However her platelets were 165 in February so I think this is more her normal trend of having slightly low platelets more than HEENT. Her liver enzymes are normal her LDH 12 600 is what I would expect following a delivery. She has no signs or symptoms of severe features. She denies any headache she has no epigastric pain and she has no visual changes. Deep tendon reflexes both upper and lower extremity is were 1- 2+. She is adamant that she needs to be discharged home. She is court-ordered to take over care of her other children at 6 PM and her has called and said she needs to come do that right now despite the fact that she is only one day . I discussed that I would prefer to keep her in the hospital and potentially repeat labs make sure there are no other changes tonight but she relates that she has to go or she may lose her children. We'll discharge her home with very strict instructions on and guidance on preeclampsia. She is aware if she starts having any significant headaches any epigastric pain or visual changes she feels funny or different then she is to report immediately back to the emergency room and she agrees to same. I will have her in the office on Tuesday to have them check her blood pressure make sure that we're not seeing a consistent trend. She may ultimately need to be seen again by maternal- medicine who are caring for her since she was there patient earlier than 6 weeks. At this time her blood pressures cross threshold for treatment. It may also be some stress factor as she is very anxious to get home due to the fact that her is Austyn called and told her she needs to be home to take her children as it is now almost 8 PM and she is almost 2 hours late for her court-ordered take over for kids. We did discuss pre-eclampsia with risks of seizure or other complications and again emphasized that I cannot be certain that this is her is not preeclampsia and with her not having any signs or symptoms I have no specific recent have to keep her in the hospital and I'm not going to force her to sign out AGAINST MEDICAL ADVICE due to her complete lack of symptoms. Overall on physical exam her vital signs again are stable with mild elevation blood pressure. Her heart is regular and her lungs are clear. She has scant no peripheral edema in the only real swelling she has is over her pannus which may be more function of how she rests and the way the fluid settled as it was already settling into that area during the labor process. Assessment day 1 with mild elevation of blood pressure? Gestational hypertension versus mild preeclampsia X Plan discharged home follow up with me on Tuesday for blood pressure check and reports the emergency room for any signs or symptoms of preeclampsia which were again explained in detail with very strict instructions. Patient Condition at Discharge: Good Plan - Discharge Summary New Discharge Prescriptions: New Ibuprofen [Motrin] 600 mg PO Q6HR PRN #30 tab PRN Reason: Pain No Action Pnv No.95/Ferrous Fum/Folic AC [ Multivitamin Tablet] 1 tab PO DAILY Discharge Medication List Pnv No.95/Ferrous Fum/Folic AC [ Multivitamin Tablet] 1 tab PO DAILY 01/28/21 [History] Ibuprofen [Motrin] 600 mg PO Q6HR PRN #30 tab 03/22/21 [Rx] Follow up Appointment(s)/Referral(s): Ignacio Raymond DO [REFERRING] - 6 Weeks Patient Instructions/Handouts: Preeclampsia and Eclampsia After Delivery (GEN) Activity/Diet/Wound Care/Special Instructions: No heavy lifting, limit stairs and driving, and pelvic rest. If any high temper atures, heavy bleeding, or severe pain call her supervisor tubing's office Discharge Disposition: HOME SELF-CARE
[2021-03-23 06:06] LABS: Toxoplasma Antibody (IgG) <3.0 IU/mL (<7.2); Toxoplasma Antibody (IgM) 7.4 AU/mL (<8.0)
== END 2021-03-22 20:10 | disposition home or self-care (01) | DRG 805 ==
LOC: FBPOP 12:35 → 4FBP 13:18
PROVIDERS: ADMIT Obstetrics & Gynecology; ATTEND Obstetrics & Gynecology
PROC: 10E0XZZ Delivery of Products of Conception, External Approach (ICD-10-PCS; principal; 2021-03-21)
PROC: 4A0HXCZ Measurement of Products of Conception, Cardiac Rate, External Approach (ICD-10-PCS; 2021-03-21)
DX: O76 Abnormality in fetal heart rate and rhythm complicating labor and delivery (principal); O60.14X0 Preterm labor third trimester with preterm delivery third trimester, not applicable or unspecified; Z37.0 Single live birth; O99.12 Other diseases of the blood and blood-forming organs and certain disorders involving the immune mechanism complicating childbirth; E66.01 Morbid (severe) obesity due to excess calories; D69.6 Thrombocytopenia, unspecified; O13.5 Gestational [pregnancy-induced] hypertension without significant proteinuria, complicating the puerperium; O14.95 Unspecified pre-eclampsia, complicating the puerperium; F17.210 Nicotine dependence, cigarettes, uncomplicated; F32.A Depression, unspecified; F43.10 Post-traumatic stress disorder, unspecified; O24.429 Gestational diabetes mellitus in childbirth, unspecified control; O42.913 Preterm premature rupture of membranes, unspecified as to length of time between rupture and onset of labor, third trimester; O99.214 Obesity complicating childbirth; O99.334 Smoking (tobacco) complicating childbirth; O99.344 Other mental disorders complicating childbirth; Z3A.35 35 weeks gestation of pregnancy; Z88.8 Allergy status to other drugs, medicaments and biological substances; Z91.19 Patient's noncompliance with other medical treatment and regimen
CPT/HCPCS: 59025; 81001; 82565; 82570; 83036; 83615; 84112; 84156; 84450; 84460; 84520; 84550; 85025; 86777; 86778; 86850; 86900; 86901; 88307; 99213

== ENCOUNTER 2021-03-23 10:53 | Emergency (ER) | payer OTHER ==
[2021-03-23 11:14] VITALS: TEMP 98.1
--- NOTE | 2021-03-23 12:17 | ED ---
General Adult HPI - General Chief complaint: Abdominal Pain Stated complaint: post -abd pain & headache Time Seen by Provider: 03/23/21 11:42 Source: patient Mode of arrival: wheelchair Limitations: no limitations - History of Present Illness Initial comments: Patient is a female that that is 2 days . Patient had a vaginal delivery at 35 weeks on 03/21/2021. Patient at that time was noted to have maybe a mild or early preeclampsia but was not started on any blood pressure medications as it was felt her blood pressure may be due to her anxiety of wanting to go home. Patient did leave a bit before her OB Dr. Khan wanted her to leave but gave her strict return parameters. Today patient states she is just feeling a bit off. States she has a slight headache and slight upper abdominal pain. States that she was told if she gets any of the symptoms she needs to come back to the emergency department.Patient has no other complaints at this time including shortness of breath, chest pain, nausea or vomiting, or visual changes. - Related Data Previous Rx's Medication Instructions Recorded Ibuprofen [Motrin] 600 mg PO Q6HR PRN #30 tab 03/22/21 Allergies Allergy/AdvReac Type Severity Reaction Status Date / Time diphenhydramine Allergy Intermediate Rash/Hives Verified 03/23/21 12:02 [From Benadryl] diphenhydramine HCl Allergy Intermediate Rash/Hives Verified 03/23/21 12:02 [From Benadryl] tomato Allergy Rash/Hives Verified 03/23/21 12:02 Review of Systems ROS Statement: Those systems with pertinent positive or pertinent negative responses have been documented in the HPI. ROS Other: All systems not noted in ROS Statement are negative. Past Medical History Past Medical History: No Reported History, Asthma Additional Past Medical History / Comment(s): Hx of delivery x 3, gestational diabetes History of Any Multi-Drug Resistant Organisms: None Reported Past Surgical History: Adenoidectomy, Cholecystectomy, Tonsillectomy Additional Past Surgical History / Comment(s): tonsillectomy, adnoidectomy Past Anesthesia/Blood Transfusion Reactions: No Reported Reaction Past Psychological History: Anxiety, Depression, PTSD Smoking Status: Current every day smoker Past Alcohol Use History: None Reported Past Drug Use History: None Reported - Past Family History Father History Unknown: Yes Family Medical History: Cancer Mother History Unknown: Yes Family Medical History: Congestive Heart Failure (CHF) Sister(s) Family Medical History: Coronary Artery Disease (CAD) Additional Family Medical History / Comment(s): Patient states that she has 5/2 sisters and one has from cervical palsy at age 15. She has 1 older sister that has schizophrenia and bipolar. Patient states that she has 11 half- brothers and one has passed. General Exam Limitations: no limitations General appearance: alert, in no apparent distress Head exam: Present: atraumatic Eye exam: Present: normal appearance, PERRL, EOMI. Absent: scleral icterus, conjunctival injection ENT exam: Present: normal exam, mucous membranes moist Neck exam: Present: normal inspection, full ROM. Absent: tenderness Respiratory exam: Present: normal lung sounds bilaterally. Absent: respiratory distress, wheezes Cardiovascular Exam: Present: regular rate, normal rhythm, normal heart sounds GI/Abdominal exam: Present: soft, tenderness (Mild right upper quadrant abdominal pain), normal bowel sounds. Absent: distended Neurological exam: Present: alert Course Vital Signs 03/23/21 03/23/21 11:09 14:21 Temperature 98.1 F Pulse Rate 80 68 Respiratory 18 20 Rate Blood Pressure 128/84 130/78 O2 Sat by Pulse 99 97 Oximetry Medical Decision Making - Medical Decision Making Vitals are stable. Patient is well-appearing. CBC CMP unremarkable. LDH slightly increased to 800 however uric acid is normal and proteins are negative in the urine. Blood pressure is normotensive. Pelvic ultrasound showed a uterus with possible retained products of conception being difficult to exclude given endometrial complex areas. Case was discussed with Dr. Sanchez who was on-call for Dr. Silver. Given normal blood pressures as well as relatively normal labs she feels she can follow up outpatient. Patient has an appointment with Dr. Velazquez tomorrow. She will review ultrasound results with him as well as lab results. Patient has any worsening symptoms she is aware she can return to the emergency room. - Lab Data Result diagrams: 03/23/21 11:30 03/23/21 11:30 Lab Results 03/23/21 03/23/21 03/23/21 Range/Units 11:30 11:30 12:23 WBC 12.0 H (3.8-10.6) k/uL RBC 4.11 (3.80-5.40) m/uL Hgb 11.7 (11.4-16.0) gm/dL Hct 36.3 (34.0-46.0) % MCV 88.5 (80.0-100.0) fL MCH 28.6 (25.0-35.0) pg MCHC 32.3 (31.0-37.0) g/dL RDW 15.3 (11.5-15.5) % Plt Count 158 (150-450) k/uL MPV 9.5 Neutrophils % 72 % Lymphocytes % 17 % Monocytes % 6 % Eosinophils % 2 % Basophils % 0 % Neutrophils # 8.6 H (1.3-7.7) k/uL Lymphocytes # 2.0 (1.0-4.8) k/uL Monocytes # 0.7 (0-1.0) k/uL Eosinophils # 0.2 (0-0.7) k/uL Basophils # 0.0 (0-0.2) k/uL Hypochromasia Slight Sodium 134 L (137-145) mmol/L Potassium 4.3 (3.5-5.1) mmol/L Chloride 107 (98-107) mmol/L Carbon Dioxide 25 (22-30) mmol/L Anion Gap 2 mmol/L BUN 7 (7-17) mg/dL Creatinine 0.50 L (0.52-1.04) mg/dL Est GFR (CKD-EPI)AfAm >90 (>60 ml/min/1.73 sqM) Est GFR (CKD-EPI)NonAf >90 (>60 ml/min/1.73 sqM) Glucose 73 L (74-99) mg/dL Uric Acid 5.1 (3.7-7.4) mg/dL Calcium 8.3 L (8.4-10.2) mg/dL Magnesium 1.8 (1.6-2.3) mg/dL Total Bilirubin 0.3 (0.2-1.3) mg/dL AST 35 (14-36) U/L ALT 29 (4-34) U/L Alkaline Phosphatase 112 (38-126) U/L Lactate Dehydrogenase 800 H (313-618) U/L Total Protein 5.7 L (6.3-8.2) g/dL Albumin 2.7 L (3.5-5.0) g/dL Amylase 78 (30-110) U/L Lipase 72 (23-300) U/L Urine Color Yellow Urine Appearance Clear (Clear) Urine pH 6.0 (5.0-8.0) Ur Specific [place] 1.012 (1.001-1.035) Urine Protein Negative (Negative) Urine Glucose (UA) Negative (Negative) Urine Ketones Negative (Negative) Urine Blood Moderate H (Negative) Urine Nitrite Negative (Negative) Urine Bilirubin Negative (Negative) Urine Urobilinogen <2.0 (<2.0) mg/dL Ur Leukocyte Esterase Negative (Negative) Urine RBC 34 H (0-5) /hpf Urine WBC 1 (0-5) /hpf Ur Squamous Epith Cells <1 (0-4) /hpf Urine Mucus Rare H (None) /hpf Disposition Clinical Impression: Abdominal discomfort Disposition: HOME SELF-CARE Condition: Good Instructions (If sedation given, give patient instructions): Abdominal Pain (ED) Additional Instructions: Please follow up with your MANAGER DIVISION at scheduled appointment tomorrow. Make sure to review laboratory results as well as ultrasound results with him. If you have any worsening symptoms or fevers he needs to return to the emergency room. Is patient prescribed a controlled substance at d/c from ED?: No Referrals: Bobby Riley MD [Primary Care Provider] - 1-2 days Alexsander Khan DO [Doctor of Osteopathic Medicine] - 1-2 days Time of Disposition: 15:41
[2021-03-23 12:40] LABS: Appearance,Urine Clear (Clear); Bilirubin,Urine Negative (Negative); Blood,Urine Moderate (Negative); Color,Urine Yellow; Glucose,Urine (UA) Negative (Negative); Ketones,Urine Negative (Negative); Leukocyte Esterase,Urine Negative (Negative); Mucus,Urine Rare /hpf; Nitrite,Urine Negative (Negative); Protein,Urine Negative (Negative); RBC,Urine 34 /hpf (0-5); Specific Gravity,Urine 1.012 (1.001-1.035); Squamous Epithelial Cell,Urine <1 /hpf (0-4); Urobilinogen,Urine <2.0 mg/dL (<2.0); WBC,Urine 1 /hpf (0-5)
[2021-03-23 12:40] LABS: Basophils % (A) 0 %; Eosinophils # (A) 0.2 k/uL (0-0.7); Eosinophils % (A) 2 %; HCT 36.3 % (34.0-46.0); HGB 11.7 gm/dL (11.4-16.0); Hypochromasia Slight; Lymphocytes % (A) 17 %; MCH 28.6 pg (25.0-35.0); MCHC 32.3 g/dL (31.0-37.0); MCV 88.5 fL (80.0-100.0); Mean Platelet Volume 9.5; Monocytes # (A) 0.7 k/uL (0-1.0); Monocytes % (A) 6 %; Neutrophils # (A) 8.6 k/uL (1.3-7.7); Neutrophils % (A) 72 %; Platelet Count 158 k/uL (150-450); RBC 4.11 m/uL (3.80-5.40); RDW 15.3 % (11.5-15.5)
[2021-03-23 12:43] LABS: ALT 29 U/L (4-34); AST 35 U/L (14-36); African American GFR (CKD) >90 (>60 ml/min/1.73 sqM); Albumin 2.7 g/dL (3.5-5.0); Alkaline Phosphatase 112 U/L (38-126); Amylase 78 U/L (30-110); Anion Gap 2 mmol/L; Blood Urea Nitrogen 7 mg/dL (7-17); Calcium 8.3 mg/dL (8.4-10.2); Carbon Dioxide 25 mmol/L (22-30); Chloride 107 mmol/L (98-107); Glucose 73 mg/dL (74-99); LDH 800 U/L (313-618); Lipase 72 U/L (23-300); Magnesium 1.8 mg/dL (1.6-2.3); Non-African American GFR(CKD) >90 (>60 ml/min/1.73 sqM); Potassium 4.3 mmol/L (3.5-5.1); Sodium 134 mmol/L (137-145); Total Bilirubin 0.3 mg/dL (0.2-1.3); Total Protein 5.7 g/dL (6.3-8.2); Uric Acid 5.1 mg/dL (3.7-7.4)
--- NOTE | 2021-03-23 13:56 | US ---
EXAMINATION TYPE: US pelvic complete DATE OF EXAM: 03/23/2021 COMPARISON: US CLINICAL HISTORY: pain. EC patient 2 days post , vaginal delivery, with ZULMA, abdominal pain, r ight rib pain, headache. TECHNIQUE: Transabdominal (TA). Transabdominal sonographic images of the pelvis were acquired. Date of LMP: NA EXAM MEASUREMENTS: Uterus: 16.7 x 13.6 x 9.1 cm Endometrial Stripe: 3.7 cm Right Ovary: not seen with enlarged uterus post Left Ovary: not seen with enlarged uterus post 1. Uterus: enlarged, heterogeneous, and bulky uterus day 2 post vaginal delivery Upper hetero geneous appearance with associated color flow noted. 2. Endometrium: thickened endometrium with complex areas in BOO with larger complex hypoechoic area = 4.5 x 3.4 x 2.1cm. Possible retained products of conception vs. other. 3. Right Ovary: not identified 4. Left Ovary: not identified 5. Bilateral Adnexa: vessels noted lateral upper uterus 6. Posterior cul-de-sac: wnl IMPRESSION: uterus. Endometrial complex areas identified and possible retained products of conception difficult to exclude.
--- NOTE | 2021-03-23 14:09 | US ---
EXAMINATION TYPE: US gallbladder DATE OF EXAM: 03/23/2021 COMPARISON: US CLINICAL HISTORY: pain. EC patient with para umbilical pain, ZULMA, headache and RUQ pain 2 days post p artum, vaginal delivery; gallbladder removed 2017. EXAM MEASUREMENTS: Liver Length: 19.5 cm Gallbladder Wall: surgically removed CBD: 0.4 cm Right Kidney: 11.2 x 6.1 x 4.9 cm Pancreas: hyperechoic Liver: enlarged Gallbladder: surgically removed Evidence for sonographic Wharton's sign: no CBD: wnl Right Kidney: No hydronephrosis or masses seen IMPRESSION: 1. Hepatomegaly. 2. Postoperative changes of prior cholecystectomy.
[2021-03-23] MEDS ORDERED: HYDROmorphone 0.5 MG/0.5 ML SYRINGE IVP STA (15:00)
[2021-03-23 15:56] VITALS: BP 124/68; PULSE 79; RESP 18
== END 2021-03-23 15:56 | disposition home or self-care (01) ==
LOC: EC 10:53
DX: R10.11 Right upper quadrant pain (principal); J45.909 Unspecified asthma, uncomplicated; F41.9 Anxiety disorder, unspecified; F32.A Depression, unspecified; F43.10 Post-traumatic stress disorder, unspecified; F17.200 Nicotine dependence, unspecified, uncomplicated; Z88.1 Allergy status to other antibiotic agents; Z90.49 Acquired absence of other specified parts of digestive tract
CPT/HCPCS: 99284; 96374; 36415; 80053; 82150; 83615; 83690; 83735; 84550; 85025; 81001; 76856; 76705; J1170

== ENCOUNTER 2021-03-25 20:35 | Inpatient (IN) | payer OTHER ==
[2021-03-25] MEDS ORDERED: MAGNESIUM SULFATE-WATER PMX 4 GM in WATER FOR INJECTION 1 100ML.BAG IVPB STA (21:00)
[2021-03-25] MEDS ORDERED: LABETALOL 5 MG/ML VIAL MDV IVP STA (21:00)
[2021-03-25] MEDS: MAGNESIUM SULFATE-WATER PMX 20 GM in WATER FOR INJECTION 1 500ML.BAG IV SCH (21:43)
[2021-03-25 21:57] LABS: Basophils % (A) 0 %; Eosinophils # (A) 0.3 k/uL (0-0.7); Eosinophils % (A) 3 %; HCT 38.3 % (34.0-46.0); HGB 12.8 gm/dL (11.4-16.0); Lymphocytes # (A) 2.3 k/uL (1.0-4.8); Lymphocytes % (A) 20 %; MCH 29.2 pg (25.0-35.0); MCHC 33.4 g/dL (31.0-37.0); MCV 87.6 fL (80.0-100.0); Mean Platelet Volume 8.6; Monocytes # (A) 0.8 k/uL (0-1.0); Monocytes % (A) 6 %; Neutrophils # (A) 8.1 k/uL (1.3-7.7); Neutrophils % (A) 69 %; Platelet Count 202 k/uL (150-450); RBC 4.38 m/uL (3.80-5.40); RDW 14.8 % (11.5-15.5); WBC 11.7 k/uL (3.8-10.6)
[2021-03-25 22:06] LABS: INR 0.9 (<1.2); Prothrombin Time 9.6 sec (9.0-12.0)
[2021-03-25 22:29] LABS: ALT 72 U/L (4-34); AST 68 U/L (14-36); African American GFR (CKD) >90 (>60 ml/min/1.73 sqM); Albumin 2.9 g/dL (3.5-5.0); Alkaline Phosphatase 101 U/L (38-126); Anion Gap 2 mmol/L; Blood Urea Nitrogen 12 mg/dL (7-17); Calcium 8.5 mg/dL (8.4-10.2); Carbon Dioxide 25 mmol/L (22-30); Chloride 108 mmol/L (98-107); Glucose 90 mg/dL (74-99); LDH 1065 U/L (313-618); Non-African American GFR(CKD) >90 (>60 ml/min/1.73 sqM); Sodium 135 mmol/L (137-145); Total Bilirubin 0.7 mg/dL (0.2-1.3); Total Protein 6.2 g/dL (6.3-8.2); Uric Acid 5.4 mg/dL (3.7-7.4)
[2021-03-25] MEDS ORDERED: NALOXONE 0.4 MG/ML 1 ML VIAL IV PRN (23:06)
--- NOTE | 2021-03-25 23:06 | ED ---
General Adult HPI - General Chief complaint: Shortness of Breath Stated complaint: Weakness, ZULMA Source: patient Mode of arrival: wheelchair - History of Present Illness Initial comments: 25-year-old female who is , who is 4 days presents to the emergency department complaining of shortness of breath, right upper quadrant abdominal pain, headaches, confusion and abdominal swelling. She did have preeclampsia during and had a induced vaginal delivery on the fifth by Dr. Khan. She had borderline blood pressures during her hospitalization. She was eager to leave the hospital and therefore she was given strict return parameters. Patient was seen 2 days ago for abdominal pain and headache in the emergency department. Blood pressures were fine at this time as well as her laboratory studies. On-call OB recommended discharge. Patient was supposed to follow-up with Dr. Khan yesterday in office. She states that due to her confusion she missed her appointments as she thought today was Tuesday. Since her symptoms worsen she presented to the ED. Patient arrives with a blood pressure of 182/86. She states that her vaginal bleeding has been extremely light. No fevers. No other alleviating, precipitating or modifying factors - Related Data Home Medications Medication Instructions Recorded Confirmed Acetaminophen Tab [Tylenol Tab] 1,000 mg PO Q6HR PRN 03/25/21 03/25/21 Ondansetron [Zofran] 4 mg PO TID PRN 03/25/21 03/25/21 Previous Rx's Medication Instructions Recorded Ibuprofen [Motrin] 600 mg PO Q6HR PRN #30 tab 03/22/21 Allergies Allergy/AdvReac Type Severity Reaction Status Date / Time diphenhydramine HCl Allergy Intermediate Rash/Hives Verified 03/25/21 21:54 [From Benadryl] tomato Allergy Rash/Hives Verified 03/25/21 21:54 Review of Systems ROS Statement: Those systems with pertinent positive or pertinent negative responses have been documented in the HPI. ROS Other: All systems not noted in ROS Statement are negative. Past Medical History Past Medical History: No Reported History, Asthma Additional Past Medical History / Comment(s): Hx of delivery x 3, gestational diabetes History of Any Multi-Drug Resistant Organisms: None Reported Past Surgical History: Adenoidectomy, Cholecystectomy, Tonsillectomy Additional Past Surgical History / Comment(s): tonsillectomy, adnoidectomy Past Anesthesia/Blood Transfusion Reactions: No Reported Reaction Past Psychological History: Anxiety, Depression, PTSD Smoking Status: Current every day smoker Past Alcohol Use History: None Reported Past Drug Use History: None Reported - Past Family History Father History Unknown: Yes Family Medical History: Cancer Mother History Unknown: Yes Family Medical History: Congestive Heart Failure (CHF) Sister(s) Family Medical History: Coronary Artery Disease (CAD) Additional Family Medical History / Comment(s): Patient states that she has 5/2 sisters and one has from cervical palsy at age 14. She has 1 older sister that has schizophrenia and bipolar. Patient states that she has 11 half-brot hers and one has passed. Course Vital Signs 03/25/21 03/25/21 03/25/21 20:41 21:35 21:53 Temperature 98 F Pulse Rate 71 Pulse Rate [ Right Brachial] Respiratory 19 18 Rate Blood Pressure 182/86 183/97 Blood Pressure [Right Arm] O2 Sat by Pulse 97 Oximetry 03/25/21 03/25/21 03/25/21 22:00 22:45 23:33 Temperature 97.4 F L Pulse Rate 78 89 Pulse Rate [ 83 Right Brachial] Respiratory 18 18 18 Rate Blood Pressure 154/99 157/99 Blood Pressure 145/74 [Right Arm] O2 Sat by Pulse 94 L 95 98 Oximetry 03/26/21 00:19 Temperature Pulse Rate 96 Pulse Rate [ Right Brachial] Respiratory 16 Rate Blood Pressure 160/89 Blood Pressure [Right Arm] O2 Sat by Pulse 97 Oximetry Medical Decision Making - Medical Decision Making Upon arrival patient was promptly placed into room 3. She is hooked to continuous pulse ox and cardiac monitoring. Blood pressure is obtained and is high. Because of her reported symptoms an IV is established the patient was given 20 mg of labetalol. She is also given 4 g of magnesium over 20 minutes and started on 2 g of magnesium per hour. Laboratory studies are conducted which do demonstrate a bump in the patient's AST, ALT and LDH. I called and spoke with Dr. Sanchez who agreed to admit the patient. She reports improvement in her symptoms and she is transferred to the floor in stable condition - Lab Data Result diagrams: 03/25/21 21:23 03/25/21 21:23 Lab Results 03/25/21 03/25/21 03/25/21 Range/Units 21:23 21:23 21:23 WBC 11.7 H (3.8-10.6) k/uL RBC 4.38 (3.80-5.40) m/uL Hgb 12.8 (11.4-16.0) gm/dL Hct 38.3 (34.0-46.0) % MCV 87.6 (80.0-100.0) fL MCH 29.2 (25.0-35.0) pg MCHC 33.4 (31.0-37.0) g/dL RDW 14.8 (11.5-15.5) % Plt Count 202 (150-450) k/uL MPV 8.6 Neutrophils % 69 % Lymphocytes % 20 % Monocytes % 6 % Eosinophils % 3 % Basophils % 0 % Neutrophils # 8.1 H (1.3-7.7) k/uL Lymphocytes # 2.3 (1.0-4.8) k/uL Monocytes # 0.8 (0-1.0) k/uL Eosinophils # 0.3 (0-0.7) k/uL Basophils # 0.0 (0-0.2) k/uL PT 9.6 (9.0-12.0) sec INR 0.9 (<1.2) Sodium 135 L (137-145) mmol/L Potassium 5.0 (3.5-5.1) mmol/L Chloride 108 H (98-107) mmol/L Carbon Dioxide 25 (22-30) mmol/L Anion Gap 2 mmol/L BUN 12 (7-17) mg/dL Creatinine 0.56 (0.52-1.04) mg/dL Est GFR (CKD-EPI)AfAm >90 (>60 ml/min/1.73 sqM) Est GFR (CKD-EPI)NonAf >90 (>60 ml/min/1.73 sqM) Glucose 90 (74-99) mg/dL Uric Acid 5.4 (3.7-7.4) mg/dL Calcium 8.5 (8.4-10.2) mg/dL Total Bilirubin 0.7 (0.2-1.3) mg/dL AST 68 H (14-36) U/L ALT 72 H (4-34) U/L Alkaline Phosphatase 101 (38-126) U/L Lactate Dehydrogenase 1065 H (313-618) U/L Total Protein 6.2 L (6.3-8.2) g/dL Albumin 2.9 L (3.5-5.0) g/dL Disposition Clinical Impression: Preeclampsia Disposition: ADMITTED IP TO THIS [facility] Condition: Serious Is patient prescribed a controlled substance at d/c from ED?: No Decision to Admit Reason: Admit from EC Decision Date: 03/25/21 Decision Time: 23:06
[2021-03-26] MEDS: MAGNESIUM SULFATE-WATER PMX 20 GM in WATER FOR INJECTION 1 500ML.BAG IV SCH ×3 (01:17→21:50)
[2021-03-26] MEDS ORDERED: ACETAMINOPHEN TAB 500 MG TAB PO PRN (02:03)
[2021-03-26] MEDS ORDERED: ONDANSETRON 4 MG TAB PO PRN (02:03)
[2021-03-26] MEDS: IBUPROFEN 600 MG TAB PO PRN ×2 (02:30→11:16)
[2021-03-26 08:19] LABS: Basophils % (A) 0 %; Eosinophils # (A) 0.3 k/uL (0-0.7); Eosinophils % (A) 2 %; HCT 37.1 % (34.0-46.0); HGB 12.2 gm/dL (11.4-16.0); Hypochromasia Slight; Lymphocytes # (A) 2.1 k/uL (1.0-4.8); Lymphocytes % (A) 18 %; MCH 29.4 pg (25.0-35.0); MCHC 32.9 g/dL (31.0-37.0); MCV 89.2 fL (80.0-100.0); Mean Platelet Volume 8.4; Monocytes # (A) 0.6 k/uL (0-1.0); Monocytes % (A) 5 %; Neutrophils # (A) 8.3 k/uL (1.3-7.7); Neutrophils % (A) 71 %; Platelet Count 202 k/uL (150-450); RBC 4.16 m/uL (3.80-5.40); RDW 15.2 % (11.5-15.5); WBC 11.6 k/uL (3.8-10.6)
[2021-03-26 08:20] LABS: African American GFR (CKD) >90 (>60 ml/min/1.73 sqM); Anion Gap 3 mmol/L; Blood Urea Nitrogen 10 mg/dL (7-17); Calcium 7.2 mg/dL (8.4-10.2); Carbon Dioxide 24 mmol/L (22-30); Chloride 107 mmol/L (98-107); Glucose 110 mg/dL (74-99); Non-African American GFR(CKD) >90 (>60 ml/min/1.73 sqM); Potassium 4.2 mmol/L (3.5-5.1); Sodium 134 mmol/L (137-145)
--- NOTE | 2021-03-26 08:40 | P.HPOB ---
History of Present Illness H&P Date: 03/26/21 Chief Complaint: pre-eclampsia 25 year old presents 5 days post complaining of swelling and headache. She had increased blood pressure and her liver enzymes are now elevated. She does have pre-eclampsia with HELLP and is now readmitted for magnesium sulfate and observation. Currently she feels much better, no headache or vision changes. Review of Systems All systems: negative Constitutional: Denies chills, Denies fever Eyes: denies blurred vision, denies pain Ears, nose, mouth and throat: Denies headache, Denies sore throat Cardiovascular: Denies chest pain, Denies shortness of breath Respiratory: Denies cough Gastrointestinal: Denies abdominal pain, Denies diarrhea, Denies nausea, Denies vomiting Genitourinary: Denies dysuria, Denies hematuria Musculoskeletal: Denies myalgias Integumentary: Denies pruritus, Denies rash Neurological: Denies numbness, Denies weakness Psychiatric: Denies anxiety, Denies depression Endocrine: Denies fatigue, Denies weight change Past Medical History Past Medical History: No Reported History, Asthma Additional Past Medical History / Comment(s): Hx of delivery x 4, gestational diabetes History of Any Multi-Drug Resistant Organisms: None Reported Past Surgical History: Adenoidectomy, Cholecystectomy, Tonsillectomy Additional Past Surgical History / Comment(s): tonsillectomy, adnoidectomy Past Anesthesia/Blood Transfusion Reactions: No Reported Reaction Past Psychological History: Anxiety, Depression, PTSD Smoking Status: Current every day smoker Past Alcohol Use History: None Reported Past Drug Use History: None Reported - Past Family History Father History Unknown: Yes Family Medical History: Cancer Mother History Unknown: Yes Family Medical History: Congestive Heart Failure (CHF) Sister(s) Family Medical History: Coronary Artery Disease (CAD) Additional Family Medical History / Comment(s): Patient states that she has 5/2 sisters and one has from cervical palsy at age 15. She has 1 older sister that has schizophrenia and bipolar. Patient states that she has 11 half- brothers and one has passed. Medications and Allergies Home Medications Medication Instructions Recorded Confirmed Type Ibuprofen [Motrin] 600 mg PO Q6HR PRN #30 tab 03/22/21 03/25/21 Rx Acetaminophen Tab [Tylenol Tab] 1,000 mg PO Q6HR PRN 03/25/21 03/25/21 History Ondansetron [Zofran] 4 mg PO TID PRN 03/25/21 03/25/21 History Allergies Allergy/AdvReac Type Severity Reaction Status Date / Time diphenhydramine HCl Allergy Intermediate Rash/Hives Verified 03/25/21 21:54 [From Benadryl] tomato Allergy Rash/Hives Verified 03/25/21 21:54 Exam Osteopathic Statement: *. No significant issues noted on an osteopathic structural exam other than those noted in the History and Physical/Consult. Vital Signs Temp Pulse Pulse Resp BP BP Pulse Ox 03/26/21 08:00 97.0 F L 88 16 159/62 98 03/26/21 06:00 84 18 148/86 97 03/26/21 05:00 96.9 F L 85 16 143/71 97 03/26/21 04:00 81 16 164/76 93 L 03/26/21 03:00 97.8 F 96 18 148/76 97 03/26/21 02:00 70 18 137/80 03/26/21 01:00 88 18 159/80 96 03/26/21 00:19 96 16 160/89 97 03/26/21 00:00 97.3 F L 88 18 145/74 95 03/25/21 23:33 97.4 F L 83 18 145/74 98 03/25/21 22:45 89 18 157/99 95 03/25/21 22:00 78 18 154/99 94 L 03/25/21 21:53 18 03/25/21 21:35 183/97 03/25/21 20:41 98 F 71 19 182/86 97 Intake and Output 03/25/21 03/26/21 03/26/21 22:59 06:59 14:59 Output Total 870 400 Balance -870 -400 Output: Urine 870 400 Other: # Voids 1 Weight 108.409 kg 108.409 kg Heart: Regular rate and rhythm Lungs: Clear to auscultation bilaterally Abdomen: Soft, nontender Extremities: Negative Homans sign 2+ out of 4 DTR Results Result Diagrams: 03/26/21 07:20 03/26/21 07:20 Abnormal Lab Results - Last 24 Hours (Table) 03/25/21 03/25/21 03/26/21 Range/Units 21:23 21:23 07:20 WBC 11.7 H 11.6 H (3.8-10.6) k/uL Neutrophils # 8.1 H 8.3 H (1.3-7.7) k/uL Sodium 135 L (137-145) mmol/L Chloride 108 H (98-107) mmol/L Glucose (74-99) mg/dL Calcium (8.4-10.2) mg/dL AST 68 H (14-36) U/L ALT 72 H (4-34) U/L Lactate Dehydrogenase 1065 H (313-618) U/L Total Protein 6.2 L (6.3-8.2) g/dL Albumin 2.9 L (3.5-5.0) g/dL 03/26/21 Range/Units 07:20 WBC (3.8-10.6) k/uL Neutrophils # (1.3-7.7) k/uL Sodium 134 L (137-145) mmol/L Chloride (98-107) mmol/L Glucose 110 H (74-99) mg/dL Calcium 7.2 L (8.4-10.2) mg/dL AST (14-36) U/L ALT (4-34) U/L Lactate Dehydrogenase (313-618) U/L Total Protein (6.3-8.2) g/dL Albumin (3.5-5.0) g/dL Assessment and Plan (1) Pre-eclampsia, Current Visit: Yes Status: Acute Code(s): O14.95 - UNSPECIFIED PRE- ECLAMPSIA, COMPLICATING THE PUERPERIUM SNOMED Code(s): 504219226 Plan: 1. cont mag sulfate for 24 hours 2. when mag is discontinued, will monitor BPs and treat if necessary
[2021-03-26] MEDS ORDERED: LACTATED RINGERS 1,000 ML IV SCH (11:30)
[2021-03-26] MEDS ORDERED: LABETALOL 200 MG TAB PO STA (16:11)
[2021-03-26] MEDS ORDERED: LABETALOL 200 MG TAB PO SCH (21:00)
[2021-03-27] MEDS ORDERED: LABETALOL 100 MG TAB PO STA (05:13)
--- NOTE | 2021-03-27 07:48 | P.PNOBGVD ---
Subjective - Subjective Principal diagnosis: S/P NVD PPD #6 with pp pre-eclampsia Interval history: Magnesium sulfate was discontinued at 1:00 in the morning. Her blood pressures have been still quite high 140-160/80-90. She was started on 200 mg of labetalol twice daily yesterday and that had to be increased to 300 mg twice daily today. She denies headache, nausea, chest pain, shortness of breath, right upper quadrant pain, vision disturbances and any chest pain. Her lochia is minimal. Patient reports: Reports appetite normal, Reports voiding normally, Reports pain well controlled, Reports ambulating normally Objective - Latest Vital Signs Latest vital signs: Vital Signs Temp Pulse Resp BP BP Pulse Ox 03/27/21 05:35 166/86 03/27/21 05:15 163/87 03/27/21 05:10 168/93 03/27/21 05:05 170/90 03/27/21 05:00 96.1 F L 83 16 166/94 96 03/27/21 01:55 96.2 F L 85 16 145/79 97 03/27/21 01:00 96.0 F L 80 16 143/79 96 03/27/21 00:00 96.4 F L 78 16 138/76 97 03/26/21 23:00 97.2 F L 78 16 127/70 97 03/26/21 22:00 97.6 F 82 16 146/89 97 03/26/21 20:30 79 16 151/90 96 03/26/21 19:30 98.5 F 81 16 156/90 97 03/26/21 17:57 88 16 128/75 96 03/26/21 16:15 97.2 F L 84 16 145/85 97 03/26/21 14:00 75 16 165/96 97 03/26/21 13:00 96.5 F L 88 18 166/77 98 03/26/21 12:00 75 16 164/89 97 03/26/21 11:00 82 20 134/86 96 03/26/21 10:00 73 20 140/89 96 03/26/21 09:00 97.3 F L 78 16 155/74 98 03/26/21 08:00 97.0 F L 88 16 159/62 98 Intake and Output 03/26/21 03/27/21 03/27/21 22:59 06:59 14:59 Intake Total 980 900 Output Total 1800 1300 Balance -820 -400 Intake: IV 280 420 Intake, IV Titration 500 Amount Magnesium Sulfate-Water 500 Pmx 20 gm In Water For Injection 1 500ml.bag @ 2 GM/HR 50 mls/hr IV .Q10H BEA Rx#:[id number] Oral 200 480 Output: Urine 1800 1300 Other: # Voids 1 - Exam Lungs: bilateral: normal Chest: Normal S1, Normal S2 Extremities: Present: normal, other (2+ out of 4 DTR). Absent: tenderness Abdomen: Present: normal appearance, soft Uterus: Present: normal, firm - Labs Labs: Abnormal Lab Results - Last 24 Hours (Table) 03/26/21 03/26/21 Range/Units 07:20 07:20 WBC 11.6 H (3.8-10.6) k/uL Neutrophils # 8.3 H (1.3-7.7) k/uL Sodium 134 L (137-145) mmol/L Glucose 110 H (74-99) mg/dL Calcium 7.2 L (8.4-10.2) mg/dL Assessment and Plan (1) Pre-eclampsia, Current Visit: Yes Status: Acute Code(s): O14.95 - UNSPECIFIED PRE- ECLAMPSIA, COMPLICATING THE PUERPERIUM SNOMED Code(s): 915667730 Plan: 1. Continue labetalol 300 mg twice daily and monitor blood pressures closely. We'll adjust blood pressure medication as necessary
[2021-03-27] MEDS: LABETALOL 100 MG TAB PO SCH ×2 (08:51→21:06)
[2021-03-28] MEDS: IBUPROFEN 600 MG TAB PO PRN (04:51)
[2021-03-28 04:53] VITALS: PULSE 69
--- NOTE | 2021-03-28 07:42 | P.DS ---
Providers Date of admission: 03/25/21 23:06 Expected date of discharge: 03/28/21 Attending physician: Shy Sanchez Primary care physician: Bobby Riley - Discharge Diagnosis(es) (1) Pre-eclampsia, Current Visit: Yes Status: Acute Hospital Course: Patient presented 5 days with elevated blood pressures. She was diagnosed with preeclampsia and put on magnesium sulfate for 24 hours. Her blood pressures were still elevated. She was put on labetalol 200 mg twice a day which was not maintaining her blood pressures, however, labetalol 300 mg twice a day is keeping her blood pressures are 130s over 80s. Patient denies any symptoms. She will be discharged home to follow-up with me in one week. Signs and symptoms of preeclampsia were reviewed with the patient and she will call with any worsening symptoms. Patient Condition at Discharge: Serious Plan - Discharge Summary New Discharge Prescriptions: New Labetalol [Trandate] 300 mg PO BID #60 tab No Action Ondansetron [Zofran] 4 mg PO TID PRN PRN Reason: Nausea Acetaminophen Tab [Tylenol Tab] 1,000 mg PO Q6HR PRN PRN Reason: Pain Or Fever > 100.5 Ibuprofen [Motrin] 600 mg PO Q6HR PRN #30 tab PRN Reason: Pain Discharge Medication List Ibuprofen [Motrin] 600 mg PO Q6HR PRN #30 tab 03/22/21 [Rx] Acetaminophen Tab [Tylenol Tab] 1,000 mg PO Q6HR PRN 03/25/21 [History] Ondansetron [Zofran] 4 mg PO TID PRN 03/25/21 [History] Labetalol [Trandate] 300 mg PO BID #60 tab 03/28/21 [Rx] Follow up Appointment(s)/Referral(s): Bobby Riley MD [Primary Care Provider] - 1-2 days Discharge Disposition: HOME SELF-CARE
[2021-03-28] MEDS: LABETALOL 100 MG TAB PO SCH (08:42)
[2021-03-28 08:57] VITALS: BP 136/79; RESP 20; TEMP 97.7
== END 2021-03-28 10:00 | disposition home or self-care (01) | DRG 776 ==
LOC: EC 20:35 → 4FBP 23:06
PROVIDERS: ADMIT Obstetrics & Gynecology; ATTEND Obstetrics & Gynecology
DX: O14.25 HELLP syndrome, complicating the puerperium (principal); O99.53 Diseases of the respiratory system complicating the puerperium; O24.439 Gestational diabetes mellitus in the puerperium, unspecified control; J45.909 Unspecified asthma, uncomplicated; O99.335 Smoking (tobacco) complicating the puerperium; O99.345 Other mental disorders complicating the puerperium; F41.9 Anxiety disorder, unspecified; F32.A Depression, unspecified; F43.10 Post-traumatic stress disorder, unspecified; Z81.8 Family history of other mental and behavioral disorders; Z82.49 Family history of ischemic heart disease and other diseases of the circulatory system; Z90.49 Acquired absence of other specified parts of digestive tract; Z88.8 Allergy status to other drugs, medicaments and biological substances; Z91.018 Allergy to other foods
CPT/HCPCS: 36415; 80048; 80053; 83615; 84550; 85025; 85610; 87635; 96365; 96375; 99285

== ENCOUNTER 2021-11-11 10:49 | Emergency (ER) | payer OTHER ==
[2021-11-11 12:02] VITALS: BP 100/67; RESP 16; TEMP 99.2
--- NOTE | 2021-11-11 13:13 | ED ---
General Adult HPI - General Chief complaint: Upper Respiratory Infection Stated complaint: vomiting Time Seen by Provider: 11/11/21 13:03 Source: patient Mode of arrival: ambulatory Limitations: no limitations - History of Present Illness Initial comments: Dictation was produced using [employer] dictation software. please excuse any grammatical, word or spelling errors. Chief Complaint: 26-year-old female presents with 3 days of cough, sore throat and pleuritic chest pain History of Present Illness: 6-year-old female she has no significant comorbidities she states for the last 3 days she's been having constitutional symptoms, cough, sore throat and pleuritic chest pain. Patient decided to come get tested because she is worried about all of her children who she has immune compromised. She is worried about passing RSV to her children. The ROS documented in this emergency department record has been reviewed and confirmed by me. Those systems with pertinent positive or negative responses have been documented in the HPI. All other systems are other negative and/or noncontributory. PHYSICAL EXAM: General Impression: Alert and oriented x3, not in acute distress HEENT: Normocephalic atraumatic, extra-ocular movements intact, pupils equal and reactive to light bilaterally, mucous membranes moist. Cardiovascular: Heart regular rate and rhythm Chest: Able to complete full sentences, no retractions, no tachypnea Abdomen: abdomen soft, non-tender, non-distended, no organomegaly Musculoskeletal: Pulses present and equal in all extremities, no peripheral edema Motor: no focal deficits noted Neurological: CN II-XII grossly intact, no focal motor or sensory deficits noted Skin: Intact with no visualized rashes Psych: Normal affect and mood ED course: 26-year-old well-appearing female presents to the emergency department for symptoms of respiratory infectious etiology. Signs upon arrival are within acceptable limits. Patient well-appearing at the bedside. Group A strep test is negative. COVID-19 test is negative. Urine hCG is negative. Chest x-ray shows no acute processes. 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 She doesn't want to wait for the results. She prefer that we call her with any results. This point there is no clear indication for antibiotic administration. Patient is agreeable with discharge. - Related Data Home Medications Medication Instructions Recorded Confirmed Acetaminophen Tab [Tylenol Tab] 1,000 mg PO Q6HR PRN 02/09/22 02/09/22 Ondansetron [Zofran] 4 mg PO TID PRN 03/25/21 03/25/21 Previous Rx's Medication Instructions Recorded Ibuprofen [Motrin] 600 mg PO Q6HR PRN #30 tab 03/22/21 Labetalol [Trandate] 300 mg PO BID #60 tab 03/28/21 Allergies Allergy/AdvReac Type Severity Reaction Status Date / Time diphenhydramine HCl Allergy Intermediate Rash/Hives Verified 11/11/21 12:02 [From Benadryl] tomato Allergy Rash/Hives Verified 11/11/21 12:02 Review of Systems ROS Statement: Those systems with pertinent positive or pertinent negative responses have been documented in the HPI. ROS Other: All systems not noted in ROS Statement are negative. Past Medical History Past Medical History: No Reported History, Asthma Additional Past Medical History / Comment(s): Hx of delivery x 3, gestational diabetes History of Any Multi-Drug Resistant Organisms: None Reported Past Surgical History: Adenoidectomy, Cholecystectomy, Tonsillectomy Additional Past Surgical History / Comment(s): tonsillectomy, adnoidectomy Past Anesthesia/Blood Transfusion Reactions: No Reported Reaction Past Psychological History: Anxiety, Depression, PTSD Smoking Status: Current every day smoker Past Alcohol Use History: None Reported Past Drug Use History: None Reported - Past Family History Father History Unknown: Yes Family Medical History: Cancer Mother History Unknown: Yes Family Medical History: Congestive Heart Failure (CHF) Sister(s) Family Medical History: Coronary Artery Disease (CAD) Additional Family Medical History / Comment(s): Patient states that she has 5/2 sisters and one has from cervical palsy at age 15. She has 1 older sister that has schizophrenia and bipolar. Patient states that she has 11 half- brothers and one has passed. General Exam Limitations: no limitations Course Vital Signs 11/11/21 11:56 Temperature 99.2 F Pulse Rate 102 H Respiratory 16 Rate Blood Pressure 100/67 O2 Sat by Pulse 97 Oximetry Medical Decision Making - Lab Data Lab Results 11/11/21 11/11/21 11/11/21 Range/Units 12:01 12:14 13:27 Urine HCG, Qual Not Detected (Not Detectd) Coronavirus (PCR) Not Detected (Not Detectd) Group A Strep Rapid Negative (Negative) Disposition Clinical Impression: URI (upper respiratory infection) Disposition: HOME SELF-CARE Condition: Good Instructions (If sedation given, give patient instructions): Upper Respiratory Infection (ED) Is patient prescribed a controlled substance at d/c from ED?: No Referrals: Bobby Riley MD [Primary Care Provider] - 1-2 days Time of Disposition: 13:42
--- NOTE | 2021-11-11 13:36 | XR ---
EXAMINATION TYPE: XR chest 2V DATE OF EXAM: 11/11/2021 COMPARISON: Chest x-ray 2 weeks ago HISTORY: Cough. TECHNIQUE: Frontal and lateral views of the chest are obtained. FINDINGS: There is no suspicious new focal air space opacity, pleural effusion, or pneumothorax seen . The cardiac silhouette size is stable and within normal limits. The osseous structures are intac t. IMPRESSION: No acute pulmonary process. No significant change from recent chest x-ray.
[2021-11-11 13:54] VITALS: PULSE 85
== END 2021-11-11 13:54 | disposition home or self-care (01) ==
LOC: EC 10:49
DX: J06.9 Acute upper respiratory infection, unspecified (principal); F17.200 Nicotine dependence, unspecified, uncomplicated; Z20.822 Contact with and (suspected) exposure to COVID-19; Z91.018 Allergy to other foods; Z88.8 Allergy status to other drugs, medicaments and biological substances
CPT/HCPCS: 71046; 81025; 87081; 87430; 87635; 87636; 99285

== ENCOUNTER 2022-02-03 20:31 | Emergency (ER) | payer OTHER ==
[2022-02-03 20:44] VITALS: BP 154/105; PULSE 104; RESP 18; TEMP 98
--- NOTE | 2022-02-03 22:22 | XR ---
EXAMINATION TYPE: XR chest 2V DATE OF EXAM: 02/03/2022 10:10 PM COMPARISON: Chest radiographs from 11/11/2021 TECHNIQUE: XR chest 2V Frontal and lateral views of the chest. CLINICAL INDICATION:Female, 26 years old with history of smoke exposure; FINDINGS: Lungs/Pleura: There is no evidence of pleural effusion, focal consolidation, or pneumothorax. Pulmonary vascularity: Unremarkable. Heart/mediastinum: Cardiomediastinal silhouette is unremarkable. Musculoskeletal: No acute osseous pathology. IMPRESSION: No acute cardiopulmonary disease/process.
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
== END 2022-02-03 23:03 | disposition home or self-care (01) ==
LOC: EC 20:31
DX: T59.811A Toxic effect of smoke, accidental (unintentional), initial encounter (principal); J45.909 Unspecified asthma, uncomplicated; F41.9 Anxiety disorder, unspecified; F17.200 Nicotine dependence, unspecified, uncomplicated; Z91.018 Allergy to other foods; Z88.8 Allergy status to other drugs, medicaments and biological substances
CPT/HCPCS: 71046; 99283

== ENCOUNTER 2022-02-11 22:54 | Emergency (ER) | payer OTHER ==
[2022-02-11] MEDS ORDERED: IBUPROFEN 600 MG TAB PO STA (23:23)
[2022-02-11] MEDS ORDERED: BUPIVACAINE (PF) 0.5% 30 ML VIAL SQ STA (23:24)
[2022-02-12] MEDS ORDERED: ACET/COD 300 MG/30 MG STARTER PACK 6 TAB BTL PO STA (00:17)
[2022-02-12] MEDS ORDERED: IBUPROFEN 600 MG STARTER PACK 4 TAB BTL PO STA (00:17)
--- NOTE | 2022-02-12 00:21 | ED ---
ENT HPI - General Chief complaint: Dental/Oral Stated complaint: syncope,dental pain Time Seen by Provider: 02/11/22 23:11 Source: EMS, RN notes reviewed Mode of arrival: EMS Limitations: no limitations - History of Present Illness Initial comments: 26-year-old female presents emergency department complaining of dental pain. Patient states she cracked her right upper tooth several months ago but it started hurting worse over the past few days. Exacerbated by hot and cold liquids, pressure over the area. Patient denies any fever or chills. The pa tient's pain consistent with tooth #5. Patient has no difficulty swallowing. No sore throat. No ear pain. No nasal discharge. No headache, no fever or chills, no changes in vision or hearing, no sore throat or difficulty with speech, no neck pain, no chest pain or shortness of breath, no abdominal pain, no nausea or vomiting, no changes in urination or bowel movements, no numbness or tingling, no extremity pain, no skin rashes or lesions. Past medical, surgical, social, and family history reviewed. Patient does have her own dentist MD complaint: tooth pain Severity: severe - Related Data Home Medications Medication Instructions Recorded Confirmed Acetaminophen Tab [Tylenol Tab] 1,000 mg PO Q6HR PRN 03/25/21 03/25/21 Ondansetron [Zofran] 4 mg PO TID PRN 03/25/21 03/25/21 Previous Rx's Medication Instructions Recorded Ibuprofen [Motrin] 600 mg PO Q6HR PRN #30 tab 03/22/21 Labetalol [Trandate] 300 mg PO BID #60 tab 03/28/21 Acetaminophen Tab [Tylenol Tab] 500 mg PO Q6H PRN #24 tablet 02/12/22 Ibuprofen [Motrin] 600 mg PO Q8HR PRN #30 tab 02/12/22 Allergies Allergy/AdvReac Type Severity Reaction Status Date / Time diphenhydramine HCl Allergy Intermediate Rash/Hives Verified 02/03/22 20:44 [From Benadryl] tomato Allergy Rash/Hives Verified 02/03/22 20:44 Review of Systems ROS Statement: Those systems with pertinent positive or pertinent negative responses have been documented in the HPI. ROS Other: All systems not noted in ROS Statement are negative. Past Medical History Past Medical History: No Reported History, Asthma Additional Past Medical History / Comment(s): Hx of delivery x 3, gestational diabetes History of Any Multi-Drug Resistant Organisms: None Reported Past Surgical History: Adenoidectomy, Cholecystectomy, Tonsillectomy Additional Past Surgical History / Comment(s): tonsillectomy, adnoidectomy Past Anesthesia/Blood Transfusion Reactions: No Reported Reaction Past Psychological History: Anxiety, Depression, PTSD Smoking Status: Current every day smoker Past Alcohol Use History: None Reported Past Drug Use History: None Reported - Past Family History Father History Unknown: Yes Family Medical History: Cancer Mother History Unknown: Yes Family Medical History: Congestive Heart Failure (CHF) Sister(s) Family Medical History: Coronary Artery Disease (CAD) Additional Family Medical History / Comment(s): Patient states that she has 5/2 sisters and one has from cervical palsy at age 14. She has 1 older sister that has schizophrenia and bipolar. Patient states that she has 11 half- brothers and one has passed. General Exam Limitations: no limitations General appearance: alert, in no apparent distress Head exam: Present: atraumatic, normocephalic, normal inspection Eye exam: Present: normal appearance, PERRL, EOMI. Absent: scleral icterus, conjunctival injection, periorbital swelling ENT exam: Present: normal exam, normal oropharynx, mucous membranes dry, mucous membranes moist, normal external ear exam Neck exam: Present: normal inspection, full ROM. Absent: tenderness, meningismus, lymphadenopathy Respiratory exam: Present: normal lung sounds bilaterally. Absent: respiratory distress, wheezes, rales, rhonchi, stridor, chest wall tenderness, accessory muscle use, decreased breath sounds, prolonged expiratory Cardiovascular Exam: Present: regular rate, normal rhythm, normal heart sounds. Absent: systolic murmur, diastolic murmur, rubs, gallop, clicks GI/Abdominal exam: Present: soft, normal bowel sounds. Absent: distended, tenderness, guarding, rebound, rigid Extremities exam: Present: normal inspection, full ROM, normal capillary refill. Absent: tenderness, pedal edema, joint swelling, calf tenderness Back exam: Present: normal inspection Neurological exam: Present: alert, oriented X3, CN II-XII intact. Absent: motor sensory deficit Psychiatric exam: Present: normal affect, normal mood Skin exam: Present: warm, dry, intact, normal color. Absent: rash Course Vital Signs 02/11/22 22:59 Temperature 98 F Pulse Rate 99 Respiratory 20 Rate Blood Pressure 146/82 O2 Sat by Pulse 99 Oximetry Procedures - Nerve Block Consent Obtained: verbal consent Local Anesthetic Used: Marcaine 0.5% Side: right Intraoral Nerve Block: superior alveolar Procedure Successful: Yes Complications: none, pain with procedure Patient Tolerated Procedure: well Medical Decision Making - Medical Decision Making Was pt. sent in by a medical professional or institution? @ -no Did you speak to anyone other than the patient for history? @ -no Did you review nursing and triage notes? @ -Agree Were old charts reviewed? @ -no Differential Diagnosis? @ -Pain due to dental Anna, dental abscess, peridentitis, maxillary osteomyelitis, sinusitis, this is not an exhaustive list EKG interpreted by me (3pts min.)? @ -[none] X-rays interpreted by me (1pt min.)? @ -[none] CT interpreted by me (1pt min.)? @ -[none] U/S interpreted by me (1pt. min.)? @ -[none] What testing was considered but not performed? (CT, X-rays, U/S, labs)? Why? @ no What meds were considered but not given? Why? @ -[none] Did you discuss the management of the patient with other professionals? @ -ED attending physician Did you reconcile home meds? @ -[none] Was smoking cessation discussed for >3mins.? @ -I discussed smoking cessation for greater than 3 minutes. The risk of smoking were discussed with the patient including but not limited to risks of cancer, stroke, coronary artery disease and COPD. Also discussed with patient were multiple methods of quitting smoking. Lastly we discussed the financial cost of smoking. Was critical care preformed (if so, how long)? @ -[none] Were there social determinants of health that impacted care today? How? (Homelessness, low income, unemployed, alcoholism, drug addiction, transportation, low edu. Level, literacy, decrease access to med. care, fci, rehab)? @ -Patient does have anxiety Was there de-escalation of care discussed even if they declined? (Discuss DNR or withdrawal of care, Hospice)? @ -no What co-morbidities impacted this encounter? (DM, HTN, Smoking, COPD, CAD, Cancer, CVA, Hep., AIDS, mental health diagnosis, sleep apnea, morbid obesity)? @ -Anxiety Was patient admitted / discharged? @ -Patient was treated with oral medications, a dental block was performed using 0.5% Marcaine without epinephrine. Adequate anesthesia. Undiagnosed new problem with uncertain prognosis? @ -[none] Drug Therapy requiring intensive monitoring for toxicity (Heparin, Nitro, Insulin, Cardizem)? @ -[none] Were any procedures done? @ -[none] Diagnosis/symptom? @ -Dental pain Acute, or Chronic, or Acute on Chronic? @ -Acute on chronic Uncomplicated (without systemic symptoms) or Complicated (systemic symptoms)? @ -Uncomplicated Side effects of treatment? @ -[none] Exacerbation, Progression, or Severe Exacerbation] @ -[no] Poses a threat to life or bodily function? @ -Unlikely Patient was told to return to the ER for any signs or symptoms worsen. Told to return immediately if any other problems arise. All questions answered. Treatment plan discussed. Patient in agreement Every effort has been made to ensure accuracy of this dictation. However, due to the limitations of electronic medical records and dictation devices, errors in charting still occur. Supervising physician Dr. Berger Disposition Clinical Impression: Chronic dental pain, Pain, dental Narrative: Acute exacerbation of chronic dental pain Disposition: HOME SELF-CARE Condition: Good Instructions (If sedation given, give patient instructions): Toothache (ED) Additional Instructions: Follow-up with your regular physician as directed. Return to the ER immediately if any symptoms worsen, new symptoms arise, or any other problems develop. Make sure he follow-up with a dentist as discussed. Do not drive or operate machinery while taking the Tylenol with Codeine. Prescriptions: Ibuprofen [Motrin] 600 mg PO Q8HR PRN #30 tab PRN Reason: Pain Acetaminophen Tab [Tylenol Tab] 500 mg PO Q6H PRN #24 tablet PRN Reason: Pain Is patient prescribed a controlled substance at d/c from ED?: No Referrals: Bobby Riley MD [Primary Care Provider] - 1-2 days Time of Disposition: 00:21
[2022-02-12 00:32] VITALS: BP 132/80; PULSE 92; RESP 16; TEMP 98.4
== END 2022-02-12 00:31 | disposition home or self-care (01) ==
LOC: EC 22:54
DX: K08.89 Other specified disorders of teeth and supporting structures (principal); J45.909 Unspecified asthma, uncomplicated; F41.9 Anxiety disorder, unspecified; F32.A Depression, unspecified; F17.200 Nicotine dependence, unspecified, uncomplicated; Z88.8 Allergy status to other drugs, medicaments and biological substances; Z91.018 Allergy to other foods
CPT/HCPCS: 64400; 99283

== ENCOUNTER 2022-05-25 14:21 | Emergency (ER) | payer OTHER ==
[2022-05-25 14:57] VITALS: RESP 20
[2022-05-25] MEDS ORDERED: HYDROcodone/APAP 5-325MG 1 EACH TAB PO STA (15:19)
[2022-05-25] MEDS ORDERED: KETOROLAC 15 MG/ML 1 ML VIAL IM STA (15:19)
[2022-05-25] MEDS ORDERED: ONDANSETRON ODT 4 MG TAB PO STA (15:19)
--- NOTE | 2022-05-25 15:26 | ED ---
Back Pain HPI - General Chief Complaint: Back Pain/Injury Stated Complaint: fell downstairs back injury Time Seen by Provider: 05/25/22 14:59 Source: patient, RN notes reviewed Limitations: no limitations - History of Present Illness Initial Comments: This is a 26-year-old female who presents to the emergency department for lower back pain. States that 4 days ago, she slipped on her steps and fell landing on her lower back. Currently complaining of pain to the right side of the lower back. She is taking ibuprofen and Tylenol with no relief in symptoms. States that the pain is making her nauseous and she is unable to eat. Denies any loss of bowel/bladder control or saddle anesthesia. Denies any fevers, chills, sore throat, cough, dyspnea, chest pain, palpi tations, abdominal pain, nausea, vomiting, diarrhea, or headaches. MD Complaint: back pain, back injury, fall Onset/Timin -: days(s) Place: home - Related Data Home Medications Medication Instructions Recorded Confirmed Acetaminophen Tab [Tylenol Tab] 1,000 mg PO Q6HR PRN 03/25/21 03/25/21 Ondansetron [Zofran] 4 mg PO TID PRN 03/25/21 03/25/21 Previous Rx's Medication Instructions Recorded Ibuprofen [Motrin] 600 mg PO Q6HR PRN #30 tab 03/22/21 Labetalol [Trandate] 300 mg PO BID #60 tab 03/28/21 Acetaminophen Tab [Tylenol Tab] 500 mg PO Q6H PRN #24 tablet 02/12/22 Ibuprofen [Motrin] 600 mg PO Q8HR PRN #30 tab 02/12/22 Diclofenac Sodium [Voltaren] 75 mg PO BID PRN #15 tab 05/25/22 HYDROcodone/APAP 5-325MG [[place] 1 tab PO Q6HR PRN 3 Days #12 tab 05/25/22 5-325] Ondansetron Odt [Zofran Odt] 4 mg PO Q8HR PRN #15 tab 05/25/22 Allergies Allergy/AdvReac Type Severity Reaction Status Date / Time diphenhydramine HCl Allergy Intermediate Rash/Hives Verified 05/25/22 14:57 [From Benadryl] tomato Allergy Rash/Hives Verified 05/25/22 14:57 Review of Systems ROS Statement: Those systems with pertinent positive or pertinent negative responses have been documented in the HPI. ROS Other: All systems not noted in ROS Statement are negative. Past Medical History Past Medical History: No Reported History, Asthma Additional Past Medical History / Comment(s): Hx of delivery x 3, gestational diabetes History of Any Multi-Drug Resistant Organisms: None Reported Past Surgical History: Adenoidectomy, Cholecystectomy, Tonsillectomy Additional Past Surgical History / Comment(s): tonsillectomy, adnoidectomy Past Anesthesia/Blood Transfusion Reactions: No Reported Reaction Past Psychological History: Anxiety, Depression, PTSD Smoking Status: Current every day smoker, Vaper Past Alcohol Use History: None Reported Past Drug Use History: None Reported - Past Family History Father History Unknown: Yes Family Medical History: Cancer Mother History Unknown: Yes Family Medical History: Congestive Heart Failure (CHF) Sister(s) Family Medical History: Coronary Artery Disease (CAD) Additional Family Medical History / Comment(s): Patient states that she has 5/2 sisters and one has from cervical palsy at age 14. She has 1 older sister that has schizophrenia and bipolar. Patient states that she has 11 half- brothers and one has passed. General Exam Limitations: no limitations General appearance: alert, in distress Head exam: Present: atraumatic, normocephalic, normal inspection Respiratory exam: Present: normal lung sounds bilaterally. Absent: respiratory distress, wheezes, rales, rhonchi, stridor Cardiovascular Exam: Present: regular rate, normal rhythm, normal heart sounds. Absent: systolic murmur, diastolic murmur, rubs, gallop, clicks Back exam: Present: tenderness (Right lateral aspect of the lumbar spine) Neurological exam: Present: alert, oriented X3, CN II-XII intact Psychiatric exam: Present: normal affect, normal mood Skin exam: Present: warm, dry, intact, normal color. Absent: rash Course Vital Signs 05/25/22 05/25/22 14:54 17:11 Temperature 98.0 F 98.1 F Pulse Rate 94 92 Respiratory 20 20 Rate Blood Pressure 100/74 110/82 O2 Sat by Pulse 99 100 Oximetry Medical Decision Making - Medical Decision Making This is a 26-year-old female who presents to the emergency department for lower back pain after an injury. Was pt. sent in by a medical professional or institution? @ -No Did you speak to anyone other than the patient for history? @ -No Did you review nursing and triage notes? @ -Yes, and I agree, it is accurate with regards to the patient's symptoms. Were old charts reviewed? @ -No Differential Diagnosis? @ -Differential Back Pain: Strain, zoster, cauda equina syndrome, epidural abscess, vertebral osteomyelitis, discitis, fracture, subluxation, disc herniation, DJD, spinal stenosis, dissection, AAA, pancreatitis, peptic ulcer disease, pyelonephritis, kidney stone, this is not meant to be an all-inclusive list. X-rays interpreted by me (1pt min.)? @ -X-ray of the lumbar spine obtained. My interpretation identifies no acute fractures. What testing was considered but not performed? (CT, X-rays, U/S, labs)? Why? @ -None What meds were considered but not given? Why? @ -None Did you discuss the management of the patient with other professionals? @ -No Did you reconcile home meds? @ -No Was smoking cessation discussed for >3mins.? @ -No Was critical care preformed (if so, how long)? @ -No Were there social determinants of health that impacted care today? How? (Homelessness, low income, unemployed, alcoholism, drug addiction, transportation, low edu. Level, literacy, decrease access to med. care, senior care, rehab)? @ -No Was there de-escalation of care discussed even if they declined? (Discuss DNR or withdrawal of care, Hospice)? @ -No What co-morbidities impacted this encounter? (DM, HTN, Smoking, COPD, CAD, Cancer, CVA, Hep., AIDS, mental health diagnosis, sleep apnea, morbid obesity)? @ -Morbid obesity Was patient admitted / discharged? @ -Discharge. X-ray of the lumbar spine obtained revealing no acute findings. Pain was controlled in the emergency department. She was also given Zofran for the nausea and was able to eat. Patient overall felt much better and was stable for discharge home. Prescription for [place], diclofenac, and Zofran provided with dosing instructions reviewed. Patient is instructed to avoid taking any other [id number] anti-inflammatories with the Diclofenac and to only take it with Tylenol. Also advised that the [place] is sedating and she should avoid driving or operating machinery when taking this. Instructed her to alternate with ice and heat, using whichever when she finds more beneficial. Red flag symptoms reviewed, such as loss of bowel/bladder control or saddle anesthesia, which would necessitate the need for her to return to the emergency department. Undiagnosed new problem with uncertain prognosis? @ -None Drug Therapy requiring intensive monitoring for toxicity (Heparin, Nitro, Insulin, Cardizem)? @ -None Were any procedures done? @ -None Diagnosis/symptom? @ -Lumbar spine injury, Fall Acute, or Chronic, or Acute on Chronic? @ -Acute Uncomplicated (without systemic symptoms) or Complicated (systemic symptoms)? @ -Uncomplicated Side effects of treatment? @ -None Exacerbation, Progression, or Severe Exacerbation] @ -Not applicable Poses a threat to life or bodily function? @ -This is impacting her ability to move for the mean time due to the severity of the pain. Return precautions reviewed in depth, the patient is instructed to return to the emergency department with any new, worsening, or concerning symptoms. Patient verbalized understanding. This case was discussed in detail with the attending ED physician, Dr. Card. Presentation, findings, and treatment plan discussed in detail as well. - Radiology Data Radiology results: report reviewed, image reviewed Disposition Clinical Impression: Injury of lumbar spine, Fall Disposition: HOME SELF-CARE Instructions (If sedation given, give patient instructions): Acute Low Back Pain (ED) Additional Instructions: Return to the emergency department with any new, worsening, or concerning symptoms. You can take the diclofenac up to twice daily for pain. If you choose to take the diclofenac, do not take other [id number] anti- inflammatories such as ibuprofen, you may take one or the other. You can take both of these with Tylenol. Take the [place] sparingly when your pain is the most severe and be aware that it may be sedating and you should avoid driving or operating machinery when taking this. Take the Zofran up to every 8 hours as needed for nausea and vomiting. You can also alternate with ice and heat, and use whichever one you find more beneficial. Follow up with your primary care provider in 1-2 days. Prescriptions: HYDROcodone/APAP 5-325MG [[place] 5-325] 1 tab PO Q6HR PRN 3 Days #12 tab PRN Reason: Pain Diclofenac Sodium [Voltaren] 75 mg PO BID PRN #15 tab PRN Reason: Pain Ondansetron Odt [Zofran Odt] 4 mg PO Q8HR PRN #15 tab PRN Reason: Nausea And Vomiting Is patient prescribed a controlled substance at d/c from ED?: Yes When asked, does pt state using other controlled substances?: No If prescribed controlled substance>3 days was MAPS reviewed?: Prescribed <3 Days Referrals: Bobby Riley MD [Primary Care Provider] - 1-2 days
[2022-05-25] MEDS ORDERED: LIDOCAINE 5% PATCH TOPICAL SCH (15:30)
--- NOTE | 2022-05-25 16:17 | XR ---
EXAMINATION TYPE: XR lumbosacral spine min 4V DATE OF EXAM: 05/25/2022 CLINICAL HISTORY: pain COMPARISON: NONE TECHNIQUE: Frontal, lateral, and oblique images of the lumbar spine are obtained. FINDINGS: There appears to be bilateral spondylolysis at L5. Grade 1 anterolisthesis measuring 1 or 2 mm. No compression fractures seen. Mild degenerative disc space narrowing L4-5. IMPRESSION: No acute fracture or dislocation is seen in the lumbar spine. ICD 10 NO FRACTURE, INITIAL EVALUATION
[2022-05-25 17:13] VITALS: BP 110/82; PULSE 92; TEMP 98.1
== END 2022-05-25 17:15 | disposition home or self-care (01) ==
LOC: EC 14:21
DX: S34.109A Unspecified injury to unspecified level of lumbar spinal cord, initial encounter (principal); J45.909 Unspecified asthma, uncomplicated; F17.290 Nicotine dependence, other tobacco product, uncomplicated; Z91.018 Allergy to other foods; Z88.8 Allergy status to other drugs, medicaments and biological substances; W10.9XXA Fall (on) (from) unspecified stairs and steps, initial encounter; Y92.009 Unspecified place in unspecified non-institutional (private) residence as the place of occurrence of the external cause
CPT/HCPCS: 72110; 99283

== ENCOUNTER 2022-07-04 19:46 | Emergency (ER) | payer OTHER ==
[2022-07-04 19:57] VITALS: TEMP 98.2
--- NOTE | 2022-07-04 19:59 | ED ---
Psych HPI - General Source: patient, police, RN notes reviewed, old records reviewed Mode of arrival: ambulatory - History of Present Illness MD Complaint: feels depressed, altered mental status, other (Indira, insomnia) -: days(s) Associated Psychiatric Symptoms: racing thoughts, auditory hallucinations, visual hallucinations, delusions Quality: constant, intermittent Worsens With: none Context: not taking psychiatric medications, significant life stressor Associated Symptoms: denies other symptoms Treatments Prior to Arrival: placed on mental health hold <Sandeep Card - Last Filed: 07/04/22 23:16> <Julita Pradhan - Last Filed: 07/05/22 04:11> - General Chief Complaint: Psychiatric Symptoms Stated Complaint: LE Petition, Mental Health Time Seen by Provider: 07/04/22 19:58 - History of Present Illness Initial Comments: This is a 26-year-old female Theresa today. She presents today for evaluation psychiatric illness. Patient has a significant paranoia and inability to sleep going on 3 days. Denying drugs or alcohol currently. (Sandeep Card) - Related Data Home Medications Medication Instructions Recorded Confirmed No Known Home Medications 07/04/22 07/04/22 Allergies Allergy/AdvReac Type Severity Reaction Status Date / Time diphenhydramine HCl Allergy Intermediate Rash/Hives Verified 07/04/22 21:50 [From Benadryl] tomato Allergy Rash/Hives Verified 07/04/22 21:50 Review of Systems ROS Other: All systems not noted in ROS Statement are negative. <Sandeep Card - Last Filed: 07/04/22 23:16> ROS Other: All systems not noted in ROS Statement are negative. <Julita Pradhan - Last Filed: 07/05/22 04:11> ROS Statement: Those systems with pertinent positive or pertinent negative responses have been documented in the HPI. Past Medical History Past Medical History: No Reported History, Asthma Additional Past Medical History / Comment(s): Hx of delivery x 3, gestational diabetes History of Any Multi-Drug Resistant Organisms: None Reported Past Surgical History: Adenoidectomy, Cholecystectomy, Tonsillectomy Additional Past Surgical History / Comment(s): tonsillectomy, adnoidectomy Past Anesthesia/Blood Transfusion Reactions: No Reported Reaction Past Psychological History: Anxiety, Depression, PTSD Smoking Status: Current every day smoker, Vaper Past Alcohol Use History: None Reported Past Drug Use History: None Reported - Past Family History Father History Unknown: Yes Family Medical History: Cancer Mother History Unknown: Yes Family Medical History: Congestive Heart Failure (CHF) Sister(s) Family Medical History: Coronary Artery Disease (CAD) Additional Family Medical History / Comment(s): Patient states that she has 5/2 sisters and one has from cervical palsy at age 14. She has 1 older sister that has schizophrenia and bipolar. Patient states that she has 11 half-br others and one has passed. <Sandeep Card - Last Filed: 07/04/22 23:16> General Exam Limitations: no limitations General appearance: alert, in no apparent distress Head exam: Present: atraumatic, normocephalic, normal inspection Eye exam: Present: normal appearance, PERRL, EOMI. Absent: scleral icterus, conjunctival injection, periorbital swelling ENT exam: Present: normal exam, mucous membranes moist Neck exam: Present: normal inspection. Absent: tenderness, meningismus, lymphadenopathy Respiratory exam: Present: normal lung sounds bilaterally. Absent: respiratory distress, wheezes, rales, rhonchi, stridor Cardiovascular Exam: Present: regular rate, normal rhythm, normal heart sounds. Absent: systolic murmur, diastolic murmur, rubs, gallop, clicks GI/Abdominal exam: Present: soft, normal bowel sounds. Absent: distended, tenderness, guarding, rebound, rigid Extremities exam: Present: normal inspection, full ROM, normal capillary refill. Absent: tenderness, pedal edema, joint swelling, calf tenderness Back exam: Present: normal inspection Neurological exam: Present: alert, oriented X3, CN II-XII intact Psychiatric exam: Present: normal affect, normal mood Skin exam: Present: warm, dry, intact, normal color. Absent: rash <Sandeep Card - Last Filed: 07/04/22 23:16> Course <Sandeep Card - Last Filed: 07/04/22 23:16> Vital Signs 07/04/22 19:53 Temperature 98.2 F Pulse Rate 98 Respiratory 18 Rate Blood Pressure 148/81 O2 Sat by Pulse 98 Oximetry - Reevaluation(s) Reevaluation #1: 07/04/22 23:17 Medical records reviewed (Sandeep Card) Reevaluation #2: 07/04/22 23:17 Medical clear for psychiatric evaluation (Sandeep Card) Medical Decision Making - Lab Data Lab Results 07/04/22 07/04/22 07/04/22 Range/Units 20:55 21:11 21:11 POC Glucose (mg/dL) 100 (70-110) mg/dL POC Glu [employer] ID Kulwant Manriquez Urine HCG, Qual Not Detected (Not Detectd) Urine Opiates Screen Not Detected (NotDetected) Ur Oxycodone Screen Not Detected (NotDetected) Urine Methadone Screen Not Detected (NotDetected) Ur Propoxyphene Screen Not Detected (NotDetected) Ur Barbiturates Screen Not Detected (NotDetected) U Tricyclic Antidepress Not Detected (NotDetected) Ur Phencyclidine Scrn Not Detected (NotDetected) Ur Amphetamines Screen Not Detected (NotDetected) U Methamphetamines Scrn Not Detected (NotDetected) U Benzodiazepines Scrn Not Detected (NotDetected) Urine Cocaine Screen Not Detected (NotDetected) U Marijuana (THC) Screen Not Detected (NotDetected) Coronavirus (PCR) (Not Detectd) 07/04/22 Range/Units 21:11 POC Glucose (mg/dL) (70-110) mg/dL POC Glu [employer] ID Urine HCG, Qual (Not Detectd) Urine Opiates Screen (NotDetected) Ur Oxycodone Screen (NotDetected) Urine Methadone Screen (NotDetected) Ur Propoxyphene Screen (NotDetected) Ur Barbiturates Screen (NotDetected) U Tricyclic Antidepress (NotDetected) Ur Phencyclidine Scrn (NotDetected) Ur Amphetamines Screen (NotDetected) U Methamphetamines Scrn (NotDetected) U Benzodiazepines Scrn (NotDetected) Urine Cocaine Screen (NotDetected) U Marijuana (THC) Screen (NotDetected) Coronavirus (PCR) Not Detected (Not Detectd) Disposition <Sandeep Card - Last Filed: 07/04/22 23:16> Is patient prescribed a controlled substance at d/c from ED?: No Time of Disposition: 04:11 <Julita Pradhan - Last Filed: 07/05/22 04:11> Clinical Impression: Anxiety, Depression Disposition: HOME SELF-CARE Condition: Stable Instructions (If sedation given, give patient instructions): Depression (ED) Referrals: Bobby Riley MD [Primary Care Provider] - 1-2 days
[2022-07-04 21:02] LABS: Glucose,Whole Blood 100 mg/dL (70-110)
[2022-07-04] MEDS ORDERED: NICOTINE 21MG/24HR PATCH TRANSDERM STA (22:08)
[2022-07-04 22:11] LABS: Amphetamine Screen,Urine Not Detected (NotDetected); Benzodiazepines Screen,Urine Not Detected (NotDetected); Cocaine Screen,Urine Not Detected (NotDetected); Methadone Screen, Urine Not Detected (NotDetected); Opiate Screen,Urine Not Detected (NotDetected); Phencyclidine Screen,Urine Not Detected (NotDetected); Tricyclic Antidepressant,Urine Not Detected (NotDetected); Urn Cannabinoid Scrn Not Detected (NotDetected)
[2022-07-04 22:12] LABS: Barbiturate Screen,Urine Not Detected (NotDetected); Oxycodone Screen, Urine Not Detected (NotDetected)
[2022-07-05 06:55] VITALS: BP 137/62; PULSE 101; RESP 16
== END 2022-07-05 07:11 | disposition home or self-care (01) ==
LOC: EC 19:46
DX: F32.A Depression, unspecified (principal); F41.9 Anxiety disorder, unspecified; J45.909 Unspecified asthma, uncomplicated; F17.290 Nicotine dependence, other tobacco product, uncomplicated; Z20.822 Contact with and (suspected) exposure to COVID-19; Z88.8 Allergy status to other drugs, medicaments and biological substances; Z91.018 Allergy to other foods
CPT/HCPCS: 36415; 81025; 80306; 87635; 99285; S4990

== ENCOUNTER 2023-06-24 21:41 | Emergency (ER) | payer OTHER ==
--- NOTE | 2023-06-24 22:56 | ED ---
General Adult HPI - General Chief complaint: Vaginal Bleeding Stated complaint: 13 weeks ,groin injury, vaginal bleeding Time Seen by Provider: 06/24/23 22:30 Source: patient, RN notes reviewed Mode of arrival: ambulatory Limitations: no limitations - History of Present Illness Initial comments: 27-year-old female presents to the emergency department for evaluation of vaginal bleeding in . Patient states that she had a dating ultrasound at [facility] which would put her at 13 weeks 3 days today. She states that over the past week she has had spotting and minimal discomfort in her lower abdomen. Patient states that she only notices the blood on the toilet paper. She attributes the symptoms to her work environment. 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 She states that she has to reach over a metal bar to help lift the patient at work and her abdomen rests on the bar. She notes that after this she feels discomfort in her abdomen in the region where her the bar rests. She denies having to take any Tylenol for her symptoms. Denies significant nausea, vomiting. Denies urinary frequency, dysuria. - Related Data Previous Rx's Medication Instructions Recorded Cephalexin [Keflex] 500 mg PO BID #20 cap 06/25/23 Allergies Allergy/AdvReac Type Severity Reaction Status Date / Time diphenhydramine HCl Allergy Intermediate Rash/Hives Verified 06/24/23 22:00 [From Benadryl] tomato Allergy Rash/Hives Verified 06/24/23 22:00 Review of Systems ROS Statement: Those systems with pertinent positive or pertinent negative responses have been documented in the HPI. ROS Other: All systems not noted in ROS Statement are negative. Past Medical History Past Medical History: Asthma Additional Past Medical History / Comment(s): Hx of delivery x 3, gestational diabetes History of Any Multi-Drug Resistant Organisms: None Reported Past Surgical History: Adenoidectomy, Cholecystectomy, Tonsillectomy Additional Past Surgical History / Comment(s): tonsillectomy, adnoidectomy Past Anesthesia/Blood Transfusion Reactions: No Reported Reaction Past Psychological History: Anxiety, Depression, PTSD Smoking Status: Vaper Past Alcohol Use History: None Reported Past Drug Use History: None Reported - Past Family History Father History Unknown: Yes Family Medical History: Cancer Mother History Unknown: Yes Family Medical History: Congestive Heart Failure (CHF) Sister(s) Family Medical History: Coronary Artery Disease (CAD) Additional Family Medical History / Comment(s): Patient states that she has 5/2 sisters and one has from cervical palsy at age 14. She has 1 older sister that has schizophrenia and bipolar. Patient states that she has 11 half- brothers and one has passed. General Exam Limitations: no limitations General appearance: alert, in no apparent distress Head exam: Present: atraumatic, normocephalic, normal inspection Eye exam: Present: normal appearance, PERRL, EOMI. Absent: scleral icterus, conjunctival injection, periorbital swelling ENT exam: Present: normal exam, mucous membranes moist Neck exam: Present: normal inspection. Absent: tenderness, meningismus, lymphadenopathy Respiratory exam: Present: normal lung sounds bilaterally. Absent: respiratory distress, wheezes, rales, rhonchi, stridor Cardiovascular Exam: Present: regular rate, normal rhythm, normal heart sounds. Absent: systolic murmur, diastolic murmur, rubs, gallop, clicks GI/Abdominal exam: Present: soft, normal bowel sounds. Absent: distended, tenderness, guarding, rebound, rigid Extremities exam: Present: normal inspection, full ROM, normal capillary refill. Absent: tenderness, pedal edema, joint swelling, calf tenderness Back exam: Present: normal inspection Neurological exam: Present: alert, oriented X3 Psychiatric exam: Present: normal affect, normal mood Skin exam: Present: warm, dry, intact, normal color. Absent: rash Course Vital Signs 06/24/23 06/25/23 06/25/23 22:00 01:30 01:56 Temperature 98.2 F 98.1 F Pulse Rate 92 91 90 Respiratory 16 20 18 Rate Blood Pressure 132/67 130/71 132/67 O2 Sat by Pulse 99 99 99 Oximetry Medical Decision Making - Medical Decision Making Was pt. sent in by a medical professional or institution (, PA, COM[employer]ED G[employer] TESTER, urgent care, hospital, or senior care...) When possible be specific @ -No Did you speak to anyone other than the patient for history (EMS, parent, family, police, friend...)? What history was obtained from this source @ -No Did you review nursing and triage notes (agree or disagree)? Why? @ -I reviewed and agree with nursing and triage notes Were old charts reviewed (outside hosp., previous admission, EMS record, old EKG, old radiological studies, urgent care reports/EKG's, senior care records)? Report findings @ -No old charts were reviewed Differential Diagnosis (chest pain, altered mental status, abdominal pain women, abdominal pain men, vaginal bleeding, weakness, fever, dyspnea, syncope, headache, dizziness, GI bleed, back pain, seizure, CVA, palpatations, mental health, musculoskeletal)? @ -Differential Vaginal Bleeding: Spontaneous , threatened , molar , ectopic , bloody show, incompetent cervix, abruptioplacenta, placenta previa, uterine rupture, dysfunctional uterine bleeding, hemorrhage, uterine fibroids, this is not meant to be an all-inclusive list. EKG interpreted by me (3pts min.). @ -None X-rays interpreted by me (1pt min.). @ -None done CT interpreted by me (1pt min.). @ -None done U/S interpreted by me (1pt. min.). @ -Ultrasound of the fetus obtained which shows a single live intrauterine measuring 13 weeks 5 days What testing was considered but not performed or refused? (CT, X-rays, U/S, labs)? Why? @ -None What meds were considered but not given or refused? Why? @ -None Did you discuss the management of the patient with other professionals (professionals i.e. , PA, COM[employer]ED GAS TESTER, lab, RT, psych nurse, nephrology social worker, clam dredger, teacher, chief lending officer, casework supervisor)? Give summary @ -No Was smoking cessation discussed for >3mins.? @ -No Was critical care preformed (if so, how long)? @ -No Were there social determinants of health that impacted care today? How? (Homelessness, low income, unemployed, alcoholism, drug addiction, transportation, low edu. Level, literacy, decrease access to med. care, usp, rehab)? @ -No Was there de-escalation of care discussed even if they declined (Discuss DNR or withdrawal of care, Hospice)? DNR status @ -No What co-morbidities impacted this encounter? (DM, HTN, Smoking, COPD, CAD, Cancer, CVA, ARF, Chemo, Hep., AIDS, mental health diagnosis, sleep apnea, morbid obesity)? @ -None Was patient admitted / discharged? Hospital course, mention meds given and route, prescriptions, significant lab abnormalities, going to OR and other pertinent info. @ -Discharge. Patient presented to the emergency department for evaluation of vaginal spotting and cramping in . Laboratory studies obtained.CBC, CMP show no significant abnormality; quantitative hCG 69,096; UA was obtained which shows trace protein, small leukocyte esterase, 7 WBCs. Patient will be treated for asymptomatic bacteriuria in . Ultrasound was obtained which shows a single live intrauterine . These findings were discussed with the patient. Advised to follow-up with [facility]. Patient is understanding agreeable plan. Patient stable at time of discharge. Case discussed with Dr. Kaiser Undiagnosed new problem with uncertain prognosis? @ -No Drug Therapy requiring intensive monitoring for toxicity (Heparin, Nitro, Insulin, Cardizem)? @ -No Were any procedures done? @ -No Diagnosis/symptom? @ -Vaginal bleeding , asymptomatic bacteria in Acute, or Chronic, or Acute on Chronic? @ -Acute Uncomplicated (without systemic symptoms) or Complicated (systemic symptoms)? @ -Uncomplicated Side effects of treatment? @ -No Exacerbation, Progression, or Severe Exacerbation? @ -No Poses a threat to life or bodily function? How? (Chest pain, USA, LA, pneumonia, PE, COPD, DKA, ARF, appy, cholecystitis, CVA, Diverticulitis, Homicidal, Suicidal, threat to staff... and all critical care pts) @ -No - Lab Data Result diagrams: 06/24/23 23:16 06/24/23 23:16 Lab Results 06/24/23 06/24/23 06/24/23 Range/Units 23:16 23:16 23:40 WBC 13.7 H (3.8-10.6) k/uL RBC 4.23 (3.80-5.40) m/uL Hgb 12.1 (11.4-16.0) gm/dL Hct 36.3 (34.0-46.0) % MCV 85.9 (80.0-100.0) fL MCH 28.7 (25.0-35.0) pg MCHC 33.4 (31.0-37.0) g/dL RDW 13.9 (11.5-15.5) % Plt Count 182 (150-450) k/uL MPV 8.0 Neutrophils % 68 % Lymphocytes % 21 % Monocytes % 4 % Eosinophils % 4 % Basophils % 0 % Neutrophils # 9.4 H (1.3-7.7) k/uL Lymphocytes # 2.8 (1.0-4.8) k/uL Monocytes # 0.6 (0-1.0) k/uL Eosinophils # 0.5 (0-0.7) k/uL Basophils # 0.0 (0-0.2) k/uL Sodium 134 L (137-145) mmol/L Potassium 4.0 (3.5-5.1) mmol/L Chloride 109 H (98-107) mmol/L Carbon Dioxide 22 (22-30) mmol/L Anion Gap 3 mmol/L BUN 15 (7-17) mg/dL Creatinine 0.44 L (0.52-1.04) mg/dL Est GFR (CKD-EPI)AfAm >90 (>60 ml/min/1.73 sqM) Est GFR (CKD-EPI)NonAf >90 (>60 ml/min/1.73 sqM) Glucose 101 H (74-99) mg/dL Calcium 8.4 (8.4-10.2) mg/dL Total Bilirubin 0.3 (0.2-1.3) mg/dL AST 16 (14-36) U/L ALT 12 (4-34) U/L Alkaline Phosphatase 75 (38-126) U/L Total Protein 5.9 L (6.3-8.2) g/dL Albumin 2.9 L (3.5-5.0) g/dL HCG, Quant 40583.6 mIU/mL Urine Color Urine Appearance (Clear) Urine pH (5.0-8.0) Ur Specific [place] (1.001-1.035) Urine Protein (Negative) Urine Glucose (UA) (Negative) Urine Ketones (Negative) Urine Blood (Negative) Urine Nitrite (Negative) Urine Bilirubin (Negative) Urine Urobilinogen (<2.0) mg/dL Ur Leukocyte Esterase (Negative) Urine RBC (0-5) /hpf Urine WBC (0-5) /hpf Ur Squamous Epith Cells (0-4) /hpf Urine Bacteria (None) /hpf Urine Mucus (None) /hpf Blood Type O Positive Blood Type Recheck O Pos Bld Type Recheck Status No 06/25/23 Range/Units 01:21 WBC (3.8-10.6) k/uL RBC (3.80-5.40) m/uL Hgb (11.4-16.0) gm/dL Hct (34.0-46.0) % MCV (80.0-100.0) fL MCH (25.0-35.0) pg MCHC (31.0-37.0) g/dL RDW (11.5-15.5) % Plt Count (150-450) k/uL MPV Neutrophils % % Lymphocytes % % Monocytes % % Eosinophils % % Basophils % % Neutrophils # (1.3-7.7) k/uL Lymphocytes # (1.0-4.8) k/uL Monocytes # (0-1.0) k/uL Eosinophils # (0-0.7) k/uL Basophils # (0-0.2) k/uL Sodium (137-145) mmol/L Potassium (3.5-5.1) mmol/L Chloride (98-107) mmol/L Carbon Dioxide (22-30) mmol/L Anion Gap mmol/L BUN (7-17) mg/dL Creatinine (0.52-1.04) mg/dL Est GFR (CKD-EPI)AfAm (>60 ml/min/1.73 sqM) Est GFR (CKD-EPI)NonAf (>60 ml/min/1.73 sqM) Glucose (74-99) mg/dL Calcium (8.4-10.2) mg/dL Total Bilirubin (0.2-1.3) mg/dL AST (14-36) U/L ALT (4-34) U/L Alkaline Phosphatase (38-126) U/L Total Protein (6.3-8.2) g/dL Albumin (3.5-5.0) g/dL HCG, Quant mIU/mL Urine Color Light Yellow Urine Appearance Cloudy H (Clear) Urine pH 5.5 (5.0-8.0) Ur Specific [place] 1.030 (1.001-1.035) Urine Protein Trace H (Negative) Urine Glucose (UA) Negative (Negative) Urine Ketones Negative (Negative) Urine Blood Negative (Negative) Urine Nitrite Negative (Negative) Urine Bilirubin Negative (Negative) Urine Urobilinogen <2.0 (<2.0) mg/dL Ur Leukocyte Esterase Small H (Negative) Urine RBC 1 (0-5) /hpf Urine WBC 7 H (0-5) /hpf Ur Squamous Epith Cells 17 H (0-4) /hpf Urine Bacteria Rare H (None) /hpf Urine Mucus Rare H (None) /hpf Blood Type Blood Type Recheck Bld Type Recheck Status Disposition Clinical Impression: Asymptomatic bacteriuria during , Vaginal bleeding Disposition: HOME SELF-CARE Condition: Stable Instructions (If sedation given, give patient instructions): Abdominal Pain in (ED) Additional Instructions: Please follow-up with [facility]. Return to the emergency department for new or worsening symptoms. Prescriptions: Cephalexin [Keflex] 500 mg PO BID #20 cap Is patient prescribed a controlled substance at d/c from ED?: No Referrals: Bobby Riley MD [Primary Care Provider] - 1-2 days Anusha Collins DO [Doctor of Osteopathic Medicine] - 1-2 days
[2023-06-24 23:44] LABS: Basophils % (A) 0 %; Eosinophils # (A) 0.5 k/uL (0-0.7); Eosinophils % (A) 4 %; HCT 36.3 % (34.0-46.0); HGB 12.1 gm/dL (11.4-16.0); Lymphocytes # (A) 2.8 k/uL (1.0-4.8); Lymphocytes % (A) 21 %; MCH 28.7 pg (25.0-35.0); MCHC 33.4 g/dL (31.0-37.0); MCV 85.9 fL (80.0-100.0); Monocytes # (A) 0.6 k/uL (0-1.0); Monocytes % (A) 4 %; Neutrophils # (A) 9.4 k/uL (1.3-7.7); Neutrophils % (A) 68 %; Platelet Count 182 k/uL (150-450); RBC 4.23 m/uL (3.80-5.40); RDW 13.9 % (11.5-15.5); WBC 13.7 k/uL (3.8-10.6)
[2023-06-24 23:49] LABS: ALT 12 U/L (4-34); AST 16 U/L (14-36); African American GFR (CKD) >90 (>60 ml/min/1.73 sqM); Albumin 2.9 g/dL (3.5-5.0); Alkaline Phosphatase 75 U/L (38-126); Anion Gap 3 mmol/L; Blood Urea Nitrogen 15 mg/dL (7-17); Calcium 8.4 mg/dL (8.4-10.2); Carbon Dioxide 22 mmol/L (22-30); Chloride 109 mmol/L (98-107); Glucose 101 mg/dL (74-99); Non-African American GFR(CKD) >90 (>60 ml/min/1.73 sqM); Sodium 134 mmol/L (137-145); Total Bilirubin 0.3 mg/dL (0.2-1.3); Total Protein 5.9 g/dL (6.3-8.2)
[2023-06-25 00:34] LABS: HCG,Quantitative Serum 69096.6 mIU/mL
--- NOTE | 2023-06-25 01:03 | US ---
EXAM: US First Trimester , Transabdominal and Transvaginal CLINICAL HISTORY: ITS.REASON US Reason: pain, bleeding, 13 weeks TECHNIQUE: Real-time transabdominal and transvaginal obstetrical ultrasound of the maternal pelvis and a first trimester with image documentation. Transvaginal imaging was used for better evaluation of the fetus and adnexa. COMPARISON: No relevant prior studies available. FINDINGS: Gestation: Gestational sac with single, viable IUP measuring 13 weeks and 5 days, estimated date of delivery 12/25/23. heart motion 153 bpm. No subchorionic hemorrhage. Ovaries: Incidental 1.8 cm complex corpus luteum cyst on the right. Essentially, normal bilaterally. No torsion. Free fluid: No free fluid. IMPRESSION: 1. Single, viable IUP, no complicating features.
[2023-06-25 01:32] LABS: Appearance,Urine Cloudy (Clear); Bacteria,Urine Rare /hpf; Bilirubin,Urine Negative (Negative); Blood,Urine Negative (Negative); Color,Urine Light Yellow; Glucose,Urine (UA) Negative (Negative); Ketones,Urine Negative (Negative); Leukocyte Esterase,Urine Small (Negative); Mucus,Urine Rare /hpf; Nitrite,Urine Negative (Negative); PH, Urine 5.5 (5.0-8.0); Protein,Urine Trace (Negative); RBC,Urine 1 /hpf (0-5); Squamous Epithelial Cell,Urine 17 /hpf (0-4); Urobilinogen,Urine <2.0 mg/dL (<2.0); WBC,Urine 7 /hpf (0-5)
[2023-06-25 02:37] VITALS: BP 132/67; PULSE 90; RESP 18; TEMP 98.1
== END 2023-06-25 01:59 | disposition home or self-care (01) ==
LOC: EC 21:41
DX: O99.891 Other specified diseases and conditions complicating pregnancy (principal); R82.71 Bacteriuria; O20.9 Hemorrhage in early pregnancy, unspecified; O99.331 Smoking (tobacco) complicating pregnancy, first trimester; F17.290 Nicotine dependence, other tobacco product, uncomplicated; Z91.018 Allergy to other foods; Z88.8 Allergy status to other drugs, medicaments and biological substances; Z3A.13 13 weeks gestation of pregnancy
CPT/HCPCS: 36415; 76801; 80053; 81001; 84702; 85025; 86900; 86901; 99284

== ENCOUNTER 2023-07-20 18:45 | Emergency (ER) | payer OTHER ==
[2023-07-20 19:00] VITALS: RESP 20
--- NOTE | 2023-07-20 19:53 | US ---
EXAMINATION TYPE: US OB >= 14 wk fetus DATE OF EXAM: 07/20/2023 COMPARISON: 06/24/2023 CLINICAL INDICATION: Female, 27 years old with history of abd pain in ; Patient states pain ever since she rolled onto her stomach TECHNIQUE: Transabdominal (TA) GESTATIONAL AGE / DATING Physician Established: (17 weeks/3 days) EDC: 12/25/2023 Dates by LMP: (17 weeks/3 days) EDC: 12/25/2023 Dates by First Scan: (17 weeks/3 days) EDC: 12/25/2023 Dates by Current Scan: (17 weeks/3 days) EDC: 12/25/2023 Beta HCG (if available): Not available at this time SURVEY IUP: Single PLACENTA: Anterior PREVIA: No Previa DWIGHT: 13.1 cm Normal CERVICAL LENGTH (transabdominal: norm > 3.0cm): 3.3 cm BIOMETRY PRESENTATION: Vertex LIE: Longitudinal BPD: 4.0 cm 18 weeks / 1 days HC: 14.2 cm 17 weeks / 3 days AC: 11.6 cm 17 weeks / 3 days FL: 2.2 cm 16 weeks / 5 days ESTIMATED WEIGHT IN GRAMS: 181.4 grams ESTIMATED WEIGHT IN LBS/OZ: 0 lbs. 6 oz. WEIGHT PERCENTAGE BASED ON ESTABLISHED DATES: 25.3% HC/AC: 1.2 Normal FL/AC: 19.2 HEART RATE: 150 bpm RHYTHM: Normal There is a 4.6 x 3.3cm hyperechoic area with vascularity seen anterior to the placenta. IMPRESSION: Single living intrauterine gestation with ultrasound age 17 weeks 3 days.
--- NOTE | 2023-07-20 20:09 | ED ---
General Adult HPI - General Chief complaint: Abdominal Pain Stated complaint: 17wks preg-abd pain Time Seen by Provider: 07/20/23 19:20 Source: patient, RN notes reviewed Mode of arrival: ambulatory Limitations: no limitations - History of Present Illness Initial comments: 27-year-old Female at 17 weeks gestation presents to the emergency department for evaluation of left lower abdominal pain. She states that last night she was in bed when she rolled over and felt a sharp pain in her left lower abdomen. She states that it has improved somewhat following the incident but is still present. She notes that it is worse with movement. She denies urinary symptoms, fever, recent illness. States that she has not had care up to this point. She reports that she has an appointment on 08/08/23. - Related Data Previous Rx's Medication Instructions Recorded Cephalexin [Keflex] 500 mg PO BID #20 cap 06/25/23 Allergies Allergy/AdvReac Type Severity Reaction Status Date / Time diphenhydramine HCl Allergy Intermediate Rash/Hives Verified 06/24/23 22:00 [From Benadryl] tomato Allergy Rash/Hives Verified 06/24/23 22:00 Review of Systems ROS Statement: Those systems with pertinent positive or pertinent negative responses have been documented in the HPI. ROS Other: All systems not noted in ROS Statement are negative. Past Medical History Past Medical History: Asthma Additional Past Medical History / Comment(s): Hx of delivery x 3, gestational diabetes History of Any Multi-Drug Resistant Organisms: None Reported Past Surgical History: Adenoidectomy, Cholecystectomy, Tonsillectomy Additional Past Surgical History / Comment(s): tonsillectomy, adnoidectomy Past Anesthesia/Blood Transfusion Reactions: No Reported Reaction Past Psychological History: Anxiety, Depression, PTSD Smoking Status: Vaper Past Alcohol Use History: None Reported Past Drug Use History: None Reported - Past Family History Father History Unknown: Yes Family Medical History: Cancer Mother History Unknown: Yes Family Medical History: Congestive Heart Failure (CHF) Sister(s) Family Medical History: Coronary Artery Disease (CAD) Additional Family Medical History / Comment(s): Patient states that she has 5/2 sisters and one has from cervical palsy at age 14. She has 1 older sister that has schizophrenia and bipolar. Patient states that she has 11 half- brothers and one has passed. General Exam Limitations: no limitations General appearance: alert, in no apparent distress Head exam: Present: atraumatic, normocephalic, normal inspection Eye exam: Present: normal appearance, PERRL, EOMI. Absent: scleral icterus, conjunctival injection, periorbital swelling ENT exam: Present: normal exam, mucous membranes moist Respiratory exam: Present: normal lung sounds bilaterally. Absent: respiratory distress, wheezes, rales, rhonchi, stridor Cardiovascular Exam: Present: regular rate, normal rhythm, normal heart sounds. Absent: systolic murmur, diastolic murmur, rubs, gallop, clicks GI/Abdominal exam: Present: soft, normal bowel sounds. Absent: distended, tenderness, guarding, rebound, rigid Extremities exam: Present: normal inspection, full ROM, normal capillary refill. Absent: tenderness, pedal edema, joint swelling, calf tenderness Back exam: Present: normal inspection Neurological exam: Present: alert, oriented X3 Psychiatric exam: Present: normal affect, normal mood Skin exam: Present: warm, dry, intact, normal color. Absent: rash Course Vital Signs 07/20/23 07/20/23 18:55 23:48 Temperature 98.9 F 98.4 F Pulse Rate 99 86 Respiratory 20 20 Rate Blood Pressure 125/81 118/78 O2 Sat by Pulse 99 97 Oximetry Medical Decision Making - Medical Decision Making Was pt. sent in by a medical professional or institution (MAYANK Rodas, ASSOCIATE PROFESSOR OF THEOLOGY, urgent care, hospital, or assisted...) When possible be specific @ -No Did you speak to anyone other than the patient for history (EMS, parent, family, police, friend...)? What history was obtained from this source @ -No Did you review nursing and triage notes (agree or disagree)? Why? @ -I reviewed and agree with nursing and triage notes Were old charts reviewed (outside hosp., previous admission, EMS record, old EKG, old radiological studies, urgent care reports/EKG's, assisted records)? Report findings @ -No old charts were reviewed Differential Diagnosis (chest pain, altered mental status, abdominal pain women, abdominal pain men, vaginal bleeding, weakness, fever, dyspnea, syncope, headach e, dizziness, GI bleed, back pain, seizure, CVA, palpatations, mental health, musculoskeletal)? @ -Differential Abdominal Pain Women: Appendicitis, Cholecystitis, diverticulosis, ischemic bowel, pancreatitis, hepatitis, UTI, gastroenteritis, AAA, incarcerated hernia, bowel obstruction, constipation, inflammatory bowel, hepatitis, peptic ulcer disease, splenic infarction, perforated viscus, vulvitis, ovarian torsion, PID, kidney stone, placenta abruption, this is not meant to be an all-inclusive list EKG interpreted by me (3pts min.). @ -None X-rays interpreted by me (1pt min.). @ -None done CT interpreted by me (1pt min.). @ -None done U/S interpreted by me (1pt. min.). @ - ultrasound was obtained which shows a single live intrauterine ; There is a 4.6 x 3.3 cm hypoechoic area with vascularity seen anterior to the placenta. What testing was considered but not performed or refused? (CT, X-rays, U/S, labs)? Why? @ -None What meds were considered but not given or refused? Why? @ -None Did you discuss the management of the patient with other professionals (professionals i.e. , PA, ASSOCIATE PROFESSOR OF THEOLOGY, lab, RT, psych nurse, manager social responsibility, automotive title clerk, teacher, corporate trust officer, family independence case manager)? Give summary @ -Case was discussed with Dr. Chris who is unsure of interpretation of f inding on ultrasound, recommend contacting radiology. Believes patient can be discharged with follow up Case discussed with radiology, Dr. James who also believes that this finding can be followed up on an outpatient basis Was smoking cessation discussed for >3mins.? @ -No Was critical care preformed (if so, how long)? @ -No Were there social determinants of health that impacted care today? How? (Homelessness, low income, unemployed, alcoholism, drug addiction, transportation, low edu. Level, literacy, decrease access to med. care, usp, rehab)? @ -No Was there de-escalation of care discussed even if they declined (Discuss DNR or withdrawal of care, Hospice)? DNR status @ -No What co-morbidities impacted this encounter? (DM, HTN, Smoking, COPD, CAD, Cancer, CVA, ARF, Chemo, Hep., AIDS, mental health diagnosis, sleep apnea, morbid obesity)? @ -None Was patient admitted / discharged? Hospital course, mention meds given and route, prescriptions, significant lab abnormalities, going to OR and other pertinent info. @ -Discharge. Patient presented to the emergency department for evaluation of lower abdominal/groin pain with movement. Laboratory studies obtained.WBC 12.2 likely physiologic due to ; sodium 135 potassium 4.0; UA shows no evidence of infectious process. ultrasound was obtained which shows a single live intrauterine measuring 17 weeks 3 days. There was a finding of a hyperechoic area with vascularity anterior to the placenta. This was discussed with both CREDIT REVIEW ANALYST and radiology who believes that the patient can follow-up outpatient for this finding. Discussed with the patient and she is understanding and agreeable with this Plan. Patient stable for discharge. Discussed with Dr. Berger Undiagnosed new problem with uncertain prognosis? @ -No Drug Therapy requiring intensive monitoring for toxicity (Heparin, Nitro, Insulin, Cardizem)? @ -No Were any procedures done? @ -No Diagnosis/symptom? @ -Abdominal pain in , muscle strain Acute, or Chronic, or Acute on Chronic? @ -Acute Uncomplicated (without systemic symptoms) or Complicated (systemic symptoms)? @ -Uncomplicated Side effects of treatment? @ -No Exacerbation, Progression, or Severe Exacerbation? @ -No Poses a threat to life or bodily function? How? (Chest pain, USA, [place], pneumonia, PE, COPD, DKA, ARF, appy, cholecystitis, CVA, Diverticulitis, Homicidal, Suicidal, threat to staff... and all critical care pts) @ -No - Lab Data Result diagrams: 07/20/23 20:23 07/20/23 20:23 Lab Results 07/20/23 07/20/23 07/20/23 Range/Units 20:23 20:23 20:23 WBC 12.2 H (3.8-10.6) k/uL RBC 4.25 (3.80-5.40) m/uL Hgb 12.3 (11.4-16.0) gm/dL Hct 36.8 (34.0-46.0) % MCV 86.6 (80.0-100.0) fL MCH 28.9 (25.0-35.0) pg MCHC 33.3 (31.0-37.0) g/dL RDW 14.1 (11.5-15.5) % Plt Count 188 (150-450) k/uL MPV 8.4 Neutrophils % 71 % Lymphocytes % 18 % Monocytes % 6 % Eosinophils % 3 % Basophils % 0 % Neutrophils # 8.7 H (1.3-7.7) k/uL Lymphocytes # 2.2 (1.0-4.8) k/uL Monocytes # 0.7 (0-1.0) k/uL Eosinophils # 0.3 (0-0.7) k/uL Basophils # 0.0 (0-0.2) k/uL Sodium 135 L (137-145) mmol/L Potassium 4.0 (3.5-5.1) mmol/L Chloride 109 H (98-107) mmol/L Carbon Dioxide 25 (22-30) mmol/L Anion Gap 1 mmol/L BUN 9 (7-17) mg/dL Creatinine 0.33 L (0.52-1.04) mg/dL Est GFR (CKD-EPI)AfAm >90 (>60 ml/min/1.73 sqM) Est GFR (CKD-EPI)NonAf >90 (>60 ml/min/1.73 sqM) Glucose 115 H (74-99) mg/dL Calcium 9.0 (8.4-10.2) mg/dL Total Bilirubin 0.4 (0.2-1.3) mg/dL AST 15 (14-36) U/L ALT 14 (4-34) U/L Alkaline Phosphatase 66 (38-126) U/L Total Protein 5.7 L (6.3-8.2) g/dL Albumin 3.0 L (3.5-5.0) g/dL Amylase 71 (30-110) U/L Lipase 71 (23-300) U/L Urine Color Light Yellow Urine Appearance Clear (Clear) Urine pH 6.0 (5.0-8.0) Ur Specific [place] 1.021 (1.001-1.035) Urine Protein Negative (Negative) Urine Glucose (UA) Negative (Negative) Urine Ketones Negative (Negative) Urine Blood Negative (Negative) Urine Nitrite Negative (Negative) Urine Bilirubin Negative (Negative) Urine Urobilinogen <2.0 (<2.0) mg/dL Ur Leukocyte Esterase Negative (Negative) Disposition Clinical Impression: Abdominal pain Disposition: HOME SELF-CARE Condition: Stable Instructions (If sedation given, give patient instructions): Abdominal Pain in (ED) Additional Instructions: Please follow up with your CREDIT REVIEW ANALYST. Return to the emergency department for new or worsening symptoms. Is patient prescribed a controlled substance at d/c from ED?: No Referrals: Bobby Riley MD [Primary Care Provider] - 1-2 days
[2023-07-20 20:36] LABS: Basophils % (A) 0 %; Eosinophils # (A) 0.3 k/uL (0-0.7); Eosinophils % (A) 3 %; HCT 36.8 % (34.0-46.0); HGB 12.3 gm/dL (11.4-16.0); Lymphocytes # (A) 2.2 k/uL (1.0-4.8); Lymphocytes % (A) 18 %; MCH 28.9 pg (25.0-35.0); MCHC 33.3 g/dL (31.0-37.0); MCV 86.6 fL (80.0-100.0); Mean Platelet Volume 8.4; Monocytes # (A) 0.7 k/uL (0-1.0); Monocytes % (A) 6 %; Neutrophils # (A) 8.7 k/uL (1.3-7.7); Neutrophils % (A) 71 %; Platelet Count 188 k/uL (150-450); RBC 4.25 m/uL (3.80-5.40); RDW 14.1 % (11.5-15.5); WBC 12.2 k/uL (3.8-10.6)
[2023-07-20 20:50] LABS: ALT 14 U/L (4-34); AST 15 U/L (14-36); African American GFR (CKD) >90 (>60 ml/min/1.73 sqM); Alkaline Phosphatase 66 U/L (38-126); Amylase 71 U/L (30-110); Anion Gap 1 mmol/L; Blood Urea Nitrogen 9 mg/dL (7-17); Carbon Dioxide 25 mmol/L (22-30); Chloride 109 mmol/L (98-107); Glucose 115 mg/dL (74-99); Lipase 71 U/L (23-300); Non-African American GFR(CKD) >90 (>60 ml/min/1.73 sqM); Sodium 135 mmol/L (137-145); Total Bilirubin 0.4 mg/dL (0.2-1.3); Total Protein 5.7 g/dL (6.3-8.2)
[2023-07-20 21:36] LABS: Appearance,Urine Clear (Clear); Bilirubin,Urine Negative (Negative); Blood,Urine Negative (Negative); Color,Urine Light Yellow; Glucose,Urine (UA) Negative (Negative); Ketones,Urine Negative (Negative); Leukocyte Esterase,Urine Negative (Negative); Nitrite,Urine Negative (Negative); Protein,Urine Negative (Negative); Specific Gravity,Urine 1.021 (1.001-1.035); Urobilinogen,Urine <2.0 mg/dL (<2.0)
[2023-07-20 23:51] VITALS: BP 118/78; PULSE 86; TEMP 98.4
== END 2023-07-20 23:57 | disposition home or self-care (01) ==
LOC: EC 18:45
DX: O9A.212 Injury, poisoning and certain other consequences of external causes complicating pregnancy, second trimester (principal); S39.011A Strain of muscle, fascia and tendon of abdomen, initial encounter; O99.332 Smoking (tobacco) complicating pregnancy, second trimester; F17.290 Nicotine dependence, other tobacco product, uncomplicated; Z88.8 Allergy status to other drugs, medicaments and biological substances; Z91.018 Allergy to other foods; Z3A.17 17 weeks gestation of pregnancy; X50.0XXA Overexertion from strenuous movement or load, initial encounter
CPT/HCPCS: 36415; 76805; 80053; 81003; 82150; 83690; 85025; 99284

== ENCOUNTER 2023-09-23 21:48 | Outpatient (CLI) | payer OTHER | END 2023-09-23 23:45 | disposition home or self-care (01) | LOC: FBPOP 21:48 | PROVIDERS: ATTEND Obstetrics & Gynecology | CPT/HCPCS: 99213 ==

== ENCOUNTER 2023-11-09 11:50 | Outpatient (CLI) | payer OTHER ==
[2023-11-09 14:24] VITALS: BP 131/60; PULSE 98; RESP 18; TEMP 96.4
--- NOTE | 2023-12-11 02:21 | P.MSEPDOC ---
Presenting Problems - Arrival Data Date of Arrival on Unit: 11/09/23 Time of Arrival on Unit: 11:50 Mode of Transport: Wheelchair - Complaint OB-Reason for Admission/Chief Complaint: Rule Out PROM Comment: c/o contractions every 45min lasting 30-60seconds and possible ROM yesterday around 2099. Medical History - Information : 9 Para: 4 Term: 2 : 2 Abortions: Spontaneous or Elective: 4 Number of Living Children: 4 - Gestational Age Gestational Age by JOHN (wks/days): 33 Weeks and 1 Days Review of Systems - Review of Systems Constitutional: No problems Breast: No problems ENT: No problems Cardiovascular: No problems Respiratory: No problems Gastrointestinal: No problems Genitourinary: No problems Musculoskeletal: No problems Neurological: No problems Skin: No problems Vital Signs - Temperature Temperature: 96.4 F Temperature Source: Temporal Artery Scan - Pulse Pulse Oximetery Pulse Rate: 98 Pulse Assessment Method: Pulse Oximetry - Respirations Respiratory Rate: 18 Oxygen Delivery Method: Room Air O2 Sat by Pulse Oximetry: 98 - Blood Pressure Right Arm Blood Pressure: 131/60 Blood Pressure Mean: 83 Blood Pressure Source: Automatic Cuff Medical Screen Scoring - Assessment - Baby A Baseline FHR: 125 Heart Rate - NICHD Category: Category I (Normal) NST: Reactive Physician Notification - Physician Notified Physician Notified Date: 11/09/23 Physician Notified Time: 13:00 Physician: Cricket Cohen New Order Received: Yes (Discharge home with follow up instructions.) Maternal Triage Index - Maternal Triage Index Presenting for scheduled procedure w/no complaint: No - Stat/Priority 1 Stat Priority 1: No - Urgent/Priority 2 Urgent Priority 2: Yes Provider Notified: Cricket Cohen Provider Notified Time: 13:00 Criteria Met for Priority 2: c/o PROM around 2100 yesterday. Disposition - Disposition OB Disposition: Discharge to home Discharge Date: 11/09/23 Discharge Time: 13:05 I agree with the RN Medical Screening Exam: Yes Physician's MSE Comment: I have neither seen nor examined the patient. Case reviewed; plan agreed upon as documented in EMR&OBIX.: Yes Diagnosis: RELATED CONDITIONS, UNSPECIFIED, THIRD TRIMESTER
== END 2023-11-09 13:05 | disposition home or self-care (01) ==
LOC: FBPOP 11:50
PROVIDERS: ATTEND Obstetrics & Gynecology
CPT/HCPCS: 59025; 84112; 99213

== ENCOUNTER 2023-12-13 17:53 | Emergency (ER) | payer OTHER ==
[2023-12-13] MEDS: HYDROmorphone 0.5 MG/0.5 ML SYRINGE IVP STA ×2 (19:12→19:39)
[2023-12-13] MEDS: KETOROLAC 15 MG/ML 1 ML VIAL IVP STA ×2 (19:14→19:40)
--- NOTE | 2023-12-13 19:20 | ED ---
General Adult HPI - General Chief complaint: Recheck/Abnormal Lab/Rx Stated complaint: post labor,thrombosis hemorrhoids Time Seen by Provider: 12/13/23 18:13 Source: patient Mode of arrival: wheelchair Limitations: no limitations - History of Present Illness Initial comments: This is a 28-year-old female presenting with painful hemorrhoids (10 out of 10) x 6 days. Patient states she is 6 days post section with 2 hemorrhoids that feel "ready to burst" patient endorses concern for thrombosed hemorrhoids but denies localized bleeding. Patient states she is not currently breast-feeding. States she is taking Motrin/Tylenol with minimal relief in pain. Patient states she has received stool softeners following discharge. Patient denies fever, chills, chest pain, dyspnea, dizziness, abdominal pain, urinary symptoms, N/V/D. Onset/Timin -: days(s) Location: buttocks Severity scale (1-10): 10 Quality: burning, sharp Consistency: constant Worsens with: other (Direct pressure while seated or supine) - Related Data Home Medications Medication Instructions Recorded Confirmed Aspirin [Adult Low Dose Aspirin EC] 81 mg PO DAILY 11/09/23 11/09/23 metFORMIN HCL 500 mg PO 11/09/23 Previous Rx's Medication Instructions Recorded Docusate [Colace] 100 mg PO DAILY #20 capsule 12/13/23 Hydrocortisone Suppository 25 mg RECTAL BID #20 suppositor 12/13/23 [Anusol-Hc] Ibuprofen [Motrin] 800 mg PO Q6HR #30 tab 12/13/23 Allergies Allergy/AdvReac Type Severity Reaction Status Date / Time diphenhydramine HCl Allergy Intermediate Rash/Hives Verified 12/13/23 18:10 [From Benadryl] tomato Allergy Rash/Hives Verified 12/13/23 18:10 Review of Systems ROS Statement: Those systems with pertinent positive or pertinent negative responses have been documented in the HPI. ROS Other: All systems not noted in ROS Statement are negative. Past Medical History Past Medical History: Asthma Additional Past Medical History / Comment(s): Hx of delivery x 3, gestational diabetes History of Any Multi-Drug Resistant Organisms: None Reported Past Surgical History: Adenoidectomy, Cholecystectomy, Tonsillectomy Additional Past Surgical History / Comment(s): tonsillectomy, adnoidectomy Past Anesthesia/Blood Transfusion Reactions: No Reported Reaction Past Psychological History: Anxiety, Depression, PTSD Smoking Status: Never smoker - Past Family History Father History Unknown: Yes Family Medical History: Cancer Mother History Unknown: Yes Family Medical History: Congestive Heart Failure (CHF) Sister(s) Family Medical History: Coronary Artery Disease (CAD) Additional Family Medical History / Comment(s): Patient states that she has 5/2 sisters and one has from cervical palsy at age 14. She has 1 older sister that has schizophrenia and bipolar. Patient states that she has 11 half- brothers and one has passed. General Exam Limitations: no limitations General appearance: alert, in distress Head exam: Present: atraumatic, normocephalic, normal inspection Eye exam: Present: normal appearance, PERRL, EOMI. Absent: scleral icterus, conjunctival injection, periorbital swelling ENT exam: Present: normal exam, mucous membranes moist Neck exam: Present: normal inspection. Absent: tenderness, meningismus, lymphadenopathy Respiratory exam: Present: normal lung sounds bilaterally. Absent: respiratory distress, wheezes, rales, rhonchi, stridor Cardiovascular Exam: Present: regular rate, normal rhythm, normal heart sounds. Absent: systolic murmur, diastolic murmur, rubs, gallop, clicks GI/Abdominal exam: Present: soft, normal bowel sounds. Absent: distended, tenderness, guarding, rebound, rigid Rectal exam: Present: hemorrhoids (2 very large flesh-colored external hemorrhoi ds noted no obvious color change or indications of thrombosis. Negative obvious bleeding) Extremities exam: Present: normal inspection, full ROM, normal capillary refill. Absent: tenderness, pedal edema, joint swelling, calf tenderness Back exam: Present: normal inspection Neurological exam: Present: alert, oriented X3, CN II-XII intact Psychiatric exam: Present: normal affect, normal mood Skin exam: Present: warm, dry, intact, normal color. Absent: rash Course Vital Signs 12/13/23 12/13/23 18:06 19:48 Temperature 98.7 F 98.6 F Pulse Rate 100 98 Respiratory 20 16 Rate Blood Pressure 142/81 140/78 O2 Sat by Pulse 98 99 Oximetry Medical Decision Making - Medical Decision Making Was pt. sent in by a medical professional or institution (, PA, LABOR SUPERVISOR, urgent care, hospital, or half-way...) When possible be specific @ -No Did you speak to anyone other than the patient for history (EMS, parent, family, police, friend...)? What history was obtained from this source @ -No Did you review nursing and triage notes (agree or disagree)? Why? @ -I reviewed and agree with nursing and triage notes Were old charts reviewed (outside hosp., previous admission, EMS record, old EKG, old radiological studies, urgent care reports/EKG's, half-way records)? Report findings @ -No old charts were reviewed Differential Diagnosis (chest pain, altered mental status, abdominal pain women, abdominal pain men, vaginal bleeding, weakness, fever, dyspnea, syncope, headache, dizziness, GI bleed, back pain, seizure, CVA, palpatations, mental health, musculoskeletal)? @ -External hemorrhoids, internal hemorrhoids, pilonidal cyst, anal fistula, this is not an exhaustive list EKG interpreted by me (3pts min.). @ -Not done X-rays interpreted by me (1pt min.). @ -None done CT interpreted by me (1pt min.). @ -None done U/S interpreted by me (1pt. min.). @ -None done What testing was considered but not performed or refused? (CT, X-rays, U/S, labs)? Why? @ -None What meds were considered but not given or refused? Why? @ -None Did you discuss the management of the patient with other professionals (professionals i.e. , PA, LABOR SUPERVISOR, lab, RT, psych nurse, web content & social media manager, shot hole driller, teacher, aboriginal liaison officer, case investigator)? Give summary @ -No Was smoking cessation discussed for >3mins.? @ -No Was critical care preformed (if so, how long)? @ -No Were there social determinants of health that impacted care today? How? (Homelessness, low income, unemployed, alcoholism, drug addiction, transportation, low edu. Level, literacy, decrease access to med. care, retirement, rehab)? @ -No Was there de-escalation of care discussed even if they declined (Discuss DNR or withdrawal of care, Hospice)? DNR status @ -No What co-morbidities impacted this encounter? (DM, HTN, Smoking, COPD, CAD, Cancer, CVA, ARF, Chemo, Hep., AIDS, mental health diagnosis, sleep apnea, morbid obesity)? @ -None Was patient admitted / discharged? Hospital course, mention meds given and rou te, prescriptions, significant lab abnormalities, going to OR and other pertinent info. @ -Discharged. Patient given IV Dilaudid and Toradol for pain. Anusol suppository also provided. Anusol suppositories and docusate sent to pharmacy. Advised sitz bath's for 15 to 20 minutes up to 4 times daily advised follow-up with primary care. Advised return to ER if significant bleeding should occur. Undiagnosed new problem with uncertain prognosis? @ -No Drug Therapy requiring intensive monitoring for toxicity (Heparin, Nitro, Insulin, Cardizem)? @ -No Were any procedures done? @ -No Diagnosis/symptom? @ -External hemorrhoids without obvious thrombosis Acute, or Chronic, or Acute on Chronic? @ -Acute Uncomplicated (without systemic symptoms) or Complicated (systemic symptoms)? @ -Uncomplicated Side effects of treatment? @ -No Exacerbation, Progression, or Severe Exacerbation? @ -Exacerbation Poses a threat to life or bodily function? How? (Chest pain, [place], [place], pneumonia, PE, COPD, DKA, ARF, appy, cholecystitis, CVA, Diverticulitis, Homicidal, Suicidal, threat to staff... and all critical care pts) @ -No Disposition Clinical Impression: External hemorrhoids Disposition: HOME SELF-CARE Condition: Good Instructions (If sedation given, give patient instructions): Hemorrhoids (ED) Prescriptions: Hydrocortisone Suppository [Anusol-Hc] 25 mg RECTAL BID #20 suppositor Docusate [Colace] 100 mg PO DAILY #20 capsule Ibuprofen [Motrin] 800 mg PO Q6HR #30 tab Is patient prescribed a controlled substance at d/c from ED?: No Referrals: Bobby Riley MD [Primary Care Provider] - 1-2 days Time of Disposition: 19:19
[2023-12-13] MEDS: HYDROCORTISONE SUPPOSITORY 25 MG SUPP RECTAL STA (19:23)
[2023-12-13 19:50] VITALS: BP 140/78; PULSE 98; RESP 16; TEMP 98.6
== END 2023-12-13 19:50 | disposition home or self-care (01) ==
LOC: EC 17:53
CPT/HCPCS: 96374; 96375; 99283

== ENCOUNTER 2024-01-21 05:48 | Emergency (ER) | payer OTHER ==
[2024-01-21 06:05] VITALS: BP 103/67; PULSE 89; RESP 16; TEMP 98.3
--- NOTE | 2024-01-21 06:32 | ED ---
Wound/Laceration HPI - General Chief Complaint: Wound/Laceration Stated Complaint: Post op complications Time Seen by Provider: 01/21/24 06:30 Source: patient, RN notes reviewed Mode of arrival: wheelchair Limitations: no limitations - History of Present Illness Initial Comments: 28-year-old female presented to the ER for evaluation of wound pain. Patient reports on 12-08-2023 show underwent a section at [facility]. She states immediately after procedure able VAC was placed for approximately 1 week. This is since been removed. She states for the past 3 to 4 weeks she has been noticing pain and what appears to be wound dehiscence to the left aspect of incision. She has been using Dial soap and being very cautious to clean and k eep area dry. She states it is mildly tender to touch and is concerned that she may have tore the wound open. She also reports of a "metallic smell". She denies any fevers, chills, nausea, vomiting, abdominal pain, constipation/diarrhea, urinary complaints, chest pain, shortness of breath or peripheral edema - Related Data Home Medications Medication Instructions Recorded Confirmed Aspirin [Adult Low Dose Aspirin EC] 81 mg PO DAILY 11/09/23 11/09/23 metFORMIN HCL 500 mg PO 11/09/23 Previous Rx's Medication Instructions Recorded Docusate [Colace] 100 mg PO DAILY #20 capsule 12/13/23 Hydrocortisone Suppository 25 mg RECTAL BID #20 suppositor 12/13/23 [Anusol-Hc] Ibuprofen [Motrin] 800 mg PO Q6HR #30 tab 12/13/23 Cephalexin [Keflex] 500 mg PO Q6HR #40 cap 01/21/24 Sulfamethox-Tmp 800-160Mg [Bactrim 1 each PO Q12HR #20 tab 01/21/24 Ds] Allergies Allergy/AdvReac Type Severity Reaction Status Date / Time diphenhydramine HCl Allergy Intermediate Rash/Hives Verified 01/21/24 06:01 [From Benadryl] tomato Allergy Rash/Hives Verified 01/21/24 06:01 Review of Systems ROS Statement: Those systems with pertinent positive or pertinent negative responses have been documented in the HPI. ROS Other: All systems not noted in ROS Statement are negative. Past Medical History Past Medical History: Asthma Additional Past Medical History / Comment(s): Hx of delivery x 3, gestational diabetes History of Any Multi-Drug Resistant Organisms: None Reported Past Surgical History: Adenoidectomy, Cholecystectomy, Tonsillectomy Additional Past Surgical History / Comment(s): tonsillectomy, adnoidectomy Past Anesthesia/Blood Transfusion Reactions: No Reported Reaction Past Psychological History: Anxiety, Depression, PTSD Smoking Status: Never smoker - Past Family History Father History Unknown: Yes Family Medical History: Cancer Mother History Unknown: Yes Family Medical History: Congestive Heart Failure (CHF) Sister(s) Family Medical History: Coronary Artery Disease (CAD) Additional Family Medical History / Comment(s): Patient states that she has 5/2 sisters and one has from cervical palsy at age 14. She has 1 older sister that has schizophrenia and bipolar. Patient states that she has 11 half- brothers and one has passed. General Exam Limitations: no limitations General appearance: alert, in no apparent distress Respiratory exam: Present: normal lung sounds bilaterally. Absent: respiratory distress, wheezes, rales, rhonchi, stridor Cardiovascular Exam: Present: regular rate, normal rhythm, normal heart sounds. Absent: systolic murmur, diastolic murmur, rubs, gallop, clicks GI/Abdominal exam: Present: soft, normal bowel sounds. Absent: distended, tenderness, guarding, rebound, rigid Neurological exam: Present: alert, oriented X3, CN II-XII intact Skin exam: Present: warm, dry, intact, normal color, other (Well healed transverse surgical incision to suprapubic region with 1 cm of superficial wound dehiscence to left aspect. Area is tender to touch. There is no surrounding erythema or drainage present.) Course Vital Signs 01/21/24 06:01 Temperature 98.3 F Pulse Rate 89 Respiratory 16 Rate Blood Pressure 103/67 O2 Sat by Pulse 98 Oximetry Medical Decision Making - Medical Decision Making Was pt. sent in by a medical professional or institution (, PA, ACCOUNTS SPECIALIST, urgent care, hospital, or custodial...) When possible be specific @ -No Did you speak to anyone other than the patient for history (EMS, parent, family, police, friend...)? What history was obtained from this source @ -No Did you review nursing and triage notes (agree or disagree)? Why? @ -I reviewed and agree with nursing and triage notes Were old charts reviewed (outside hosp., previous admission, EMS record, old EKG, old radiological studies, urgent care reports/EKG's, custodial records)? Report findings @ -No old charts were reviewed Differential Diagnosis (chest pain, altered mental status, abdominal pain women, abdominal pain men, vaginal bleeding, weakness, fever, dyspnea, syncope, headache, dizziness, GI bleed, back pain, seizure, CVA, palpatations, mental health, musculoskeletal)? @ -Dehiscence, infection, hernia... this list is not meant to be all inclusive EKG interpreted by me (3pts min.). @ -None done X-rays interpreted by me (1pt min.). @ -None done CT interpreted by me (1pt min.). @ -None done U/S interpreted by me (1pt. min.). @ -None done What testing was considered but not performed or refused? (CT, X-rays, U/S, labs)? Why? @ -None What meds were considered but not given or refused? Why? @ -None Did you discuss the management of the patient with other professionals (professionals i.e. , PA, ACCOUNTS SPECIALIST, lab, RT, psych nurse, addiction social worker, machine paint mixer, teacher, credit or loans officer, telephonic nurse case manager)? Give summary @ -No Was smoking cessation discussed for >3mins.? @ -No Was critical care preformed (if so, how long)? @ -No Were there social determinants of health that impacted care today? How? (Homelessness, low income, unemployed, alcoholism, drug addiction, transportation, low edu. Level, literacy, decrease access to med. care, alf, rehab)? @ -No Was there de-escalation of care discussed even if they declined (Discuss DNR or withdrawal of care, Hospice)? DNR status @ -No What co-morbidities impacted this encounter? (DM, HTN, Smoking, COPD, CAD, Cancer, CVA, ARF, Chemo, Hep., AIDS, mental health diagnosis, sleep apnea, morbid obesity)? @ -Obese Was patient admitted / discharged? Hospital course, mention meds given and route, prescriptions, significant lab abnormalities, going to OR and other pertinent info. @ -Discharge. 28-year-old female presented to the ER for evaluation of C- section wound. History and physical exam completed. Vitals within normal limits. Patient no signs of acute distress. Exam remarkable for a healed transverse surgical incision to suprapubic region. There is 1 cm of superficial dehiscence to the left aspect. No surrounding erythema or purulent drainage present. Area is mildly tender to touch. No fluctuance or induration. Wound approximated with Steri-Strips. Patient started on Bactrim and Keflex for infection prophylaxis. I advised close follow-up with PCP for recheck in 3 to 5 days. Strict return parameters discussed. Patient discharged in stable condition with follow-up to PCP. Patient verbally expressed understanding and agreement with care plan. Case discussed with ED attending, . Undiagnosed new problem with uncertain prognosis? @ -No Drug Therapy requiring intensive monitoring for toxicity (Heparin, Nitro, Insulin, Cardizem)? @ -No Were any procedures done? @ -No Diagnosis/symptom? @ -Wound dehiscence Acute, or Chronic, or Acute on Chronic? @ -Acute Uncomplicated (without systemic symptoms) or Complicated (systemic symptoms)? @ -Uncomplicated Side effects of treatment? @ -No Exacerbation, Progression, or Severe Exacerbation? @ -No Poses a threat to life or bodily function? How? (Chest pain, USA, [place], pneumonia, PE, COPD, DKA, ARF, appy, cholecystitis, CVA, Diverticulitis, Homicidal, Suicidal, threat to staff... and all critical care pts) @ -No Disposition Clinical Impression: Wound dehiscence Disposition: HOME SELF-CARE Condition: Stable Instructions (If sedation given, give patient instructions): Acute Wound Care (ED) Additional Instructions: Complete full course of Bactrim and Keflex. Keep area clean and dry as you have been doing. Follow-up with PCP in the next 3 to 5 days for reevaluation. Return to the ER for any new or worsening concerns. Prescriptions: Sulfamethox-Tmp 800-160Mg [Bactrim Ds] 1 each PO Q12HR #20 tab Cephalexin [Keflex] 500 mg PO Q6HR #40 cap Is patient prescribed a controlled substance at d/c from ED?: No Referrals: Bobby Riley MD [Primary Care Provider] - 1-2 days Forms: Area PCPs Time of Disposition: 06:32
== END 2024-01-21 06:40 | disposition home or self-care (01) ==
LOC: EC 05:48
DX: O90.0 Disruption of cesarean delivery wound (principal); O99.215 Obesity complicating the puerperium; E66.9 Obesity, unspecified; Z88.8 Allergy status to other drugs, medicaments and biological substances; Z91.018 Allergy to other foods
CPT/HCPCS: 99282

== ENCOUNTER 2024-01-22 17:00 | Emergency (ER) | payer OTHER ==
--- NOTE | 2024-01-22 17:22 | ED ---
URI HPI - General Chief Complaint: Upper Respiratory Infection Stated Complaint: Fever, abd pain, vomiting, dizziness Time Seen by Provider: 01/22/24 17:20 Source: patient, RN notes reviewed, old records reviewed Mode of arrival: ambulatory Limitations: no limitations - History of Present Illness Initial Comments: This is a 28-year-old female coming in for cough congestion up respiratory symptoms. Complicated recent medical history with recent ER visit. Patient was recently in the ER for wound dehiscence. Patient has multiple complaints of respiratory infection abdominal pain cough congestion and then postsurgical pain from . MD Complaint: fever, cough -: days(s) Severity: moderate Severity scale (1-10): 5 Consistency: constant Improves With: nothing Worsens With: nothing Context: sick contacts, other (Recent procedure) Associated Symptoms: cough Treatments Prior to Arrival: none - Related Data Home Medications Medication Instructions Recorded Confirmed Cephalexin [Keflex] 500 mg PO DIRECTED 01/22/24 01/22/24 Sulfamethox-Tmp 800-160Mg [Bactrim 1 tab PO DIRECTED 01/22/24 01/22/24 Ds] Allergies Allergy/AdvReac Type Severity Reaction Status Date / Time diphenhydramine HCl Allergy Intermediate Rash/Hives Verified 01/22/24 19:10 [From Benadryl] tomato Allergy Rash/Hives Verified 01/22/24 19:10 Review of Systems ROS Statement: Those systems with pertinent positive or pertinent negative responses have been documented in the HPI. ROS Other: All systems not noted in ROS Statement are negative. Past Medical History Past Medical History: Asthma Additional Past Medical History / Comment(s): Hx of delivery x 3, gestational diabetes History of Any Multi-Drug Resistant Organisms: None Reported Past Surgical History: Adenoidectomy, Cholecystectomy, Tonsillectomy Additional Past Surgical History / Comment(s): tonsillectomy, adnoidectomy Past Anesthesia/Blood Transfusion Reactions: No Reported Reaction Past Psychological History: Anxiety, Depression, PTSD Smoking Status: Current every day smoker Past Alcohol Use History: None Reported Past Drug Use History: Marijuana - Past Family History Father History Unknown: Yes Family Medical History: Cancer Mother History Unknown: Yes Family Medical History: Congestive Heart Failure (CHF) Sister(s) Family Medical History: Coronary Artery Disease (CAD) Additional Family Medical History / Comment(s): Patient states that she has 5/2 sisters and one has from cervical palsy at age 14. She has 1 older sister that has schizophrenia and bipolar. Patient states that she has 11 half- brothers and one has passed. General Exam Limitations: no limitations General appearance: alert, in no apparent distress Head exam: Present: atraumatic, normocephalic, normal inspection Eye exam: Present: normal appearance, PERRL, EOMI. Absent: scleral icterus, conjunctival injection, periorbital swelling ENT exam: Present: normal exam, mucous membranes moist Neck exam: Present: normal inspection. Absent: tenderness, meningismus, lymphadenopathy Respiratory exam: Present: normal lung sounds bilaterally. Absent: respiratory distress, wheezes, rales, rhonchi, stridor Cardiovascular Exam: Present: normal rhythm, tachycardia, normal heart sounds. Absent: systolic murmur, diastolic murmur, rubs, gallop, clicks GI/Abdominal exam: Present: soft, normal bowel sounds. Absent: distended, tenderness, guarding, rebound, rigid Extremities exam: Present: normal inspection, full ROM, normal capillary refill. Absent: tenderness, pedal edema, joint swelling, calf tenderness Back exam: Present: normal inspection Neurological exam: Present: alert, oriented X3, CN II-XII intact Psychiatric exam: Present: normal affect, normal mood Skin exam: Present: warm, dry, intact, normal color. Absent: rash Course Vital Signs 01/22/24 01/22/24 17:08 18:46 Temperature 99.3 F Pulse Rate 109 H 100 Respiratory 20 18 Rate Blood Pressure 121/85 O2 Sat by Pulse 97 97 Oximetry - Reevaluation(s) Reevaluation #1: 01/22/24 17:22 Medical records reviewed Reevaluation #2: 01/22/24 19:27 Patient symptoms relatively unchanged here in the ER Reevaluation #3: 01/22/24 19:27 Patient informed of results questions answered Reevaluation #4: Was pt. sent in by a medical professional or institution (, PA, TOURS HOSTESS, urgent care, hospital, or custodial...) When possible be specific @ -no Did you speak to anyone other than the patient for history (EMS, parent, family, police, friend...)? What history was obtained from this source @ -no Did you review nursing and triage notes (agree or disagree)? Why? @ -agree Are old charts reviewed (outside hosp., previous admission, EMS record, old EKG, old radiological studies, urgent care reports/EKG's, custodial records)? Report findings @ -yes Differential Diagnosis (chest pain, altered mental status, abdominal pain women, abdominal pain men, vaginal bleeding, weakness, fever, dyspnea, syncope, headache, dizziness, GI bleed, back pain, seizure, CVA, palpatations, mental health, musculoskeletal)? @ -prior EKG interpreted by me (3pts min.). @ -yes X-rays interpreted by me (1pt min.). @ -yes negative for acute disease CT interpreted by me (1pt min.). @ -no U/S interpreted by me (1pt. min.). @ -no What testing was considered but not performed or refused? (CT, X-rays, U/S, labs)? Why? @ -none What meds were considered but not given or refused? Why? @ -none Did you discuss the management of the patient with other professionals (professionals i.e. , PA, TOURS HOSTESS, lab, RT, psych nurse, school social worker, electric lift truck driver, teacher, armed security officer, ed case manager)? Give summary @ -no Was smoking cessation discussed for >3mins.? @ -no Was critical care preformed (if so, how long)? @ -no Were there social determinants of health that impacted care today? How? (Homelessness, low income, unemployed, alcoholism, drug addiction, transportation, low edu. Level, literacy, decrease access to med. care, halfway, rehab)? @ -none Was there de-escalation of care discussed even if they declined (Discuss DNR or withdrawal of care, Hospice)? DNR status @ -no What co-morbidities impacted this encounter? (DM, HTN, Smoking, COPD, CAD, Cancer, CVA, ARF, Chemo, Hep., AIDS, mental health diagnosis, sleep apnea, morbid obesity)? @ -none Was patient admitted / discharged? Hospital course, mention meds given and route, prescriptions, significant lab abnormalities, going to OR and other pertinent info. @ - Undiagnosed new problem with uncertain prognosis? @ -no Drug Therapy requiring intensive monitoring for toxicity (Heparin, Nitro, Insulin, Cardizem)? @ -no Were any procedures done? @ -no Diagnosis/symptom? @ - Acute, or Chronic, or Acute on Chronic? @ -Acute Uncomplicated (without systemic symptoms) or Complicated (systemic symptoms)? @ -Complicated Side effects of treatment? @ -no Exacerbation, Progression, or Severe Exacerbation? @ -exacerbation Poses a threat to life or bodily function? How? (Chest pain, USA, CT, pneumonia, PE, COPD, DKA, ARF, appy, cholecystitis, CVA, Diverticulitis, Homicidal, Suicidal, threat to staff... and all critical care pts) @ -yes Reevaluation #5: Differential Dyspnea: Coronary syndrome, arrhythmia, tamponade, asthma, COPD, pulmonary embolism, pneumonia, pneumothorax, pulmonary effusion, anaphylaxis, diabetic ketoacidosis, flailed chest, pulmonary contusion, diaphragmatic rupture, anemia, neuromuscular, this is not meant to be an all-inclusive list. Medical Decision Making - Medical Decision Making 28 female with multiple complaints. No acute findings noted here in the ER patient can be discharged home - Lab Data Result diagrams: 01/22/24 17:39 01/22/24 17:39 Lab Results 01/22/24 01/22/24 01/22/24 Range/Units 17:39 17:39 17:39 WBC 9.1 (3.8-10.6) k/uL RBC 4.94 (3.80-5.40) m/uL Hgb 13.7 (11.4-16.0) gm/dL Hct 40.6 (34.0-46.0) % MCV 82.3 (80.0-100.0) fL MCH 27.8 (25.0-35.0) pg MCHC 33.8 (31.0-37.0) g/dL RDW 13.8 (11.5-15.5) % Plt Count 217 (150-450) k/uL MPV 7.2 Neutrophils % 76 % Lymphocytes % 13 % Monocytes % 5 % Eosinophils % 5 % Basophils % 0 % Neutrophils # 6.8 (1.3-7.7) k/uL Lymphocytes # 1.2 (1.0-4.8) k/uL Monocytes # 0.4 (0-1.0) k/uL Eosinophils # 0.4 (0-0.7) k/uL Basophils # 0.0 (0-0.2) k/uL PT 10.4 (10.0-12.5) sec INR 0.9 (<1.2) APTT 24.8 (22.0-30.0) sec D-Dimer 0.71 H (<0.60) mg/L FEU Sodium 136 L (137-145) mmol/L Potassium 3.9 (3.5-5.1) mmol/L Chloride 103 (98-107) mmol/L Carbon Dioxide 25 (22-30) mmol/L Anion Gap 8 mmol/L BUN 13 (7-17) mg/dL Creatinine 0.77 (0.52-1.04) mg/dL Est GFR (CKD-EPI)AfAm >90 (>60 ml/min/1.73 sqM) Est GFR (CKD-EPI)NonAf >90 (>60 ml/min/1.73 sqM) Glucose 104 H (74-99) mg/dL Plasma Lactic Acid Alec (0.7-2.0) mmol/L Calcium 8.8 (8.4-10.2) mg/dL Phosphorus 4.3 (2.5-4.5) mg/dL Magnesium 1.8 (1.6-2.3) mg/dL Total Bilirubin 0.7 (0.2-1.3) mg/dL AST 31 (14-36) U/L ALT 84 H (4-34) U/L Alkaline Phosphatase 93 (38-126) U/L Total Protein 6.8 (6.3-8.2) g/dL Albumin 3.9 (3.5-5.0) g/dL Lipase 40 (23-300) U/L Influenza Type A (PCR) (Not Detectd) Influenza Type B (PCR) (Not Detectd) RSV (PCR) (Not Detectd) SARS-CoV-2 (PCR) (Not Detectd) 01/22/24 01/22/24 Range/Units 17:39 17:41 WBC (3.8-10.6) k/uL RBC (3.80-5.40) m/uL Hgb (11.4-16.0) gm/dL Hct (34.0-46.0) % MCV (80.0-100.0) fL MCH (25.0-35.0) pg MCHC (31.0-37.0) g/dL RDW (11.5-15.5) % Plt Count (150-450) k/uL MPV Neutrophils % % Lymphocytes % % Monocytes % % Eosinophils % % Basophils % % Neutrophils # (1.3-7.7) k/uL Lymphocytes # (1.0-4.8) k/uL Monocytes # (0-1.0) k/uL Eosinophils # (0-0.7) k/uL Basophils # (0-0.2) k/uL PT (10.0-12.5) sec INR (<1.2) APTT (22.0-30.0) sec D-Dimer (<0.60) mg/L FEU Sodium (137-145) mmol/L Potassium (3.5-5.1) mmol/L Chloride (98-107) mmol/L Carbon Dioxide (22-30) mmol/L Anion Gap mmol/L BUN (7-17) mg/dL Creatinine (0.52-1.04) mg/dL Est GFR (CKD-EPI)AfAm (>60 ml/min/1.73 sqM) Est GFR (CKD-EPI)NonAf (>60 ml/min/1.73 sqM) Glucose (74-99) mg/dL Plasma Lactic Acid Alec 1.2 (0.7-2.0) mmol/L Calcium (8.4-10.2) mg/dL Phosphorus (2.5-4.5) mg/dL Magnesium (1.6-2.3) mg/dL Total Bilirubin (0.2-1.3) mg/dL AST (14-36) U/L ALT (4-34) U/L Alkaline Phosphatase (38-126) U/L Total Protein (6.3-8.2) g/dL Albumin (3.5-5.0) g/dL Lipase (23-300) U/L Influenza Type A (PCR) Not Detected (Not Detectd) Influenza Type B (PCR) Not Detected (Not Detectd) RSV (PCR) Not Detected (Not Detectd) SARS-CoV-2 (PCR) Not Detected (Not Detectd) - Radiology Data Radiology results: report reviewed (Chest x-ray CTA chest abdomen pelvis negative for acute disease), image reviewed Disposition Clinical Impression: Nausea & vomiting Disposition: HOME SELF-CARE Condition: Good Instructions (If sedation given, give patient instructions): Acute Nausea and Vomiting (ED) Is patient prescribed a controlled substance at d/c from ED?: No Referrals: Bobby Riley MD [Primary Care Provider] - 1-2 days Time of Disposition: 19:30
[2024-01-22] MEDS: SODIUM CHLORIDE 0.9% 1,000 ML IV STA (17:47)
[2024-01-22] MEDS: SODIUM CHLORIDE 0.9% 500 ML 500 ML IV STA (17:48)
[2024-01-22] MEDS: ONDANSETRON 4 MG/2 ML VIAL IVP STA (17:49)
[2024-01-22] MEDS: PANTOPRAZOLE 40 MG/10 ML VIAL IVP STA (17:51)
[2024-01-22 18:03] LABS: Basophils % (A) 0 %; Eosinophils # (A) 0.4 k/uL (0-0.7); Eosinophils % (A) 5 %; HCT 40.6 % (34.0-46.0); HGB 13.7 gm/dL (11.4-16.0); Lymphocytes # (A) 1.2 k/uL (1.0-4.8); Lymphocytes % (A) 13 %; MCH 27.8 pg (25.0-35.0); MCHC 33.8 g/dL (31.0-37.0); MCV 82.3 fL (80.0-100.0); Mean Platelet Volume 7.2; Monocytes # (A) 0.4 k/uL (0-1.0); Monocytes % (A) 5 %; Neutrophils # (A) 6.8 k/uL (1.3-7.7); Neutrophils % (A) 76 %; Platelet Count 217 k/uL (150-450); RBC 4.94 m/uL (3.80-5.40); RDW 13.8 % (11.5-15.5); WBC 9.1 k/uL (3.8-10.6)
[2024-01-22 18:12] LABS: ALT 84 U/L (4-34); AST 31 U/L (14-36); African American GFR (CKD) >90 (>60 ml/min/1.73 sqM); Albumin 3.9 g/dL (3.5-5.0); Alkaline Phosphatase 93 U/L (38-126); Anion Gap 8 mmol/L; Blood Urea Nitrogen 13 mg/dL (7-17); Calcium 8.8 mg/dL (8.4-10.2); Carbon Dioxide 25 mmol/L (22-30); Chloride 103 mmol/L (98-107); Glucose 104 mg/dL (74-99); Lipase 40 U/L (23-300); Magnesium 1.8 mg/dL (1.6-2.3); Non-African American GFR(CKD) >90 (>60 ml/min/1.73 sqM); Phosphorus 4.3 mg/dL (2.5-4.5); Potassium 3.9 mmol/L (3.5-5.1); Sodium 136 mmol/L (137-145); Total Bilirubin 0.7 mg/dL (0.2-1.3); Total Protein 6.8 g/dL (6.3-8.2)
--- NOTE | 2024-01-22 18:14 | XR ---
EXAMINATION TYPE: XR chest 2V DATE OF EXAM: 01/22/2024 6:08 PM COMPARISON: Prior chest radiograph 02/03/2022. CLINICAL INDICATION: Female, 28 years old with history of cough; [facility] TECHNIQUE: XR chest 2V Frontal and lateral views of the chest. FINDINGS: Lungs/Pleura: There is no evidence of pleural effusion, focal consolidation, or pneumothorax. Pulmonary vascularity: Unremarkable. Heart/mediastinum: Cardiomediastinal silhouette is unremarkable. Musculoskeletal: No acute osseous pathology. Other findings: None IMPRESSION: No acute cardiopulmonary disease/process. [facility], , 01/22/2024 6:12 PM
[2024-01-22 18:19] LABS: INR 0.9 (<1.2); Partial Thromboplastin Time 24.8 sec (22.0-30.0); Prothrombin Time 10.4 sec (10.0-12.5)
[2024-01-22] MEDS: HYDROmorphone 1 MG/ML 1 ML SYRINGE IVP STA (18:41)
[2024-01-22 18:48] VITALS: RESP 18
--- NOTE | 2024-01-22 19:17 | CT ---
EXAMINATION TYPE: CT angio chest DATE OF EXAM: 01/22/2024 7:08 PM COMPARISON: Chest radiograph 01/22/2024. CLINICAL INDICATION: Female, 28 years old with history of pain; ELEVATED D-DIMER AND ADBOMINAL PAIN TECHNIQUE/CONTRAST: CTA scan of the thorax is performed with IV Contrast, patient injected with 100ML mL of Isovue 300, M IP images are created and reviewed these are created on a separate workstation.. CT DLP: 2819.9 mGycm, Automated exposure control for dose reduction was used. FINDINGS: Pulmonary Artery: There is no evidence for a filling defect within the pulmonary vasculature to sugge st acute pulmonary embolism. The pulmonary artery is of normal size. Lungs/Pleura: No evidence of focal consolidation, pleural effusion or pneumothorax. Airway: Large airways are patent. Heart: Heart is within normal limits for size. Vasculature: No evidence of aortic aneurysm. Mediastinum: No gross evidence of adenopathy. Musculoskeletal: No acute osseous abnormalities Soft Tissues/lymph nodes: Unremarkable. Lower neck: No significant findings. Upper Abdomen: No acute findings. Steatosis and borderline mild thyromegaly. IMPRESSION: No evidence of acute pulmonary embolism or acute pulmonary pathology. [facility], , 01/22/2024 7:15 PM
--- NOTE | 2024-01-22 19:21 | CT ---
EXAMINATION TYPE: CT abdomen pelvis w con DATE OF EXAM: 01/22/2024 7:11 PM COMPARISON: None available. CLINICAL INDICATION: Female, 28 years old with history of pain; ELEVATED D-DIMER AND ADBOMINAL PAIN TECHNIQUE: Axial CT abdomen pelvis w con;Sagittal and coronal reformats were created on a separate w orkstation. Contrast used:100ML mL of Isovue 370 with IV Contrast, (none if empty) Oral contrast used: without Oral Contrast (none if empty) CT DLP: 2819.9 mGycm, Automated exposure control for dose reduction was used. FINDINGS: LOWER CHEST: Unremarkable ABDOMEN LIVER: Unremarkable GALLBLADDER AND BILE DUCTS: The gallbladder is surgically absent. PANCREAS: Unremarkable. SPLEEN: Unremarkable. ADRENAL GLANDS: Unremarkable. KIDNEYS AND URETERS: No evidence of hydronephrosis or renal calculus. The ureters are unremarkable. PELVIS BLADDER: No evidence for wall thickening or mass given limitations of exam. REPRODUCTIVE: Unremarkable. ABDOMEN & PELVIS STOMACH AND BOWEL: Stomach and duodenum are unremarkable. Appendix unremarkable. No evidence of bowel obstruction. PERITONEUM/RETROPERITONEUM: No evidence of pneumoperitoneum or free fluid. VASCULATURE: No evidence of aortic aneurysm. MUSCULOSKELETAL: No acute osseous abnormalities. Bilateral L5 pars defects, likely chronic. LYMPH NODES: No gross evidence for lymphadenopathy. SOFT TISSUE/ABDOMINAL WALL: Unremarkable IMPRESSION: 1. No acute abnormality in the abdomen/pelvis. 2. Hepatic steatosis. [facility], , 01/22/2024 7:18 PM
[2024-01-22] MEDS: ONDANSETRON 4 MG ODT STARTER PACK 2 TAB BTL PO STA (20:07)
[2024-01-22] MEDS: ACET/COD 300 MG/30 MG STARTER PACK 6 TAB BTL PO STA (20:07)
[2024-01-22 20:14] VITALS: BP 122/90; PULSE 87; TEMP 97.6
== END 2024-01-22 20:13 | disposition home or self-care (01) ==
LOC: EC 17:00
DX: R11.2 Nausea with vomiting, unspecified (principal); F17.200 Nicotine dependence, unspecified, uncomplicated; Z88.8 Allergy status to other drugs, medicaments and biological substances; Z91.018 Allergy to other foods
CPT/HCPCS: 85379; 80053; 83605; 83690; 83735; 84100; 85025; 85610; 85730; 87040; 87636; 71046; 71275; 74177; 99284; 96374; 96375 ×2; 96361; J2405; J1171; S0119; Q9967; J2470; 36415

== ENCOUNTER 2024-02-19 13:37 | Emergency (ER) | payer OTHER ==
[2024-02-19 13:50] VITALS: TEMP 98.5
--- NOTE | 2024-02-19 14:15 | XR ---
EXAMINATION TYPE: XR chest 2V DATE OF EXAM: 02/19/2024 2:09 PM COMPARISON: Chest radiograph, most recently dated 01/22/2024. CLINICAL INDICATION: Female, 28 years old with history of cough; [facility] TECHNIQUE: XR chest 2V Frontal and lateral views of the chest. FINDINGS: Cardiac silhouette within normal limits for size. Questionable developing infiltrate in the right lower lobe, best visualized on lateral view. No pneumothorax. No pleural effusion. No acute osseous abnormality. IMPRESSION: Questionable developing infiltrate in the right lower lobe which could reflect atelectasis and/or pne umonia. [facility], , 02/19/2024 2:13 PM
--- NOTE | 2024-02-19 14:46 | ED ---
URI HPI - General Chief Complaint: Upper Respiratory Infection Stated Complaint: cough Time Seen by Provider: 02/19/24 13:54 Source: patient, RN notes reviewed Mode of arrival: wheelchair Limitations: no limitations - History of Present Illness Initial Comments: 28-year-old female returns emergency department complaint cough congestion x 1 month. Patient states she started after her kids were sick. Patient states she has productive cough states she is coughing so hard she urinates some time. She does have urinary frequency she is 2 months status post . Patient said on and off fevers chills nausea. Patient denies any headache or dizziness currently. She states that she is very weak, rundown feeling. - Related Data Home Medications Medication Instructions Recorded Confirmed Cephalexin [Keflex] 500 mg PO DIRECTED 01/22/24 01/22/24 Sulfamethox-Tmp 800-160Mg [Bactrim 1 tab PO DIRECTED 01/22/24 01/22/24 Ds] Previous Rx's Medication Instructions Recorded Amoxic-Pot Clav 875-125Mg 1 tab PO Q12HR #20 tab 02/19/24 [Augmentin 875-125] Benzonatate [Tessalon Perle] 200 mg PO Q8HR #30 capsule 02/19/24 Allergies Allergy/AdvReac Type Severity Reaction Status Date / Time diphenhydramine HCl Allergy Intermediate Rash/Hives Verified 02/19/24 13:51 [From Benadryl] tomato Allergy Rash/Hives Verified 02/19/24 13:51 Review of Systems ROS Statement: Those systems with pertinent positive or pertinent negative responses have been documented in the HPI. ROS Other: All systems not noted in ROS Statement are negative. Past Medical History Past Medical History: Asthma Additional Past Medical History / Comment(s): Hx of delivery x 3, gestational diabetes History of Any Multi-Drug Resistant Organisms: None Reported Past Surgical History: Adenoidectomy, Section, Cholecystectomy, Tonsillectomy Additional Past Surgical History / Comment(s): tonsillectomy, adnoidectomy Past Anesthesia/Blood Transfusion Reactions: No Reported Reaction Past Psychological History: Anxiety, Depression, PTSD Smoking Status: Current every day smoker Past Alcohol Use History: None Reported Past Drug Use History: Marijuana - Past Family History Father History Unknown: Yes Family Medical History: Cancer Mother History Unknown: Yes Family Medical History: Congestive Heart Failure (CHF) Sister(s) Family Medical History: Coronary Artery Disease (CAD) Additional Family Medical History / Comment(s): Patient states that she has 5/2 sisters and one has from cervical palsy at age 14. She has 1 older sister that has schizophrenia and bipolar. Patient states that she has 11 half- brothers and one has passed. General Exam Limitations: no limitations General appearance: alert, in no apparent distress Head exam: Present: atraumatic, normocephalic, normal inspection Neck exam: Present: normal inspection. Absent: tenderness, meningismus, lymphadenopathy Respiratory exam: Present: normal lung sounds bilaterally. Absent: respiratory distress, wheezes, rales, rhonchi, stridor Cardiovascular Exam: Present: regular rate, normal rhythm, normal heart sounds. Absent: systolic murmur, diastolic murmur, rubs, gallop, clicks GI/Abdominal exam: Present: soft, normal bowel sounds. Absent: distended, tenderness, guarding, rebound, rigid Course Vital Signs 02/19/24 13:46 Temperature 98.5 F Pulse Rate 106 H Respiratory 18 Rate Blood Pressure 127/74 O2 Sat by Pulse 96 Oximetry Medical Decision Making - Medical Decision Making Was pt. sent in by a medical professional or institution (, PA, TILE FITTER, urgent care, hospital, or detention...) When possible be specific @ -No Did you speak to anyone other than the patient for history (EMS, parent, family, police, friend...)? What history was obtained from this source @ -No Did you review nursing and triage notes (agree or disagree)? Why? @ -I reviewed and agree with nursing and triage notes Were old charts reviewed (outside hosp., previous admission, EMS record, old EKG, old radiological studies, urgent care reports/EKG's, detention records)? Report findings @ -No old charts were reviewed Differential Diagnosis (chest pain, altered mental status, abdominal pain women, abdominal pain men, vaginal bleeding, weakness, fever, dyspnea, syncope, headache, dizziness, GI bleed, back pain, seizure, CVA, palpatations, mental health, musculoskeletal)? @ -[COVID 19, RSV, influenza, pneumonia, acute bronchitis, URI, this list is not all inclusive EKG interpreted by me (3pts min.). @ none X-rays interpreted by me (1pt min.). @ -Chest x-ray shows evidence of pneumonia CT interpreted by me (1pt min.). @ -None done U/S interpreted by me (1pt. min.). @ -None done What testing was considered but not performed or refused? (CT, X-rays, U/S, labs)? Why? @ -None What meds were considered but not given or refused? Why? @ -None Did you discuss the management of the patient with other professionals (professionals i.e. , PA, TILE FITTER, lab, RT, psych nurse, social group worker, rubber boots and shoes repairer, teacher, protection officer, rehabilitation case coordinator)? Give summary @ -No Was smoking cessation discussed for >3mins.? @ -No Was critical care preformed (if so, how long)? @ -No Were there social determinants of health that impacted care today? How? (Homelessness, low income, unemployed, alcoholism, drug addiction, transportation, low edu. Level, literacy, decrease access to med. care, care home, rehab)? @ -No Was there de-escalation of care discussed even if they declined (Discuss DNR or withdrawal of care, Hospice)? DNR status @ -No What co-morbidities impacted this encounter? (DM, HTN, Smoking, COPD, CAD, Cancer, CVA, ARF, Chemo, Hep., AIDS, mental health diagnosis, sleep apnea, morbid obesity)? @ -None Was patient admitted / discharged? Hospital course, mention meds given and route, prescriptions, significant lab abnormalities, going to OR and other pertinent info. @ -Discharge patient presented for URI symptoms patient has evidence pneumonia patient received Rocephin will be discharged on Augmentin. Return parameters irma. Undiagnosed new problem with uncertain prognosis? @ -No Drug Therapy requiring intensive monitoring for toxicity (Heparin, Nitro, Insulin, Cardizem)? @ -No Were any procedures done? @ -No Diagnosis/symptom? @ -Pneumonia Acute, or Chronic, or Acute on Chronic? @ -Acute Uncomplicated (without systemic symptoms) or Complicated (systemic symptoms)? @ -[Complicated Side effects of treatment? @ -No Exacerbation, Progression, or Severe Exacerbation? @ -No Poses a threat to life or bodily function? How? (Chest pain, [place], [place], pneumonia, PE, COPD, DKA, ARF, appy, cholecystitis, CVA, Diverticulitis, Homicidal, Suicidal, threat to staff... and all critical care pts) @ -No - Lab Data Lab Results 02/19/24 02/19/24 Range/Units 14:44 14:50 Urine Color Yellow Urine Appearance Clear (Clear) Urine pH 6.0 (5.0-8.0) Ur Specific Peerless 1.041 H (1.001-1.035) Urine Protein Trace H (Negative) Urine Glucose (UA) Negative (Negative) Urine Ketones Negative (Negative) Urine Blood Moderate H (Negative) Urine Nitrite Negative (Negative) Urine Bilirubin Negative (Negative) Urine Urobilinogen <2.0 (<2.0) mg/dL Ur Leukocyte Esterase Negative (Negative) Urine RBC 27 H (0-5) /hpf Urine WBC 1 (0-5) /hpf Ur Squamous Epith Cells 2 (0-4) /hpf Urine Bacteria Rare H (None) /hpf Hyaline Casts 2 (0-2) /lpf Urine Mucus Many H (None) /hpf Influenza Type A (PCR) Not Detected (Not Detectd) Influenza Type B (PCR) Not Detected (Not Detectd) RSV (PCR) Not Detected (Not Detectd) SARS-CoV-2 (PCR) Not Detected (Not Detectd) Disposition Clinical Impression: Pneumonia Disposition: HOME SELF-CARE Condition: Stable Instructions (If sedation given, give patient instructions): Pneumonia (ED) Additional Instructions: Please return to the Emergency Department if symptoms worsen or any other concerns. Prescriptions: Amoxic-Pot Clav 875-125Mg [Augmentin 875-125] 1 tab PO Q12HR #20 tab Benzonatate [Tessalon Perle] 200 mg PO Q8HR #30 capsule Is patient prescribed a controlled substance at d/c from ED?: No Referrals: Bobby Riley MD [Primary Care Provider] - 1-2 days Time of Disposition: 16:12
[2024-02-19] MEDS: guaiFENesin-Coden 100-10MG/5ML 10 ML CUP PO STA (14:54)
[2024-02-19] MEDS: ONDANSETRON ODT 4 MG TAB PO STA (14:54)
[2024-02-19 16:03] LABS: Appearance,Urine Clear (Clear); Bacteria,Urine Rare /hpf; Bilirubin,Urine Negative (Negative); Blood,Urine Moderate (Negative); Color,Urine Yellow; Glucose,Urine (UA) Negative (Negative); Hyaline Casts,Urine 2 /lpf (0-2); Ketones,Urine Negative (Negative); Leukocyte Esterase,Urine Negative (Negative); Mucus,Urine Many /hpf; Nitrite,Urine Negative (Negative); Protein,Urine Trace (Negative); RBC,Urine 27 /hpf (0-5); Specific Gravity,Urine 1.041 (1.001-1.035); Squamous Epithelial Cell,Urine 2 /hpf (0-4); Urobilinogen,Urine <2.0 mg/dL (<2.0); WBC,Urine 1 /hpf (0-5)
[2024-02-19] MEDS: cefTRIAXone 1,000 MG VIAL (IM USE) IM STA (16:18)
[2024-02-19] MEDS: ONDANSETRON 4 MG ODT STARTER PACK 2 TAB BTL PO STA (16:19)
[2024-02-19] MEDS: ACET/COD 300 MG/30 MG STARTER PACK 6 TAB BTL PO STA (16:19)
[2024-02-19 16:25] VITALS: BP 125/86; PULSE 94; RESP 16
== END 2024-02-19 16:25 | disposition home or self-care (01) ==
LOC: EC 13:37
DX: J18.9 Pneumonia, unspecified organism (principal); F17.200 Nicotine dependence, unspecified, uncomplicated; Z91.018 Allergy to other foods; Z88.8 Allergy status to other drugs, medicaments and biological substances
CPT/HCPCS: 81001; 87636; 71046; 99283; 96372; J0696; S0119

== ENCOUNTER → 2024-04-25 | Outpatient (CLI) | payer OTHER ==
--- NOTE | 2024-04-25 13:18 | MR ---
EXAMINATION TYPE: MR lumbar spine wo/w con DATE OF EXAM: 04/25/2024 COMPARISON: Lumbar spine x-ray May 25, 2022 HISTORY: Incontinence, Leg weakness TECHNIQUE: Multiplanar, multisequence images of the lumbar spine is performed without and with IV contrast, util izing 12 mL intravenous Gadobutrol FINDINGS: Sagittal images of the lumbar spine show vertebral body heights and alignment to appear sta ble and satisfactory. There is disc desiccation with mild to moderate disc space narrowing at L4-L5 l evel redemonstrated. The conus medullaris is normal in position and signal ending at mid L1 level. The bone marrow signal intensity is within normal limits. No suspicious postcontrast enhancement is s een. Tiny posterior disc herniation mildly effacing the anterior thecal sac at T10-T11 level on sagit sid image 7. Axial images show T12-L1 through L3-L4 levels appear within normal limits. Axial images at L4-L5 level show broad-based left paracentral disc protrusion effacing the anterior t hecal sac. Patent bilateral neural foramina. Axial images at L5-S1 level appear within normal limits. Paraspinal muscle bulk is maintained. IMPRESSION: Small posterior disc herniation L4-L5 level. No significant findings seen to account for patient's clinical symptoms noted above. [facility], , 04/25/2024 1:15 PM
== END | disposition home or self-care (01) ==
LOC: RADMRIMAIN 08:47
PROVIDERS: ATTEND Family Medicine
DX: M51.360 Other intervertebral disc degeneration, lumbar region with discogenic back pain only (principal); R32 Unspecified urinary incontinence; R53.1 Weakness
CPT/HCPCS: 72158; A9585

== ENCOUNTER → 2024-06-26 | Outpatient (CLI) | payer OTHER ==
[2024-06-26 13:21] VITALS: BP 122/79; PULSE 96; RESP 16; TEMP 98.2
--- NOTE | 2024-06-26 15:10 | P.PAINPG ---
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 Pt states pain level is provoked at 8 /10 in intensity, constant, localized in the lumbar spine, predominantly axial, sharp in character w occasional shooting pain towards the BLEs. Pain is provoked by lifting, bending. Pain is alleviated by PT x 5 wks which ended in May 2024, physician guided home exercises 4-5 times weekly since May 2024, medications, topical, repositioning and rest . Oswestry axial pain score at 22. PMH: OA, Asthma, MDD/ Anxiety/ PTSD PSH: Delivery x3, Adenoidectomy, Section, Cholecystectomy, Tonsillectomy SH: Daily tobacco use, No ETOH use, Cannabis use. Hx of Suicidal Ideation (06/2014) FH: Fa- CA. Mo- CHF. Sis- CAD. All: See list Medications include [place] 7.5/325mg from , CBD Oil REVIEW OF ORGAN SYSTEMS: CONSTITUTIONAL: No fevers or chills. No recent weight loss. NEUROLOGICAL: + numbness and tingling along the distal extremities. No seizure disorders or headaches. MUSCULOSKELETAL: + pain PSYCHIATRIC: Denies current depression or suicidal thoughts. Physical Examinations : Constitutional : Cooperative , not in acute distress . Neurologic : Cranial nerve II to XII intact. No focal neurological deficits. Psychiatric : alert & oriented x 3. Matching mood & appropriate affect. Judgment & insight intact. Musculoskeletal : Cervical Spine Motor strength in the deltoid and biceps: Normal right side. Normal Left side Motor strength biceps and the wrist extensors: Normal right side . Normal left side Motor strength in the triceps muscle: Normal right side. Normal left side Deep tendon reflexes: Normal at the biceps. Normal at Brachioradialis. Normal at triceps Vertebral body tenderness to deep palpation over Cervical facet loading test: positive bilaterally Spurling test: positive bilaterally Neck distraction test: positive bilaterally Omreo sign: positive bilaterally Lumbar spine Motor strength lower extremities ,thigh and legs 5/5 Right side , 5/5 Left side Deep tendon reflexes : Normal Knee Jerk. Normal Ankle Jerk Vertebral body tenderness over L4 Monroy Test positive Lumbar facet Loading Test: positive Right / positive Left Range of motion of the lumbar spine Flexion 30 degrees, extension 10 degrees Straight Leg Raise test: Left/ Right positive at < 30 degrees Galina test: positive right / positive left. Severe tenderness over the Sacroiliac joint on the Right / Left sides Gaenslen test: positive bilaterally Seated flexion test: positive bilaterally. Sacral spine : Severe tenderness over the Sacroiliac joint: right side / left side Range of motion: Flexion of the lumbar spine <60 degrees Range of motion: Extension of the lumbar spine <20 degrees Gaenslen's Test positive Galina test: positive right side / left side Thigh Thrust Test Sacral Thrust Test Imaging: MRI with/ without contrast lumbar spine from 04/25/24 reviewed X ray lumbar spine from 05/25/22 reviewed Assessment/ Plan : 1-2mm L4-L5 anterolisthesis Recommendation of MILENA L4-L5 #1. Risks, benefits of procedure discussed and patient verbalized understanding. Admits to anti- coagulant use or medical history of diabetes. Protocol for discontinuation/ continuation of medications ovi procedure discussed. All questions answered. I have spent greater than 30 minutes on patient care today. Dr Newman was available by phone for the evaluation of this patient. The time was used to review the medical records including relevant urine studies and Prescription history (MAPs), review of the available imaging, evaluation and examination of the patient, coordination of care with the medical staff and if applicable referring physicians, as well as creation of the medical record PQRS Narrative: Smoking Status Current every day smoker Home Medications: Ambulatory Orders Famotidine 40 mg PO 06/26/24 Fenofibrate [Lofibra] 160 mg PO DAILY 06/26/24 Gabapentin 600 mg PO TID 06/26/24 Hydrocodone/Acetaminophen [Hydrocodone/Acetaminophen 7.5-325] 1 tab PO Q8H 06/26/24 Hydrocortisone Oint [Hydrocortisone 2.5% Oint] 1 applic TOPICAL QID 06/26/24 Nicotine 21Mg/24Hr Patch [Habitrol] 1 each TRANSDERM DAILY 06/26/24 Omeprazole 40 mg PO 06/26/24 Orphenadrine [Norflex] 100 mg PO Q12H 06/26/24 diazePAM [Valium] 5 mg PO DAILY 1 Days #2 tab 06/26/24 ondansetron HCL [Zofran Oral Soln] 0 mg PO 06/26/24 Controlled Substance Measures - Controlled Substance Measures Is patient prescribed a controlled substance at discharge?: Yes When asked, does pt state using other controlled substances?: Yes If prescribed controlled substance>3 days was MAPS reviewed?: Prescribed <3 Days
== END ==
LOC: PNWHC3 12:04
PROVIDERS: ATTEND Specialist
DX: M43.16 Spondylolisthesis, lumbar region (principal); F17.200 Nicotine dependence, unspecified, uncomplicated; Z88.5 Allergy status to narcotic agent; Z91.018 Allergy to other foods

== ENCOUNTER 2024-07-07 16:44 | Emergency (ER) | payer OTHER ==
[2024-07-07 16:55] VITALS: TEMP 99.1
[2024-07-07 17:42] LABS: Influenza A Not Detected (Not Detectd); Influenza B Not Detected (Not Detectd); RSV Not Detected (Not Detectd)
--- NOTE | 2024-07-07 17:51 | XR ---
EXAMINATION TYPE: XR chest 2V DATE OF EXAM: 07/07/2024 5:08 PM COMPARISON: Chest radiographs from 03/24/2024 CLINICAL INDICATION: Female, 28 years old with history of cough; [facility] TECHNIQUE: XR chest 2V Frontal and lateral views of the chest. FINDINGS: Lungs/Pleura: There is no evidence of pleural effusion, focal consolidation, or pneumothorax. Pulmonary vascularity: Unremarkable. Heart/mediastinum: Cardiomediastinal silhouette is unremarkable. Musculoskeletal: No acute osseous pathology. IMPRESSION: No acute cardiopulmonary disease/process. [facility], , 07/07/2024 5:48 PM
--- NOTE | 2024-07-07 18:17 | ED ---
Nausea/Vomiting/Diarrhea HPI - General Chief complaint: Nausea/Vomiting/Diarrhea Stated complaint: Cough/Congestion/Headache Time Seen by Provider: 07/07/24 18:15 Source: patient, RN notes reviewed Mode of arrival: ambulatory - History of Present Illness Initial comments: 28-year-old female presenting for cough x 2 weeks. Patient reports a constant, productive cough that is worsening in quality. She does reports nasal congestion, left ear pain, headache, and subjective fevers at home. Reports she is coughing so hard that she is vomiting. Denies blood in mucus. Denies a bdominal pain. Denies history of cardiac or pulmonary conditions. She is a current everyday smoker. - Related Data Home Medications Medication Instructions Recorded Confirmed Famotidine 40 mg PO 06/26/24 Fenofibrate [Lofibra] 160 mg PO DAILY 06/26/24 06/26/24 Gabapentin 600 mg PO TID 06/26/24 06/26/24 Hydrocodone/Acetaminophen 1 tab PO Q8H 06/26/24 06/26/24 [Hydrocodone/Acetaminophen 7.5-325] Hydrocortisone Oint 1 applic TOPICAL QID 06/26/24 06/26/24 [Hydrocortisone 2.5% Oint] Nicotine 21Mg/24Hr Patch [Habitrol] 1 each TRANSDERM DAILY 06/26/24 06/26/24 Omeprazole 40 mg PO 06/26/24 Orphenadrine [Norflex] 100 mg PO Q12H 06/26/24 06/26/24 ondansetron HCL [Zofran Oral Soln] 0 mg PO 06/26/24 Previous Rx's Medication Instructions Recorded diazePAM [Valium] 5 mg PO DAILY 1 Days #2 tab 06/26/24 guaiFENesin [Mucinex] 600 mg PO Q12H PRN #15 tab 07/07/24 predniSONE [Deltasone] 40 mg PO DAILY #10 tab 07/07/24 Allergies Allergy/AdvReac Type Severity Reaction Status Date / Time diphenhydramine HCl Allergy Intermediate Rash/Hives Verified 07/07/24 16:56 [From Benadryl] tomato Allergy Rash/Hives Verified 07/07/24 16:56 Review of Systems ROS Statement: Those systems with pertinent positive or pertinent negative responses have been documented in the HPI. ROS Other: All systems not noted in ROS Statement are negative. Past Medical History Past Medical History: Asthma Additional Past Medical History / Comment(s): Hx of delivery x 3, gestational diabetes History of Any Multi-Drug Resistant Organisms: None Reported Past Surgical History: Adenoidectomy, Section, Cholecystectomy, Tonsillectomy Additional Past Surgical History / Comment(s): tonsillectomy, adnoidectomy Past Anesthesia/Blood Transfusion Reactions: No Reported Reaction Past Psychological History: Anxiety, Depression, PTSD Smoking Status: Current every day smoker, Vaper Past Alcohol Use History: None Reported Past Drug Use History: None Reported - Past Family History Father History Unknown: Yes Family Medical History: Cancer Mother History Unknown: Yes Family Medical History: Congestive Heart Failure (CHF) Sister(s) Family Medical History: Coronary Artery Disease (CAD) Additional Family Medical History / Comment(s): Patient states that she has 5/2 sisters and one has from cervical palsy at age 14. She has 1 older sister that has schizophrenia and bipolar. Patient states that she has 11 half- brothers and one has passed. General Exam General appearance: alert, in no apparent distress Head exam: Present: atraumatic, normocephalic, normal inspection Eye exam: Present: normal appearance, PERRL, EOMI. Absent: scleral icterus, conjunctival injection, periorbital swelling ENT exam: Present: normal exam, mucous membranes moist, TM's normal bilaterally Neck exam: Present: normal inspection. Absent: tenderness, meningismus, lymphadenopathy Respiratory exam: Present: normal lung sounds bilaterally. Absent: respiratory distress, wheezes, rales, rhonchi, stridor Cardiovascular Exam: Present: regular rate, normal rhythm, normal heart sounds. Absent: systolic murmur, diastolic murmur, rubs, gallop, clicks GI/Abdominal exam: Present: soft, normal bowel sounds. Absent: distended, tenderness, guarding, rebound, rigid Neurological exam: Present: alert, oriented X3 Psychiatric exam: Present: normal affect, normal mood Skin exam: Present: warm, dry, intact, normal color. Absent: rash Course Vital Signs 07/07/24 07/07/24 07/07/24 16:50 18:27 18:28 Temperature 99.1 F Pulse Rate 118 H 116 H Respiratory 18 22 Rate Blood Pressure 118/69 O2 Sat by Pulse 98 Oximetry 07/07/24 18:37 Temperature Pulse Rate 112 H Respiratory Rate Blood Pressure O2 Sat by Pulse Oximetry Medical Decision Making - Medical Decision Making Was pt. sent in by a medical professional or institution (MAYANK Rodas, CASING SOAKER, urgent care, hospital, or retirement...) When possible be specific @ -No Did you speak to anyone other than the patient for history (EMS, parent, family, police, friend...)? What history was obtained from this source @ -No Did you review nursing and triage notes (agree or disagree)? Why? @ -I reviewed and agree with nursing and triage notes Were old charts reviewed (outside hosp., previous admission, EMS record, old EKG, old radiological studies, urgent care reports/EKG's, retirement records)? Report findings @ -No old charts were reviewed Differential Diagnosis (chest pain, altered mental status, abdominal pain women, abdominal pain men, vaginal bleeding, weakness, fever, dyspnea, syncope, headache, dizziness, GI bleed, back pain, seizure, CVA, palpatations, mental health, musculoskeletal)? @ -Viral upper respiratory infection, pneumonia, bronchitis, COVID-19, influenza, otitis media EKG interpreted by me (3pts min.). @ -None X-rays interpreted by me (1pt min.). @ -Chest x-ray reveals no acute process CT interpreted by me (1pt min.). @ -None done U/S interpreted by me (1pt. min.). @ -None done What testing was considered but not performed or refused? (CT, X-rays, U/S, labs)? Why? @ -None What meds were considered but not given or refused? Why? @ -None Did you discuss the management of the patient with other professionals (professionals i.e. MAYANK Rodas, CASING SOAKER, lab, RT, psych nurse, secondary social studies teacher, aquaculture program director, teacher, chief diversity officer, correctional case manager)? Give summary @ -No Was smoking cessation discussed for >3mins.? @ -No Was critical care preformed (if so, how long)? @ -No Were there social determinants of health that impacted care today? How? (Homelessness, low income, unemployed, alcoholism, drug addiction, transportation, low edu. Level, literacy, decrease access to med. care, [facility], rehab)? @ -No Was there de-escalation of care discussed even if they declined (Discuss DNR or withdrawal of care, Hospice)? DNR status @ -No What co-morbidities impacted this encounter? (DM, HTN, Smoking, COPD, CAD, Cancer, CVA, ARF, Chemo, Hep., AIDS, mental health diagnosis, sleep apnea, morbid obesity)? @ -None Was patient admitted / discharged? Hospital course, mention meds given and route, prescriptions, significant lab abnormalities, going to OR and other pertinent info. @ -Discharge. 28-year-old female presenting for cough x 2 weeks with associated nasal congestion, left ear pain, headaches. Temperature is 99.1, tachycardic at 118 bpm, satting 98% on room air. Patient is well-appearing, no acute distress. Provided with steroid, ibuprofen, and DuoNeb. Patient is negative for COVID- 19, influenza, and RSV. Chest x-ray reveals no acute process. Upon reevaluation, patient reports mild improvement of symptoms. Discussed diagnosis of acute bronchitis. Patient will be given course of outpatient steroids. Appropriate return precautions and supportive care discussed. Case was discussed with my ED attending Dr. Card. Undiagnosed new problem with uncertain prognosis? @ -No Drug Therapy requiring intensive monitoring for toxicity (Heparin, Nitro, Insulin, Cardizem)? @ -No Were any procedures done? @ -No Diagnosis/symptom? @ -Acute bronchitis Acute, or Chronic, or Acute on Chronic? @ -Acute Uncomplicated (without systemic symptoms) or Complicated (systemic symptoms)? @ -Uncomplicated Side effects of treatment? @ -No Exacerbation, Progression, or Severe Exacerbation? @ -No Poses a threat to life or bodily function? How? (Chest pain, [place], [place], pneumonia, PE, COPD, DKA, ARF, appy, cholecystitis, CVA, Diverticulitis, Homicidal, Suicidal, threat to staff... and all critical care pts) @ -No - Lab Data Lab Results 07/07/24 Range/Units 16:59 Influenza Type A (PCR) Not Detected (Not Detectd) Influenza Type B (PCR) Not Detected (Not Detectd) RSV (PCR) Not Detected (Not Detectd) SARS-CoV-2 (PCR) Not Detected (Not Detectd) Disposition Clinical Impression: Acute bronchitis Disposition: HOME SELF-CARE Condition: Stable Instructions (If sedation given, give patient instructions): Acute Bronchitis (ED) Additional Instructions: Start prednisone tomorrow as prescribed. Use cough syrup as needed. Please return to the Emergency Department if symptoms worsen or any other concerns. Prescriptions: predniSONE [Deltasone] 40 mg PO DAILY #10 tab guaiFENesin [Mucinex] 600 mg PO Q12H PRN #15 tab PRN Reason: Cough Is patient prescribed a controlled substance at d/c from ED?: No Referrals: Bobby Riley MD [Primary Care Provider] - 1-2 days Time of Disposition: 19:06
[2024-07-07] MEDS: ONDANSETRON ODT 4 MG TAB PO STA (18:22)
[2024-07-07] MEDS: DEXAMETHASONE SOD PHOSPHATE 10 MG/ML 1 ML VIAL IM STA (18:23)
[2024-07-07] MEDS: IBUPROFEN 800 MG TAB PO STA (18:24)
[2024-07-07] MEDS: IPRATROPIUM-ALBUTEROL 3 ML NEB INHALATION STA (18:27)
[2024-07-07 18:37] VITALS: RESP 22
[2024-07-07 19:14] VITALS: BP 128/79; PULSE 116
== END 2024-07-07 19:15 | disposition home or self-care (01) ==
LOC: EC 16:44
DX: J20.9 Acute bronchitis, unspecified (principal); R00.0 Tachycardia, unspecified; F17.290 Nicotine dependence, other tobacco product, uncomplicated; Z88.8 Allergy status to other drugs, medicaments and biological substances; Z91.018 Allergy to other foods
CPT/HCPCS: 94640; 87636; 71046; 99284; 96372; J1100